=== PATIENT | male | born 1960 | race African-American/Black ===

== ENCOUNTER 2023-05-29 16:33 | Emergency (ER) | payer OTHER, SELFPAY ==
[2023-05-29 17:07] VITALS: BP 118/82; PULSE 95; RESP 16; TEMP 36.9; O2SAT 95; BMI 39.4
--- NOTE | 2023-05-29 17:49 | ED_ITS ---
HPI - General Adult General Chief complaint: Skin/Abscess/Foreign Body Stated complaint: scabies Time Seen by Provider: 05/29/23 17:14 Source: patient Mode of arrival: ambulatory Limitations: no limitations History of Present Illness HPI narrative: 62-year-old male presents to the ED for itchiness and rash all over including chest. Patient exposed to confirm scabies case at longterm. Patient states other longterm members also symptomatic. Patient denies any chest pain or shortness of breath. Related Data Previous Rx's Medication Instructions Recorded permethrin 5 % topical cream 1 appl topical Q14D 2 doses #60 05/29/23 grams Allergies Allergy/AdvReac Type Severity Reaction Status Date / Time haloperidol [From Haldol] Allergy Unknown Verified 05/29/23 17:10 Penicillins Allergy Anaphylaxis Verified 05/29/23 17:10 Review of Systems 2 Review of Systems: Itchiness scabies rash Yes all other systems are reviewed and are negative PMFSH Social History Social History Advance Directives: No Advance Directives Information Provided: No Physical Exam ED Vital Signs: Vital Signs - 24 hr 05/29/23 17:07 Temperature 98.5 F Pulse Rate 95 Respiratory Rate 16 Blood Pressure 118/82 Pulse Oximetry 95 Oxygen Delivery Method Room Air BMI result Body Mass Index 39.4 Const General: cooperative, healthy appearing, comfortable, no acute distress, well developed, alert, awake and Physically active Orientation/consciousness: oriented to person, oriented to place, oriented to time and patient oriented x3 HENMT Head: Yes normal to inspection, Yes No palpable skull fracture present, Yes normocephalic and Yes atraumatic Eyes General: appearance normal, both eyes and all related structures Neck Neck: Yes normal visual inspection, Yes full ROM, Yes no lymphadenopathy, Yes no meningeal signs, Yes trachea midline, Yes supple, No anterior neck swelling and No tender Chest Chest palpation & inspection: normal inspection of the chest and normal palpation of entire chest wall Chest/axillae images: 2 1. Scabies rash Resp Effort & Inspection: normal respiratory effort and able to speak in complete sentences Auscultation: clear to auscultation bilaterally Cardio Jugular venous distension: no JVD Heart sounds: S1 normal heart sound present and S2 normal heart sound present GI Inspection: Yes normal to inspection Palpation (GI): Soft to palpation, not firm, nontender, no guarding and not rigid General: Yes no CVA tenderness Back/Spine/Pelvis Back: no CVA tenderness and No back tenderness Skin General skin exam: no rashes or lesions noted, elasticity normal and turgor normal Neuro General: oriented to person, oriented to place, oriented to time, patient oriented x3, gait normal, tone normal, moves all extremities, Normal light touch and pain sensation, no meningeal signs, no focal motor deficits, CN's II-XI intact bilaterally and normal sensation to monofilament Extrem General: Yes normal to inspection and Yes full ROM Psych Appearance: grossly normal, well kempt and not disheveled Medical Decision Making Medical Decision Making MDM Narrative: 62-year-old male presents to ED for generalized achiness and bumps on chest. Patient exposed to confirm case of scabies and longterm. Patient other longterm members also symptomatic. Patient denies any anaphylactic symptoms. Differential Diagnosis Differential Diagnoses: The differential diagnosis associated with the presentation includes (Scabies, bedbugs, contact dermatitis, allergic reaction) Admission/Observation Consideration of admission/observation: Escalation of care including admission/observation considered Independent Historian Clinical information obtained from an independent historian. History obtained from or confirmed by: Other (residential staff) External Record Review External record reviewed: Other (Prior visits) Prescription Management I considered prescription management with: Other (Permethrin) Social Determinants Patient?s care significantly limited by Social Determinants of Health including: Other Social Determinant of Health (Lives in longterm) Discharge Plan Discharge Clinical Impression: Scabies Patient Disposition: Home, Self-Care Instructions: Scabies (ED) Additional Instructions: Return to the ED immediately for swelling of lips, swelling of tongue, sensation of throat closing, facial swelling, chest pain, shortness of breath, worsening rash, fever, chills, or any other concerning symptoms Prescriptions: New permethrin 5 % cream 1 appl topical Q14D Qty: 60 0RF Rx Instructions: apply second treatment 14 days after first treatment if live lice remain. Leave on for 8 to 14 hours than wash by shower or bath Discharge Date/Time: 05/29/23 19:48 Print Language: Japanese
== END 2023-05-29 19:48 | disposition home or self-care (01) ==
PROVIDERS: Emergency Provider Emergency Medicine
DX: B86 Scabies (principal)
CPT/HCPCS: 99281; 99283

== ENCOUNTER 2023-08-20 13:35 | Outpatient (RCR) | payer OTHER, SELFPAY ==
--- NOTE | 2023-08-20 14:09 | W.PM.TMSCONS ---
Meds/Allergies Meds Narrative: Current medications clotrimazole 1% gabapentin 300 mg daily in the morning and 300 mg daily as needed for tremor and anxiety hydroxyzine 50 mg 4 times a day as needed Lipitor 40 mg daily meclizine 25 mg 4 times a day as needed Nexium 40 mg daily senna daily Seroquel 50 mg 4 times a day as needed for anxiety agitation 100 mg at bedtime as needed Topamax 50 mg twice a day for tremor Zestoretic 25 mg daily lexapro 20 mg guanfacine 2 mg hs perphenazine 16 mg daily Allergies Allergies Allergy/AdvReac Type Severity Reaction Status Date / Time haloperidol [From Haldol] Allergy Unknown Verified 05/29/23 17:10 Penicillins Allergy Anaphylaxis Verified 05/29/23 17:10 Assessment & Plan Assessment & Plan Plan Extensive records reviewed case discussed repeatedly with clinician Total time managing care of this patient today _70___ minutes.
--- NOTE | 2023-11-16 14:42 | PM.EVENT ---
Event Note Date of Service: 08/20/23 Event Note: Patient's case reviewed with referring provider information reviewed patient briefly seen reschedule for for evaluation after review of referral material Time Spent With Patient Time: Total time managing care of this patient today ____ minutes.
== END 2023-08-20 15:03 | disposition home or self-care (01) ==
LOC: HO.PTMS 13:35
PROVIDERS: Visit Provider Psychiatry & Neurology Psychiatry
DX: Z79.899 Other long term (current) drug therapy (principal)

== ENCOUNTER → 2023-10-16 12:30 | Outpatient (BNV) | payer OTHER, SELFPAY | PROVIDERS: Visit Provider Psychiatry & Neurology Psychiatry | DX: F33.2 Major depressive disorder, recurrent severe without psychotic features (principal); F43.12 Post-traumatic stress disorder, chronic | CPT/HCPCS: 90867; 90868 ==

== ENCOUNTER 2023-12-15 10:00 | Outpatient (RCR) | payer OTHER, SELFPAY ==
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
--- NOTE | 2023-10-16 23:23 | HO.TMSDAILY2 ---
TMS Daily Progress Note Daily TMS Progress Note Date of Service: 10/16/23 Week #: 1 Treatment #(06-10): 1 PHQ-9 Pre-Treatment (06-07): 18 PHQ-9 Most Recent (06-07): 18 Reviewed: TMS Tech Note Reviewed Verification: I have reviewed the TMS Cobbler Upper Note and agree with the contents. The patient remains a candidate to continue TMS treatment per protocol. Assessment and Plan (1) Major depressive disorder, recurrent severe without psychotic features: Status: Acute (2) Chronic post-traumatic stress disorder (PTSD): Status: Acute Plan second attempt remapping successful with gabapentin tapered tolerated first tx coil angle changed to 30
--- NOTE | 2023-10-20 11:35 | P.PNPS_ITS ---
TMS Daily Progress Note Daily TMS Progress Note Date of Service: 10/17/23 Week #: 1 Treatment #(06-10): 2 PHQ-9 Pre-Treatment (06-07): 18 PHQ-9 Most Recent (06-07): 18 Reviewed: TMS Tech Note Reviewed Verification: I have reviewed the TMS Public Improvement Inspector Note and agree with the contents. The patient remains a candidate to continue TMS treatment per protocol. Assessment and Plan (1) Major depressive disorder, recurrent severe without psychotic features: Status: Acute (2) Chronic post-traumatic stress disorder (PTSD): Status: Acute Plan pt with some post tx fatigue tolerating tx mt %inc gradually
--- NOTE | 2023-10-20 11:37 | P.PNPS_ITS ---
TMS Daily Progress Note Daily TMS Progress Note Date of Service: 10/20/23 Week #: 1 Treatment #(06-10): 3 PHQ-9 Pre-Treatment (06-07): 18 PHQ-9 Most Recent (06-07): 19 Reviewed: TMS Tech Note Reviewed Verification: I have reviewed the TMS Silvering Applicator Note and agree with the contents. The patient remains a candidate to continue TMS treatment per protocol. Assessment and Plan (1) Major depressive disorder, recurrent severe without psychotic features: Status: Acute Plan Calm cooperative no adverse effects noted tolerating treatment continue plan of care
--- NOTE | 2023-10-21 22:19 | P.PNPS_ITS ---
TMS Daily Progress Note Daily TMS Progress Note Date of Service: 10/21/23 Week #: 1 Treatment #(06-10): 1 PHQ-9 Pre-Treatment (06-07): 18 PHQ-9 Most Recent (06-07): 19 Reviewed: TMS Tech Note Reviewed Verification: I have reviewed the TMS Case Packer And Sealer Note and agree with the contents. The patient remains a candidate to continue TMS treatment per protocol. Assessment and Plan (1) Major depressive disorder, recurrent severe without psychotic features: Status: Acute Plan Calm cooperative minimal adverse effects noted tolerating treatment continue plan of care
--- NOTE | 2023-10-22 23:27 | HO.TMSDAILY2 ---
TMS Daily Progress Note Daily TMS Progress Note Date of Service: 10/22/23 Week #: 1 Treatment #(06-10): 5 PHQ-9 Pre-Treatment (06-07): 18 PHQ-9 Most Recent (06-07): 19 Reviewed: TMS Tech Note Reviewed Verification: I have reviewed the TMS Despatching And Receiving Clerk Note and agree with the contents. The patient remains a candidate to continue TMS treatment per protocol. Assessment and Plan (1) Major depressive disorder, recurrent severe without psychotic features: Status: Acute Plan Calm cooperative minimal adverse effects noted tolerating treatment continue plan of care
--- NOTE | 2023-10-23 22:49 | HO.TMSDAILY2 ---
TMS Daily Progress Note Daily TMS Progress Note Date of Service: 10/23/23 Week #: 2 Treatment #(06-10): 6 PHQ-9 Pre-Treatment (06-07): 18 PHQ-9 Most Recent (06-07): 19 Reviewed: TMS Tech Note Reviewed Verification: I have reviewed the TMS Manager Special Events Note and agree with the contents. The patient remains a candidate to continue TMS treatment per protocol. Assessment and Plan (1) Major depressive disorder, recurrent severe without psychotic features: Status: Acute (2) Chronic post-traumatic stress disorder (PTSD): Status: Acute Plan MT gradually being increased no significant improvement to this point cooperative no significant change mental status no worsening
--- NOTE | 2023-10-27 10:11 | HO.TMSDAILY2 ---
TMS Daily Progress Note Daily TMS Progress Note Date of Service: 10/24/23 Week #: 2 Treatment #(06-10): 7 PHQ-9 Pre-Treatment (06-07): 18 PHQ-9 Most Recent (06-07): 19 Reviewed: TMS Tech Note Reviewed Verification: I have reviewed the TMS Hall Coordinator Note and agree with the contents. The patient remains a candidate to continue TMS treatment per protocol. Assessment and Plan (1) Major depressive disorder, recurrent severe without psychotic features: Status: Acute (2) Chronic post-traumatic stress disorder (PTSD): Status: Acute Plan MT gradually being increased secondary to some discomfort now at 110% otherwise generally tolerating treatment cooperative somewhat subdued during treatment but superficially pleasant
--- NOTE | 2023-10-27 10:13 | HO.TMSDAILY2 ---
TMS Daily Progress Note Daily TMS Progress Note Date of Service: 10/27/23 Week #: 2 Treatment #(06-10): 8 PHQ-9 Pre-Treatment (06-07): 18 PHQ-9 Most Recent (06-07): 19 Reviewed: TMS Tech Note Reviewed Verification: I have reviewed the TMS Preschool Special Education Teacher Note and agree with the contents. The patient remains a candidate to continue TMS treatment per protocol. Assessment and Plan (1) Major depressive disorder, recurrent severe without psychotic features: Status: Acute (2) Chronic post-traumatic stress disorder (PTSD): Status: Acute Plan MT gradually being increased ? some inc range of affect
--- NOTE | 2023-11-05 17:49 | P.PNPS_ITS ---
TMS Daily Progress Note Daily TMS Progress Note Date of Service: 10/28/23 Week #: 2 Treatment #(06-10): 9 PHQ-9 Pre-Treatment (06-07): 18 PHQ-9 Most Recent (06-07): 19 Reviewed: TMS Tech Note Reviewed Verification: I have reviewed the TMS Exhibit Preparator Note and agree with the contents. The patient remains a candidate to continue TMS treatment per protocol. Assessment and Plan (1) Major depressive disorder, recurrent severe without psychotic features: Status: Acute (2) Chronic post-traumatic stress disorder (PTSD): Status: Acute Plan MT gradually being increased some inc range of affect
--- NOTE | 2023-12-14 20:33 | P.PNPS_ITS ---
TMS Daily Progress Note Daily TMS Progress Note Date of Service: 10/30/23 Week #: 2 Treatment #(06-10): 10 PHQ-9 Pre-Treatment (06-07): 18 PHQ-9 Most Recent (06-07): 19 Reviewed: TMS Tech Note Reviewed Verification: I have reviewed the TMS Adjunct Faculty For Medical Terminology Note and agree with the contents. The patient remains a candidate to continue TMS treatment per protocol. Assessment and Plan (1) Major depressive disorder, recurrent severe without psychotic features: Status: Acute Plan missed prior tx secondary to medical test
--- NOTE | 2023-12-14 20:35 | P.PNPS_ITS ---
TMS Daily Progress Note Daily TMS Progress Note Date of Service: 10/31/23 Week #: 3 Treatment #(06-10): 11 PHQ-9 Pre-Treatment (06-07): 18 PHQ-9 Most Recent (06-07): 19 Reviewed: TMS Tech Note Reviewed Verification: I have reviewed the TMS Business Intelligence Etl Developer Note and agree with the contents. The patient remains a candidate to continue TMS treatment per protocol. Assessment and Plan (1) Major depressive disorder, recurrent severe without psychotic features: Status: Acute Plan Trying to become more independent from nursing home some improvement noted from the beginning of treatment
--- NOTE | 2023-12-14 20:39 | P.PNPS_ITS ---
TMS Daily Progress Note Daily TMS Progress Note Date of Service: 11/03/23 Week #: 3 Treatment #(06-10): 12 PHQ-9 Pre-Treatment (06-07): 18 PHQ-9 Most Recent (06-07): 19 Reviewed: TMS Tech Note Reviewed Verification: I have reviewed the TMS Regional Clinical Director Note and agree with the contents. The patient remains a candidate to continue TMS treatment per protocol. Assessment and Plan (1) Major depressive disorder, recurrent severe without psychotic features: Status: Acute Plan Patient is PHQ-9 remains somewhat static however he is functioning better making steps to see family to potentially move out of the house
--- NOTE | 2023-12-14 20:42 | HO.TMSDAILY2 ---
TMS Daily Progress Note Daily TMS Progress Note Date of Service: 11/04/23 Week #: 3 Treatment #(06-10): 13 PHQ-9 Pre-Treatment (06-07): 18 PHQ-9 Most Recent (06-07): 19 Reviewed: TMS Tech Note Reviewed Verification: I have reviewed the TMS Plastering Contractor Note and agree with the contents. The patient remains a candidate to continue TMS treatment per protocol. Assessment and Plan (1) Major depressive disorder, recurrent severe without psychotic features: Status: Acute Plan Functioning and quality of life seems to have improved PHQ-9 has not patient has some difficulty in the house
--- NOTE | 2023-12-14 20:45 | P.PNPS_ITS ---
TMS Daily Progress Note Daily TMS Progress Note Date of Service: 11/05/23 Week #: 3 Treatment #(06-10): 14 PHQ-9 Pre-Treatment (06-07): 18 PHQ-9 Most Recent (06-07): 19 Reviewed: TMS Tech Note Reviewed Verification: I have reviewed the TMS Flight Attendant/Inflight Manager Note and agree with the contents. The patient remains a candidate to continue TMS treatment per protocol. Assessment and Plan (1) Major depressive disorder, recurrent severe without psychotic features: Status: Acute Plan Treatment continues without problematic side effects
--- NOTE | 2023-12-14 20:47 | P.PNPS_ITS ---
TMS Daily Progress Note Daily TMS Progress Note Date of Service: 11/06/23 Week #: 3 Treatment #(06-10): 15 PHQ-9 Pre-Treatment (06-07): 18 PHQ-9 Most Recent (06-07): 19 Reviewed: TMS Tech Note Reviewed Verification: I have reviewed the TMS Steam Brush Operator Note and agree with the contents. The patient remains a candidate to continue TMS treatment per protocol. Assessment and Plan (1) Major depressive disorder, recurrent severe without psychotic features: Status: Acute Plan Treatment continues without problematic side effects
--- NOTE | 2023-12-14 20:49 | P.PNPS_ITS ---
TMS Daily Progress Note Daily TMS Progress Note Date of Service: 11/07/23 Week #: 4 Treatment #(06-10): 16 PHQ-9 Pre-Treatment (06-07): 18 PHQ-9 Most Recent (06-07): 19 Reviewed: TMS Tech Note Reviewed Verification: I have reviewed the TMS Class 1 Owner Operator Note and agree with the contents. The patient remains a candidate to continue TMS treatment per protocol. MT at 120% Assessment and Plan (1) Major depressive disorder, recurrent severe without psychotic features: Status: Acute Plan Treatment continues without problematic side effects no improvement noted on scales but improvement noted with patient
--- NOTE | 2023-12-14 20:51 | P.PNPS_ITS ---
TMS Daily Progress Note Daily TMS Progress Note Date of Service: 11/10/23 Week #: 4 Treatment #(06-10): 17 PHQ-9 Pre-Treatment (06-07): 18 PHQ-9 Most Recent (06-07): 19 Reviewed: TMS Tech Note Reviewed Verification: I have reviewed the TMS Collar Turner Operator Note and agree with the contents. The patient remains a candidate to continue TMS treatment per protocol. Assessment and Plan (1) Major depressive disorder, recurrent severe without psychotic features: Status: Acute Plan Treatment continues without problematic side effects no improvement noted on scales but improvement noted with patient at times
--- NOTE | 2023-12-14 21:37 | HO.TMSDAILY2 ---
TMS Daily Progress Note Daily TMS Progress Note Date of Service: 11/11/23 Week #: 4 Treatment #(06-10): 18 PHQ-9 Pre-Treatment (06-07): 18 PHQ-9 Most Recent (06-07): 19 Reviewed: TMS Tech Note Reviewed Verification: I have reviewed the TMS Truck Greaser Note and agree with the contents. The patient remains a candidate to continue TMS treatment per protocol.
--- NOTE | 2023-12-14 21:43 | P.PNPS_ITS ---
TMS Daily Progress Note Daily TMS Progress Note Date of Service: 11/12/23 Week #: 4 Treatment #(06-10): 19 PHQ-9 Pre-Treatment (06-07): 18 PHQ-9 Most Recent (06-07): 19 Reviewed: TMS Tech Note Reviewed Verification: I have reviewed the TMS Technologies Division Chair Note and agree with the contents. The patient remains a candidate to continue TMS treatment per protocol. Assessment and Plan (1) Major depressive disorder, recurrent severe without psychotic features: Status: Acute Plan Continue plan of care patient visiting family this weekend
--- NOTE | 2023-12-14 21:49 | HO.TMSDAILY2 ---
TMS Daily Progress Note Daily TMS Progress Note Date of Service: 11/17/23 Week #: 4 Treatment #(06-10): 20 PHQ-9 Pre-Treatment (06-07): 18 PHQ-9 Most Recent (06-07): 19 Reviewed: TMS Tech Note Reviewed Verification: I have reviewed the TMS Biology Faculty Member Note and agree with the contents. The patient remains a candidate to continue TMS treatment per protocol. Assessment and Plan (1) Major depressive disorder, recurrent severe without psychotic features: Status: Acute Plan Continue plan of care
--- NOTE | 2023-12-14 21:54 | P.PNPS_ITS ---
TMS Daily Progress Note Daily TMS Progress Note Date of Service: 11/18/23 Week #: 5 Treatment #(06-10): 21 PHQ-9 Pre-Treatment (06-07): 18 PHQ-9 Most Recent (06-07): 19 Reviewed: TMS Tech Note Reviewed Verification: I have reviewed the TMS Civil Litigation Attorney Note and agree with the contents. The patient remains a candidate to continue TMS treatment per protocol. Assessment and Plan (1) Major depressive disorder, recurrent severe without psychotic features: Status: Acute Plan cont plan of care no c/o s/e
--- NOTE | 2023-12-14 21:55 | P.PNPS_ITS ---
TMS Daily Progress Note Daily TMS Progress Note Date of Service: 11/18/23 Week #: 5 Treatment #(06-10): 21 PHQ-9 Pre-Treatment (06-07): 18 PHQ-9 Most Recent (06-07): 19 Reviewed: TMS Tech Note Reviewed Verification: I have reviewed the TMS Wildland Fire Fighter Note and agree with the contents. The patient remains a candidate to continue TMS treatment per protocol. Assessment and Plan (1) Major depressive disorder, recurrent severe without psychotic features: Status: Acute Plan Continue plan of care consider re map
--- NOTE | 2023-12-14 22:05 | HO.TMSDAILY2 ---
TMS Daily Progress Note Daily TMS Progress Note Date of Service: 11/19/23 Week #: 5 Treatment #(06-10): 22 PHQ-9 Pre-Treatment (06-07): 18 PHQ-9 Most Recent (06-07): 19 Reviewed: TMS Tech Note Reviewed Verification: I have reviewed the TMS Novelty Balloon Assembler And Packer Note and agree with the contents. The patient remains a candidate to continue TMS treatment per protocol. Assessment and Plan (1) Major depressive disorder, recurrent severe without psychotic features: Status: Acute Plan Continue plan of care consider re map
--- NOTE | 2023-12-14 22:07 | HO.TMSDAILY2 ---
TMS Daily Progress Note Daily TMS Progress Note Date of Service: 11/20/23 Week #: 5 Treatment #(06-10): 23 PHQ-9 Pre-Treatment (06-07): 18 PHQ-9 Most Recent (06-07): 19 Reviewed: TMS Tech Note Reviewed Verification: I have reviewed the TMS Secret Service Agent Note and agree with the contents. The patient remains a candidate to continue TMS treatment per protocol. Assessment and Plan (1) Major depressive disorder, recurrent severe without psychotic features: Status: Acute Plan Continue plan of care consider re map
--- NOTE | 2023-12-14 22:11 | HO.TMSDAILY2 ---
TMS Daily Progress Note Daily TMS Progress Note Date of Service: 11/21/23 Week #: 5 Treatment #(06-10): 24 PHQ-9 Pre-Treatment (06-07): 18 PHQ-9 Most Recent (06-07): 19 Reviewed: TMS Tech Note Reviewed Verification: I have reviewed the TMS City Maintenance Manager Note and agree with the contents. The patient remains a candidate to continue TMS treatment per protocol. Assessment and Plan (1) Major depressive disorder, recurrent severe without psychotic features: Status: Acute Plan Continue treatment functioning better rating generally has not improved unclear no side effects noted
--- NOTE | 2023-12-14 22:18 | P.PNPS_ITS ---
TMS Daily Progress Note Daily TMS Progress Note Date of Service: 11/24/23 Week #: 5 Treatment #(06-10): 25 PHQ-9 Pre-Treatment (06-07): 18 PHQ-9 Most Recent (06-07): 19 Reviewed: TMS Tech Note Reviewed Verification: I have reviewed the TMS Aircraft Structural Fitter Note and agree with the contents. The patient remains a candidate to continue TMS treatment per protocol. Assessment and Plan (1) Major depressive disorder, recurrent severe without psychotic features: Status: Acute Plan Continue treatment functioning better rating generally has not improved unclear no side effects noted
--- NOTE | 2023-12-14 22:23 | P.PNPS_ITS ---
TMS Daily Progress Note Daily TMS Progress Note Date of Service: 11/25/23 Week #: 5 Treatment #(06-10): 26 PHQ-9 Pre-Treatment (06-07): 18 PHQ-9 Most Recent (06-07): 19 Reviewed: TMS Tech Note Reviewed Verification: I have reviewed the TMS Programmer Engineering And Scientific Note and agree with the contents. The patient remains a candidate to continue TMS treatment per protocol. Assessment and Plan (1) Major depressive disorder, recurrent severe without psychotic features: Status: Acute Plan Continue plan of care
--- NOTE | 2023-12-14 22:25 | HO.TMSDAILY2 ---
TMS Daily Progress Note Daily TMS Progress Note Date of Service: 11/26/23 Week #: 6 Treatment #(06-10): 27 PHQ-9 Pre-Treatment (06-07): 18 PHQ-9 Most Recent (06-07): 19 Reviewed: TMS Tech Note Reviewed Verification: I have reviewed the TMS Sample Worker Note and agree with the contents. The patient remains a candidate to continue TMS treatment per protocol. Assessment and Plan (1) Major depressive disorder, recurrent severe without psychotic features: Status: Acute Plan Continue plan of care
--- NOTE | 2023-12-14 22:28 | P.PNPS_ITS ---
TMS Daily Progress Note Daily TMS Progress Note Date of Service: 11/27/23 Week #: 6 Treatment #(06-10): 28 PHQ-9 Pre-Treatment (06-07): 18 PHQ-9 Most Recent (06-07): 15 Reviewed: TMS Tech Note Reviewed Verification: I have reviewed the TMS Network Control Operator Note and agree with the contents. The patient remains a candidate to continue TMS treatment per protocol. Assessment and Plan (1) Major depressive disorder, recurrent severe without psychotic features: Status: Acute Plan cont plan of care
--- NOTE | 2023-12-14 22:31 | HO.TMSDAILY2 ---
TMS Daily Progress Note Daily TMS Progress Note Date of Service: 11/28/23 Week #: 6 Treatment #(06-10): 29 PHQ-9 Pre-Treatment (06-07): 18 PHQ-9 Most Recent (06-07): 15 Reviewed: TMS Tech Note Reviewed Verification: I have reviewed the TMS Stoker Erector And Servicer Note and agree with the contents. The patient remains a candidate to continue TMS treatment per protocol. Assessment and Plan (1) Major depressive disorder, recurrent severe without psychotic features: Status: Acute Plan Patient feeling much improved
--- NOTE | 2023-12-14 22:34 | HO.TMSDAILY2 ---
TMS Daily Progress Note Daily TMS Progress Note Date of Service: 12/01/23 Week #: 6 Treatment #(06-10): 30 PHQ-9 Pre-Treatment (06-07): 18 PHQ-9 Most Recent (06-07): 15 Reviewed: TMS Tech Note Reviewed Verification: I have reviewed the TMS Business Banking Sales Assistant Note and agree with the contents. The patient remains a candidate to continue TMS treatment per protocol. Assessment and Plan (1) Major depressive disorder, recurrent severe without psychotic features: Status: Acute Plan pt continues to engage in treatment no complaints of side effects
--- NOTE | 2023-12-14 22:36 | HO.TMSDAILY2 ---
TMS Daily Progress Note Daily TMS Progress Note Date of Service: 12/02/23 Week #: 7 Treatment #(06-10): 31 PHQ-9 Pre-Treatment (06-07): 18 PHQ-9 Most Recent (06-07): 15 Reviewed: TMS Tech Note Reviewed Verification: I have reviewed the TMS Utility Arborist Note and agree with the contents. The patient remains a candidate to continue TMS treatment per protocol. Assessment and Plan (1) Major depressive disorder, recurrent severe without psychotic features: Status: Acute Plan cont plan of care seems much improved
--- NOTE | 2023-12-14 22:40 | P.PNPS_ITS ---
TMS Daily Progress Note Daily TMS Progress Note Date of Service: 12/05/23 Week #: 7 Treatment #(06-10): 32 PHQ-9 Pre-Treatment (06-07): 18 PHQ-9 Most Recent (06-07): 15 Reviewed: TMS Tech Note Reviewed Verification: I have reviewed the TMS Reimbursement Consultant Note and agree with the contents. The patient remains a candidate to continue TMS treatment per protocol. Assessment and Plan (1) Major depressive disorder, recurrent severe without psychotic features: Status: Acute Plan cont plan of care
--- NOTE | 2023-12-14 22:43 | P.PNPS_ITS ---
TMS Daily Progress Note Daily TMS Progress Note Date of Service: 12/08/23 Week #: 7 Treatment #(06-10): 33 PHQ-9 Pre-Treatment (06-07): 18 PHQ-9 Most Recent (06-07): 15 Reviewed: TMS Tech Note Reviewed Verification: I have reviewed the TMS Angiography Nurse Note and agree with the contents. The patient remains a candidate to continue TMS treatment per protocol. Assessment and Plan (1) Major depressive disorder, recurrent severe without psychotic features: Status: Acute Plan cont plan of care
--- NOTE | 2023-12-14 22:46 | P.PNPS_ITS ---
TMS Daily Progress Note Daily TMS Progress Note Date of Service: 12/10/23 Week #: 8 Treatment #(06-10): 34 PHQ-9 Pre-Treatment (06-07): 18 PHQ-9 Most Recent (06-07): 15 Reviewed: TMS Tech Note Reviewed Verification: I have reviewed the TMS Recreational Therapist Note and agree with the contents. The patient remains a candidate to continue TMS treatment per protocol. Assessment and Plan (1) Major depressive disorder, recurrent severe without psychotic features: Status: Acute Plan cont plan of care
--- NOTE | 2023-12-14 22:49 | P.PNPS_ITS ---
TMS Daily Progress Note Daily TMS Progress Note Date of Service: 12/12/23 Week #: 8 Treatment #(06-10): 35 PHQ-9 Pre-Treatment (06-07): 18 PHQ-9 Most Recent (06-07): 15 Reviewed: TMS Tech Note Reviewed Verification: I have reviewed the TMS Brake Repair Mechanic Note and agree with the contents. The patient remains a candidate to continue TMS treatment per protocol. Assessment and Plan (1) Major depressive disorder, recurrent severe without psychotic features: Status: Acute Plan Patient states he feels much better PHQ-9 does not reflect this unclear if this is language issue or reading comprehension but patient states is feeling much better and functioning much better
--- NOTE | 2023-12-15 10:25 | P.PNPS_ITS ---
TMS Daily Progress Note Daily TMS Progress Note Date of Service: 12/15/23 Week #: 8 Treatment #(06-10): 36 PHQ-9 Pre-Treatment (06-07): 18 PHQ-9 Most Recent (06-07): 13 Reviewed: TMS Tech Note Reviewed Verification: I have reviewed the TMS Flag Signaler Note and agree with the contents. The patient remains a candidate to continue TMS treatment per protocol. Assessment and Plan (1) Major depressive disorder, recurrent severe without psychotic features: Status: Acute (2) Chronic post-traumatic stress disorder (PTSD): Status: Acute Plan Patient's quality of life ability to function ability to handle stress at his place that he is living in the skilled nursing has markedly improved. Patient is quite clear about this. He has felt when rating the PHQ-9 it relates to stress at the skilled nursing but internally the patient is able to enjoy things future oriented looking to move out getting part-time jobs spends time with family much more social and engaged marked improvement in dissociative episodes PTSD symptoms
--- NOTE | 2023-12-15 10:58 | HO.TMSDAILY2 ---
TMS Daily Progress Note Daily TMS Progress Note Date of Service: 12/15/23 Week #: 8 Treatment #(06-10): 36 PHQ-9 Pre-Treatment (06-07): 18 PHQ-9 Most Recent (06-07): 13 reevaluate with pt seems closer to 8 Reviewed: TMS Tech Note Reviewed Verification: I have reviewed the TMS Director Of Managed Care Note and agree with the contents. The patient remains a candidate to continue TMS treatment per protocol. Assessment and Plan (1) Major depressive disorder, recurrent severe without psychotic features: Status: Acute (2) Chronic post-traumatic stress disorder (PTSD): Status: Acute Plan Patient appears somewhat confused and how to fill out PHQ-9 GED patient markedly improved with quality of life able to function much higher level Mood much improved more relaxed able to enjoy things having some stress in relationship to living in the long-term but otherwise seems very significantly improved which is what he states
== END 2023-12-16 13:12 | disposition home or self-care (01) ==
LOC: HO.PTMS 10:00
PROVIDERS: Visit Provider Psychiatry & Neurology Psychiatry
DX: F33.2 Major depressive disorder, recurrent severe without psychotic features (principal); F43.12 Post-traumatic stress disorder, chronic; F44.9 Dissociative and conversion disorder, unspecified; F98.8 Other specified behavioral and emotional disorders with onset usually occurring in childhood and adolescence
CPT/HCPCS: 90867; 90868; 99205

== ENCOUNTER 2024-03-29 13:51 | Inpatient (IN) | payer OTHER, SELFPAY ==
--- NOTE | ~2024-03-29 | CT_ITS ---
EXAMINATION: CT CHEST, ABDOMEN AND PELVIS WITHOUT CONTRAST CLINICAL INFORMATION: Past medical history of achalasia. Trouble swallowing. Food stuck? COMPARISON: No pertinent prior studies are available for comparison. TECHNIQUE: Multidetector volumetric imaging was performed from the thoracic inlet through the pubic symphysis without IV contrast. Sagittal and coronal reformatted images were obtained on the technologist's workstation. This CT examination was performed using dose optimization techniques as appropriate, variously including the following: *Automated exposure control *Adjustment of mA and/or kV according to patient size (this includes techniques or standardized protocols for targeted exams where dose is matched to indication/reason for exam; i.e. extremities or head) *Use of iterative reconstruction technique DLP: 456 mGy-cm FINDINGS: CHEST: Lun 5 mm size nodules are present at the left lung base (7:381 and 394). No significant emphysematous changes are seen. There is mild diffuse bronchial thickening. The lungs are otherwise clear without concerning focal opacity or nodule. Mediastinum: The thyroid is markedly enlarged, right lobe greater than left, and compresses the trachea. The lobes of the thyroid essentially meet posteriorly in the region of the esophagus and are likely compressing the upper esophagus as well. The mid and lower esophagus are minimally dilated consistent with a history of achalasia. Small hiatal hernia may be present. Pericardium/Pleura: No significant effusion. No pleural mass or thickening. Coronary artery calcium: None appreciated Chest Wall/Axilla: Unremarkable ABDOMEN/PELVIS: Peritoneal Space: No significant free air or free fluid identified. Liver, Gallbladder, Biliary Tree: The liver is normal in size, shape, and attenuation. No focal hepatic lesion or biliary ductal dilatation is present. The gallbladder is unremarkable with no evidence of radiopaque gallstones, gallbladder wall thickening, or obvious pericholecystic inflammatory changes. Pancreas: Unremarkable Spleen: Unremarkable Adrenal Glands: Unremarkable Kidneys and Ureters: The kidneys are normal in size, shape, and attenuation. No hydronephrosis, hydroureter, or calculi seen. Bilateral benign Bosniak class I renal cysts are noted , right greater than left, which require no additional imaging or follow-up. No solid renal masses are seen. No perinephric stranding. Bladder: Unremarkable Gastrointestinal Tract: The small and large bowel are unremarkable. The appendix is unremarkable. Abdominal Wall: No significant hernia is appreciated. Lymph Nodes: No lymphadenopathy. Vascular: The aorta appears normal.. The IVC appears unremarkable. PELVIC VISCERA: There is moderate to marked BPH. Seminal vesicles appear normal. OSSEUS STRUCTURES: Mild degenerative changes are noted in the spine. No bony destructive or lesions are seen. CT/CT abdomen pelvis wo IV con IMPRESSION: 1. Markedly enlarged thyroid compressing the trachea and esophagus. This may be related to the patient's difficulty swallowing 2. Mildly dilated mid and distal esophagus consistent with a history of achalasia. 3. Two 5 mm size nodules left lung base. 4. Incidental note made of BPH and benign Bosniak class I renal cysts which need no additional imaging or follow-up. According to the UPDATED 2017 Fleischner Society recommendations, the advised follow-up imaging for solid nodules <6 mm in the middle/lower lobes is no routine follow up. Electronically signed by: Hemanth Anderson MD 03/29/2024 08:43 PM EST
[2024-03-29 14:06] VITALS: BP 126/84; PULSE 85; RESP 16; TEMP 37.2; O2SAT 98; BMI 35.6
--- NOTE | 2024-03-29 14:10 | ECG_ITS ---
Test Reason : VOMITTING Blood Pressure : / mmHG Vent. Rate : 081 BPM Atrial Rate : 081 BPM P-R Int : 186 ms QRS Dur : 090 ms QT Int : 376 ms P-R-T Axes : 056 042 041 degrees QTc Int : 436 ms Sinus rhythm with occasional Premature ventricular complexes Otherwise normal ECG No previous ECGs available Referred By: Tera Golden Electronically Signed By:AMALIA MORALES MD
--- NOTE | 2024-03-29 14:11 | ED_ITS ---
HPI - General Adult General Chief complaint: Nausea/Vomiting/Diarrhea Stated complaint: vomiting Time Seen by Provider: 03/29/24 23:19 Source: patient Limitations: language barrier History of Present Illness ED Provider: Pinky Jim PA-C HPI narrative: 63-year-old male with a history of ADD, dissociated disorder, PTSD and depression presents from nursing home with inability to swallow food and drank x3 days. Patient states he has been having issues for months, that the symptoms have progressed, when the patient attempts to swallow whole food, he regurgitates the bolus. He was previously able to tolerate liquid, however over the past 3 days he now regurgitates a liquid as well. Patient has not seen a Gastroenterology for this issue. Related Data Previous Rx's ?Medication ?Instructions ?Recorded ondansetron HCl (PF) 4 mg/2 mL 4 mg (2 mL) IVPUSH Q8H PRN Nausea 03/30/24 injection solution And Vomiting #1 mL pantoprazole 40 mg intravenous 40 mg IVPUSH DAILY@0630 #1 ea 03/30/24 solution (Protonix) Allergies Allergy/AdvReac Type Severity Reaction Status Date / Time haloperidol [From Haldol] Allergy Unknown Verified 03/29/24 14:08 Penicillins Allergy Anaphylaxis Verified 03/29/24 14:08 Review of Systems 2 Review of Systems: Yes all other systems are reviewed and are negative Constitutional: Constitutional: Denies fatigue and Denies fever(s) ENT: Reports dysphagia and Reports odynophagia Gastrointestinal: Gastrointestinal: Reports abdominal pain, Reports dysphagia, Reports dyspepsia, Reports nausea, Reports odynophagia and Reports vomiting Endocrine: Endocrine: Denies fatigue PMFSH Past Medical History Attestation statement: The following information was validated with the patient. Medical History Attention deficit disorder Dissociative disorder Chronic post-traumatic stress disorder (PTSD) Major depressive disorder, recurrent severe without psychotic features Social History Social History Patient Tobacco Use Status: Never used Tobacco service: No Physical Exam ED Vital Signs: Vital Signs - 24 hr 03/29/24 14:06 03/29/24 21:10 Temperature 99 F 98.1 F Pulse Rate 85 86 Respiratory Rate 16 16 Blood Pressure 126/84 130/83 Pulse Oximetry 98 97 Oxygen Delivery Method Room Air Room Air BMI result Body Mass Index 35.6 Const Other: Alert, well-appearing Orientation/consciousness: patient oriented x3 Resp Other: Nonlabored respirations Cardio Other: Normal peripheral perfusion GI Other: Abdomen is soft, nondistended obese, nontender no guarding Skin Other: Warm dry no rash Neuro General: patient oriented x3, no focal motor deficits and CN's II-XI intact bilaterally Psych Other: Calm cooperative Course Course Course Narrative: RME: 63 yold male with pmh of achalasia and esophageal issues presents to the ED for vomitting. Patient states when he eats food feels like esophagus does not open all the way and he has to vomiting the food. Patient states he has follow- up with Dr. Cornelia sandoval but his primary care sent him to the ED. patient is speaking in full sentences. Patient states able to drink fluid. Patient denies any abdominal pain, chest pain, shortness of breath, or dizziness. Patient denies any constipation. Patient states normal bowel movements. Abdomen is benign EKG labs ordered. Negative for any drooling in the mouth. Patient denies eating any meat or heavy food lately. Patient denies feeling food stuck in esophagus. Patient did not eat any breakfast this morning. just drinking fluids. not suspecting Food bolus. Medications Administered Discontinued Medications Generic Name Dose Route Start Last Admin Trade Name Freq PRN Reason Stop Dose Admin Potassium Chloride 10 meq in 100 mls @ 100 mls/hr 03/30/24 01:00 03/30/24 05:14 Potassium Chloride/H20 IV 03/30/24 04:59 Infused Q1H LUCINDA Infusion Sodium Chloride 1,000 mls @ 999 mls/hr 03/30/24 01:00 03/30/24 03:57 Ns IV 03/30/24 02:00 Infused .Q1H1M LUCINDA Infusion Sodium Chloride 1,000 mls @ 999 mls/hr 03/30/24 04:00 03/30/24 05:14 Ns IV 03/30/24 05:00 Infused .Q1H1M LUCINDA Infusion Lactated Ringer's 1,000 mls @ 80 mls/hr 03/30/24 16:30 03/30/24 17:27 Lr IVCONT 80 mls/hr .[id number] LUCINDA Administration Pantoprazole Sodium 40 mg 03/30/24 06:30 03/30/24 06:20 Pantoprazole Sodium 40 Mg/10 Ml Vial IVPUSH 40 mg DAILY@0630 LUCINDA Administration Sodium Chloride 3 ml 03/30/24 08:00 03/30/24 15:20 0.9 % Sodium Chloride Flush 3 Ml Syringe IVFLUSH 3 ml QSHIFT LUCINDA Administration Medical Decision Making Medical Decision Making MDM Narrative: 63-year-old male with a history of ADD, dissociated disorder, PTSD and depression presents from nursing home with inability to swallow food and drank x3 days. Patient states he has been having issues for months, that the symptoms have progressed, when the patient attempts to swallow whole food, he regurgitates the bolus. He was previously able to tolerate liquid, however over the past 3 days he now regurgitates a liquid as well. Patient has not seen a Gastroenterology for this issue. Problem: Psychiatric illness, dysphagia History: Per patient I have considered the following differential diagnoses: Esophageal dysmotility, achalasia, esophageal stricture, esophageal mass Plan: Patient is assessment began from triage, screening labs including CT chest and abdomen were obtained, the patient has findings consistent with achalasia, he requires GI consult given inability tolerate PO intake, will admit I have independently reviewed the following tests: Labs: No leukocytosis, not anemic, hypokalemia at 3.2, no additional electrolyte abnormalities, we need to obtain a magnesium, we will order 40 mEq of IV potassium CT abdomen and pelvis and chest: CT/CT abdomen pelvis wo IV con IMPRESSION: 1. Markedly enlarged thyroid compressing the trachea and esophagus. This may be related to the patient's difficulty swallowing 2. Mildly dilated mid and distal esophagus consistent with a history of achalasia. 3. Two 5 mm size nodules left lung base. 4. Incidental note made of BPH and benign Bosniak class I renal cysts which need no additional imaging or follow-up. According to the UPDATED 2017 Fleischner Society recommendations, the advised follow-up imaging for solid nodules <6 mm in the middle/lower lobes is no routine follow up. Electronically signed by: Hemanth Anderson MD 03/29/2024 08:43 PM [facility] [place] 03/30/24 05:28 03/30/24 05:28 Labs: Lab Results 03/29/24 03/29/24 Range/Units 14:52 21:18 WBC 6.4 (4.8-10.8) X10*3/uL RBC 6.08 H (4.60-5.80) X10*6/uL Hgb 14.0 (14.0-18.0) g/dl Hct 45.4 (42.0-52.0) % MCV 74.7 L (80.0-98.0) fL MCH 23.0 L (27.0-33.0) pg MCHC 30.8 L (31.0-36.0) g/dl RDW 17.7 H (11.0-16.0) % Plt Count 146 L (160-400) X10*3/uL MPV 10.1 (9.4-12.4) fL Immature Gran % (Auto) 0.3 (0.0-0.4) % Neut % (Auto) 45.4 (45-73) % Lymph % (Auto) 40.5 H (20-40) % [place] % (Auto) 8.0 (2-11) % Eos % (Auto) 5.3 H (0-4) % Baso % (Auto) 0.5 (0-2) % Lymph # (Auto) 2.6 (1.2-4.9) X10*3/uL [place] # (Auto) 0.5 (0.1-1.2) X10*3/uL Eos # (Auto) 0.3 (0.0-0.4) X10*3/uL Baso # (Auto) 0.0 (0.0-0.2) X10*3/uL Abs Immat Gran (auto) 0.02 (0.00-0.03) X10*3/uL Absolute Neuts (auto) 2.9 (2.0-8.3) x10*3/uL Absolute Nucleated RBC 0.000 (0.0-0.012) X10*3/uL Nucleated RBC % (auto) 0.0 (0.0-0.2) /100WBC PT 10.7 L (10.9-12.4) SEC INR 0.9 (0.9-1.1) APTT 35.1 (26.0-36.8) SEC Sodium 139 (135-145) mmol/L Potassium 3.2 L (3.3-5.1) mmol/L Chloride 107 (96-108) mmol/L Carbon Dioxide 27 (22-29) mmol/L Anion Gap 8 L (12-20) BUN 13 (9-16) mg/dL Creatinine 1.28 (0.5-1.4) mg/dL Estim Creat Clear Calc 87.7 Estimated GFR 57 Random Glucose 90 (60-115) mg/dL Calcium 8.8 (8.4-10.2) mg/dL Magnesium 1.9 (1.6-2.6) mg/dL Total Bilirubin 0.6 (0.0-1.0) mg/dL AST 36 (5-37) U/L ALT 36 (0-40) U/L Alkaline Phosphatase 84 (39-117) U/L Troponin I High Sens 3.7 (<3.5-35.0) ng/L Total Protein 7.3 (6.5-8.0) g/dL Albumin 4.1 (3.5-5.0) g/dL Lipase 22 (8-78) U/L Urine Color Yellow Urine Appearance Clear Urine pH 7.0 (5.0-9.0) Ur Specific [place] 1.015 (1.005-1.025) Urine Protein Negative (Neg-Trace) mg/dL Urine Glucose (UA) Negative (Negative) mg/dL Urine Ketones Negative (Negative) mg/dL Urine Blood Negative (Negative) Urine Nitrite Negative (Negative) Ur Leukocyte Esterase Small (1+) H (Negative) Urine RBC 0-2 (0-2) /HPF Urine WBC 6-10 (0-5) /HPF Ur Squamous Epith Cells 0-2 (0-2) /HPF Urine Bacteria None Seen (None Seen) Hyaline Casts 0-2 (0-2) /LPF Discharge Plan Discharge Clinical Impression: Achalasia Patient Disposition: Xfer [facility] Hospital Interventions: Acute Care Transfer Worksheet (ED) Last Done: 03/30/24 19:24 Discharge Date/Time: 03/30/24 20:18
[2024-03-29 14:55] LABS: MANUAL DIFF FLAG NO
[2024-03-29 14:59] LABS: Basophils Percent Auto 0.5 % (0-2); Eosinophils Absolute Auto 0.3 X10*3/uL (0.0-0.4); Eosinophils Percent Auto 5.3 % (0-4); Hematocrit 45.4 % (42.0-52.0); Imm Gran Abs Auto 0.02 X10*3/uL (0.00-0.03); Imm Gran Pct Auto 0.3 % (0.0-0.4); Lymphocytes Absolute Auto 2.6 X10*3/uL (1.2-4.9); Lymphocytes Percent Auto 40.5 % (20-40); Mean Corpuscular HGB Conc 30.8 g/dl (31.0-36.0); Mean Corpuscular Volume 74.7 fL (80.0-98.0); Mean Platelet Volume 10.1 fL (9.4-12.4); Monocytes Absolute Auto 0.5 X10*3/uL (0.1-1.2); Neutrophils Absolute Auto 2.9 x10*3/uL (2.0-8.3); Neutrophils Percent Auto 45.4 % (45-73); Platelet Count 146 X10*3/uL (160-400); Red Blood Count 6.08 X10*6/uL (4.60-5.80); Red Cell Distribution Width 17.7 % (11.0-16.0); White Blood Count 6.4 X10*3/uL (4.8-10.8)
[2024-03-29 15:02] LABS: INTERNATIONAL NORM RATIO 0.9 (0.9-1.1); Prothrombin Time 10.7 SEC (10.9-12.4)
[2024-03-29 15:05] LABS: Partial Thromboplastin Time 35.1 SEC (26.0-36.8)
[2024-03-29 15:12] LABS: Alanine Aminotransferase 36 U/L (0-40); Albumin Level 4.1 g/dL (3.5-5.0); Alkaline Phosphatase 84 U/L (39-117); Anion Gap 8 (12-20); Aspartate Amino Transferase 36 U/L (5-37); Bilirubin Total 0.6 mg/dL (0.0-1.0); Blood Urea Nitrogen 13 mg/dL (9-16); Calcium 8.8 mg/dL (8.4-10.2); Carbon Dioxide 27 mmol/L (22-29); Chloride 107 mmol/L (96-108); Creatinine Clr Calc Pharmacy 87.7; Estimated Glomerular Filt Rate 57; Glucose Random 90 mg/dL (60-115); Lipase 22 U/L (8-78); Potassium 3.2 mmol/L (3.3-5.1); Sodium 139 mmol/L (135-145); Total Protein 7.3 g/dL (6.5-8.0)
[2024-03-29 15:17] LABS: Troponin-I High Sensitivity 3.7 ng/L (<3.5-35.0)
[2024-03-29 21:10] VITALS: BP 130/83; PULSE 86; RESP 16; TEMP 36.7; O2SAT 97
[2024-03-29 21:29] LABS: Appearance Urine Clear; Color Urine Yellow; Glucose Urine UA Negative (Negative); Leukocyte Esterase Urine Small (1+) (Negative); Nitrite Urine Negative (Negative); Specific Gravity - Urine 1.015 (1.005-1.025); UMIC TRIGGER UACC YES; Urine Blood Negative (Negative); Urine Ketones Negative (Negative); Urine Protein Negative (Neg-Trace)
[2024-03-29 21:51] LABS: Bacteria Urine None Seen (None Seen); Hyaline Casts Urine 0-2 /LPF (0-2); RBC Urine 0-2 /HPF (0-2); Squamous Epithelial Cell Urine 0-2 /HPF (0-2); UACC Culture Trigger YES
[2024-03-30] VITALS (7 sets, daily range): BP systolic 101–129; BP diastolic 64–78; PULSE 72–91; RESP 16–19; TEMP 36.5–36.8; O2SAT 95–98
--- NOTE | 2024-03-30 01:00 | PC.NURSE ---
pt from home a&ox4, respirations even and unlabored, pt reporting onset of difficulty swallowing x3 days, pt also reports enlarged neck and some vomiting. on arrival, pt denies nausea and vomiting. pt reports he has not eaten in 3 days due to being unable to swallow. pt throat noted to be patent and no irritation noted. pt reports he typically has throat pain when attempting to swallow. 18G placed in left forearm, pt medicated per mar. pt normal sinus on tele.
[2024-03-30] MEDS: 0.9 % Sodium Chloride 1,000 ML 999 ML IV ×2 (01:08→03:58)
[2024-03-30] MEDS: Potassium Chloride/H20 10 MEQ/100 ML PIGGYBACK 100 MEQ IV ×4 (01:10→04:10)
--- NOTE | 2024-03-30 01:17 | P.HPHOSP_ITS ---
History of Present Illness Date of Service: 03/30/24 Chief Complaint: Dysphagia This is a 63-year-old male with pertinent history of achalasia status post surgery, hypertension, mixed hyperlipidemia, mood disorder, gastroesophageal reflux disease who presents to the emergency department for evaluation of difficulty with swallowing. Patient states 15 years ago he had surgery for achalasia. He has had occasional difficulty with swallowing over the last few months. Over the last 3 days, patient was unable to swallow solid or liquid due to dysphagia which has been persistent. It has been progressive and on the day of presentation, patient states everything that he ate or drank, was coming up. No pain with swallowing. Patient was referred to Gastroenterology by his PCP but he has not established care yet. No fever, chills, chest pain, palpitations, shortness of breath, changes in urinary or bowel habits. In the emergency department, imaging with enlarged thyroid Review of Systems 2 Constitutional: Constitutional: Reports no additional constitutional complaints ENT: Reports dysphagia Cardiovascular: Cardiovascular: Reports no additional cardiovascular complaints Respiratory: Respiratory: Reports no additional respiratory complaints Gastrointestinal: Gastrointestinal: Reports dysphagia Genitourinary: Genitourinary: Reports no additional male genitourinary complaints REPLACED BY [facility] Medical History Attention deficit disorder Dissociative disorder Chronic post-traumatic stress disorder (PTSD) Major depressive disorder, recurrent severe without psychotic features Pertinent family history: No family history of early CAD Social History Patient Tobacco Use Status: Never used Tobacco Smoked in Last 30 Days: No Use of substances other than those prescribed or required for medical reasons: No Advance Directives: No Advance Directives Information Provided: Yes Do you have a plan to hurt others: No Plan Nutrition Risks: No Nutritional Risk Meds Allergies Allergy/AdvReac Type Severity Reaction Status Date / Time haloperidol [From Haldol] Allergy Unknown Verified 03/29/24 14:08 Penicillins Allergy Anaphylaxis Verified 03/29/24 14:08 Active Medications: Current Medications Potassium Chloride (Potassium Chloride/H20) 10 meq in 100 mls @ 100 mls/hr IV Q1H LUCINDA Stop: 03/30/24 04:59 Last Admin: 03/30/24 01:10 Dose: 100 mls/hr Sodium Chloride (Ns) 1,000 mls @ 999 mls/hr IV .Q1H1M LUCINDA Stop: 03/30/24 02:00 Last Admin: 03/30/24 01:08 Dose: 999 mls/hr Physical Exam 2 Vital Signs and Narrative: Vital Signs: Last Vital Signs Temp 97.8 F 03/30/24 00:40 Pulse 84 03/30/24 00:40 Resp 18 03/30/24 00:40 BP 114/68 03/30/24 00:40 Pulse Ox 98 03/30/24 00:40 O2 Del Method Room Air 03/30/24 00:40 BMI result Body Mass Index 35.6 Middle-aged male lying in bed in no distress Neck supple, no JVD Regular rate and rhythm, S1-S2 heard Regular breath sounds bilaterally, no wheezing or crackles appreciated Abdomen soft nontender, no guarding, no rigidity Patient is awake, alert and oriented to self, place, time and person ; no focal motor deficit Psych: Normal mood No pedal edema Results Labs 03/29/24 14:52 03/29/24 14:52 Labs: Laboratory Results - last 24 hr 03/29/24 03/29/24 14:52 21:18 MCV 74.7 L MCH 23.0 L MCHC 30.8 L RDW 17.7 H Plt Count 146 L MPV 10.1 Immature Gran % (Auto) 0.3 Neut % (Auto) 45.4 Lymph % (Auto) 40.5 H Sunflower % (Auto) 8.0 Eos % (Auto) 5.3 H Baso % (Auto) 0.5 Lymph # (Auto) 2.6 Sunflower # (Auto) 0.5 Eos # (Auto) 0.3 Baso # (Auto) 0.0 Abs Immat Gran (auto) 0.02 Absolute Neuts (auto) 2.9 Absolute Nucleated RBC 0.000 Nucleated RBC % (auto) 0.0 PT 10.7 L INR 0.9 APTT 35.1 Anion Gap 8 L Estim Creat Clear Calc 87.7 Estimated GFR 57 Random Glucose 90 Calcium 8.8 Total Bilirubin 0.6 AST 36 ALT 36 Alkaline Phosphatase 84 Troponin I High Sens 3.7 Total Protein 7.3 Albumin 4.1 Lipase 22 Urine Color Yellow Urine Appearance Clear Urine pH 7.0 Ur Specific [place] 1.015 Urine Protein Negative Urine Glucose (UA) Negative Urine Ketones Negative Urine Blood Negative Urine Nitrite Negative Ur Leukocyte Esterase Small (1+) H Urine RBC 0-2 Urine WBC 6-10 Ur Squamous Epith Cells 0-2 Urine Bacteria None Seen Hyaline Casts 0-2 Imaging Radiologist's Impressions: Impressions Chest CT 03/29/24 16:02 IMPRESSION: 1. Markedly enlarged thyroid compressing the trachea and esophagus. This may be related to the patient's difficulty swallowing 2. Mildly dilated mid and distal esophagus consistent with a history of achalasia. 3. Two 5 mm size nodules left lung base. 4. Incidental note made of BPH and benign Bosniak class I renal cysts which need no additional imaging or follow-up. According to the UPDATED 2017 Fleischner Society recommendations, the advised follow-up imaging for solid nodules <6 mm in the middle/lower lobes is no routine follow up. Electronically signed by: Hemanth Anderson MD 03/29/2024 08:43 PM EST RP Abdomen/Pelvis CT 03/29/24 16:32 IMPRESSION: 1. Markedly enlarged thyroid compressing the trachea and esophagus. This may be related to the patient's difficulty swallowing 2. Mildly dilated mid and distal esophagus consistent with a history of achalasia. 3. Two 5 mm size nodules left lung base. 4. Incidental note made of BPH and benign Bosniak class I renal cysts which need no additional imaging or follow-up. According to the UPDATED 2017 Fleischner Society recommendations, the advised follow-up imaging for solid nodules <6 mm in the middle/lower lobes is no routine follow up. Electronically signed by: Hemanth Anderson MD 03/29/2024 08:43 PM EST RP Assessment and Plan (1) Dysphagia: Status: Acute (2) Enlarged thyroid: Status: Acute Plan This is a 63-year-old male with pertinent history of achalasia status post surgery, hypertension, mixed hyperlipidemia, mood disorder, gastroesophageal reflux disease who presents to the emergency department for evaluation of difficulty with swallowing. #. Dysphagia: With both solids and liquids. Will admit patient and keep him NPO. Consulted Gastroenterology, appreciate assistance. Imaging with markedly enlarged thyroid, consulted General surgery. #. Hypokalemia due to GI losses: Repleting #. Hypertension/mixed hyperlipidemia/mood disorder: Continue home prescription medications once able to take p.o. #. Gastroesophageal reflux disease: Will switch p.o. to IV Med rec pending DVT prophylaxis: Mechanical Full code Admit as inpatient and will require two night minimum hospital stay for evaluation of dysphagia (as above), which is not possible in a lesser acute setting. Specialist consult pending Quality Stroke Does the patient have a stroke diagnosis?: No VTE Prior VTE?: No VTE Risk Level:: Medical - moderate - high VTE Device Contraindication: N/A - Device Ordered VTE Drug Contraindication: Treatment Not Indicated
[2024-03-30 01:28] LABS: Magnesium 1.9 mg/dL (1.6-2.6)
[2024-03-30 05:37] LABS: MANUAL DIFF FLAG NO
[2024-03-30 05:41] LABS: Basophils Percent Auto 0.5 % (0-2); Eosinophils Absolute Auto 0.3 X10*3/uL (0.0-0.4); Eosinophils Percent Auto 4.1 % (0-4); Hematocrit 43.7 % (42.0-52.0); Hemoglobin 13.4 g/dl (14.0-18.0); Imm Gran Abs Auto 0.01 X10*3/uL (0.00-0.03); Imm Gran Pct Auto 0.2 % (0.0-0.4); Lymphocytes Absolute Auto 2.1 X10*3/uL (1.2-4.9); Lymphocytes Percent Auto 33.1 % (20-40); Mean Corpuscular HGB Conc 30.7 g/dl (31.0-36.0); Mean Corpuscular Hemoglobin 22.8 pg (27.0-33.0); Mean Corpuscular Volume 74.4 fL (80.0-98.0); Monocytes Absolute Auto 0.4 X10*3/uL (0.1-1.2); Monocytes Percent Auto 6.5 % (2-11); Neutrophils Absolute Auto 3.5 x10*3/uL (2.0-8.3); Neutrophils Percent Auto 55.6 % (45-73); Platelet Count 141 X10*3/uL (160-400); Red Blood Count 5.87 X10*6/uL (4.60-5.80); Red Cell Distribution Width 17.3 % (11.0-16.0); White Blood Count 6.4 X10*3/uL (4.8-10.8)
[2024-03-30 06:00] LABS: Anion Gap 10 (12-20); Blood Urea Nitrogen 14 mg/dL (9-16); Calcium 8.9 mg/dL (8.4-10.2); Carbon Dioxide 24 mmol/L (22-29); Chloride 109 mmol/L (96-108); Creatinine Clr Calc Pharmacy 98.5; Estimated Glomerular Filt Rate > 60; Glucose Random 88 mg/dL (60-115); Potassium 3.4 mmol/L (3.3-5.1); Sodium 140 mmol/L (135-145)
[2024-03-30 06:17] LABS: Thyroid Stimulating Hormone 0.31 uIU/mL (0.32-4.0)
[2024-03-30] MEDS: Pantoprazole Sodium 40 MG/10 ML VIAL IVPUSH (06:20)
--- NOTE | 2024-03-30 07:14 | PC.NURSE ---
Patient alert and oriented, states he is hungry but is aware that he is NPO.
[2024-03-30] MEDS: 0.9 % Sodium Chloride Flush 3 ML SYRINGE IVFLUSH ×2 (08:29→15:20)
--- NOTE | 2024-03-30 10:30 | PHA.MEDREC ---
Addendum entered by Emery Elder 03/30/24 10:45: reviewed Original Note: Pharmacy Consult ? Medication Reconciliation Pharmacy has completed the medication reconciliation. Utilized list from [facility] to confirm med list.
--- NOTE | 2024-03-30 11:04 | PM.CNGS ---
History of Present Illness Consult details Consult date: 03/30/24 Reason for consult: other (enlarged thyroid ) Narrative: Mr. Maldonado is a 63-year-old male with PMH significant for achalasia status post surgery, GERD, hypertension, mixed hyperlipidemia, mood disorder who presented to the ED with complaints of difficulty swallowing. Patient states 15 years ago he had surgery for achalasia. He has had occasional difficulty with swallowing since then and occasionally needed to be dilated with improvement in his symptoms. He reports over the past few months he again developed these symptoms with solid food but now reports difficulty with liquids. Patient states he was referred to a back hoe operator by his PCP but he has not established care yet. Patient states he has been regurgitating everything that he has eaten or drank for the past few days. He denies pain with swallowing, globus sensation. He denies fever, chills, fatigue, chest pain, palpitations, shortness of breath, constipation, skin changes, changes in weight, hoarse voice. Work up in the ED included CT chest which showed markedly enlarged thyroid, right lobe greater than left, compressing the trachea, with the lobes of the thyroid essentially meet posteriorly in the region of the esophagus and are likely compressing the upper esophagus as well. Low TSH. Review of Systems Review of Systems: Yes all other systems are reviewed and are negative PMFSH Past Medical History Medical History Attention deficit disorder Dissociative disorder Chronic post-traumatic stress disorder (PTSD) Major depressive disorder, recurrent severe without psychotic features Social History Social History Patient Tobacco Use Status: Never used Tobacco Smoked in Last 30 Days: No Use of substances other than those prescribed or required for medical reasons: No Advance Directives: No Advance Directives Information Provided: Yes Do you have a plan to hurt others: No Plan Nutrition Risks: No Nutritional Risk Meds Allergies Allergy/AdvReac Type Severity Reaction Status Date / Time haloperidol [From Haldol] Allergy Unknown Verified 03/29/24 14:08 Penicillins Allergy Anaphylaxis Verified 03/29/24 14:08 Active Medications: Current Medications Acetaminophen (Acetaminophen 325 Mg Tablet) 650 mg PO Q6H PRN PRN Reason: Pain, Mild (Pain Scale 1-3), fever or headache Calcium Carbonate (Calcium Carbonate 750 Mg Tab.Chew) 750 mg PO Q4H PRN PRN Reason: Heartburn Magnesium Hydroxide (Milk Of Magnesia 30 Ml Oral.Susp) 30 ml PO DAILY PRN PRN Reason: Constipation Melatonin (Melatonin 3 Mg Tablet) 6 mg PO BEDTIME PRN PRN Reason: Insomnia Ondansetron HCl (Ondansetron Hcl 4 Mg/2 Ml Vial) 4 mg IVPUSH Q8H PRN PRN Reason: Nausea and Vomiting Pantoprazole Sodium (Pantoprazole Sodium 40 Mg/10 Ml Vial) 40 mg IVPUSH DAILY@0630 [facility] Last Admin: 03/30/24 06:20 Dose: 40 mg Sodium Chloride (0.9 % Sodium Chloride Flush 3 Ml Syringe) 3 ml IVFLUSH QSHIFT [facility] Last Admin: 03/30/24 08:29 Dose: 3 ml Home Medications ?Medication ?Instructions ?Recorded ?Confirmed ?Last Taken ?Type acetaminophen 650 mg 650 mg PO Q4-6H PRN Fever Or Pain 03/30/24 03/30/24 Unknown History tablet,extended release aluminum-mag hydroxide-simethicone 20 ml PO Q4-6H PRN Stomach Upset 03/30/24 03/30/24 Unknown History 200 mg-200 mg-20 mg/5 mL oral susp atorvastatin 40 mg tablet 40 mg PO DAILY 03/30/24 03/30/24 03/29/24 History esomeprazole magnesium 40 mg 40 mg PO DAILY 03/30/24 03/30/24 03/29/24 History capsule,delayed release gabapentin 300 mg capsule 300 mg PO DAILY 03/30/24 03/30/24 03/29/24 History gabapentin 300 mg capsule 300 mg PO DAILY MRX1 PRN Tremor(S) 03/30/24 03/30/24 Unknown History guaifenesin 200 mg/5 mL oral liquid 200 - 400 mg PO Q4H PRN Cough 03/30/24 03/30/24 Unknown History guanfacine 2 mg tablet 2 mg PO BEDTIME 03/30/24 03/30/24 03/29/24 History hydroxyzine HCl 50 mg tablet 50 mg PO QID PRN Anxiety 03/30/24 03/30/24 Unknown History lisinopril 20 1 tab PO DAILY 03/30/24 03/30/24 03/29/24 History mg-hydrochlorothiazide 25 mg tablet magnesium hydroxide 400 mg/5 mL 2,400 mg PO DAILY PRN Constipation 03/30/24 03/30/24 Unknown History oral suspension (Milk of Magnesia) meclizine 25 mg tablet 25 mg PO QID PRN Vertigo 03/30/24 03/30/24 Unknown History quetiapine 50 mg tablet 50 mg PO QID PRN Anxiety 03/30/24 03/30/24 Unknown History sennosides 8.6 mg-docusate sodium 2 tab-cap PO BEDTIME PRN 03/30/24 03/30/24 Unknown History 50 mg tablet (Senna Plus) Constipation topiramate 50 mg tablet 50 mg PO BID 03/30/24 03/30/24 03/29/24 History vitamin B complex 1 tab PO DAILY 03/30/24 03/30/24 03/29/24 History Physical Exam Vital Signs: Vital Signs: Last Vital Signs Temp 97.9 F 03/30/24 05:54 Pulse 74 03/30/24 08:27 Resp 18 03/30/24 08:27 BP 101/64 03/30/24 08:27 Pulse Ox 96 03/30/24 08:27 O2 Del Method Room Air 03/30/24 08:27 BMI result Body Mass Index 35.6 Const: General: comfortable, no acute distress and alert Orientation/consciousness: patient oriented x3 Neck: Other: enlarged thyroid Neck: Yes normal visual inspection and Yes trachea midline Resp: Effort & Inspection: normal respiratory effort, able to speak in complete sentences, no respiratory distress, not tachypneic and no use of accessory muscles Cardio: Rate: regular rate GI: Palpation (GI): Soft to palpation and nontender Skin: General skin exam: no rashes or lesions noted Neuro: General: patient oriented x3 and moves all extremities Results Labs 03/30/24 05:28 03/30/24 05:28 Labs: Abnormal lab results 03/29/24 03/29/24 03/30/24 Range/Units 14:52 21:18 05:28 RBC 6.08 H 5.87 H (4.60-5.80) X10*6/uL Hgb 13.4 L (14.0-18.0) g/dl MCV 74.7 L 74.4 L (80.0-98.0) fL MCH 23.0 L 22.8 L (27.0-33.0) pg MCHC 30.8 L 30.7 L (31.0-36.0) g/dl RDW 17.7 H 17.3 H (11.0-16.0) % Plt Count 146 L 141 L (160-400) X10*3/uL Lymph % (Auto) 40.5 H (20-40) % Eos % (Auto) 5.3 H 4.1 H (0-4) % PT 10.7 L (10.9-12.4) SEC Potassium 3.2 L (3.3-5.1) mmol/L Chloride 109 H (96-108) mmol/L Anion Gap 8 L 10 L (12-20) TSH 0.31 L (0.32-4.0) uIU/mL Ur Leukocyte Esterase Small (1+) H (Negative) Short CBC 03/29/24 03/30/24 Range/Units 14:52 05:28 WBC 6.4 6.4 (4.8-10.8) X10*3/uL Hgb 14.0 13.4 L (14.0-18.0) g/dl Hct 45.4 43.7 (42.0-52.0) % Plt Count 146 L 141 L (160-400) X10*3/uL BMP 03/29/24 03/30/24 14:52 05:28 Sodium 139 140 Potassium 3.2 L 3.4 Chloride 107 109 H Carbon Dioxide 27 24 BUN 13 14 Creatinine 1.28 1.14 Calcium 8.8 8.9 Liver Function 03/29/24 Range/Units 14:52 Total Bilirubin 0.6 (0.0-1.0) mg/dL AST 36 (5-37) U/L ALT 36 (0-40) U/L Alkaline Phosphatase 84 (39-117) U/L Albumin 4.1 (3.5-5.0) g/dL Urine 03/29/24 Range/Units 21:18 Urine Color Yellow Urine Appearance Clear Urine pH 7.0 (5.0-9.0) Ur Specific [place] 1.015 (1.005-1.025) Urine Protein Negative (Neg-Trace) mg/dL Urine Glucose (UA) Negative (Negative) mg/dL All other labs normal. Imaging Abdomen CT scan report/results: report reviewed and image reviewed CT scan - chest: report reviewed and image reviewed Assessment and Plan (1) Enlarged thyroid: Status: Acute (2) Dysphagia: Status: Acute Plan Mr. Maldonado is a 63-year-old male with PMH significant for achalasia status post surgery, GERD, hypertension, mixed hyperlipidemia, mood disorder who presented to the ED with complaints of difficulty swallowing found to have markedly enlarged thyroid compressing trachea and likely esophagus. He appears stable from respiratory standpoint. Enlarged thyroid is likely contributing to his dysphagia but given his prior history unclear if it is the factor and maybe he needs another dilatation. Await GI input. If GI feels most of his symptoms are secondary to his enlarged thyroid he will likely require resection to improve his symptoms. Unfortunately, we do not perform thyroidectomys at this facility and he would need to be transferred for this. Procedures Date of Service Date of Service: 03/30/24
--- NOTE | 2024-03-30 11:35 | PM.EVENT ---
Event Note Date of Service: 03/30/24 Event Note: Admitted this morning due to dysphagia, CT chest showed markedly enlarged thyroid compressing trachea and likely esophagus, patient noted to have no respiratory distress, TSH mildly low. No new complaints. On examination awake alert in no distress Abdomen soft nontender bowel sounds audible. 63-year-old male with pertinent history of achalasia status post surgery, hypertension, mixed hyperlipidemia, mood disorder, gastroesophageal reflux disease presented to emergency department due to dysphagia #. Dysphagia: With both solids and liquids, await GI input, seen by General surgery regarding enlarged thyroid compressing the trachea and esophagus may be related to patient's difficulty swallowing, noted on CT chest /abdomen and pelvis, unfortunately General surgery do not perform thyroidectomy in this facility therefore patient after evaluation by GI if Need surgical procedure they recommend transfer him to tertiary center. Continue IV Protonix hold by mouth medications. Continue IV Protonix with history of GERD. TSH 0.31 mildly low. #. Hypokalemia due to GI losses: Repleted and normalized. #. Hypertension soft blood pressure will hold lisinopril/hydrochlorothiazide. # mixed hyperlipidemia will hold Lipitor since NPO. # mood disorder: On hydroxyzine, quetiapine, Topamax and gabapentin all meds on hold since patient NPO due to dysphagia. Will use IV anxiolytics if needed. DVT prophylaxis: Mechanical Full code Admit as inpatient and will require two night minimum hospital stay for evaluation of dysphagia (as above), which is not possible in a lesser acute setting. Specialist consult pending Time Spent With Patient Time: Total time managing care of this patient today ____ minutes.
--- NOTE | 2024-03-30 12:02 | PC.NURSE ---
Report given to SSS
--- NOTE | 2024-03-30 12:53 | MHC.CM.PN ---
pt lives in a polysubstance abuse recovery house which is run by [facility] pt plans on returning to [facility] and will make his own transportaion arrangements back
--- NOTE | 2024-03-30 14:04 | PM.EVENT ---
Event Note Date of Service: 03/30/24 Event Note: GI consult dictated Dysphagia may be due to thyroid compression and/or achalasia. EGD would be help with diagnosis, but anesthesia risk is high and no ENT availability is at [facility], so I recommend transfer to tertiary care facility. Time Spent With Patient Time: Total time managing care of this patient today ____ minutes.
--- NOTE | 2024-03-30 14:53 | CONS_ITS ---
DATE OF SERVICE: 03/30/2024 REFERRING PHYSICIAN: Dr. Shrestha REASON FOR CONSULTATION: Dysphagia. HISTORY OF PRESENT ILLNESS: The patient is a pleasant 63-year-old man, who was admitted to the hospital after presenting to the emergency room with complaints of arm dysphagia. He has a history of achalasia and underwent surgery at [facility] approximately 20 years ago. He is unsure of the type of surgery. He has had occasional swallowing problems intermittently, but this has worsened over the past several months and he reports 3 days of being unable to swallow even liquids. Initially, his swallowing problem was worse with solids, but this progressed over this time. He presented to the emergency department, where he was evaluated and found to have a large thyroid compressing the trachea and upper esophagus. The mid and lower esophagus was minimally dilated consistent with his history of achalasia. No definite obstructive lesion was seen in the distal esophagus. PAST MEDICAL HISTORY: 1. Achalasia, status post surgery as above. 2. Enlarged thyroid. 3. PTSD. 4. Depression. 5. Dissociative disorder. 6. Attention-deficit disorder. CURRENT MEDICATIONS: His current medication list is reviewed in the chart. ALLERGIES: HALDOL AND PENICILLIN. FAMILY HISTORY: This is reviewed with the patient and is noncontributory. SOCIAL HISTORY: He has been residing in a fdc and there is no current history reported of substance abuse. REVIEW OF SYSTEMS: SKIN: No pruritus. HEENT: Negative. CARDIOPULMONARY: He denies shortness of breath or chest pain. GASTROINTESTINAL: As above. GENITOURINARY: Negative. NEUROPSYCHIATRIC: Negative. PHYSICAL EXAMINATION: GENERAL: Shows a pleasant male, lying comfortably in bed. VITAL SIGNS: Reviewed in the electronic record and are stable. SKIN: Anicteric. HEENT: Shows no scleral icterus. NECK: Thick and difficult to examine. I do not definitely feel a mass. LUNGS: Clear. HEART: Shows a regular rate and rhythm. S1, S2. No murmur. ABDOMEN: Soft without focal masses or tenderness. Bowel sounds are present. No organomegaly is noted. EXTREMITIES: Without edema. LABORATORY DATA AND IMAGING STUDIES: Reviewed. IMPRESSION: Dysphagia. It seems likely that there is at least a component of this from his enlarged thyroid. There may also be a component because of his history of achalasia. Endoscopy would be useful for further evaluation. However, in discussion with the Anesthesia Department, it was recommended that he be transferred to a [facility] as his risk for anesthesia for any endoscopic procedure is quite high based on his thyroid mass and there is no availability of ENT at this facility. A Gastrografin swallow may help delineate the exact etiology for his dysphagia as well. Thanks for asking me to see him. I will follow him in the hospital with you. MD ERIKA Lopez/NIRANJAN / [id number] MTDD
--- NOTE | 2024-03-30 16:27 | P.DS_ITS ---
DS: Providers Provider Date of Service: 03/30/24 Date of admission: 03/30/24 01:16 Date of discharge: 03/30/24 Primary care physician: Shaji Huntley MD Consults: 03/30/24 02:20 Consult to Gastroenterology Routine Consulting Provider: Camden Jacobs Reason for consultation: dysphagia Consult to General Surgery Routine Consulting Provider: [facility] Reason for consultation: enlarged thyroid DS: Diagnosis Discharge Diagnosis (1) Enlarged thyroid: Status: Acute (2) Dysphagia: Status: Acute DS: Summary Hospital Course Hospital Course: History of presenting illness. Date of Service: 03/30/24 Chief Complaint: Dysphagia This is a 63-year-old male with pertinent history of achalasia status post surgery, hypertension, mixed hyperlipidemia, mood disorder, gastroesophageal reflux disease who presents to the emergency department for evaluation of difficulty with swallowing. Patient states 15 years ago he had surgery for achalasia. He has had occasional difficulty with swallowing over the last few months. Over the last 3 days, patient was unable to swallow solid or liquid due to dysphagia which has been persistent. It has been progressive and on the day of presentation, patient states everything that he ate or drank, was coming up. No pain with swallowing. Patient was referred to Gastroenterology by his PCP but he has not established care yet. No fever, chills, chest pain, palpitations, shortness of breath, changes in urinary or bowel habits. In the emergency department, imaging with enlarged thyroid. Hospital course: 63-year-old gentleman with past medical history of hypertension, mixed hyperlipidemia, mood disorder, GERD and history of surgery several years ago for achalasia, patient presented to [facility] with progressing dysphagia, unable to swallow both liquids and solids, CTA chest/CT abdomen and pelvis showed enlarged thyroid compressing trachea and esophagus, patient evaluated by entry level marketing assistant Dr. Jacobs who felt that dysphagia is likely due to enlarged thyroid with some component due to history of achalasia, endoscopy would have been helpful but anesthesiologist recommended patient to be transferred to tertiary care hospital due to risk for anesthesia for any endoscopic procedures is quite high based on his thyroid mass and no availability of ENT at this facility, therefore patient is being transferred to [facility] for further evaluation and treatment, all by mouth medications are on hold patient is being treated with IV fluids, IV Protonix and IV Zofran as needed currently patient is hemodynamically stable. Time Attestation Discharge Coordination Time (in mins): 40 Quality: Safe Use of Opioids Does Pt have an Active Cancer Diagnosis on the Problem List?: No Quality: Stroke Does the patient have a stroke diagnosis?: No Physical Exam Vital Signs: Vital Signs: Last Vital Signs Temp 97.9 F 03/30/24 05:54 Pulse 86 03/30/24 12:00 Resp 19 03/30/24 12:00 BP 116/75 03/30/24 12:00 Pulse Ox 97 03/30/24 12:00 O2 Del Method Room Air 03/30/24 12:00 BMI result Body Mass Index 35.6 Const: Other: General resting comfortably in no acute distress. Neck no JVD/short neck ,difficult to examine. CVS regular rate rhythm Respiratory lungs clear to auscultation, no respiratory distress, no wheeze, no rhonchi. Gastrointestinal abdomen soft, non tender, bowel sounds audible, no guarding , no rigidity. Extremities no edema. Neuro non focal Skin no rash Psych appropriate affect. DS: Data Data Completed and Pending Labs on day of discharge: Laboratory Results - last 24 hr 03/29/24 03/29/24 03/30/24 14:52 21:18 05:28 WBC 6.4 RBC 5.87 H Hgb 13.4 L Hct 43.7 MCV 74.4 L MCH 22.8 L MCHC 30.7 L RDW 17.3 H Plt Count 141 L MPV 10.0 Immature Gran % (Auto) 0.2 Neut % (Auto) 55.6 Lymph % (Auto) 33.1 [place] % (Auto) 6.5 Eos % (Auto) 4.1 H Baso % (Auto) 0.5 Lymph # (Auto) 2.1 [place] # (Auto) 0.4 Eos # (Auto) 0.3 Baso # (Auto) 0.0 Abs Immat Gran (auto) 0.01 Absolute Neuts (auto) 3.5 Absolute Nucleated RBC 0.000 Nucleated RBC % (auto) 0.0 Sodium 140 Potassium 3.4 Chloride 109 H Carbon Dioxide 24 Anion Gap 10 L BUN 14 Creatinine 1.14 Estim Creat Clear Calc 98.5 Estimated GFR > 60 Random Glucose 88 Calcium 8.9 Magnesium 1.9 TSH 0.31 L Urine Color Yellow Urine Appearance Clear Urine pH 7.0 Ur Specific [place] 1.015 Urine Protein Negative Urine Glucose (UA) Negative Urine Ketones Negative Urine Blood Negative Urine Nitrite Negative Ur Leukocyte Esterase Small (1+) H Urine RBC 0-2 Urine WBC 6-10 Ur Squamous Epith Cells 0-2 Urine Bacteria None Seen Hyaline Casts 0-2 Preliminary micro results at discharge 03/29/24 22:03 Urine Culture - Preliminary Urine clean catch - Clean Catch Midstream No growth to date. Discharge Plan Discharge Anticipated Discharge Date/Time: 03/30/24 15:24 Patient Disposition: er [facility] Hospital Discharge Diagnosis: Dysphagia Markedly enlarged thyroid compressing trachea and esophagus Referrals: Shaji Huntley MD [Primary Care Provider] - 1 Week Discharge Medications: New pantoprazole [Protonix] 40 mg Recon Soln 40 mg IVPUSH DAILY@0630 Qty: 1 0RF ondansetron HCl (PF) 4 mg/2 mL Solution 4 mg IVPUSH Q8H PRN (Reason: Nausea And Vomiting) Qty: 1 0RF Discontinued atorvastatin 40 mg tablet 40 mg PO DAILY esomeprazole magnesium 40 mg capsule,delayed release(DR/EC) 40 mg PO DAILY lisinopril-hydrochlorothiazide 20-25 mg tablet 1 tab PO DAILY guanfacine 2 mg tablet 2 mg PO BEDTIME topiramate 50 mg tablet 50 mg PO BID sennosides-docusate sodium [Senna Plus] 8.6-50 mg Tablet 2 tab-cap PO BEDTIME PRN (Reason: Constipation) hydroxyzine HCl 50 mg tablet 50 mg PO QID PRN (Reason: Anxiety) acetaminophen 650 mg Tablet Extended Release 650 mg PO Q4-6H PRN (Reason: Fever Or Pain) magnesium hydroxide [Milk of Magnesia] 400 mg/5 mL Suspension 2,400 mg PO DAILY PRN (Reason: Constipation) meclizine 25 mg Tablet 25 mg PO QID PRN (Reason: Vertigo) gabapentin 300 mg capsule 300 mg PO DAILY MRX1 PRN (Reason: Tremor(S)) gabapentin 300 mg capsule 300 mg PO DAILY vitamin B complex Tablet 1 tab PO DAILY alum-mag hydroxide-simeth [Mylanta] 200-200-20 mg/5 mL Suspension 20 ml PO Q4-6H PRN (Reason: Stomach Upset) Rx Instructions: administer between meals and at bedtime guaifenesin 200 mg/5 mL Liquid 200 - 400 mg PO Q4H PRN (Reason: Cough) quetiapine 50 mg tablet 50 mg PO QID PRN (Reason: Anxiety) Discharge Orders: Discharge Order (Routine); Ordered 03/30/24 Ordered By: Bradley Anaya Diet: npo Activity on Discharge: As tolerated Stand Alone Forms: Patient Portal Discharge page Print Language: Irish Care Plan Goals: Dysphagia enlarged thyroid compressing trachea and esophagus also history of achalasia NPO due to difficulty with swallowing All by mouth medication on hold Continue IV fluids LR 80 ml/hr /IV Protonix Health Concerns: Hypertension/hyperlipidemia Plan of Treatment: Outpatient follow-up with primary care physician upon discharge from [facility] Assessment: As above
[2024-03-30] MEDS: Lactated Ringers 1,000 ML 80 ML IVCONT (17:27)
--- NOTE | 2024-03-30 20:14 | PC.NURSE ---
nurse to nurse call for transfer [place] [facility]
--- NOTE | 2024-03-31 08:46 | MHC.CM.PN ---
pt transferrred to [facility]
== END 2024-03-30 21:00 | disposition short-term general hospital (02) | DRG 427 ==
LOC: HO.ED 03-30 01:12 → HO.EDOVER 03-30 01:21 → HO.SSSA 03-30 13:57 → HO.EDOVER 03-30 16:14
PROVIDERS: Physician Assistant; Admitting Provider Student in an Organized Health Care Education/Training Program; Emergency Provider Emergency Medicine Emergency Medical Services; PCP Internal Medicine; Visit Provider Hospitalist
DX: E04.9 Nontoxic goiter, unspecified (principal); E78.2 Mixed hyperlipidemia; F98.8 Other specified behavioral and emotional disorders with onset usually occurring in childhood and adolescence; F43.12 Post-traumatic stress disorder, chronic; E87.6 Hypokalemia; K21.9 Gastro-esophageal reflux disease without esophagitis
CPT/HCPCS: 36415; 71250; 74176; 80048; 80053; 81001; 83690; 83735; 84443; 84484; 85025; 85610; 85730; 87086; 93005; 99285; J2470; J3480; J7120

== ENCOUNTER → 2024-03-29 14:10 | Outpatient (BNV) | payer OTHER, SELFPAY | PROVIDERS: Visit Provider Internal Medicine Cardiovascular Disease | DX: I49.3 Ventricular premature depolarization (principal) | CPT/HCPCS: 93010 ==

== ENCOUNTER → 2024-03-30 01:16 | Outpatient (BNV) | payer OTHER, SELFPAY | PROVIDERS: Admitting Provider Student in an Organized Health Care Education/Training Program; Emergency Provider Emergency Medicine Emergency Medical Services; PCP Internal Medicine; Visit Provider Student in an Organized Health Care Education/Training Program | DX: E04.9 Nontoxic goiter, unspecified (principal); R13.10 Dysphagia, unspecified | CPT/HCPCS: 99223; 99236; 99499 ==

== ENCOUNTER → 2024-03-30 01:16 | Outpatient (BNV) | payer OTHER, SELFPAY | PROVIDERS: Admitting Provider Student in an Organized Health Care Education/Training Program; Emergency Provider Emergency Medicine Emergency Medical Services; PCP Internal Medicine; Visit Provider Physician Assistant Surgical | DX: E04.9 Nontoxic goiter, unspecified (principal); R13.10 Dysphagia, unspecified | CPT/HCPCS: 99222 ==

== ENCOUNTER 2024-08-23 09:11 | Outpatient (RCR) | payer OTHER, SELFPAY | END 2025-04-27 08:46 | disposition home or self-care (01) | LOC: HO.PT 09:11 | PROVIDERS: PCP Internal Medicine; Visit Provider Physician Assistant | DX: M54.2 Cervicalgia (principal); Z98.1 Arthrodesis status | CPT/HCPCS: 97110; 97140; 97161 ==

== ENCOUNTER 2024-09-27 09:32 | Inpatient (IN) | payer OTHER, SELFPAY ==
--- NOTE | ~2024-09-27 | CT_ITS ---
EXAMINATION: CT ABDOMEN AND PELVIS WITH CONTRAST CLINICAL INFORMATION: Diffuse abdominal pain and distention. COMPARISON: 03/29/2024. TECHNIQUE: Multidetector volumetric images were obtained from the superior aspect of the liver through the pubic symphysis following administration 85 mL of Omnipaque 350 intravenous contrast. Sagittal and coronal reformatted images were obtained on the technologist's workstation. Oral contrast: Yes This CT examination was performed using dose optimization techniques as appropriate, variously including the following: *Automated exposure control *Adjustment of mA and/or kV according to patient size (this includes techniques or standardized protocols for targeted exams where dose is matched to indication/reason for exam; i.e. extremities or head) *Use of iterative reconstruction technique FINDINGS: LUNG BASES: The heart size is normal. There is a moderate paraesophageal hiatus hernia noted. There is no pericardial effusion or pleural effusion. The imaged lung bases demonstrate mild bronchiectasis but are otherwise clear. There is a 4 mm nodule in the left lower lobe laterally (series 4, image 111) unchanged. A few additional lung nodules are present as well, also unchanged and benign. LIVER, GALLBLADDER, AND BILIARY TREE: The liver is normal in size, shape, and attenuation. No focal hepatic lesion or biliary ductal dilatation is present. The gallbladder is unremarkable with no evidence of radiopaque gallstones, gallbladder wall thickening, or obvious pericholecystic inflammatory changes. PANCREAS: There is mild swelling and inflammation of the head and uncinate process of the pancreas, findings consistent with acute edematous pancreatitis. There is no pancreatic necrosis or mass identified. There is no ductal dilatation. There are a few peripancreatic prominent lymph nodes measuring up to 11 mm short axis (series 3, image 29). SPLEEN: Unremarkable. ADRENAL GLANDS: Unremarkable. KIDNEYS AND URETERS: The kidneys are normal in size, shape, and attenuation. No hydronephrosis, hydroureter, or calculi seen. No perinephric stranding. There are grouped renal cysts in the right kidney lower pole of which the largest measures 2.7 cm. There is a 1.3 cm cyst in the left kidney lower pole. BLADDER: Contracted but diffusely thick-walled. GASTROINTESTINAL TRACT: There is no bowel obstruction. The stomach is decompressed. Mild secondary inflammation of the duodenal sweep is present. The small bowel is otherwise normal in course and caliber. A normal appendix is visualized. The colon is normal in course and caliber without inflammation or wall thickening. There are a few scattered diverticula. Mildly redundant sigmoid. No rectal abnormality. ABDOMINAL WALL: No significant hernia is appreciated. LYMPH NODES: As above. There is a 1.3 cm short axis right external iliac lymph node, and a 9 mm left external iliac lymph node. There are a few borderline enlarged inguinal lymph nodes. VASCULAR: Unremarkable. PELVIC VISCERA: There is marked enlargement of the prostate gland, which measures 6.6 cm in diameter, with irregular enhancement pattern. The median lobe protrudes significantly into the bladder base. There are dystrophic appearing central calcifications. OSSEOUS STRUCTURES: No suspicious lytic or blastic bone lesions identified. There are moderate degenerative spinal changes, and moderate degenerative hip joint changes. There is over coverage of the posterior acetabulum bilaterally, finding which can be associated with pincer-type PATSY. 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 CT/CT abdomen pelvis w IV con IMPRESSION: 1. Acute edematous pancreatitis of the pancreatic head and uncinate process. No evidence of pancreatic necrosis or mass. 2. No evidence of bowel obstruction or pathologic bowel dilatation. 3. Marked prostatic enlargement, with the prostate measuring up to 6.6 cm in diameter with central coarse calcifications and with the median lobe protruding significantly into the bladder base. 4. Collapsed, thick walled urinary bladder. This is most likely on the basis of chronic outlet obstruction. 5. Small to moderate size hiatus hernia versus dilatation of the distal esophagus. 6. Additional ancillary findings as discussed in the body of the report. Electronically signed by: Hong Reed MD 09/27/2024 04:20 PM EDT
--- NOTE | ~2024-09-27 | MR_ITS ---
EXAMINATION: MR ABDOMEN WITHOUT THEN WITH IV CONTRAST HISTORY: Abnormal CT pancreas, abdominal pain COMPARISON: Correlation is made with a CT of the abdomen with contrast dated 09/27/2024. TECHNIQUE: Axial in and out of phase T1-weighted gradient echo, axial diffusion weighted, and axial and coronal HASTE T2 with fat saturation images were obtained through the abdomen. 3D MRCP Reconstructed and thin and thick slab images of the biliary tree were obtained. Subsequently, fat suppressed axial and coronal T1-weighted images were obtained after the intravenous administration of 10 mL Gadavist. FINDINGS: The examination is limited by patient motion. Liver: There is no loss of signal intensity in the liver on opposed phase imaging to suggest steatosis. There is no enhancing liver mass. The hepatic and portal veins are patent. There is no intra- or extrahepatic biliary dilatation. No intraluminal filling defects are identified within the common bile duct to suggest choledocholithiasis. Gallbladder: No gallstones are identified. Spleen: The spleen is unremarkable. Pancreas: There is very mild edema of the pancreatic head and uncinate process, with trace peripancreatic fluid in this region, consistent with acute pancreatitis. Evaluation for masses is limited by patient motion. There is no evidence of pancreatic necrosis. The pancreatic duct is normal in caliber. No peripancreatic fluid collections are identified. Adrenals: The adrenal glands are unremarkable. Kidneys: There are multiple cysts at the lower pole of the right kidney measuring up to 2.6 cm in size. The left kidney is unremarkable. There is no hydronephrosis. Lymph nodes: There are prominent peripancreatic/lavelle hepatis lymph nodes measuring up to 1.7 cm in size. Fluid: There is no ascites in the upper abdomen. Visualized bowel: There is a small hiatal hernia. The visualized bowels loops are otherwise unremarkable in appearance. Visualized bones: The visualized bones demonstrate normal marrow signal intensity. MR/MR abdomen wo/w con IMPRESSION: 1. Findings consistent with mild interstitial pancreatitis involving the head and uncinate process. 2. No evidence of cholelithiasis or choledocholithiasis. 3. Prominent peripancreatic/lavelle hepatis lymph nodes, as seen on CT. Follow-up is recommended. Evaluation for pancreatic masses is limited by patient motion. Electronically signed by: Everardo Vaughan MD 09/28/2024 03:35 PM EDT RP
--- NOTE | ~2024-09-27 | US_ITS ---
EXAMINATION: US ABDOMEN LIMITED CLINICAL INFORMATION: Pancreatitis.. COMPARISON: Correlated to CT dated September 27, 2024. TECHNIQUE: Real-time ultrasound of the gallbladder/right upper quadrant abdomen limited with grayscale and color Doppler technique. FINDINGS: Gallbladder is fluid-filled. No pericholecystic fluid collection or gallbladder wall thickening. Common bile duct measures 6 mm. No peripancreatic fluid collection. Main pancreatic duct measures 3.5 mm in maximal diameter. US/US abdomen limited IMPRESSION: No cholelithiasis. Common bile duct measures 6 mm, up to normal limits. No gross choledocholithiasis based upon this exam. No peripancreatic fluid collection. Electronically signed by: Hipolito Castillo MD 09/28/2024 08:35 AM EDT
[2024-09-27 09:49] VITALS: BP 124/82; PULSE 73; RESP 18; TEMP 36.4; O2SAT 98; BMI 40.5
[2024-09-27 10:43] LABS: MANUAL DIFF FLAG NO
[2024-09-27 10:48] LABS: Basophils Percent Auto 0.4 % (0-2); Eosinophils Absolute Auto 0.1 X10*3/uL (0.0-0.4); Eosinophils Percent Auto 2.2 % (0-4); Hematocrit 44.2 % (42.0-52.0); Hemoglobin 13.5 g/dl (14.0-18.0); Imm Gran Abs Auto 0.01 X10*3/uL (0.00-0.03); Imm Gran Pct Auto 0.2 % (0.0-0.4); Lymphocytes Absolute Auto 2.2 X10*3/uL (1.2-4.9); Lymphocytes Percent Auto 49.4 % (20-40); Mean Corpuscular HGB Conc 30.5 g/dl (31.0-36.0); Mean Corpuscular Hemoglobin 23.7 pg (27.0-33.0); Mean Corpuscular Volume 77.7 fL (80.0-98.0); Monocytes Absolute Auto 0.1 X10*3/uL (0.1-1.2); Monocytes Percent Auto 3.1 % (2-11); Neutrophils Percent Auto 44.7 % (45-73); Red Blood Count 5.69 X10*6/uL (4.60-5.80); Red Cell Distribution Width 18.6 % (11.0-16.0); White Blood Count 4.5 X10*3/uL (4.8-10.8)
[2024-09-27 11:04] LABS: Alanine Aminotransferase 41 U/L (0-40); Alkaline Phosphatase 69 U/L (39-117); Anion Gap 11 (12-20); Aspartate Amino Transferase 31 U/L (5-37); Bilirubin Direct 0.2 mg/dL (0.0-0.5); Bilirubin Total 0.7 mg/dL (0.0-1.0); Blood Urea Nitrogen 15 mg/dL (9-16); Calcium 9.2 mg/dL (8.4-10.2); Carbon Dioxide 26 mmol/L (22-29); Chloride 104 mmol/L (96-108); Creatinine Clr Calc Pharmacy 106.2; Estimated Glomerular Filt Rate > 60; Glucose Random 88 mg/dL (60-115); Lipase 57 U/L (8-78); Potassium 3.8 mmol/L (3.3-5.1); Sodium 137 mmol/L (135-145); Total Protein 7.2 g/dL (6.5-8.0)
[2024-09-27 11:17] LABS: Platelet Count 52 X10*3/uL (160-400)
--- NOTE | 2024-09-27 12:01 | ECG_ITS ---
Test Reason : abd pain Blood Pressure : */* mmHG Vent. Rate : 69 BPM Atrial Rate : 69 BPM P-R Int : 180 ms QRS Dur : 80 ms QT Int : 396 ms P-R-T Axes : 62 37 44 degrees QTcB Int : 424 ms Normal sinus rhythm Normal ECG When compared with ECG of 29-Mar-2024 14:31, Premature ventricular complexes are no longer Present Referred By: Carina Bustillos Electronically Signed By: Kimani Lara
--- NOTE | 2024-09-27 12:01 | ED.GENADULT ---
HPI - General Adult General Chief complaint: Abdominal Pain Stated complaint: abd pain Time Seen by Provider: 09/27/24 13:05 History of Present Illness ED Provider: HPI narrative: 63-year-old male presenting with abdominal pain and distention for the past 3 days, he states he has had no nausea vomiting and diarrhea, he has had a normal bowel movement and is passing gas, he does have history of achalasia has been taking his medication such as Nexium on a regular basis and has been helping, pain is generalized denies chest pain or shortness of breath has had no dysuria, hematuria, or melena. Related Data Previous Rx's ?Medication ?Instructions ?Recorded ondansetron HCl (PF) 4 mg/2 mL 4 mg (2 mL) IVPUSH Q8H PRN Nausea 03/30/24 injection solution And Vomiting #1 mL pantoprazole 40 mg intravenous 40 mg IVPUSH DAILY@0630 #1 ea 03/30/24 solution (Protonix) Allergies Allergy/AdvReac Type Severity Reaction Status Date / Time haloperidol [From Haldol] Allergy Unknown Verified 09/27/24 09:50 Penicillins Allergy Anaphylaxis Verified 03/29/24 14:08 Review of Systems Constitutional: Constitutional: Reports as per [facility] Past Medical History Medical History Attention deficit disorder Dissociative disorder Chronic post-traumatic stress disorder (PTSD) Major depressive disorder, recurrent severe without psychotic features Social History Social History Patient Tobacco Use Status: Never used Tobacco Advance Directives: No Advance Directives Information Provided: Yes service: No Physical Exam ED Vital Signs: Vital Signs - 24 hr 09/27/24 09:49 09/27/24 17:23 Temperature 97.5 F 97.5 F Pulse Rate 73 67 Respiratory Rate 18 16 Blood Pressure 124/82 112/67 Pulse Oximetry 98 95 Oxygen Delivery Method Room Air Room Air Oxymizer BMI result Body Mass Index 40.5 Const Other: Gen: ?Overall well-appearing patient HEENT: PERRLA, EOMI, MMM, Neck: Supple, no LAD CV: RRR, no obvious murmurs appreciated Resp: ?No wheezing rales rhonchi no stridor moving air well Abd: Decreased bowel sounds, distended abdomen, generalized tenderness, no rebound, voluntary guarding present MSK: FROM, strength 5/5 all extremities Skin: Warm, dry, intact, Neuro: ?Alert and oriented x3, moving upper and lower extremities symmetrically, no obvious facial asymmetry noted Course Course Course Narrative: RME performed by Carina Bustillos PA-C. Patient is a 63 year old assigned male at presenting to the emergency department with abdominal pain. Patient states that over the last 2 days he has had abdominal pain, normal BMs. Detailed physical exam and review of systems are deferred to the supervisor product inspection. EKG, labs, and swabs ordered. Patient placed back in the waiting room pending room availability and results. Medications Administered Discontinued Medications Generic Name Dose Route Start Last Admin Trade Name Freq PRN Reason Stop Dose Admin Al Hydroxide/Mg Hydroxide 30 ml 09/27/24 13:12 09/27/24 13:43 Magnesium Hydrox/Alum Hydrox 30 Ml Oral.Susp PO 09/27/24 13:13 30 ml ONCE ONE Administration Diatrizoate Meglum/Diatrizoate Sod 30 ml 09/27/24 16:02 09/27/24 16:03 Diatrizoate Meglumine, Sodium 30 Ml Solution PO 09/27/24 16:03 30 ml ONCE ONE Administration Iohexol 100 ml 09/27/24 15:58 09/27/24 15:59 Iohexol 350 Mg/Ml 100 Ml Infus..Btl IV 09/27/24 15:59 85 ml ONCE ONE Administration Ketorolac Tromethamine 15 mg 09/27/24 13:12 09/27/24 13:43 Ketorolac Tromethamine 15 Mg/Ml Vial IVPUSH 09/27/24 13:13 15 mg ONCE ONE Administration Lidocaine HCl 15 ml 09/27/24 13:12 09/27/24 13:43 Lidocaine Hcl Viscous 2 % 15 Ml Solution PO 09/27/24 13:13 15 ml ONCE ONE Administration Pantoprazole Sodium 40 mg 09/27/24 13:12 09/27/24 13:43 Pantoprazole Sodium 40 Mg/10 Ml Vial IVPUSH 09/27/24 13:13 40 mg ONCE ONE Administration Medical Decision Making Medical Decision Making [facility] Narrative: 13:17 patient presenting with abdominal pain and distention, fairly tender exam, diffuse nonfocal, distended, per history unlikely SBO but clinically suspicious for SBO we will obtain CT with oral contrast we will medicate for pain he is requesting no pain meds, has reviewed his prior imaging such as CT from last year and there is no evidence for AAA, other considerations include pancreatitis, appendicitis, diverticulitis, volvulus, he does have history of achalasia, possibly ulcers, bowel per consider it as well but he is not septic on initial presentation, he does have microcytic anemia likely consistent consistent with iron deficiency disposition to be determined based on CT. Lab Data [facility] Lab Attestation statement: I reviewed the patient's lab results. 09/27/24 10:32 09/27/24 10:32 Labs: Lab Results 09/27/24 09/27/24 Range/Units 10:32 12:17 WBC 4.5 L (4.8-10.8) X10*3/uL RBC 5.69 (4.60-5.80) X10*6/uL Hgb 13.5 L (14.0-18.0) g/dl Hct 44.2 (42.0-52.0) % MCV 77.7 L (80.0-98.0) fL MCH 23.7 L (27.0-33.0) pg MCHC 30.5 L (31.0-36.0) g/dl RDW 18.6 H (11.0-16.0) % Plt Count 52 L D (160-400) X10*3/uL MPV TNP Immature Gran % (Auto) 0.2 (0.0-0.4) % Neut % (Auto) 44.7 L (45-73) % Lymph % (Auto) 49.4 H (20-40) % [place] % (Auto) 3.1 (2-11) % Eos % (Auto) 2.2 (0-4) % Baso % (Auto) 0.4 (0-2) % Lymph # (Auto) 2.2 (1.2-4.9) X10*3/uL [place] # (Auto) 0.1 (0.1-1.2) X10*3/uL Eos # (Auto) 0.1 (0.0-0.4) X10*3/uL Baso # (Auto) 0.0 (0.0-0.2) X10*3/uL Abs Immat Gran (auto) 0.01 (0.00-0.03) X10*3/uL Absolute Neuts (auto) 2.0 (2.0-8.3) x10*3/uL Absolute Nucleated RBC 0.000 (0.0-0.012) X10*3/uL Nucleated RBC % (auto) 0.0 (0.0-0.2) /100WBC Sodium 137 (135-145) mmol/L Potassium 3.8 (3.3-5.1) mmol/L Chloride 104 (96-108) mmol/L Carbon Dioxide 26 (22-29) mmol/L Anion Gap 11 L (12-20) BUN 15 (9-16) mg/dL Creatinine 1.13 (0.5-1.4) mg/dL Estim Creat Clear Calc 106.2 Estimated GFR > 60 Random Glucose 88 (60-115) mg/dL Calcium 9.2 (8.4-10.2) mg/dL Total Bilirubin 0.7 (0.0-1.0) mg/dL Direct Bilirubin 0.2 (0.0-0.5) mg/dL AST 31 (5-37) U/L ALT 41 H (0-40) U/L Alkaline Phosphatase 69 (39-117) U/L Total Protein 7.2 (6.5-8.0) g/dL Albumin 4.0 (3.5-5.0) g/dL Lipase 57 (8-78) U/L Influenza Type A (PCR) NEGATIVE (Negative) Influenza Type B (PCR) NEGATIVE (Negative) RSV RNA Qual (PCR) NEGATIVE (Negative) SARS-CoV-2 RNA (RT-PCR) NEGATIVE (Negative) Independent Interpretation I performed an independent interpretation of an: EKG (Sixty-nine, normal EKG) Discharge Plan Discharge Clinical Impression: Pancreatitis Patient Disposition: Admitted As Inpatient Prescriptions: No Action pantoprazole [Protonix] 40 mg Recon Soln 40 mg IVPUSH DAILY@0630 Qty: 1 0RF ondansetron HCl (PF) 4 mg/2 mL Solution 4 mg IVPUSH Q8H PRN (Reason: Nausea And Vomiting) Qty: 1 0RF Print Language: Bots[place]an
[2024-09-27 13:08] LABS: Influenza A PCR NEGATIVE (Negative); Influenza B PCR NEGATIVE (Negative); Resp Syncy Virus RNA Qual PCR NEGATIVE (Negative); SARS COV2 PCR INHOUSE NEGATIVE (Negative)
--- OUTSIDE RECORDS SUMMARY | 2024-09-27 13:30 | XMS_ITS | Encounter Summary ---
Author Organization [facility] Address [address] [place] [address] Phone Care Team Providers Care Battery Assembler [employer] Name Role Phone Shaji Huntley MD Primary Care Provider [phone] Encounter Details Date Type Department Care Team (Late st Contact Info) Description 11/18/2022 Documentation Only [facility], [address] [place] [address] Shaji Huntley MD [address] [place] [id number] Social History Tobacco Use Types Packs/Day Years Used Date Smoking Tobacco: Never Assessed Sex and Gender Information Value Date Recorded Sex Assigned at Not on file Legal Sex Male 1:21 PM EDT Gender Identity Not on file Sexual Orientation Not on file documented as of this encounter Plan of Treatment Not on file documented as of this encounter Visit Diagnoses Not on filedocumented in this encounter Care Teams Battery As[employer]er [employer] Relationship Specialty Start Date End Date Shaji Huntley MD [address] [place] [id number] PCP - General Internal Medicine 11/13/22 documented as of this encounter
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
--- OUTSIDE RECORDS SUMMARY | 2024-09-27 13:30 | XMS_ITS | Clinical Summary ---
Author Organization [facility], Address [address] [place] [address] [place] [address] Phone Care Team Providers Care Cafeteria Helper Name Role Phone Shaji Huntley MD Primary Care Provider [phone] Allergies Active Allergy Reactions Criticality Noted Date Comments Clindamycin 12/26/2022 Haloperidol 12/26/2022 Nsaids 12/26/2022 Penicillin G 12/26/2022 Medications atorvastatin (LIPITOR) 40 MG tablet Take 40 mg by mouth 1 (one) time each day 3 Active benztropine (COGENTIN) 2 MG tablet TAKE 1 TABLET BY MOUTH TWICE A DAY NEEDED FOR EXTRAPYRAMIDAL SIDE EFFECTS 3 Active escitalopram (LEXAPRO) 10 MG tablet Take 10 mg by mouth 1 (one) time each day 3 Active esomeprazole (NexIUM) [address] capsule TAKE 1 CAPSULE BY MOUTH EVERY DAY IN THE MORNING AT LEAST 30 MINUTES BEFORE BREAKFAST 3 Active hydrOXYzine (ATARAX) 25 MG tablet TAKE 1 TABLET BY MOUTH FOUR TIMES A DAY NEEDED ANXIETY 3 Active lisinopril-hyd roCHLOROthiazi de (PRINZIDE,ZEST ORETIC) 10-12.5 MG per tablet Take 2 tablets by mouth 1 (one) time each day in the morning 3 Active meclizine (ANTIVERT) 25 MG tablet TAKE 1 TABLET BY MOUTH FOUR TIMES A DAY NEEDED FOR VERTIGO 3 Active potassium chloride (MICRO-K) 10 MEQ CR capsule Take 10 mEq by mouth every morning 3 Active QUEtiapine Fumarate 150 MG tablet Take 150 mg by mouth every night 3 Active topiramate (TOPAMAX) 25 MG tablet Take 25 mg by mouth 1 (one) time each day in the evening 3 Active guaiFENesin 200 MG tablet Take 400 mg by mouth every 4 (four) hours if needed for cough Active Naloxone HCl 4 MG/0.1ML liquid Administer into affected nostril(s) Active Sennosides 17.2 MG tablet Take by mouth A ctive cloNIDine (CATAPRES) 0.1 MG tablet Take 1 tablet (0.1 mg total) by mouth every night 90 tablet 3 3 Active Active Problems Problem Noted Date Diagnosed Date Chronic kidney disease, stage 2 (mild) 3 Serum creatinine above reference range 3 Hypokalemia 01/03/2023 Essential hypertension 12/26/2022 Hypercholesterolemia 12/26/2022 Encounters Date Type Department Care Team Description 09/21/2024 Telephone [facility] [address] [place] [address] Nga Meyers from Last 3 Months Social History Tobacco Use Types Packs/Day Years Used Date Smoking Tobacco: Former Cigarettes 0.5 15 Sex and Gender Information Value Date Recorded Sex Assigned at Not on file Legal Sex Male 1:21 PM EDT Gender Identity Not on file Sexual Orientation Not on file Last Filed Vital Signs Vital Sign Reading Time Taken Comments Blood Pressure 118/70 04/02/2023 2:22 PM EST Pulse 73 04/02/2023 2:22 PM EST Temperature - - Respiratory Rate - - Oxygen Saturation - - Inhaled Oxygen Concentration - - Weight 136 kg (300 lb) 01/03/2023 8:54 AM EDT Height - - Body Mass Index - - Plan of Treatment Health Maintenance Due Date Last Done Comments Pneumococcal Vaccine: 50+ Ye ars (1 of 2 - PCV) 1981 Colorectal Cancer Screening: Annual FOBT 10/10/2011 Colorectal Cancer Screening: Colonoscopy 10/10/2011 Colorectal Cancer Screening: Sigmoidoscopy 10/10/2011 Influenza Vaccine (Season Ended) 2025 Hepatitis B Vaccine Aged Out No longe r eligible based on patient's age to complete this topic Insurance [facility] [employer] Care Teams Cafeteria Helper Relationship Specialty Start Date End Date Shaji Huntley MD [address] [place] [phone] PCP - General Internal Medicine 11/13/22
--- OUTSIDE RECORDS SUMMARY | 2024-09-27 13:30 | XMS_ITS | Encounter Summary ---
Author Organization [facility] Address [address] [place] [address] Phone Care Team Providers Care Territory Sales Executive Name Role Phone Shaji Huntley MD Primary Care Provider Encounter Details Date Type Department Care Team (Late st Contact Info) Description 11/19/2022 Documentation Only [facility] [place], [address] [place] [address] Shaji Huntley MD [address] [place] [id number] Social History Tobacco Use Types Packs/Day Years [...] on filedocumented in this encounter Care Teams Territory Sales Executive Relationship Specialty Start Date End Date Shaji Huntley MD [address] [place] [id number] PCP - General Internal Medicine 11/13/22 documented as of this encounter
--- OUTSIDE RECORDS SUMMARY | 2024-09-27 13:30 | XMS_ITS | Patient Health Record ---
Author Organization [facility] Address [address] [facility] [place] [id number] Care Team Providers Care Lace Winder Name Role Phone [facility]OOGIE SWAN Unavailable Reason For Referral No Information Medications Medication SIG (Take, Route, Frequency, Duration) Notes Start Date End Date Status Mylanta Tonight 800-270-80 MG/10ML as directed Orally Active Narcan 4 MG/0.1ML as directed Nasally Active NexIUM 40 MG 1 capsule Orally Onc e a day for 30 day(s) Active Senokot Extra Strength 17.2 MG 1 tablet at bedtime as needed Orally Once a day for 30 day(s) Active Alvesco 80 MCG/ACT 1 puff Inhalation Tw ice a day Active SEROquel 100 MG 1 tablet at bedtime Orally Once a day for 30 day(s) Active Atorvastatin Calcium 40 MG 1 tablet Oral ly Once a day for 30 day(s) Active Tylenol 8 Hour 650 MG 2 tablets as neede d Orally every 8 hrs Active cloNIDine 0.3 MG/24HR 1 patch to skin Transdermal for 30 day(s) Active Zestoretic 20-25 MG 2 tablet Orally Once a day Active guaiFENesin 200 MG 1 tablet as needed O rally every 4 hrs Active hydrOXYzine HCl 50 MG 1 tablet as needed Orally four times a day Active Lexapro 10 MG 1 tablet Orally Once a day for 30 day(s) Active Meclizine HCl 25 MG 1 tablet as needed O rally every 12 hrs Active Milk of Magnesia 2400 MG/30ML 5 mL at least 4 hours between doses as needed Orally Four times a day Active Plan Of Treatment No Information Medical (General) History Medical History History ICD Code Mental health, hallucinations, PTSD, blo od pressure.
--- OUTSIDE RECORDS SUMMARY | 2024-09-27 13:30 | XMS_ITS | Encounter Summary ---
Author Organization [facility] Address [address] [place] [address] Phone Care Team Providers Care Train Gate Attendant Name Role Phone Shaji Huntley MD Primary Care Provider [phone] Encounter Details Date Type Department Care Team (Late st Contact Info) Description 03/31/2024 Documentation Only [facility] [place], [address] [place] [address] [employer], [address] [place] [address] Social History Tobacco Use Types Packs/Day Years [...] on filedocumented in this encounter Care Teams Train Gate Attendant Relationship Specialty Start Date End Date Shaji Huntley MD [address] [place] [id number] PCP - General Internal Medicine 11/13/22 documented as of this encounter
--- OUTSIDE RECORDS SUMMARY | 2024-09-27 13:30 | XMS_ITS | Encounter Summary ---
Author Organization [facility] Address [address] [place] [address] Phone Care Team Providers Care Field Crop Farmer Name Role Phone Shaji Huntley MD Primary Care Provider [phone] Encounter Details Date Type Department Care Team (Late st Contact Info) Description 03/31/2024 Documentation Only [facility] [place], [address] [place] [address] [employer], [address] [place] [address] Social History Tobacco Use Types [...] on filedocumented in this encounter Care Teams Field Crop Farmer Relationship Specialty Start Date End Date Shaji Huntley MD [address] [place] [id number] PCP - General Internal Medicine 11/13/22 documented as of this encounter
[2024-09-27] MEDS: Lidocaine HCl Viscous 2 % 15 ML SOLUTION PO (13:43)
[2024-09-27] MEDS: Pantoprazole Sodium 40 MG/10 ML VIAL IVPUSH (13:43)
[2024-09-27] MEDS: Ketorolac Tromethamine 15 MG/ML VIAL IVPUSH (13:43)
[2024-09-27] MEDS: Magnesium Hydrox/Alum Hydrox 30 ML ORAL.SUSP PO (13:43)
[2024-09-27] MEDS: iohexoL 350 MG/ML 100 ML INFUS..BTL IV (15:59)
[2024-09-27] MEDS: Diatrizoate Meglumine, Sodium 30 ML SOLUTION PO (16:03)
[2024-09-27 18:03] VITALS: BP 112/67; PULSE 67; RESP 16; TEMP 36.4; O2SAT 95
[2024-09-27 18:32] LABS: Amylase 115 U/L (28-100); Triglycerides 114 mg/dL (<150)
[2024-09-27] MEDS: 0.9 % Sodium Chloride 1,000 ML 200 ML IVCONT (18:34)
--- NOTE | 2024-09-27 19:18 | PM.IMHP ---
History of Present Illness Date of Service: 09/27/24 Chief Complaint: Abd pain This is a 63-year-old male with pertinent history of achalasia status post surgery, mood disorder, mixed hyperlipidemia, hypertension, gastroesophageal reflux disease, hypothyroidism who presents to the emergency department for evaluation of abdominal pain. Patient states symptoms started 2 days prior to presentation. He has been having generalized central abdominal pain that is constant, nonradiating and without any relieving factors. Had 1 episode of nonbloody emesis. Is unable to tolerate p.o. intake due to pain. No relieving factors and pain is aggravated with p.o. intake. Does have symptoms of gastroesophageal reflux disease including dyspepsia. Denies alcohol use. No diarrhea or constipation. No fever, chills, chest pain, palpitations, shortness of breath, changes in urinary habits. In the emergency department, imaging with acute edematous pancreatitis of the pancreatic head and uncinate process. Review of Systems Constitutional: Constitutional: Reports fatigue and Reports poor appetite Cardiovascular: Cardiovascular: Reports no additional cardiovascular complaints Respiratory: Respiratory: Reports no additional respiratory complaints Gastrointestinal: Gastrointestinal: Reports abdominal pain, Reports nausea and Reports vomiting Genitourinary: Genitourinary: Reports no additional male genitourinary complaints Endocrine: Endocrine: Reports fatigue [facility] Medical History Attention deficit disorder Dissociative disorder Chronic post-traumatic stress disorder (PTSD) Major depressive disorder, recurrent severe without psychotic features Pertinent family history: No family history of early CAD Social History Patient Tobacco Use Status: Never used Tobacco Advance Directives: No Advance Directives Information Provided: Yes service: No Meds Allergies Allergy/AdvReac Type Severity Reaction Status Date / Time haloperidol [From Haldol] Allergy Unknown Verified 09/27/24 09:50 Penicillins Allergy Anaphylaxis Verified 03/29/24 14:08 Active Medications: Current Medications Sodium Chloride (Ns) 1,000 mls @ 200 mls/hr IVCONT .Q5H LUCINDA Stop: 09/27/24 23:29 Last Admin: 09/27/24 18:34 Dose: 200 mls/hr Home Medications ?Medication ?Instructions ?Recorded ?Confirmed ?Last Taken ?Type B-complex with vitamin C 1 tab PO DAILY 09/27/24 09/27/24 Unknown History acetaminophen 650 mg 1,300 mg PO Q8H PRN Pain 09/27/24 09/27/24 Unknown History tablet,extended release acetaminophen 650 mg 650 mg PO Q4-6H PRN Fever Or Pain 09/27/24 09/27/24 Unknown History tablet,extended release aluminum-mag hydroxide-simethicone 20 ml PO Q4-6H PRN Stomach Upset 09/27/24 09/27/24 Unknown History 200 mg-200 mg-20 mg/5 mL oral susp atorvastatin 40 mg tablet 40 mg PO DAILY 09/27/24 09/27/24 09/26/24 History clotrimazole 1 % topical cream 1 appl topical DAILY 09/27/24 09/27/24 09/26/24 History esomeprazole magnesium 40 mg 40 mg PO DAILY 09/27/24 09/27/24 09/26/24 History capsule,delayed release guaifenesin 200 mg/5 mL oral liquid 200 - 400 mg PO Q4H PRN Cough 09/27/24 09/27/24 Unknown History guanfacine 2 mg tablet 2 mg PO BEDTIME 09/27/24 09/27/24 09/26/24 History hydroxyzine HCl 50 mg tablet 50 mg PO QID 09/27/24 09/27/24 09/26/24 History ketoconazole 2 % topical cream 1 appl topical DAILY 09/27/24 09/27/24 09/26/24 History levothyroxine 150 mcg tablet 150 mcg PO DAILY@0500 09/27/24 09/27/24 09/27/24 History lisinopril 20 1 tab PO DAILY 09/27/24 09/27/24 09/26/24 History mg-hydrochlorothiazide 25 mg tablet (Zestoretic) magnesium hydroxide 400 mg/5 mL 30 ml PO DAILY PRN Constipation 09/27/24 09/27/24 Unknown History oral suspension (Milk of Magnesia) meclizine 25 mg tablet 25 mg PO TID PRN Vertigo 09/27/24 09/27/24 Unknown History naloxone 4 mg/actuation nasal 4 mg intranasal Q3M PRN Opiate 09/27/24 09/27/24 Unknown History spray (Narcan) Reversal primidone 50 mg tablet 50 mg PO BID 05/09/27/24 09/27/24 History vitamin B complex 1 tab PO BEDTIME 09/27/24 09/27/24 09/26/24 History Physical Exam Vital Signs and Narrative: Vital Signs: Last Vital Signs Temp 97.5 F 09/27/24 18:03 Pulse 67 09/27/24 18:03 Resp 16 09/27/24 18:03 BP 112/67 09/27/24 18:03 Pulse Ox 95 09/27/24 18:03 O2 Del Method Room Air, Oxymize r 09/27/24 18:03 BMI result Body Mass Index 40.5 Middle-aged male lying in bed in no distress Neck supple, no JVD Regular rate and rhythm, S1-S2 heard Regular breath sounds bilaterally, no wheezing or crackles appreciated Abdomen with a epigastric tenderness, no rigidity Patient is awake, alert and oriented to self, place, time and person ; no focal motor deficit Psych: Normal mood No pedal edema Results Labs 09/27/24 10:32 09/27/24 10:32 Labs: Laboratory Results - last 24 hr 09/27/24 09/27/24 10:32 12:17 MCV 77.7 L MCH 23.7 L MCHC 30.5 L RDW 18.6 H Plt Count 52 L D MPV TNP Immature Gran % (Auto) 0.2 Neut % (Auto) 44.7 L Lymph % (Auto) 49.4 H [place] % (Auto) 3.1 Eos % (Auto) 2.2 Baso % (Auto) 0.4 Lymph # (Auto) 2.2 [place] # (Auto) 0.1 Eos # (Auto) 0.1 Baso # (Auto) 0.0 Abs Immat Gran (auto) 0.01 Absolute Neuts (auto) 2.0 Absolute Nucleated RBC 0.000 Nucleated RBC % (auto) 0.0 Anion Gap 11 L Estim Creat Clear Calc 106.2 Estimated GFR > 60 Random Glucose 88 Calcium 9.2 Total Bilirubin 0.7 Direct Bilirubin 0.2 AST 31 ALT 41 H Alkaline Phosphatase 69 Total Protein 7.2 Albumin 4.0 Triglycerides 114 Amylase 115 H Lipase 57 Influenza Type A (PCR) NEGATIVE Influenza Type B (PCR) NEGATIVE RSV RNA Qual (PCR) NEGATIVE SARS-CoV-2 RNA (RT-PCR) NEGATIVE Imaging Radiologist's Impressions: Impressions Abdomen/Pelvis CT 09/27/24 13:12 IMPRESSION: 1. Acute edematous pancreatitis of the pancreatic head and uncinate process. No evidence of pancreatic necrosis or mass. 2. No evidence of bowel obstruction or pathologic bowel dilatation. 3. Marked prostatic enlargement, with the prostate measuring up to 6.6 cm in diameter with central coarse calcifications and with the median lobe protruding significantly into the bladder base. 4. Collapsed, thick walled urinary bladder. This is most likely on the basis of chronic outlet obstruction. 5. Small to moderate size hiatus hernia versus dilatation of the distal esophagus. 6. Additional ancillary findings as discussed in the body of the report. Electronically signed by: Hong Reed MD 09/27/2024 04:20 PM EDT RP Assessment and Plan (1) Abdominal pain: Status: Acute Plan This is a 63-year-old male with pertinent history of achalasia status post surgery, mood disorder, mixed hyperlipidemia, hypertension, gastroesophageal reflux disease, hypothyroidism who presents to the emergency department for evaluation of abdominal pain. #. Intractable abdominal pain with reduced p.o. intake: Lipase normal and does not have classical epigastric pain radiating to the back. Imaging with acute edematous pancreatitis of the pancreatic head and uncinate process. Will admit patient with IV opioids p.r.n. for analgesia. Consulting Gastroenterology. Continue IV crystalloid resuscitation. Denies alcohol use. Triglyceride level normal. No biliary ductal dilatation. NPO for bowel rest #. Gastroesophageal reflux disease: Initiating IV Protonix #. Hypothyroidism: On Synthroid #. Hypertension/mixed hyperlipidemia/mood disorder: Continue home prescription medications once able to take p.o. #. Thrombocytopenia: Defer prophylactic Lovenox Med rec pending DVT prophylaxis: Mechanical Full code Admit as inpatient and will require two night minimum hospital stay for evaluation management of intractable abdominal pain with imaging concerning for acute pancreatitis (as above), which is not possible in a lesser acute setting. Gastroenterology consult pending Quality Stroke Does the patient have a stroke diagnosis?: No VTE Prior VTE?: No VTE Risk Level:: Medical - moderate - high VTE Device Contraindication: N/A - Device Ordered VTE Drug Contraindication: Treatment Not Indicated
--- NOTE | 2024-09-27 19:46 | PHA.MEDREC ---
Addendum entered by Hugh Yadav RP 09/27/24 20:15: med rec checked by [facility] Original Note: Pharmacy Consult ? Medication Reconciliation Pharmacy has completed the medication reconciliation. Utilized list from [facility] to confirm med list.
[2024-09-27 21:04] VITALS: BMI 40.9
[2024-09-27 21:14] VITALS: BP 124/74; PULSE 69; RESP 18; TEMP 36.4; O2SAT 96
[2024-09-27] MEDS: Acetaminophen 325 MG TABLET 650 MG PO (21:16)
[2024-09-27 22:16] VITALS: RESP 18
[2024-09-27] MEDS: Lactated Ringers 1,000 ML 100 ML IVCONT (23:37)
[2024-09-27] MEDS: 0.9 % Sodium Chloride Flush 3 ML SYRINGE IVFLUSH (23:38)
--- NOTE | 2024-09-28 00:12 | PM.EVENT ---
Event Note Date of Service: 09/28/24 Event Note: GI-Chart reviewed-Full consult to follow on 09/28 I have ordered a RUQ U/S and MRI of the abdomen to R/O gallstones and pancreatic mass, respectively. Check CA 19-9. Thanks Time Spent With Patient Time: Total time managing care of this patient today ____ minutes.
[2024-09-28 03:14] VITALS: BP 129/80; PULSE 62; RESP 20; TEMP 36.4; O2SAT 96
[2024-09-28] MEDS: Levothyroxine Sodium 150 MCG TABLET PO (05:41)
[2024-09-28] MEDS: Pantoprazole Sodium 40 MG/10 ML VIAL IVPUSH (05:42)
[2024-09-28 06:53] LABS: MANUAL DIFF FLAG NO
[2024-09-28] MEDS: Morphine Sulfate 4 MG/ML CARTRIDGE IVPUSH (07:02)
[2024-09-28 07:03] LABS: Basophils Percent Auto 0.3 % (0-2); Eosinophils Absolute Auto 0.1 X10*3/uL (0.0-0.4); Eosinophils Percent Auto 2.3 % (0-4); Hematocrit 40.8 % (42.0-52.0); Hemoglobin 12.8 g/dl (14.0-18.0); Imm Gran Abs Auto 0.01 X10*3/uL (0.00-0.03); Imm Gran Pct Auto 0.3 % (0.0-0.4); Lymphocytes Absolute Auto 1.9 X10*3/uL (1.2-4.9); Lymphocytes Percent Auto 55.4 % (20-40); Mean Corpuscular HGB Conc 31.4 g/dl (31.0-36.0); Mean Corpuscular Hemoglobin 23.9 pg (27.0-33.0); Mean Corpuscular Volume 76.1 fL (80.0-98.0); Monocytes Absolute Auto 0.1 X10*3/uL (0.1-1.2); Monocytes Percent Auto 2.6 % (2-11); Neutrophils Absolute Auto 1.3 x10*3/uL (2.0-8.3); Neutrophils Percent Auto 39.1 % (45-73); Red Blood Count 5.36 X10*6/uL (4.60-5.80); Red Cell Distribution Width 18.2 % (11.0-16.0); White Blood Count 3.4 X10*3/uL (4.8-10.8)
[2024-09-28 07:04] LABS: Platelet Count 47 X10*3/uL (160-400)
[2024-09-28 07:19] LABS: Alanine Aminotransferase 35 U/L (0-40); Albumin Level 3.8 g/dL (3.5-5.0); Alkaline Phosphatase 65 U/L (39-117); Anion Gap 11 (12-20); Aspartate Amino Transferase 29 U/L (5-37); Bilirubin Direct 0.3 mg/dL (0.0-0.5); Bilirubin Total 0.9 mg/dL (0.0-1.0); Blood Urea Nitrogen 20 mg/dL (9-16); Calcium 8.7 mg/dL (8.4-10.2); Carbon Dioxide 28 mmol/L (22-29); Chloride 103 mmol/L (96-108); Creatinine Clr Calc Pharmacy 121.9; Estimated Glomerular Filt Rate > 60; Glucose Random 70 mg/dL (60-115); Lipase 37 U/L (8-78); Potassium 3.6 mmol/L (3.3-5.1); Sodium 138 mmol/L (135-145); Total Protein 6.5 g/dL (6.5-8.0)
[2024-09-28 07:43] VITALS: BP 128/70; PULSE 63; RESP 16; TEMP 36.7; O2SAT 97
[2024-09-28 08:55] LABS: Prostate Specific Antigen 20.38 ng/mL (<0.05-4.0)
[2024-09-28] MEDS: Lactated Ringers 1,000 ML 100 ML IVCONT ×2 (09:19→19:26)
--- NOTE | 2024-09-28 09:42 | MHC.CM.PN ---
CM MET WITH PT AT BEDSIDE. PT LIVES WITH FAMILY AND IS FUNCTIONALLY INDEPENDENT. NO DME/SERVICES. + HCP ON FILE AND VERIFIED. PCP DR. Ángel JIMÉNEZ. DP: HOME, NO SERVICES IS THE GOAL. PT HAS OWN RIDE HOME. CM WILL CONTINUE TO FOLLOW FOR ANY CHANGE TO DC PLAN/NEEDS
[2024-09-28] MEDS: Acetaminophen 325 MG TABLET 650 MG PO ×2 (12:10→22:00)
--- NOTE | 2024-09-28 14:16 | P.PNIM_ITS ---
Subjective Subjective Date of Service: 09/28/24 Interval History: No acute issues overnight. Pain slightly improved. Remains NPO Review of Systems Denies chest pain Denies shortness of breath Denies nausea vomiting diarrhea Denies fever chills Physical Exam 2 Vital Signs: Vital Signs: Last Vital Signs Temp 98.1 F 09/28/24 07:43 Pulse 63 09/28/24 07:43 Resp 16 09/28/24 07:43 BP 128/70 09/28/24 07:43 Pulse Ox 97 09/28/24 07:43 O2 Del Method Room Air 09/28/24 07:43 BMI result Body Mass Index 40.9 Const: Other: Awake alert oriented x3 in no acute distress Resp: Other: Clear to auscultation bilaterally no rales rhonchi or wheezes Cardio: Other: No S4; positive S1-S2; no S3 murmurs rubs or gallops GI: Other: Soft nontender nondistended normoactive bowel sounds Extrem: Other: No edema bilaterally Objective Data Active Medications Acetaminophen (Acetaminophen 325 Mg Tablet) 650 mg PO Q6H PRN PRN Reason: Pain, Mild 1-3,fever,headache Last Admin: 09/28/24 12:10 Dose: 650 mg Documented By: ERJI Calcium Carbonate (Calcium Carbonate 750 Mg Tab.Chew) 750 mg PO Q4H PRN PRN Reason: Heartburn Lactated Ringer's (Lr) 1,000 mls @ 100 mls/hr IVCONT .Q10H [facility] Last Admin: 09/28/24 09:19 Dose: 100 mls/hr Documented By: REJI Levothyroxine Sodium (Levothyroxine Sodium 150 Mcg Tablet) 150 mcg PO DAILY@0600 [facility] Last Admin: 09/28/24 05:41 Dose: 150 mcg Documented By: CARLA Magnesium Hydroxide (Milk Of Magnesia 30 Ml Oral.Susp) 30 ml PO DAILY PRN PRN Reason: Constipation Melatonin (Melatonin 3 Mg Tablet) 6 mg PO BEDTIME PRN PRN Reason: Insomnia Morphine Sulfate (Morphine Sulfate 4 Mg/Ml Cartridge) 4 mg IVPUSH Q4H PRN; Protocol PRN Reason: Pain, Severe (Pain Scale 7-10) Last Admin: 09/28/24 07:02 Dose: 4 mg Documented By: REJI Ondansetron HCl (Ondansetron Hcl 4 Mg/2 Ml Vial) 4 mg IVPUSH Q8H PRN PRN Reason: Nausea and Vomiting Pantoprazole Sodium (Pantoprazole Sodium 40 Mg/10 Ml Vial) 40 mg IVPUSH DAILY@0630 [facility] Last Admin: 09/28/24 05:42 Dose: 40 mg Documented By: CARLA Sodium Chloride (0.9 % Sodium Chloride Flush 3 Ml Syringe) 3 ml IVFLUSH QSHIFT [facility] Last Admin: 09/28/24 06:50 Dose: Not Given Documented By: REJI Non-Admin Reason: IV Running Labs 09/28/24 05:51 09/28/24 05:51 Labs: Laboratory Results - last 24 hr 09/27/24 09/28/24 10:32 05:51 MCV 76.1 L MCH 23.9 L MCHC 31.4 RDW 18.2 H Plt Count 47 L MPV Not Reportable Immature Gran % (Auto) 0.3 Neut % (Auto) 39.1 L Lymph % (Auto) 55.4 H [place] % (Auto) 2.6 Eos % (Auto) 2.3 Baso % (Auto) 0.3 Lymph # (Auto) 1.9 Saline # (Auto) 0.1 Eos # (Auto) 0.1 Baso # (Auto) 0.0 Abs Immat Gran (auto) 0.01 Absolute Neuts (auto) 1.3 L Absolute Nucleated RBC 0.000 Nucleated RBC % (auto) 0.0 Anion Gap 11 L Estim Creat Clear Calc 121.9 Estimated GFR > 60 Random Glucose 70 Calcium 8.7 Total Bilirubin 0.9 Direct Bilirubin 0.3 AST 29 ALT 35 Alkaline Phosphatase 65 Total Protein 6.5 Albumin 3.8 Triglycerides 114 Amylase 115 H Lipase 37 Prostate Specific Ag 20.38 H Assessment and Plan (1) Pancreatitis: Status: Acute (2) Abdominal pain: Status: Acute Plan This is a 63-year-old male with pertinent history of achalasia status post surgery, mood disorder, mixed hyperlipidemia, hypertension, gastroesophageal reflux disease, hypothyroidism who presents to the emergency department for evaluation of abdominal pain. 1.Intractable abdominal pain secondary to edematous pancreatitis -NPO pending studies -IV pantoprazole -right upper quadrant ultrasound without significant abnormalities. CBD at upper limits normal -MRI with and without contrast pending -appreciate GI input 2. Thrombocytopenia -hold Lovenox; pneumatics -heme consult 3.Gastroesophageal reflux disease - IV Protonix -NPO pending studies; advance diet as tolerated 4.Hypertension -acceptable control on current therapies -adjust as indicated 5.. Mood disorder -stable and well compensated -continue outpatient therapies 6.Elevated PSA -urology consult Med rec pending Mechanical Full code Requires ongoing hospitalization for IV pantoprazole and complete workup for pancreatitis along with specialty consultation Quality Stroke Does the patient have a stroke diagnosis?: No VTE Prior VTE?: No VTE Risk Level:: Medical - moderate - high VTE Device Contraindication: N/A - Device Ordered VTE Drug Contraindication: Treatment Not Indicated
--- NOTE | 2024-09-28 15:06 | P.CNHO_ITS ---
Subjective - Subjective Chief complaint: Abdominal pain Patient: new to practice Consult date: 09/28/24 Primary Care Provider: Shaji Huntley MD Heel Sorter Utilized?: No - Guinean Speaking HPI - Consult Narrative Reason for consult: Thrombocytopenia Narrative: Lemuel Maldonado is a 63 year old male who has a long-term resident of psychiatric facility and previous to that incarcerated for 37 years who is currently admitted for acute pancreatitis. He presented with symptoms of generalized central abdominal pain that is constant, nonradiating and without any relieving factors. Had 1 episode of nonbloody emesis. He was unable to tolerate p.o. intake due to pain. No relieving factors and pain is aggravated with p.o. intake. Does have symptoms of gastroesophageal reflux disease including dyspepsia. Denies alcohol use. No diarrhea or constipation. No fever, chills, chest pain, palpitations, shortness of breath, changes in urinary habits. Patient states that he has been at a mental health facility in [place] for the last year and a half. About a month ago he was started on primidone for tremors. His PCP is affiliated with [facility]. He has had a colonoscopy this year. He was not aware of elevated PSA and denies any urological complaints. He says his mother and sister with treated for some type of cancer. He has been sober for 28 years and he does not smoke. He has never been told of low platelets in the past. Review of Systems - Constitutional Reports as per HPI, Denies lack of energy, Denies malaise, Denies poor appetite, Denies weight loss - Cardiovascular Reports system reviewed and no additional complaints, except as documented - Respiratory Reports no additional respiratory complaints - Gastrointestinal Reports system reviewed and no additional complaints, except as documented PMFSH Medical History: Medical History (Last Reviewed 09/27/24 @ 19:48 by Hodan Shrestha MD) Attention deficit disorder Chronic post-traumatic stress disorder (PTSD) Dissociative disorder Major depressive disorder, recurrent severe without psychotic features Social History: Social History (Last Reviewed 09/27/24 @ 19:48 by Hodan Shrestha MD) Living Situation History: Household Members: Other Household Members Other:: prison Housing: Assisted Living Facility Do you presently have visiting nurse or other home services: No Tobacco History: Patient Tobacco Use Status: Never used Tobacco Occupation Assessmet: service: No Home Medications and Allergies Current Medications: Current Medications Acetaminophen (Acetaminophen 325 Mg Tablet) 650 mg PO Q6H PRN PRN Reason: Pain, Mild 1-3,fever,headache Last Admin: 09/28/24 12:10 Dose: 650 mg Atorvastatin Calcium (Atorvastatin Calcium 40 Mg Tablet) 40 mg PO DAILY ON LICENSE OF [facility] Calcium Carbonate (Calcium Carbonate 750 Mg Tab.Chew) 750 mg PO Q4H PRN PRN Reason: Heartburn Hydroxyzine HCl (Hydroxyzine Hcl 50 Mg Tablet) 50 mg PO QID ON LICENSE OF [facility] Lactated Ringer's (Lr) 1,000 mls @ 100 mls/hr IVCONT .Q10H ON LICENSE OF [facility] Last Admin: 09/28/24 09:19 Dose: 100 mls/hr Levothyroxine Sodium (Levothyroxine Sodium 150 Mcg Tablet) 150 mcg PO DAILY@0600 ON LICENSE OF [facility] Last Admin: 09/28/24 05:41 Dose: 150 mcg Levothyroxine Sodium (Levothyroxine Sodium 150 Mcg Tablet) 150 mcg PO DAILY@0500 ON LICENSE OF [facility] Magnesium Hydroxide (Milk Of Magnesia 30 Ml Oral.Susp) 30 ml PO DAILY PRN PRN Reason: Constipation Melatonin (Melatonin 3 Mg Tablet) 6 mg PO BEDTIME PRN PRN Reason: Insomnia Morphine Sulfate (Morphine Sulfate 4 Mg/Ml Cartridge) 4 mg IVPUSH Q4H PRN; Protocol PRN Reason: Pain, Severe (Pain Scale 7-10) Last Admin: 09/28/24 07:02 Dose: 4 mg Non-Formulary Medication (Guanfacine) 2 mg PO BEDTIME ON LICENSE OF [facility] Non-Formulary Medication (Lisinopril-Hydrochlorothiazide [Zestoretic]) 1 tab PO DAILY ON LICENSE OF [facility] Ondansetron HCl (Ondansetron Hcl 4 Mg/2 Ml Vial) 4 mg IVPUSH Q8H PRN PRN Reason: Nausea and Vomiting Pantoprazole Sodium (Pantoprazole Sodium 40 Mg/10 Ml Vial) 40 mg IVPUSH DAILY@0630 ON LICENSE OF [facility] Last Admin: 09/28/24 05:42 Dose: 40 mg Primidone (Primidone 50 Mg Tablet) 50 mg PO BID ON LICENSE OF [facility] Sodium Chloride (0.9 % Sodium Chloride Flush 3 Ml Syringe) 3 ml IVFLUSH QSHIFT ON LICENSE OF [facility] Last Admin: 09/28/24 14:36 Dose: Not Given Home Medications ?Medication ?Instructions ?Recorded ?Confirmed ?Type B-complex with vitamin C 1 tab PO DAILY 09/27/24 09/27/24 History acetaminophen 650 mg 1,300 mg PO Q8H PRN Pain 09/27/24 09/27/24 History tablet,extended release acetaminophen 650 mg 650 mg PO Q4-6H PRN Fever Or Pain 09/27/24 09/27/24 History tablet,extended release aluminum-mag hydroxide-simethicone 20 ml PO Q4-6H PRN Stomach Upset 09/27/24 09/27/24 History 200 mg-200 mg-20 mg/5 mL oral susp atorvastatin 40 mg tablet 40 mg PO DAILY 09/27/24 09/27/24 History clotrimazole 1 % topical cream 1 appl topical DAILY 09/27/24 09/27/24 History esomeprazole magnesium 40 mg 40 mg PO DAILY 09/27/24 09/27/24 History capsule,delayed release guaifenesin 200 mg/5 mL oral liquid 200 - 400 mg PO Q4H PRN Cough 09/27/24 09/27/24 History guanfacine 2 mg tablet 2 mg PO BEDTIME 09/27/24 09/27/24 History hydroxyzine HCl 50 mg tablet 50 mg PO QID 09/27/24 09/27/24 History ketoconazole 2 % topical cream 1 appl topical DAILY 09/27/24 09/27/24 History levothyroxine 150 mcg tablet 150 mcg PO DAILY@0500 09/27/24 09/27/24 History lisinopril 20 1 tab PO DAILY 09/27/24 09/27/24 History mg-hydrochlorothiazide 25 mg tablet (Zestoretic) magnesium hydroxide 400 mg/5 mL 30 ml PO DAILY PRN Constipation 09/27/24 09/27/24 History oral suspension (Milk of Magnesia) meclizine 25 mg tablet 25 mg PO TID PRN Vertigo 09/27/24 09/27/24 History naloxone 4 mg/actuation nasal 4 mg intranasal Q3M PRN Opiate 09/27/24 09/27/24 History spray (Narcan) Reversal primidone 50 mg tablet 50 mg PO BID 09/27/24 09/27/24 History vitamin B complex 1 tab PO BEDTIME 09/27/24 09/27/24 History Allergies Allergy/AdvReac Type Severity Reaction Status Date / Time haloperidol [From Haldol] Allergy Unknown Verified 05/19/25 09:50 Penicillins Allergy Anaphylaxis Verified 03/29/24 14:08 Physical Exam Vital signs: Vital Signs Temp 98.1 F 09/28/24 07:43 Pulse 63 09/28/24 07:43 Resp 16 09/28/24 07:43 BP 128/70 09/28/24 07:43 Pulse Ox 97 09/28/24 07:43 O2 Del Method Room Air 09/28/24 07:43 Intake & Output 09/27/24 09/28/24 09/28/24 18:59 06:59 18:59 Intake Total 1000 / 1000 970 / 970 Balance 1000 / 1000 970 / 970 Intake: Intake, Oral Amount 0 / 0 0 / 0 Intake, IV Amount 1000 / 1000 970 / 970 0.9 % Sodium Chloride 1,000 ml 1000 / 1000 @ 200 mls/hr IVCONT .Q5H [facility] Rx #:[id number] Lactated Ringers 1,000 ml @ 100 970 / 970 mls/hr IVCONT .Q10H [facility] Rx#: [id number] Other: Meal Refused No NPO Yes Yes Number of Unmeasured Voids 2 Urine Bathroom Last Bowel Movement 09/24/24 09/24/24 Weight 146.9 kg 148.3 kg [place] Weight in Grams [id number] Weight 148.3 kg - Constitutional Present: no acute distress, obese - Routine HEENT Exam Head: Present: normal inspection Eye: Present: EOMI, PERRL - Routine Neck Exam Present: supple - Routine Respiratory Exam Present: CTAB. Absent: wheezes - Routine Cardiovascular Exam Cardiovascular: Present: RRR, S1, S2 - Routine Abdominal Exam Absent: guarding - Routine Extremities Exam Present: normal inspection Hem/Onc Consult Result - Labs CBC & Chem 7: 09/30/24 05:35 09/30/24 05:35 Labs: Short CBC 09/28/24 Range/Units 05:51 WBC 3.4 L (4.8-10.8) X10*3/uL Hgb 12.8 L (14.0-18.0) g/dl Hct 40.8 L (42.0-52.0) % Plt Count 47 L (160-400) X10*3/uL BMP 09/28/24 05:51 Sodium 138 Potassium 3.6 Chloride 103 Carbon Dioxide 28 BUN 20 H Creatinine 0.99 Calcium 8.7 Liver Function 09/28/ Range/Units 05:51 Total Bilirubin 0.9 (0.0-1.0) mg/dL Direct Bilirubin 0.3 (0.0-0.5) mg/dL AST 29 (5-37) U/L ALT 35 (0-40) U/L Alkaline Phosphatase 65 (39-117) U/L Albumin 3.8 (3.5-5.0) g/dL Assessment and Plan Patient Active problem list reviewed?: Yes (1) Thrombocytopenia Status: Acute Assessment and plan: 1. This is a 63-year-old male with past medical history significant for major depression, PTSD, dissociative disorder, long-term resident of psychiatric facility who is presenting with abdominal pain and has been diagnosed with acute pancreatitis. CT abdomen and subsequent MRI abdomen demonstrated mild edema pancreatic head and uncinate process and trace peripancreatic fluid consistent with acute pancreatitis. Prominent peripancreatic/lavelle hepatic lymph nodes measuring up to 1.7 cm in size. He also has mild pancytopenia and thrombocytopenia. He has microcytosis which is chronic. His platelet counts in 2023 were above 100, currently it is 47 K.. He has developed anemia and leukopenia which also appeared to be new. Submit iron studies, vitamin B12 and folate levels. There is no evidence of hemolysis or DIC. Primidone can be associated with agranulocytosis and occasionally aplastic anemia. His PSA is elevated with enlarged prostate seen on imaging. Urologic evaluation is pending. Differential diagnosis includes medication induced cytopenia, underlying malignancy, inflammation, primary bone marrow disorders such as lymphoma/plasma cell dyscrasia. Further workup such as bone marrow biopsy if necessary can be done as outpatient. Blood work has been submitted. Thank you for the consultation. - Time Spent With Patient Time Spent with Patient (in minutes): 20
[2024-09-28] MEDS: gadobutroL 10 ML VIAL IVPUSH (15:21)
[2024-09-28] MEDS: hydrOXYzine HCL 50 MG TABLET PO ×2 (15:28→20:07)
[2024-09-28 15:56] LABS: Immature Retic Fraction 13.4 % (2.3-13.4); Retic HGB Equivalent 28.8 pg (30.0-35.0); Reticulocyte Percent 0.8 % (0.5-1.8)
[2024-09-28 16:00] VITALS: BP 137/78; PULSE 69; RESP 18; TEMP 36.6; O2SAT 94
[2024-09-28 16:00] LABS: Fibrinogen 495 MG/DL (259-690); Prothrombin Time 11.1 SEC (10.9-12.4)
[2024-09-28 16:03] LABS: PTT Heparin Drip 36.2 SEC (53-77.9)
[2024-09-28 16:15] LABS: Lactate Dehydrogenase 198 U/L (118-273)
[2024-09-28 16:30] LABS: Ferritin 159 ng/mL (20-250)
[2024-09-28 16:45] LABS: Folate 10.8 ng/mL (> or = 4.0); Vitamin B12 541 pg/mL (200-900)
[2024-09-28 19:10] VITALS: BP 122/79; PULSE 64; RESP 18; TEMP 36.8; O2SAT 97
--- NOTE | 2024-09-28 19:39 | P.EN_ITS ---
Event Note Date of Service: 09/28/24 Event Note: GI Consult-Full note dictated-History from patient and the EMR. The warehouse distribution manager from his alf and multiple residents from the alf were present as well. Imp: Pancreatitis of unclear etiology. Clinically quite stable and improving. All imaging studies are c/w inflammation in the pancreas although his lipase has been normal. There are no findings by his history, labs, or imaging studies to suggest a gallbladder/biliary source, alcohol-induced source, medication-induced source, hypertriglyceridemia, or a familial component of pancreatitis. There is no obvious mass of the pancreas but the MRI does show some lymphadenopathy amidst the pancreatic inflammation. There is nothing to suggest PUD. Rec: Continue supportive care, advance diet as tolerated, observe. Check IgG levels and subtype to assess for any autoimmune cause of pancreatitis. Check the pending CA 19-9. I told him that he will need to follow up with his primary GI MD at [facility] in [place] to set up a follow up MRI of the abdomen and pancreas for over the summer to be sure there is no underlying mass contributing to the lymphadenopathy and pancreatitis. If his symptoms worsen again he may need an Endoscopic U/S of the pancreas. D/W patient and his warehouse distribution manager in detail. They are comfortable with the plan. Thanks Time Spent With Patient Time: Total time managing care of this patient today ____ minutes.
[2024-09-28] MEDS: Primidone 50 MG TABLET PO (20:07)
[2024-09-29 03:12] VITALS: BP 106/56; PULSE 60; RESP 20; TEMP 36.3; O2SAT 96
--- NOTE | 2024-09-29 03:35 | CONS_ITS ---
DATE OF SERVICE: 09/28/2024 REASON FOR CONSULTATION: Abdominal pain and abnormal imaging of pancreas. HISTORY OF PRESENT ILLNESS: The patient is a 63-year-old male who was in his usual state of health up until the day prior to admission when he developed the acute onset of abdominal pain. He describes that this was fairly severe and associated with some anorexia. His abdomen felt distended. He denies any previous history of this type of pain before or any particular GI symptoms in general, other than those from his underlying history of achalasia. Due to the persistent pain, he came to the ER. Since admission in the hospital, he has been gradually improving and is tolerating a liquid diet today. He does report that the pain is currently much better, although still present to a degree. He has been passing flatus but has not had a bowel movement. There has been no vomiting. He denies any signs of jaundice. He denies any previous history of pancreatitis in himself or family members as far as he knows. He has not been on any new medication. He has no history of alcohol use. MEDICATIONS: At home include acetaminophen, atorvastatin, vitamins, esomeprazole, guaifenesin, hydroxyzine, levothyroxine, lisinopril, hydrochlorothiazide, antacids, meclizine, primidone, and vitamins. His medications here in the hospital include IV pantoprazole, levothyroxine, lisinopril, melatonin, morphine, Zofran, primidone. PAST MEDICAL HISTORY: He describes a history of achalasia, for which he underwent surgery in [place] about 15 years ago. He describes that did help him, although he has had periodic dilations by his history. He is presently followed by a concept artist at [facility] in [place] and underwent attempted esophageal motility studies for some ongoing GI issues of dysphagia. He describes that the motility study was not completed as the catheter could not be passed and he is scheduled for a followup procedure with upper endoscopy and placement of the esophageal motility catheter later this year. He has had surgeries including neck fusion, back fusion, right knee replacement. and the achalasia surgery. His medical problems include hypertension, hyperlipidemia, achalasia. He denies history of diabetes, heart attack, stroke, nor kidney disease. He does have asthma. He does have mood disorder and attention deficit disorder, PTSD, and depression. SOCIAL HISTORY: He denies tobacco nor alcohol. He lives in a [facility]. REVIEW OF SYSTEMS: CONSTITUTIONAL: Prior to becoming ill, he had been feeling well with good energy, good appetite. SKIN: He denies any rash or pruritus. CARDIAC: No chest pain. PULMONARY: No cough or hemoptysis. GI: As above. URINARY: No dysuria, hematuria. PHYSICAL EXAMINATION: GENERAL: The patient is a pleasant alert male. He appears comfortable. SKIN: Warm and dry. HEENT: Anicteric sclerae. Moist mucous membranes. NECK: Supple without lymphadenopathy. CHEST: Clear. CARDIAC: Normal S1, S2. ABDOMEN: Soft and slightly distended. Bowel sounds are present. There is some mild epigastric tenderness but without mass or rebound. LABORATORY DATA: Initial white blood cell count of 4.5 with repeat of 3.4 today. Hemoglobin 13.5 yesterday and 12.8 today. MCV of 76. Platelet count 47,000. Of note, he was seen by Dr. Price from Hematology today in that regard. PT 11.1 with INR 1.0. Normal electrolytes. BUN 20, creatinine 0.99. LFTs and lipase are normal. CA 19 level is pending. Vitamin B12 and folate levels are pending. His LFTs and lipase on admission were normal. His amylase was minimally elevated at 115. Triglyceride level was 114. He did have an elevated PSA of 20.38. He has had an abdominal ultrasound that was negative for gallstones or any sign of biliary disease. There was no sign of any gallbladder wall thickening or surrounding fluid either. His CT scan of the abdomen described a normal-appearing liver, gallbladder, and spleen. There was some evidence of inflammation and swelling of the head of the pancreas, but without any sign of necrosis or mass. There is no pancreatic ductal dilatation. There was some surrounding prominent lymph nodes up to 11 mm in the pancreas. There was no sign of any particular GI pathology. He did have an MRI of the abdomen today again describing a normal-appearing liver and biliary tree. There is no evidence of any portal vein thrombosis. There is no evidence of any common duct stones or gallstones. The spleen appeared normal. The pancreas appeared to be mildly edematous consistent with acute pancreatitis. There is no obvious mass. The exam was somewhat limited due to patient motion. There were some prominent lymph nodes around the pancreas and lavelle hepatis up to 1.7 cm in size. There is no ascites. IMPRESSION: The patient presents with what appears to be acute pancreatitis based on his imaging studies and history, although his lipase level has been normal on 2 occasions. Nonetheless, it does certainly appear consistent with pancreatitis based on the history of acute abdominal pain and the appearance of the pancreas on the imaging studies. The etiology of this does not appear clear at all at this time given no sign of any gallbladder disease, biliary disease, alcohol history, hypertriglyceridemia, any new medication history, or any family history of pancreatic disease. He also denies any trauma to the abdomen. At this point, he does definitely appear to be improving and I would continue supportive care, advance diet as tolerated, and observe him. I did order IgG levels and subtyping to rule out any autoimmune causes pancreatitis in the morning. He does have a CA 19-9 level pending at this time. PLAN: At this point, if he continues to improve, he should be able to be discharged in next 24 to 48 hours. I advised him he will need to follow up with his primary GI physician at [facility] in [place] to set up a followup MRI over the summer to reassess the pancreas and be sure there is no underlying mass that may not have been seen due to the inflammation on today's exam. If things improve and remain quiescent, then I do not think he will need any further treatment as long as the followup MRI is stable. However, if he develops recurrent pancreatitis. I would then recommend an endoscopic ultrasound to be done. This has all been discussed with the patient and his warehouse shift supervisor in detail. They are comfortable with the plan. Thank you for the consultation. MD DESIRE Bell/NIRANJAN / [id number] MTDD
[2024-09-29] MEDS: Lactated Ringers 1,000 ML 100 ML IVCONT ×2 (05:45→15:46)
[2024-09-29] MEDS: Levothyroxine Sodium 150 MCG TABLET PO (05:46)
[2024-09-29] MEDS: Pantoprazole Sodium 40 MG/10 ML VIAL IVPUSH (05:46)
[2024-09-29 05:58] LABS: Hemoglobin 12.5 g/dl (14.0-18.0); Imm Gran Abs Auto 0.01 X10*3/uL (0.00-0.03); Imm Gran Pct Auto 0.4 % (0.0-0.4); Lymphocytes Percent Auto 57.4 % (20-40); MANUAL DIFF FLAG SCAN; Mean Corpuscular Volume 76.7 fL (80.0-98.0); Monocytes Absolute Auto 0.1 X10*3/uL (0.1-1.2); SCAN SMEAR FLAG 1
[2024-09-29 06:00] LABS: Basophils Percent Auto 0.4 % (0-2); Eosinophils Absolute Auto 0.1 X10*3/uL (0.0-0.4); Eosinophils Percent Auto 2.2 % (0-4); Hematocrit 39.8 % (42.0-52.0); Lymphocytes Absolute Auto 1.6 X10*3/uL (1.2-4.9); Mean Corpuscular HGB Conc 31.4 g/dl (31.0-36.0); Mean Corpuscular Hemoglobin 24.1 pg (27.0-33.0); Monocytes Percent Auto 2.9 % (2-11); Neutrophils Percent Auto 36.7 % (45-73); Red Blood Count 5.19 X10*6/uL (4.60-5.80); Red Cell Distribution Width 17.7 % (11.0-16.0); White Blood Count 2.7 X10*3/uL (4.8-10.8)
[2024-09-29 06:01] LABS: PLT ABN DIST 1; Platelet Count 47 X10*3/uL (160-400)
[2024-09-29 06:16] LABS: Alanine Aminotransferase 34 U/L (0-40); Albumin Level 3.8 g/dL (3.5-5.0); Alkaline Phosphatase 63 U/L (39-117); Anion Gap 11 (12-20); Aspartate Amino Transferase 28 U/L (5-37); Bilirubin Total 0.8 mg/dL (0.0-1.0); Blood Urea Nitrogen 13 mg/dL (9-16); Calcium 8.6 mg/dL (8.4-10.2); Carbon Dioxide 31 mmol/L (22-29); Chloride 102 mmol/L (96-108); Creatinine Clr Calc Pharmacy 131.2; Estimated Glomerular Filt Rate > 60; Glucose Fasting 99 mg/dL (60-99); Potassium 3.9 mmol/L (3.3-5.1); Sodium 140 mmol/L (135-145); Total Protein 6.6 g/dL (6.5-8.0)
[2024-09-29 07:26] VITALS: BP 123/72; PULSE 62; RESP 16; TEMP 36.7; O2SAT 96
--- NOTE | 2024-09-29 07:47 | P.CNUR_ITS ---
History of Present Illness Consult details Consult date: 09/29/24 Narrative: CC: Elevated PSA 63-year-old male Admit to hospital with 1 episode of emesis unable to tolerate p.o. intake Imaging shows acute edematous pancreatitis - There is marked enlargement of the prostate gland, which measures 6.6 cm in diameter, with irregular enhancement pattern. The median lobe protrudes significantly into the bladder base. There are dystrophic appearing central calcifications. Bladder wall thickening. - No suspicious lytic or blastic bone lesions identified Background history resident of psychiatric facility. Incarceration 37 years. Prior significant alcohol use. Is unaware of family history related to prostate issues Denies urinary complaints PSA 10/04 19 Recommend initiation finasteride Outpatient follow-up repeat PSA with possible biopsy as necessary Highly likely to have more significant urinary complaints then reported Review of Systems 2 Constitutional: Constitutional: Reports as per HPI and Reports no additional constitutional complaints Cardiovascular: Cardiovascular: Reports as per HPI and Reports no additional cardiovascular complaints Respiratory: Respiratory: Reports as per HPI and Reports no additional respiratory complaints Gastrointestinal: Gastrointestinal: Reports as per HPI and Reports no additional gastrointestinal complaints Genitourinary: Genitourinary: Reports as per HPI Musculoskeletal: Musculoskeletal: Reports no additional musculoskeletal complaints and Reports as per HPI Neurologic: Reports system reviewed and no additional complaints, except as documented and Reports as per HPI PMFSH Past Medical History Medical History Attention deficit disorder Dissociative disorder Chronic post-traumatic stress disorder (PTSD) Major depressive disorder, recurrent severe without psychotic features Social History Social History Household Members: Other Household Members Other:: [facility] Housing: Assisted Living Facility Do you presently have visiting nurse or other home services: No Patient Tobacco Use Status: Never used Tobacco service: No Meds Allergies Allergy/AdvReac Type Severity Reaction Status Date / Time haloperidol [From Haldol] Allergy Unknown Verified 09/27/24 09:50 Penicillins Allergy Anaphylaxis Verified 03/29/24 14:08 Active Medications: Current Medications Acetaminophen (Acetaminophen 325 Mg Tablet) 650 mg PO Q6H PRN PRN Reason: Pain, Mild 1-3,fever,headache Last Admin: 09/28/24 22:00 Dose: 650 mg Atorvastatin Calcium (Atorvastatin Calcium 40 Mg Tablet) 40 mg PO DAILY [facility] Calcium Carbonate (Calcium Carbonate 750 Mg Tab.Chew) 750 mg PO Q4H PRN PRN Reason: Heartburn Hydrochlorothiazide (Hydrochlorothiazide 25 Mg Tablet) 25 mg PO DAILY [facility] Hydroxyzine HCl (Hydroxyzine Hcl 50 Mg Tablet) 50 mg PO QID [facility] Last Admin: 09/28/24 20:07 Dose: 50 mg Lactated Ringer's (Lr) 1,000 mls @ 100 mls/hr IVCONT .Q10H [facility] Last Admin: 09/29/24 05:45 Dose: 100 mls/hr Levothyroxine Sodium (Levothyroxine Sodium 150 Mcg Tablet) 150 mcg PO DAILY@0600 [facility] Last Admin: 09/29/24 05:46 Dose: 150 mcg Lisinopril (Lisinopril 20 Mg Tablet) 20 mg PO DAILY [facility] Magnesium Hydroxide (Milk Of Magnesia 30 Ml Oral.Susp) 30 ml PO DAILY PRN PRN Reason: Constipation Melatonin (Melatonin 3 Mg Tablet) 6 mg PO BEDTIME PRN PRN Reason: Insomnia Morphine Sulfate (Morphine Sulfate 4 Mg/Ml Cartridge) 4 mg IVPUSH Q4H PRN; Protocol PRN Reason: Pain, Severe (Pain Scale 7-10) Last Admin: 09/28/24 07:02 Dose: 4 mg Non-Formulary Medication (Guanfacine) 2 mg PO BEDTIME [facility] Ondansetron HCl (Ondansetron Hcl 4 Mg/2 Ml Vial) 4 mg IVPUSH Q8H PRN PRN Reason: Nausea and Vomiting Pantoprazole Sodium (Pantoprazole Sodium 40 Mg/10 Ml Vial) 40 mg IVPUSH DAILY@0630 [facility] Last Admin: 09/29/24 05:46 Dose: 40 mg Primidone (Primidone 50 Mg Tablet) 50 mg PO BID [facility] Last Admin: 09/28/24 20:07 Dose: 50 mg Sodium Chloride (0.9 % Sodium Chloride Flush 3 Ml Syringe) 3 ml IVFLUSH QSHIFT [facility] Last Admin: 09/29/24 07:11 Dose: Not Given Home Medications ?Medication ?Instructions ?Recorded ?Confirmed ?Last Taken ?Type B-complex with vitamin C 1 tab PO DAILY 09/27/24 09/27/24 Unknown History acetaminophen 650 mg 1,300 mg PO Q8H PRN Pain 09/27/24 09/27/24 Unknown History tablet,extended release acetaminophen 650 mg 650 mg PO Q4-6H PRN Fever Or Pain 09/27/24 09/27/24 Unknown History tablet,extended release aluminum-mag hydroxide-simethicone 20 ml PO Q4-6H PRN Stomach Upset 09/27/24 09/27/24 Unknown History 200 mg-200 mg-20 mg/5 mL oral susp atorvastatin 40 mg tablet 40 mg PO DAILY 09/27/24 09/27/24 09/26/24 History clotrimazole 1 % topical cream 1 appl topical DAILY 09/27/24 09/27/24 09/26/24 History esomeprazole magnesium 40 mg 40 mg PO DAILY 09/27/24 09/27/24 09/26/24 History capsule,delayed release guaifenesin 200 mg/5 mL oral liquid 200 - 400 mg PO Q4H PRN Cough 09/27/24 09/27/24 Unknown History guanfacine 2 mg tablet 2 mg PO BEDTIME 09/27/24 09/27/24 09/26/24 History hydroxyzine HCl 50 mg tablet 50 mg PO QID 09/27/24 09/27/24 09/26/24 History ketoconazole 2 % topical cream 1 appl topical DAILY 09/27/24 09/27/24 09/26/24 History levothyroxine 150 mcg tablet 150 mcg PO DAILY@0500 09/27/24 09/27/24 09/27/24 History lisinopril 20 1 tab PO DAILY 09/27/24 09/27/24 09/26/24 History mg-hydrochlorothiazide 25 mg tablet (Zestoretic) magnesium hydroxide 400 mg/5 mL 30 ml PO DAILY PRN Constipation 09/27/24 09/27/24 Unknown History oral suspension (Milk of Magnesia) meclizine 25 mg tablet 25 mg PO TID PRN Vertigo 09/27/24 09/27/24 Unknown History naloxone 4 mg/actuation nasal 4 mg intranasal Q3M PRN Opiate 09/27/24 09/27/24 Unknown History spray (Narcan) Reversal primidone 50 mg tablet 50 mg PO BID 09/27/24 09/27/24 09/27/24 History vitamin B complex 1 tab PO BEDTIME 09/27/24 09/27/24 09/26/24 History Physical Exam 2 Vital Signs: Vital Signs: Last Vital Signs Temp 98.1 F 09/29/24 07:26 Pulse 62 09/29/24 07:26 Resp 16 09/29/24 07:26 BP 123/72 09/29/24 07:26 Pulse Ox 96 09/29/24 07:26 O2 Del Method Room Air 09/29/24 07:26 BMI result Body Mass Index 40.9 Const: General: cooperative, healthy appearing, comfortable and no acute distress Orientation/consciousness: patient oriented x3 HEENT: Face and sinus: Yes normal facial exam Mouth: moist mucous membranes Neck: Neck: Yes normal visual inspection, Yes full ROM and Yes trachea midline Chest: Chest palpation & inspection: normal inspection of the chest Resp: Effort & Inspection: normal respiratory effort, able to speak in complete sentences and no respiratory distress GI: Inspection: Yes normal to inspection Back/Spine/Pelvis: Cervical Spine: normal cervical lordosis Thoracic/Lumbar Spine: thoracic and lumbar spine normal to inspection Skin: General skin exam: no rashes or lesions noted Neuro: General: patient oriented x3, tone normal and moves all extremities Extrem: General: Yes normal to inspection and Yes capillary refill normal Results Labs 09/28/24 05:51 09/29/24 05:40 Labs: Abnormal lab results 09/28/24 09/28/24 09/29/24 Range/Units 05:51 15:45 05:40 Retic Hgb Equivalent 28.8 L (30.0-35.0) pg aPTT Heparin Protocol 36.2 L (53-77.9) SEC Carbon Dioxide 31 H (22-29) mmol/L Anion Gap 11 L (12-20) Prostate Specific Ag 20.38 H (<0.05-4.0) ng/mL BMP 09/29/24 05:40 Sodium 140 Potassium 3.9 Chloride 102 Carbon Dioxide 31 H BUN 13 Creatinine 0.92 Calcium 8.6 Liver Function 09/29/24 Range/Units 05:40 Total Bilirubin 0.8 (0.0-1.0) mg/dL AST 28 (5-37) U/L ALT 34 (0-40) U/L Alkaline Phosphatase 63 (39-117) U/L Albumin 3.8 (3.5-5.0) g/dL All other labs normal. Assessment and Plan (1) Elevated PSA: Status: Acute Plan Start finasteride Outpatient evaluation Procedures Date of Service Date of Service: 09/29/24
[2024-09-29 08:13] LABS: SLIDE REVIEW VERIFIED
[2024-09-29] MEDS: hydroCHLOROthiazide 25 MG TABLET PO (08:26)
[2024-09-29] MEDS: Atorvastatin Calcium 40 MG TABLET PO (08:26)
[2024-09-29] MEDS: lisinopriL 20 MG TABLET PO (08:27)
[2024-09-29] MEDS: hydrOXYzine HCL 50 MG TABLET PO ×4 (08:27→21:07)
[2024-09-29] MEDS: Primidone 50 MG TABLET PO ×2 (08:27→21:07)
[2024-09-29] MEDS: Finasteride 5 MG TABLET PO (08:27)
--- NOTE | 2024-09-29 11:05 | MHC.CM.PN ---
EMR REVIEWED AND PER MD ROUNDS, PT WILL HAVE DIET SLOWLY ADVANCED . CM WILL CONTINUE TO FOLLOW FOR ANY CHANGE TO DC PLAN.
[2024-09-29 11:08] LABS: Carbohydrate Antigen 19-9 <3 U/mL (<34)
[2024-09-29 11:53] VITALS: BP 136/79; PULSE 67
--- NOTE | 2024-09-29 14:23 | HO.PM.IMPN ---
Subjective Subjective Date of Service: 09/29/24 Interval History: Still with mild abdominal pain on full liquid diet. Notes improvement overall Review of Systems Denies chest pain Denies shortness of breath Denies nausea vomiting diarrhea Denies fever chills Physical Exam Vital Signs: Vital Signs: Last Vital Signs Temp 98.1 F 09/29/24 07:26 Pulse 67 09/29/24 11:53 Resp 16 09/29/24 07:26 BP 136/79 09/29/24 11:53 Pulse Ox 96 09/29/24 07:26 O2 Del Method Room Air 09/29/24 07:26 BMI result Body Mass Index 40.9 Const: Other: Awake alert oriented x3 in no acute distress Resp: Other: Clear to auscultation bilaterally no rales rhonchi or wheezes Cardio: Other: No S4; positive S1-S2; no S3 murmurs rubs or gallops GI: Other: Soft nontender nondistended normoactive bowel sounds Extrem: Other: No edema bilaterally Objective Data Active Medications Acetaminophen (Acetaminophen 325 Mg Tablet) 650 mg PO Q6H PRN PRN Reason: Pain, Mild 1-3,fever,headache Last Admin: 09/28/24 22:00 Dose: 650 mg Documented By: CARLA Atorvastatin Calcium (Atorvastatin Calcium 40 Mg Tablet) 40 mg PO DAILY [facility] Last Admin: 09/29/24 08:26 Dose: 40 mg Documented By: REJI Calcium Carbonate (Calcium Carbonate 750 Mg Tab.Chew) 750 mg PO Q4H PRN PRN Reason: Heartburn Finasteride (Finasteride 5 Mg Tablet) 5 mg PO DAILY [facility] Last Admin: 09/29/24 08:27 Dose: 5 mg Documented By: REJI Hydrochlorothiazide (Hydrochlorothiazide 25 Mg Tablet) 25 mg PO DAILY [facility] Last Admin: 09/29/24 08:26 Dose: 25 mg Documented By: REJI Hydroxyzine HCl (Hydroxyzine Hcl 50 Mg Tablet) 50 mg PO QID [facility] Last Admin: 09/29/24 12:46 Dose: 50 mg Documented By: REJI Lactated Ringer's (Lr) 1,000 mls @ 100 mls/hr IVCONT .Q10H [facility] Last Admin: 09/29/24 05:45 Dose: 100 mls/hr Documented By: CARLA Levothyroxine Sodium (Levothyroxine Sodium 150 Mcg Tablet) 150 mcg PO DAILY@0600 [facility] Last Admin: 09/29/24 05:46 Dose: 150 mcg Documented By: CARLA Lisinopril (Lisinopril 20 Mg Tablet) 20 mg PO DAILY [facility] Last Admin: 09/29/24 08:27 Dose: 20 mg Documented By: REJI Magnesium Hydroxide (Milk Of Magnesia 30 Ml Oral.Susp) 30 ml PO DAILY PRN PRN Reason: Constipation Melatonin (Melatonin 3 Mg Tablet) 6 mg PO BEDTIME PRN PRN Reason: Insomnia Morphine Sulfate (Morphine Sulfate 4 Mg/Ml Cartridge) 4 mg IVPUSH Q4H PRN; Protocol PRN Reason: Pain, Severe (Pain Scale 7-10) Last Admin: 09/28/24 07:02 Dose: 4 mg Documented By: REJI Non-Formulary Medication (Guanfacine) 2 mg PO BEDTIME [facility] Ondansetron HCl (Ondansetron Hcl 4 Mg/2 Ml Vial) 4 mg IVPUSH Q8H PRN PRN Reason: Nausea and Vomiting Pantoprazole Sodium (Pantoprazole Sodium 40 Mg/10 Ml Vial) 40 mg IVPUSH DAILY@0630 [facility] Last Admin: 09/29/24 05:46 Dose: 40 mg Documented By: CARLA Primidone (Primidone 50 Mg Tablet) 50 mg PO BID [facility] Last Admin: 09/29/24 08:27 Dose: 50 mg Documented By: REJI Sodium Chloride (0.9 % Sodium Chloride Flush 3 Ml Syringe) 3 ml IVFLUSH QSHIFT [facility] Last Admin: 09/29/24 12:46 Dose: Not Given Documented By: REJI Non-Admin Reason: IV Running Labs 09/29/24 05:40 09/29/24 05:40 Labs: Laboratory Results - last 24 hr 09/28/24 09/28/24 09/29/24 05:51 15:45 05:40 MCV 76.7 L MCH 24.1 L MCHC 31.4 RDW 17.7 H Plt Count 47 L MPV Not Reportable Immature Gran % (Auto) 0.4 Neut % (Auto) 36.7 L Lymph % (Auto) 57.4 H [place] % (Auto) 2.9 Eos % (Auto) 2.2 Baso % (Auto) 0.4 Lymph # (Auto) 1.6 [place] # (Auto) 0.1 Eos # (Auto) 0.1 Baso # (Auto) 0.0 Abs Immat Gran (auto) 0.01 Absolute Neuts (auto) 1.0 L Absolute Nucleated RBC 0.000 Nucleated RBC % (auto) 0.0 Smear Tech's Comments VERIFIED Absolute Retic 0.040 Percent Retic 0.8 Immature Retic Fraction 13.4 Retic Hgb Equivalent 28.8 L PT 11.1 INR 1.0 aPTT Heparin Protocol 36.2 L Fibrinogen 495 Anion Gap 11 L Estim Creat Clear Calc 131.2 Estimated GFR > 60 Fasting Glucose 99 Calcium 8.6 Ferritin 159 Total Bilirubin 0.8 AST 28 ALT 34 Alkaline Phosphatase 63 Lactate Dehydrogenase 198 Total Protein 6.6 Albumin 3.8 CA 19-9 Antigen <3 Vitamin B12 541 Folate 10.8 Assessment and Plan (1) Pancreatitis: Status: Acute (2) Thrombocytopenia: Status: Acute Plan This is a 63-year-old male with pertinent history of achalasia status post surgery, mood disorder, mixed hyperlipidemia, hypertension, gastroesophageal reflux disease, hypothyroidism who presents to the emergency department for evaluation of abdominal pain. 1.Intractable abdominal pain secondary to edematous pancreatitis -advance diet as tolerated -IV pantoprazole -right upper quadrant ultrasound without significant abnormalities. CBD at upper limits normal -MRI without significant findings -appreciate GI input 2. Thrombocytopenia -appreciate heme consult -likely multifactorial -studies pending 3.Gastroesophageal reflux disease - IV Protonix -advance diet as tolerated 4.Hypertension -acceptable control on current therapies -adjust as indicated 5.. Mood disorder -stable and well compensated -continue outpatient therapies 6.Elevated PSA -urology consult Mechanical Full code Requires ongoing hospitalization for IV pantoprazole and complete workup for pancreatitis along with specialty consultation Quality Stroke Does the patient have a stroke diagnosis?: No VTE Prior VTE?: No VTE Risk Level:: Medical - moderate - high VTE Device Contraindication: N/A - Device Ordered VTE Drug Contraindication: Treatment Not Indicated
[2024-09-29 15:22] VITALS: BP 126/74; PULSE 82; RESP 18; TEMP 36.7; O2SAT 96
[2024-09-29 19:06] VITALS: BP 139/85; PULSE 77; RESP 18; TEMP 36.8; O2SAT 96
[2024-09-29] MEDS: Melatonin 3 MG TABLET 6 MG PO (21:06)
[2024-09-29] MEDS: Calcium Carbonate 750 MG TAB.CHEW PO (23:30)
[2024-09-30 03:42] VITALS: BP 126/74; PULSE 55; RESP 18; TEMP 36.3; O2SAT 98
[2024-09-30] MEDS: Levothyroxine Sodium 150 MCG TABLET PO (05:32)
[2024-09-30] MEDS: Pantoprazole Sodium 40 MG/10 ML VIAL IVPUSH (05:33)
[2024-09-30 05:47] LABS: Imm Gran Abs Auto 0.01 X10*3/uL (0.00-0.03); Imm Gran Pct Auto 0.3 % (0.0-0.4); MANUAL DIFF FLAG SCAN; Mean Corpuscular Volume 76.3 fL (80.0-98.0); Monocytes Absolute Auto 0.1 X10*3/uL (0.1-1.2); SCAN SMEAR FLAG 1
[2024-09-30 05:49] LABS: Basophils Percent Auto 0.3 % (0-2); Eosinophils Absolute Auto 0.1 X10*3/uL (0.0-0.4); Eosinophils Percent Auto 1.9 % (0-4); Hematocrit 40.3 % (42.0-52.0); Hemoglobin 12.7 g/dl (14.0-18.0); Lymphocytes Percent Auto 62.2 % (20-40); Mean Corpuscular HGB Conc 31.5 g/dl (31.0-36.0); Mean Corpuscular Hemoglobin 24.1 pg (27.0-33.0); Monocytes Percent Auto 2.9 % (2-11); Neutrophils Percent Auto 32.4 % (45-73); Red Blood Count 5.28 X10*6/uL (4.60-5.80); Red Cell Distribution Width 17.7 % (11.0-16.0); White Blood Count 3.2 X10*3/uL (4.8-10.8)
[2024-09-30 05:50] LABS: PLT ABN DIST 1; Platelet Count 50 X10*3/uL (160-400)
[2024-09-30 06:08] LABS: Alanine Aminotransferase 33 U/L (0-40); Anion Gap 12 (12-20); Aspartate Amino Transferase 29 U/L (5-37); Bilirubin Total 0.6 mg/dL (0.0-1.0); Blood Urea Nitrogen 7 mg/dL (9-16); Calcium 9.3 mg/dL (8.4-10.2); Carbon Dioxide 30 mmol/L (22-29); Chloride 103 mmol/L (96-108); Creatinine Clr Calc Pharmacy 117.2; Estimated Glomerular Filt Rate > 60; Glucose Fasting 104 mg/dL (60-99); Potassium 3.8 mmol/L (3.3-5.1); Sodium 141 mmol/L (135-145); Total Protein 6.7 g/dL (6.5-8.0)
[2024-09-30 06:09] LABS: SLIDE REVIEW VERIFIED
[2024-09-30 06:13] LABS: Alkaline Phosphatase 65 U/L (39-117)
--- NOTE | 2024-09-30 07:08 | P.CDIM_ITS ---
PROVIDER RESPONSE TEXT: To clarify, the appropriate diagnosis supported by the clinical indicators: Morbid obesity QUERY TEXT: PHYSICIAN'S DOCUMENTATION REQUEST Date of Query: 09/29/2024 07:54 AM EDT Patient Name: Lemuel Maldonado Admit Date: 09/27/2024 Dear Nathanael Thorpe DO, A review of the medical record indicates additional documentation may be needed. Please review below and update the documentation accordingly. Clinical Indicators: Height: 6ft 3in Weight: 148.3kg BMI: 40.9 Other Clinical Notes: Nursing assessment Height and Weight: Extreme obesity class III If possible, please provide an associated diagnosis related to the abnormal BMI, such as: Morbid obesity Obesity Obesity Due to other cause Specify the other cause Other (explain) Clinically unable to determine (explain) Thank you, Angelika Barrera, CCS, CDIS Use of terms such as suspected, likely, concern for, or probable (associated with a specific diagnosi s that is being evaluated, monitored, or treated as if it exists) are acceptable and can be coded in the inpatient se tting, when documented at the time of discharge. Please use your independent medical judgment in providing your response. THIS QUERY IS PART OF THE PERMANENT MEDICAL RECORD
[2024-09-30 07:33] LABS: IgA 116 mg/dL (70-320); IgG 1080 mg/dL (600-1540); IgM 213 mg/dL (50-300)
[2024-09-30 08:00] VITALS: BP 144/76; PULSE 62; RESP 18; TEMP 36.3; O2SAT 95
[2024-09-30 08:17] VITALS: BP 144/76
[2024-09-30] MEDS: hydroCHLOROthiazide 25 MG TABLET PO (08:17)
[2024-09-30] MEDS: Primidone 50 MG TABLET PO ×2 (08:17→20:59)
[2024-09-30] MEDS: hydrOXYzine HCL 50 MG TABLET PO ×4 (08:17→20:59)
[2024-09-30] MEDS: Atorvastatin Calcium 40 MG TABLET PO (08:17)
[2024-09-30] MEDS: lisinopriL 20 MG TABLET PO (08:17)
[2024-09-30] MEDS: Acetaminophen 325 MG TABLET 650 MG PO (08:18)
[2024-09-30] MEDS: Finasteride 5 MG TABLET PO (08:19)
[2024-09-30] MEDS: 0.9 % Sodium Chloride Flush 3 ML SYRINGE IVFLUSH ×3 (08:21→21:00)
--- NOTE | 2024-09-30 13:00 | P.PNIM_ITS ---
Subjective Subjective Date of Service: 09/30/24 Interval History: Slowly improving. Tolerating advance to full liquids. Still with mild abdominal pain Review of Systems Denies chest pain Denies shortness of breath Denies nausea vomiting diarrhea Denies fever chills Physical Exam 2 Vital Signs: Vital Signs: Last Vital Signs Temp 97.3 F 09/30/24 08:00 Pulse 62 09/30/24 08:00 Resp 18 09/30/24 08:00 BP 144/76 H 09/30/24 08:17 Pulse Ox 95 09/30/24 08:00 O2 Del Method Room Air 09/30/24 08:00 BMI result Body Mass Index 40.9 Const: Other: Awake alert oriented x3 in no acute distress Resp: Other: Clear to auscultation bilaterally no rales rhonchi or wheezes Cardio: Other: No S4; positive S1-S2; no S3 murmurs rubs or gallops GI: Other: Soft nontender nondistended normoactive bowel sounds Extrem: Other: No edema bilaterally Objective Data Active Medications Acetaminophen (Acetaminophen 325 Mg Tablet) 650 mg PO Q6H PRN PRN Reason: Pain, Mild 1-3,fever,headache Last Admin: 09/30/24 08:18 Dose: 650 mg Documented By: CAROL Atorvastatin Calcium (Atorvastatin Calcium 40 Mg Tablet) 40 mg PO DAILY [facility] Last Admin: 09/30/24 08:17 Dose: 40 mg Documented By: CAROL Calcium Carbonate (Calcium Carbonate 750 Mg Tab.Chew) 750 mg PO Q4H PRN PRN Reason: Heartburn Last Admin: 09/29/24 23:30 Dose: 750 mg Documented By: ADELA Finasteride (Finasteride 5 Mg Tablet) 5 mg PO DAILY [facility] Last Admin: 09/30/24 08:19 Dose: 5 mg Documented By: CAROL Hydrochlorothiazide (Hydrochlorothiazide 25 Mg Tablet) 25 mg PO DAILY [facility] Last Admin: 09/30/24 08:17 Dose: 25 mg Documented By: CAROL Hydroxyzine HCl (Hydroxyzine Hcl 50 Mg Tablet) 50 mg PO QID [facility] Last Admin: 09/30/24 12:58 Dose: 50 mg Documented By: DABA Levothyroxine Sodium (Levothyroxine Sodium 150 Mcg Tablet) 150 mcg PO DAILY@0600 [facility] Last Admin: 09/30/24 05:32 Dose: 150 mcg Documented By: ADELA Lisinopril (Lisinopril 20 Mg Tablet) 20 mg PO DAILY [facility] Last Admin: 09/30/24 08:17 Dose: 20 mg Documented By: CAROL Magnesium Hydroxide (Milk Of Magnesia 30 Ml Oral.Susp) 30 ml PO DAILY PRN PRN Reason: Constipation Melatonin (Melatonin 3 Mg Tablet) 6 mg PO BEDTIME PRN PRN Reason: Insomnia Last Admin: 09/29/24 21:06 Dose: 6 mg Documented By: ADELA Morphine Sulfate (Morphine Sulfate 4 Mg/Ml Cartridge) 4 mg IVPUSH Q4H PRN; Protocol PRN Reason: Pain, Severe (Pain Scale 7-10) Last Admin: 09/28/24 07:02 Dose: 4 mg Documented By: DABHugo Non-Formulary Medication (Guanfacine) 2 mg PO BEDTIME [facility] Ondansetron HCl (Ondansetron Hcl 4 Mg/2 Ml Vial) 4 mg IVPUSH Q8H PRN PRN Reason: Nausea and Vomiting Pantoprazole Sodium (Pantoprazole Sodium 40 Mg/10 Ml Vial) 40 mg IVPUSH DAILY@0630 [facility] Last Admin: 09/30/24 05:33 Dose: 40 mg Documented By: ADELA Primidone (Primidone 50 Mg Tablet) 50 mg PO BID [facility] Last Admin: 09/30/24 08:17 Dose: 50 mg Documented By: CAROL Sodium Chloride (0.9 % Sodium Chloride Flush 3 Ml Syringe) 3 ml IVFLUSH QSHIFT [facility] Last Admin: 09/30/24 08:21 Dose: 3 ml Documented By: CAROL Labs 09/30/24 05:35 09/30/24 05:35 Labs: Laboratory Results - last 24 hr 09/28/24 09/30/24 15:45 05:35 MCV 76.3 L MCH 24.1 L MCHC 31.5 RDW 17.7 H Plt Count 50 L MPV Not Reportable Immature Gran % (Auto) 0.3 Neut % (Auto) 32.4 L Lymph % (Auto) 62.2 H [place] % (Auto) 2.9 Eos % (Auto) 1.9 Baso % (Auto) 0.3 Lymph # (Auto) 2.0 [place] # (Auto) 0.1 Eos # (Auto) 0.1 Baso # (Auto) 0.0 Abs Immat Gran (auto) 0.01 Absolute Neuts (auto) 1.0 L Absolute Nucleated RBC 0.000 Nucleated RBC % (auto) 0.0 Smear Tech's Comments VERIFIED Anion Gap 12 Estim Creat Clear Calc 117.2 Estimated GFR > 60 Fasting Glucose 104 H Calcium 9.3 D Total Bilirubin 0.6 AST 29 ALT 33 Alkaline Phosphatase 65 Total Protein 6.7 Albumin 4.0 IgG Total 1080 IgA Total 116 IgM 213 MAHNAZ Interpretation SEE NOTE Assessment and Plan (1) Pancreatitis: Status: Acute Plan This is a 63-year-old male with pertinent history of achalasia status post surgery, mood disorder, mixed hyperlipidemia, hypertension, gastroesophageal reflux disease, hypothyroidism who presents to the emergency department for evaluation of abdominal pain. 1.Intractable abdominal pain secondary to edematous pancreatitis -advance diet as tolerated... Full liquids today -IV pantoprazole -right upper quadrant ultrasound without significant abnormalities. CBD at upper limits normal -MRI without significant findings -appreciate GI input 2. Thrombocytopenia -appreciate heme consult -likely multifactorial -counts stable 3.Gastroesophageal reflux disease - IV Protonix -advance diet as tolerated 4.Hypertension -acceptable control on current therapies -adjust as indicated 5.. Mood disorder -stable and well compensated -continue outpatient therapies 6.Elevated PSA -urology consult Mechanical Full code Requires ongoing hospitalization for IV pantoprazole and complete workup for pancreatitis along with specialty consultation Quality Stroke Does the patient have a stroke diagnosis?: No VTE Prior VTE?: No VTE Risk Level:: Medical - moderate - high VTE Device Contraindication: N/A - Device Ordered VTE Drug Contraindication: Treatment Not Indicated
[2024-09-30 14:53] LABS: Immunoglobulin G Subclass 1 459 mg/dL (382-929); Immunoglobulin G Subclass 2 404 mg/dL (241-700); Immunoglobulin G Subclass 3 35 mg/dL (22-178); Immunoglobulin G Total 950 mg/dL (600-1540)
[2024-09-30 15:42] VITALS: BP 132/78; PULSE 71; RESP 18; TEMP 36.6; O2SAT 96
[2024-09-30 19:12] VITALS: BP 135/76; PULSE 71; RESP 18; TEMP 36.7; O2SAT 95
[2024-09-30] MEDS: Melatonin 3 MG TABLET 6 MG PO (21:00)
[2024-10-01 03:22] VITALS: BP 133/89; PULSE 76; RESP 18; TEMP 36.3; O2SAT 95
[2024-10-01] MEDS: Pantoprazole Sodium 40 MG/10 ML VIAL IVPUSH (05:45)
[2024-10-01] MEDS: Levothyroxine Sodium 150 MCG TABLET PO (05:45)
[2024-10-01 05:55] LABS: Basophils Percent Auto 0.3 % (0-2); Hematocrit 40.6 % (42.0-52.0); Imm Gran Abs Auto 0.01 X10*3/uL (0.00-0.03); Imm Gran Pct Auto 0.3 % (0.0-0.4); MANUAL DIFF FLAG SCAN; SCAN SMEAR FLAG 1
[2024-10-01 05:56] LABS: Eosinophils Absolute Auto 0.1 X10*3/uL (0.0-0.4); Hemoglobin 12.6 g/dl (14.0-18.0); Lymphocytes Percent Auto 60.6 % (20-40); Mean Corpuscular Volume 77.5 fL (80.0-98.0); Monocytes Absolute Auto 0.1 X10*3/uL (0.1-1.2); Monocytes Percent Auto 2.7 % (2-11); Neutrophils Absolute Auto 1.1 x10*3/uL (2.0-8.3); Neutrophils Percent Auto 33.1 % (45-73); Red Blood Count 5.24 X10*6/uL (4.60-5.80); Red Cell Distribution Width 17.7 % (11.0-16.0); White Blood Count 3.4 X10*3/uL (4.8-10.8)
[2024-10-01 06:00] LABS: Platelet Count 51 X10*3/uL (160-400)
[2024-10-01 06:01] LABS: PLT ABN DIST 1
[2024-10-01 06:27] LABS: SLIDE REVIEW VERIFIED
[2024-10-01 07:36] VITALS: BP 127/80; PULSE 74; RESP 18; TEMP 36.3; O2SAT 92
[2024-10-01] MEDS: hydroCHLOROthiazide 25 MG TABLET PO (09:00)
[2024-10-01] MEDS: Atorvastatin Calcium 40 MG TABLET PO (09:00)
[2024-10-01] MEDS: lisinopriL 20 MG TABLET PO (09:00)
[2024-10-01] MEDS: Primidone 50 MG TABLET PO (09:00)
[2024-10-01] MEDS: 0.9 % Sodium Chloride Flush 3 ML SYRINGE IVFLUSH (09:01)
[2024-10-01] MEDS: hydrOXYzine HCL 50 MG TABLET PO ×2 (09:01→13:03)
[2024-10-01] MEDS: Finasteride 5 MG TABLET PO (09:01)
--- NOTE | 2024-10-01 10:46 | PM.DS ---
DS: Providers Provider Date of Service: 10/01/24 Date of admission: 09/27/24 19:17 Date of discharge: 10/01/24 Primary care physician: Shaji Huntley MD Consults: 09/27/24 19:52 Consult to Gastroenterology Routine Consulting Provider: Camden Jacobs Reason for consultation: abd pain ?pancreatitis 09/28/24 14:59 Consult to Hematology / Oncology Routine Consulting Provider: [facility] [place] Oncology/Hematology Reason for consultation: Thrombocytopenia Has provider been notified: No Consult to Urology Routine Consulting Provider: [facility] [place] Urology Services Reason for consultation: Elevated PSA Has provider been notified: No DS: Diagnosis Discharge Diagnosis (1) Pancreatitis: Status: Acute DS: Summary Hospital Course Hospital Course: 63-year-old male with pertinent history of achalasia status post surgery, mood disorder, mixed hyperlipidemia, hypertension, gastroesophageal reflux disease, hypothyroidism who presents to the emergency department for evaluation of abdominal pain. Patient states symptoms started 2 days prior to presentation. He has been having generalized central abdominal pain that is constant, nonradiating and without any relieving factors. Had 1 episode of nonbloody emesis. Is unable to tolerate p.o. intake due to pain. No relieving factors and pain is aggravated with p.o. intake. Does have symptoms of gastroesophageal reflux disease including dyspepsia. Denies alcohol use. No diarrhea or constipation. No fever, chills, chest pain, palpitations, shortness of breath, changes in urinary habits. Hospital course Admitted to general medical floor and seen in consultation by GI who ordered MRI of abdomen along with right upper quadrant ultrasound. No acute findings to support the edematous pancreatitis. Additional lab work as per GI. Patient was made maintained on IV PPI and diet was advanced. At the day of discharge he was tolerating regular diet and was anxious for discharge. Incidental note enlarged nodular prostate seen on CTA. PSA done which was greater than 20. Seen in consultation by Urology who added finasteride and recommended outpatient follow up. Urology will call to book this appointment At this point he is medically acceptable for same and can follow up with GI as an outpatient Time Attestation Discharge Coordination Time (in mins): 35 Quality: Safe Use of Opioids Does Pt have an Active Cancer Diagnosis on the Problem List?: No Quality: Stroke Does the patient have a stroke diagnosis?: No Physical Exam Vital Signs: Vital Signs: Last Vital Signs Temp 97.4 F 10/01/24 07:36 Pulse 74 10/01/24 07:36 Resp 18 10/01/24 07:36 BP 127/80 10/01/24 07:36 Pulse Ox 92 10/01/24 07:36 O2 Del Method Room Air 10/01/24 07:36 BMI result Body Mass Index 40.9 Const: Other: Awake alert oriented x3 in no acute distress Resp: Other: Clear to auscultation bilaterally no rales rhonchi or wheezes Cardio: Other: No S4; positive S1-S2; no S3 murmurs rubs or gallops GI: Other: Soft nontender nondistended normoactive bowel sounds Extrem: Other: No edema bilaterally DS: Data Data Completed and Pending Labs on day of discharge: Laboratory Results - last 24 hr 09/29/24 10/01/24 05:40 05:08 WBC 3.4 L RBC 5.24 Hgb 12.6 L Hct 40.6 L MCV 77.5 L MCH 24.0 L MCHC 31.0 RDW 17.7 H Plt Count 51 L MPV Not Reportable Immature Gran % (Auto) 0.3 Neut % (Auto) 33.1 L Lymph % (Auto) 60.6 H [place] % (Auto) 2.7 Eos % (Auto) 3.0 Baso % (Auto) 0.3 Lymph # (Auto) 2.0 [place] # (Auto) 0.1 Eos # (Auto) 0.1 Baso # (Auto) 0.0 Abs Immat Gran (auto) 0.01 Absolute Neuts (auto) 1.1 L Absolute Nucleated RBC 0.000 Nucleated RBC % (auto) 0.0 Smear Tech's Comments VERIFIED IgG Total 950 IgG Subclass 1 459 IgG Subclass 2 404 IgG Subclass 3 35 IgG Subclass 4 26.0 Discharge Plan Discharge Anticipated Discharge Date/Time: 10/01/24 10:40 Patient Disposition: Home Health Service Discharge Diagnosis: Pancreatitis Referrals: Shaji Huntley MD [Primary Care Provider] - 1 Week Discharge Medications: New finasteride 5 mg Tablet 5 mg PO DAILY Qty: 30 2RF esomeprazole magnesium 40 mg capsule,delayed release(DR/EC) 40 mg PO BID Qty: 60 0RF Continued atorvastatin 40 mg tablet 40 mg PO DAILY primidone 50 mg tablet 50 mg PO BID hydroxyzine HCl 50 mg tablet 50 mg PO QID meclizine 25 mg tablet 25 mg PO TID PRN (Reason: Vertigo) levothyroxine 150 mcg tablet 150 mcg PO DAILY@0500 ketoconazole 2 % cream 1 appl topical DAILY Rx Instructions: Apply to bottom of feet and nails guanfacine 2 mg tablet 2 mg PO BEDTIME B-complex with vitamin C Tablet 1 tab PO DAILY acetaminophen 650 mg tablet extended release 650 mg PO Q4-6H PRN (Reason: Fever Or Pain) acetaminophen 650 mg tablet extended release 1,300 mg PO Q8H PRN (Reason: Pain) magnesium hydroxide [Milk of Magnesia] 400 mg/5 mL Suspension 30 ml PO DAILY PRN (Reason: Constipation) lisinopril-hydrochlorothiazide [Zestoretic] 20-25 mg Tablet 1 tab PO DAILY vitamin B complex Tablet 1 tab PO BEDTIME alum-mag hydroxide-simeth 200-200-20 mg/5 mL Suspension 20 ml PO Q4-6H PRN (Reason: Stomach Upset) Rx Instructions: administer between meals and at bedtime clotrimazole 1 % Cream 1 appl TOPICAL DAILY guaifenesin 200 mg/5 mL Liquid 200 - 400 mg PO Q4H PRN (Reason: Cough) naloxone [Narcan] 4 mg/actuation [place],Non-Aerosol 4 mg INTRANASAL Q3M PRN (Reason: Opiate Reversal) Rx Instructions: spray 1 dose into ONE nostril; alternate nostrils w each dose until help arrives Discontinued esomeprazole magnesium 40 mg capsule,delayed release(DR/EC) 40 mg PO DAILY Discharge Orders: Discharge Order (Routine); Ordered 10/01/24 Ordered By: Nathanael Thorpe Diet: Advance to usual diet Activity on Discharge: As tolerated Stand Alone Forms: Patient Portal Discharge page Print Language: Kinyarwanda Care Plan Goals: Resume all meds as taken prior to hospitalization Health Concerns: Finasteride 5 mg p.o. daily as well as an increase in your as esmeprazole to twice daily has been added to your regimen Plan of Treatment: Continue all therapies and treatments as prior to hospitalization. Urology will call to book an appointment for follow up with Dr. Walsh Assessment: See discharge summary
--- NOTE | 2024-10-01 11:10 | MHC.CM.PN ---
DP: PT HAS BEEN MEDICALLY CLEARED FOR DC HOME, NO SERVICES. PT HAS OWN RIDE HOME.
== END 2024-10-01 13:47 | disposition home or self-care (01) | DRG 282 ==
LOC: HO.ED 17:57 → HO.EDOVER 19:32 → HO.S3 19:43
PROVIDERS: Internal Medicine; Physician Assistant Medical; Admitting Provider Student in an Organized Health Care Education/Training Program; Emergency Provider Emergency Medicine; PCP Internal Medicine; Visit Provider Hospitalist
DX: K85.90 Acute pancreatitis without necrosis or infection, unspecified (principal); D61.818 Other pancytopenia; E03.9 Hypothyroidism, unspecified; E78.2 Mixed hyperlipidemia; K21.9 Gastro-esophageal reflux disease without esophagitis; N40.0 Benign prostatic hyperplasia without lower urinary tract symptoms; R97.20 Elevated prostate specific antigen [PSA]; I10 Essential (primary) hypertension; E66.01 Morbid (severe) obesity due to excess calories; Z68.41 Body mass index [BMI] 40.0-44.9, adult; Z71.3 Dietary counseling and surveillance; F39 Unspecified mood [affective] disorder; Z20.822 Contact with and (suspected) exposure to COVID-19; Z79.890 Hormone replacement therapy; Z79.899 Other long term (current) drug therapy
CPT/HCPCS: 0241U; 36415; 74177; 74183; 76705; 80048; 80053; 80076; 82150; 82607; 82728; 82746; 82784; 83615; 83690; 84153; 84478; 85025; 85045; 85384; 85610; 85730; 86301; 86334; 93005; 99221; 99285; A9585; J1885; J2270; J2470; J7120; Q9967

== ENCOUNTER → 2024-09-27 12:01 | Outpatient (BNV) | payer OTHER, SELFPAY | PROVIDERS: Admitting Provider Student in an Organized Health Care Education/Training Program; Emergency Provider Emergency Medicine; PCP Internal Medicine; Visit Provider Internal Medicine Cardiovascular Disease | DX: R10.9 Unspecified abdominal pain (principal) | CPT/HCPCS: 93010 ==

== ENCOUNTER → 2024-09-27 13:12 | Outpatient (BNV) | payer OTHER, SELFPAY | PROVIDERS: Emergency Provider Emergency Medicine; PCP Internal Medicine; Visit Provider Radiology Diagnostic Radiology | DX: K85.90 Acute pancreatitis without necrosis or infection, unspecified (principal); N40.0 Benign prostatic hyperplasia without lower urinary tract symptoms | CPT/HCPCS: 74177 ==

== ENCOUNTER 2024-09-27 19:17 | Outpatient (BNV) | payer OTHER, SELFPAY | END 2024-09-28 08:00 | PROVIDERS: Admitting Provider Student in an Organized Health Care Education/Training Program; Emergency Provider Emergency Medicine; PCP Internal Medicine; Visit Provider Radiology Diagnostic Radiology | DX: R59.0 Localized enlarged lymph nodes (principal); K85.90 Acute pancreatitis without necrosis or infection, unspecified | CPT/HCPCS: 74183; 76705 ==

== ENCOUNTER → 2024-09-27 19:17 | Outpatient (BNV) | payer OTHER, SELFPAY | PROVIDERS: Admitting Provider Student in an Organized Health Care Education/Training Program; Emergency Provider Emergency Medicine; PCP Internal Medicine; Visit Provider Student in an Organized Health Care Education/Training Program | DX: K85.90 Acute pancreatitis without necrosis or infection, unspecified (principal) | CPT/HCPCS: 99222; 99232; 99239 ==

== ENCOUNTER → 2024-09-27 19:17 | Outpatient (BNV) | payer OTHER, SELFPAY | PROVIDERS: Admitting Provider Student in an Organized Health Care Education/Training Program; Emergency Provider Emergency Medicine; PCP Internal Medicine; Visit Provider Internal Medicine | DX: D69.6 Thrombocytopenia, unspecified (principal); R71.8 Other abnormality of red blood cells | CPT/HCPCS: 99222 ==

== ENCOUNTER → 2024-09-27 19:17 | Outpatient (BNV) | payer OTHER, SELFPAY | PROVIDERS: Admitting Provider Student in an Organized Health Care Education/Training Program; Emergency Provider Emergency Medicine; PCP Internal Medicine; Visit Provider Urology | DX: R97.20 Elevated prostate specific antigen [PSA] (principal) | CPT/HCPCS: 99222 ==

== ENCOUNTER 2024-11-01 12:03 | Emergency (ER) | payer OTHER, SELFPAY ==
[2024-11-01 12:05] VITALS: BP 107/75; PULSE 108; RESP 20; TEMP 37.4; O2SAT 96; BMI 38.7
--- NOTE | 2024-11-01 12:06 | ED.GENADULT ---
HPI - General Adult General Chief complaint: General Medical Stated complaint: Tingling in Both Feet and Toes Time Seen by Provider: 11/01/24 15:13 History of Present Illness ED Provider: Jett CARTAGENA narrative: The patient is a 64-year-old male. He lives at a [facility]. Today he was at some kind of group get together when he felt some numbness and tingling intermittently in the toes of both feet. He ultimately told staff members about these symptoms and he was brought to the hospital. At the time that I was seeing him he was not having any significant manifestation of any symptoms. The patient was admitted to the hospital here about a month ago for some abdominal symptoms which may have been some degree of pancreatitis but his workup was somewhat ambiguous. He denies any fever, sweats, chills. He denies any cough or sputum. He denies any weakness in his extremities. He denies any difficulty walking. He denies any change in the color of his stools. Specifically he denies any dark or black stools. Related Data Home Medications ?Medication ?Instructions ?Recorded ?Confirmed B-complex with vitamin C 1 tab PO DAILY 09/27/24 09/27/24 acetaminophen 650 mg 1,300 mg PO Q8H PRN Pain 09/27/24 09/27/24 tablet,extended release acetaminophen 650 mg 650 mg PO Q4-6H PRN Fever Or Pain 09/27/24 09/27/24 tablet,extended release aluminum-mag hydroxide-simethicone 20 ml PO Q4-6H PRN Stomach Upset 09/27/24 09/27/24 200 mg-200 mg-20 mg/5 mL oral susp atorvastatin 40 mg tablet 40 mg PO DAILY 09/27/24 09/27/24 clotrimazole 1 % topical cream 1 appl topical DAILY 09/27/24 09/27/24 guaifenesin 200 mg/5 mL oral liquid 200 - 400 mg PO Q4H PRN Cough 09/27/24 09/27/24 guanfacine 2 mg tablet 2 mg PO BEDTIME 09/27/24 09/27/24 hydroxyzine HCl 50 mg tablet 50 mg PO QID 09/27/24 09/27/24 ketoconazole 2 % topical cream 1 appl topical DAILY 09/27/24 09/27/24 levothyroxine 150 mcg tablet 150 mcg PO DAILY@0500 09/27/24 09/27/24 lisinopril 20 1 tab PO DAILY 09/27/24 09/27/24 mg-hydrochlorothiazide 25 mg tablet (Zestoretic) magnesium hydroxide 400 mg/5 mL 30 ml PO DAILY PRN Constipation 09/27/24 09/27/24 oral suspension (Milk of Magnesia) meclizine 25 mg tablet 25 mg PO TID PRN Vertigo 09/27/24 09/27/24 naloxone 4 mg/actuation nasal 4 mg intranasal Q3M PRN Opiate 09/27/24 09/27/24 spray (Narcan) Reversal primidone 50 mg tablet 50 mg PO BID 09/27/24 09/27/24 vitamin B complex 1 tab PO BEDTIME 09/27/24 09/27/24 Previous Rx's ?Medication ?Instructions ?Recorded esomeprazole magnesium 40 mg 40 mg PO BID #60 caps 10/01/24 capsule,delayed release finasteride 5 mg tablet 5 mg PO DAILY #30 tabs 10/01/24 Allergies Allergy/AdvReac Type Severity Reaction Status Date / Time clindamycin Allergy Unknown Verified 11/01/24 12:10 haloperidol (From Haldol) Allergy Unknown Verified 09/27/24 09:50 NSAIDS (Non-Steroidal Allergy Unknown Verified 11/01/24 12:10 Anti-Inflamma Penicillins Allergy Anaphylaxis Verified 03/29/24 14:08 Review of Systems Review of Systems: Yes all other systems are reviewed and are negative [facility] Past Medical History Medical History Attention deficit disorder Dissociative disorder Chronic post-traumatic stress disorder (PTSD) Major depressive disorder, recurrent severe without psychotic features Social History Social History Household Members: Other Household Members Other:: fci Housing: Assisted Living Facility Do you presently have visiting nurse or other home services: No Patient Tobacco Use Status: Never used Tobacco Advance Directives: No Advance Directives Information Provided: Yes service: No Physical Exam ED Vital Signs: Vital Signs - 24 hr 11/01/24 12:05 11/01/24 15:43 11/01/24 15:46 Temperature 99.3 F 99.3 F 97.5 F Pulse Rate 108 H 108 H 95 Respiratory Rate 20 20 18 Blood Pressure 107/75 107/75 112/68 Pulse Oximetry 96 96 96 Oxygen Delivery Method Room Air Room Air Room Air BMI result Body Mass Index 38.7 Const Other: The patient is a large 64-year-old male who is awake and alert. He was pleasant and cooperative. He does not appear acutely ill. HENMT Other: The face is symmetrical. Mucous membranes moist. Eyes Other: Pupils are round equal, conjunctivae are clear, extraocular movements intact Neck Neck: Yes normal visual inspection and Yes full ROM Resp Effort & Inspection: normal respiratory effort Auscultation: clear to auscultation bilaterally Cardio Rate: regular rate Rhythm: regular rhythm Heart sounds: S1 normal heart sound present and S2 normal heart sound present GI Other: Abdomen is soft and nontender General: Yes no CVA tenderness Back/Spine/Pelvis Back: no CVA tenderness Skin Other: The skin is dry and unremarkable Neuro Other: Patient is awake and alert. He seems appropriately oriented. Mental status seems clear. He moves his extremities with normal strength coordination. Sensation seems reasonably intact On both feet with the exception of the toes where he felt there was unusual sensations. Extrem Other: No calf swelling or tenderness Course Course Course Narrative: This is an RME: Additional HPI, ROS, PE not included below will be deferred to primary provider. RME assessment and note performed by: Ileana Pearson PA-C This is a 87-ohvl-adf-male, with a hx of achalasia status post surgery, mood disorder, mixed hyperlipidemia, hypertension, gastroesophageal reflux disease, hypothyroidism, who presents to the ER with complaints of BL numbness/tingling in his toes. Recent admission for pancreatitis. 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 He does have an active tremor noted. Neuro are intact Plan: labs, further ER eval needed Medical Decision Making Medical Decision Making MDM Narrative: the patient is a 64-year-old male who came to the emergency room from his [facility] primarily with a complaint of some sense of numbness or tingling or toes falling asleep. All of these neurological symptoms seemed to be confide to toes bilaterally. He has good pulses in both feet. Sensation on the dorsum of both feet seems intact. His gait seems stable. My overall impression is that the patient is not having a stroke. He was reassured that this sensation he is having of having numbness in toes of both the left and the right foot would be unusual. He seemed very relieved when I told him he is not having a stroke. His gait seems steady. The patient's labs show a drop in his hemoglobin and a rise in his BUN. He denies any dark stools. The patient will be advised rest and take it easy. He looks quite well. He ambulates without difficulty. Follow up with regular doctor. Return if worse Lab Data 11/01/24 13:01 11/01/24 13:01 Labs: Lab Results 11/01/24 Range/Units 13:01 WBC 2.2 L (4.8-10.8) X10*3/uL RBC 4.02 L D (4.60-5.80) X10*6/uL Hgb 10.0 L D (14.0-18.0) g/dl Hct 30.4 L D (42.0-52.0) % MCV 75.6 L (80.0-98.0) fL MCH 24.9 L (27.0-33.0) pg MCHC 32.9 (31.0-36.0) g/dl RDW 17.8 H (11.0-16.0) % Plt Count 21 L D (160-400) X10*3/uL MPV Not Reportable Immature Gran % (Auto) 0.9 H (0.0-0.4) % Neut % (Auto) 13.0 L (45-73) % Lymph % (Auto) 81.5 H (20-40) % [place] % (Auto) 4.1 (2-11) % Eos % (Auto) 0.0 (0-4) % Baso % (Auto) 0.5 (0-2) % Lymph # (Auto) 1.8 (1.2-4.9) X10*3/uL [place] # (Auto) 0.1 (0.1-1.2) X10*3/uL Eos # (Auto) 0.0 (0.0-0.4) X10*3/uL Baso # (Auto) 0.0 (0.0-0.2) X10*3/uL Abs Immat Gran (auto) 0.02 (0.00-0.03) X10*3/uL Absolute Neuts (auto) 0.3 L (2.0-8.3) x10*3/uL Absolute Nucleated RBC 0.000 (0.0-0.012) X10*3/uL Nucleated RBC % (auto) 0.0 (0.0-0.2) /100WBC Smear Tech's Comments VERIFIED Sodium 136 (135-145) mmol/L Potassium 3.9 (3.3-5.1) mmol/L Chloride 100 (96-108) mmol/L Carbon Dioxide 28 (22-29) mmol/L Anion Gap 12 (12-20) BUN 22 H (9-16) mg/dL Creatinine 1.41 H (0.5-1.4) mg/dL Estim Creat Clear Calc 82.1 Estimated GFR 51 Random Glucose 97 (60-115) mg/dL Calcium 9.0 (8.4-10.2) mg/dL Magnesium 1.9 (1.6-2.6) mg/dL Total Bilirubin 0.7 (0.0-1.0) mg/dL Direct Bilirubin 0.3 (0.0-0.5) mg/dL AST 58 H (5-37) U/L ALT 59 H (0-40) U/L Alkaline Phosphatase 77 (39-117) U/L Total Protein 6.8 (6.5-8.0) g/dL Albumin 4.0 (3.5-5.0) g/dL Discharge Plan Discharge Clinical Impression: Numbness of toes, Dehydration Patient Disposition: Home, Self-Care Additional Instructions: I do not think your symptoms today represent a stroke. Please make sure that you continue taking your vitamin B complex tablets. Your kidney function today suggest that you might be somewhat dehydrated. Please make sure you drink lot of fluids. Please make a follow up appointment with your regular doctor soon to discuss the symptoms in your toes and also to get repeat testing of your blood with regard to your kidney function. Return to the emergency room if you feel significantly worse. Prescriptions: No Action atorvastatin 40 mg tablet 40 mg PO DAILY primidone 50 mg tablet 50 mg PO BID hydroxyzine HCl 50 mg tablet 50 mg PO QID meclizine 25 mg tablet 25 mg PO TID PRN (Reason: Vertigo) levothyroxine 150 mcg tablet 150 mcg PO DAILY@0500 ketoconazole 2 % cream 1 appl topical DAILY Rx Instructions: Apply to bottom of feet and nails guanfacine 2 mg tablet 2 mg PO BEDTIME B-complex with vitamin C Tablet 1 tab PO DAILY acetaminophen 650 mg tablet extended release 650 mg PO Q4-6H PRN (Reason: Fever Or Pain) acetaminophen 650 mg tablet extended release 1,300 mg PO Q8H PRN (Reason: Pain) magnesium hydroxide [Milk of Magnesia] 400 mg/5 mL Suspension 30 ml PO DAILY PRN (Reason: Constipation) lisinopril-hydrochlorothiazide [Zestoretic] 20-25 mg Tablet 1 tab PO DAILY vitamin B complex Tablet 1 tab PO BEDTIME alum-mag hydroxide-simeth 200-200-20 mg/5 mL Suspension 20 ml PO Q4-6H PRN (Reason: Stomach Upset) Rx Instructions: administer between meals and at bedtime clotrimazole 1 % Cream 1 appl TOPICAL DAILY guaifenesin 200 mg/5 mL Liquid 200 - 400 mg PO Q4H PRN (Reason: Cough) naloxone [Narcan] 4 mg/actuation [place],Non-Aerosol 4 mg INTRANASAL Q3M PRN (Reason: Opiate Reversal) Rx Instructions: spray 1 dose into ONE nostril; alternate nostrils w each dose until help arrives finasteride 5 mg Tablet 5 mg PO DAILY Qty: 30 2RF esomeprazole magnesium 40 mg capsule,delayed release(DR/EC) 40 mg PO BID Qty: 60 0RF Referrals: Shaji Huntley MD [Primary Care Provider, Internal Medicine] Referral Note: Numbness in toes bilaterally, somewhat worsening renal function Interventions: ED Discharge Assessment Last Done: 11/01/24 15:46 Discharge Date/Time: 11/01/24 15:47 Print Language: Danish
[2024-11-01 13:17] LABS: Basophils Percent Auto 0.5 % (0-2); Hematocrit 30.4 % (42.0-52.0); Imm Gran Abs Auto 0.02 X10*3/uL (0.00-0.03); Imm Gran Pct Auto 0.9 % (0.0-0.4); Lymphocytes Absolute Auto 1.8 X10*3/uL (1.2-4.9); Lymphocytes Percent Auto 81.5 % (20-40); MANUAL DIFF FLAG SCAN; Mean Corpuscular HGB Conc 32.9 g/dl (31.0-36.0); Mean Corpuscular Hemoglobin 24.9 pg (27.0-33.0); Mean Corpuscular Volume 75.6 fL (80.0-98.0); Monocytes Absolute Auto 0.1 X10*3/uL (0.1-1.2); Monocytes Percent Auto 4.1 % (2-11); Neutrophils Absolute Auto 0.3 x10*3/uL (2.0-8.3); Red Blood Count 4.02 X10*6/uL (4.60-5.80); Red Cell Distribution Width 17.8 % (11.0-16.0); SCAN SMEAR FLAG 1
[2024-11-01 13:18] LABS: White Blood Count 2.2 X10*3/uL (4.8-10.8)
[2024-11-01 13:21] LABS: Alanine Aminotransferase 59 U/L (0-40); Alkaline Phosphatase 77 U/L (39-117); Anion Gap 12 (12-20); Aspartate Amino Transferase 58 U/L (5-37); Bilirubin Direct 0.3 mg/dL (0.0-0.5); Bilirubin Total 0.7 mg/dL (0.0-1.0); Blood Urea Nitrogen 22 mg/dL (9-16); Carbon Dioxide 28 mmol/L (22-29); Chloride 100 mmol/L (96-108); Creatinine Clr Calc Pharmacy 82.1; Estimated Glomerular Filt Rate 51; Glucose Random 97 mg/dL (60-115); Magnesium 1.9 mg/dL (1.6-2.6); Potassium 3.9 mmol/L (3.3-5.1); Sodium 136 mmol/L (135-145); Total Protein 6.8 g/dL (6.5-8.0)
[2024-11-01 13:30] LABS: Platelet Count 21 X10*3/uL (160-400); SLIDE REVIEW VERIFIED
--- OUTSIDE RECORDS SUMMARY | 2024-11-01 14:26 | XMS_ITS | Patient Health Record ---
Author Organization [facility] Address [address] [facility] [place] [id number] Care Team Providers Care Grocery Stock Clerk Name Role Phone BOOGIE SWAN Unavailable [phone] Reason For Referral No Information Medications Medication [...]
[2024-11-01 15:43] VITALS: BP 107/75; PULSE 108; RESP 20; TEMP 37.4; O2SAT 96
[2024-11-01 15:46] VITALS: BP 112/68; PULSE 95; RESP 18; TEMP 36.4; O2SAT 96
== END 2024-11-01 15:47 | disposition home or self-care (01) ==
PROVIDERS: Physician Assistant Medical; Emergency Provider Emergency Medicine; PCP Internal Medicine
DX: R20.2 Paresthesia of skin (principal); E86.0 Dehydration; Z79.899 Other long term (current) drug therapy
CPT/HCPCS: 36415; 80048; 80076; 83735; 85025; 99282; 99283

== ENCOUNTER 2024-11-23 12:49 | Outpatient (AMB) | payer OTHER, SELFPAY ==
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
--- NOTE | 2024-11-23 13:05 | A.OFFVIS_ITS ---
Intake Visit Reasons: Elevated PSA Intake Note: Patient presents to office for follow up for elevated psa urology meds: finasteride Blood thinner : none Branch Controller Required: No Accompanied by: Self / Same As Patient Allergies clindamycin Allergy (Verified 11/23/24 13:07) Unknown haloperidol (From Haldol) Allergy (Verified 11/23/24 13:07) Unknown NSAIDS (Non-Steroidal Anti-Inflamma Allergy (Verified 11/23/24 13:07) Unknown Penicillins Allergy (Verified 11/23/24 13:07) Anaphylaxis HPI Comments Details: Lemuel is a pleasant male. He is a patient of Dr. Huntley. He is seen for the following urologic conditions - lower urinary tract symptoms - elevated PSA Improvement of symptoms with finasteride Plan repeat PSA and three-month Discussed biopsy SOUMYA 2+ prostate soft Lower urinary tract symptoms with elevated PSA Background history resident of psychiatric facility. Incarceration 37 years. Prior significant alcohol use. Is unaware of family history related to prostate issues Denies urinary complaints PSA 10/03 20 Improvement with finasteride [facility] Medical History (Updated 11/23/24 @ 14:22 by Evangelista Walsh MD) Elevated PSA Hypothyroidism Essential (primary) hypertension Thrombocytopenia Attention deficit disorder Dissociative disorder Chronic post-traumatic stress disorder (PTSD) Major depressive disorder, recurrent severe without psychotic features Social History Household Members: Other Household Members Other:: long term Housing: Assisted Living Facility Do you presently have visiting nurse or other home services: No Patient Tobacco Use Status: Never used Tobacco service: No Review of Systems Const Denies chills and Denies fever(s) Card Reports no additional complaints and Denies syncope Resp Denies cough GI Denies abdominal pain and Denies heartburn Reports as per HPI and Denies change in libido Neuro Denies syncope Psych Denies change in libido Endo Denies change in libido Physical Exam Const General: cooperative, healthy appearing, comfortable and no acute distress Orientation/consciousness: patient oriented x3 HEENT Face and sinus: Yes normal facial exam Mouth: moist mucous membranes Neck Neck: Yes normal visual inspection, Yes full ROM and Yes trachea midline Chest Chest palpation & inspection: normal inspection of the chest Resp Effort & Inspection: normal respiratory effort, able to speak in complete sentences and no respiratory distress GI Inspection: Yes normal to inspection Rectal Exam - Male: Yes normal sphincter tone and Yes prostate normal Male General Exam: Yes normal external exam Penis: normal penis and circumcised Meatus: meatus normal Scrotum: scrotum normal Testes: Testes normal Back/Spine/Pelvis Cervical Spine: normal cervical lordosis Thoracic/Lumbar Spine: thoracic and lumbar spine normal to inspection Skin General skin exam: no rashes or lesions noted Neuro General: patient oriented x3, gait normal, tone normal and moves all extremities Extrem General: Yes normal to inspection and Yes capillary refill normal Assessment & Plan Assessment & Plan (1) Elevated PSA: Code(s): R97.20 - Elevated prostate specific antigen [PSA] Category: Medical Plan Three-month follow-up PSA Orders: Orders Prostate Specific Antigen 3 Months R97.20 - Elevated prostate specific antigen [PSA] Medications: Changed From finasteride 5 mg PO DAILY 30 tabs 2RF R97.20 - Elevated prostate specific antigen [PSA] To finasteride 5 mg PO DAILY 90 tabs 1RF 90 days R97.20 - Elevated prostate specific antigen [PSA] Patient Instructions: This note is constructed using voice recognition software. While every effort has been made to ensure accuracy automation tester errors may have been included. Imaging studies, laboratory and physical exam results were discussed and reviewed in detail. No major barriers to patient understanding were identified. An opportunity to ask questions regarding the treatment plan was provided. All questions were answered. The patient expressed understanding and agreement with the above treatment plan. The patient is aware they should contact our office by phone for worsening of their current condition or the appearance of new urologic symptoms. Compliance is encouraged with any medications and followup testing that is ordered. It is a privilege to participate in the urologic care of your patient. If you have any questions or concerns regarding treatment for the above conditions, or other urologic issues, please do not hesitate to contact me. The office telephone contact is [phone]. Sincerely, Dr Evangelista Walsh MD, MEG [facility] - Urology Compassionate Specialist Care for the Genitourinary System Coding Level of Care Code Est Pt Level 4 (47117) Diagnoses Elevated PSA R97.20
--- OUTSIDE RECORDS SUMMARY | 2024-11-23 14:00 | XMS_ITS | Encounter Summary ---
Author Organization [facility] Address [address] [place] [address] Phone Care Team Providers Care Skills Trainer Name Role Phone Shaji Huntley MD Primary Care Provider [phone] Encounter Details Date Type Department Care Team (Late st Contact Info) Description 11/19/2022 Documentation Only [facility], [address] [place] [address] Shaji Huntley MD [address] [place] [id number] Social History Tobacco Use Types Packs/Day Years [...] on filedocumented in this encounter Care Teams Skills Trainer Relationship Specialty Start Date End Date Shaji Huntley MD [address] [place] [id number] PCP - General Internal Medicine 11/13/22 documented as of this encounter
--- OUTSIDE RECORDS SUMMARY | 2024-11-23 14:00 | XMS_ITS | Patient Health Record ---
Author Organization [facility] Address [address] [facility] [place] [id number] Care Team Providers Care Pharmacy Technician Name Role Phone BOOGIE SWAN Unavailable [phone] Reason For Referral No Information Medications Medication [...]
== END 2024-11-23 14:39 | disposition home or self-care (01) ==
LOC: HO.HUSH 12:49
PROVIDERS: PCP Internal Medicine; Visit Provider Urology
DX: Z13.9 Encounter for screening, unspecified (principal); R97.20 Elevated prostate specific antigen [PSA]
CPT/HCPCS: 99214

== ENCOUNTER 2024-11-23 12:49 | Outpatient (REF) | payer OTHER, SELFPAY | END 2024-11-23 12:50 | disposition home or self-care (01) | LOC: HO.LAB 12:49 | PROVIDERS: PCP Internal Medicine; Visit Provider Urology | DX: R97.20 Elevated prostate specific antigen [PSA] (principal) | CPT/HCPCS: 81003; 87086; 99212 ==

== ENCOUNTER 2024-12-13 11:15 | Emergency (ER) | payer OTHER, SELFPAY ==
--- NOTE | 2024-12-13 11:24 | ED.GENADULT ---
HPI - General Adult General Chief complaint: Psychiatric Symptoms Stated complaint: SI Time Seen by Provider: 12/13/24 11:40 Source: patient and other (patient's skilled nursing staff) Mode of arrival: ambulatory Limitations: no limitations History of Present Illness ED Provider: Carina Bustillos PA-C HPI narrative: Patient is a 64 year old assigned male at with a history of PTSD, MDD, and ADHD presenting to the emergency department today with suicidal ideation. Patient states that he got into a recent verbal argument and feels bad about it so is thinking about hanging himself. Patient denies any dizziness, lightheadedness, abdominal pain, nausea, vomiting, fever, chills, blurry vision, double vision, loss of vision, chest pain, difficulty breathing, shortness of breath, back pain, night sweats, pain with urination, increased urinary frequency, increased urinary urgency, blood in his urine or stool, syncope or a near syncopal episode, recent trauma or falls, bowel incontinence, bladder incontinence, or any other complaints at this time. Relieving factors: none Exacerbating factors: none Associated symptoms: denies other symptoms Treatments prior to arrival: none Related Data Home Medications ?Medication ?Instructions ?Recorded ?Confirmed B-complex with vitamin C 1 tab PO DAILY 09/27/24 09/27/24 acetaminophen 650 mg 650 mg PO Q4-6H PRN Fever Or Pain 09/27/24 09/27/24 tablet,extended release atorvastatin 40 mg tablet 40 mg PO DAILY 09/27/24 09/27/24 clotrimazole 1 % topical cream 1 appl topical DAILY 09/27/24 09/27/24 guaifenesin 200 mg/5 mL oral liquid 200 - 400 mg PO Q4H PRN Cough 09/27/24 09/27/24 guanfacine 2 mg tablet 2 mg PO BEDTIME 09/27/24 09/27/24 hydroxyzine HCl 50 mg tablet 50 mg PO QID 09/27/24 09/27/24 ketoconazole 2 % topical cream 1 appl topical DAILY 09/27/24 09/27/24 levothyroxine 150 mcg tablet 150 mcg PO DAILY@0500 09/27/24 09/27/24 lisinopril 20 1 tab PO DAILY 09/27/24 09/27/24 mg-hydrochlorothiazide 25 mg tablet (Zestoretic) magnesium hydroxide 400 mg/5 mL 30 ml PO DAILY PRN Constipation 09/27/24 09/27/24 oral suspension (Milk of Magnesia) meclizine 25 mg tablet 25 mg PO TID PRN Vertigo 09/27/24 09/27/24 naloxone 4 mg/actuation nasal 4 mg intranasal Q3M PRN Opiate 09/27/24 09/27/24 spray (Narcan) Reversal primidone 50 mg tablet 50 mg PO BID 09/27/24 09/27/24 vitamin B complex 1 tab PO BEDTIME 09/27/24 09/27/24 Previous Rx's ?Medication ?Instructions ?Recorded esomeprazole magnesium 40 mg 40 mg PO BID #60 caps 10/01/24 capsule,delayed release finasteride 5 mg tablet 5 mg PO DAILY 90 days #90 tabs 11/23/24 Allergies Allergy/AdvReac Type Severity Reaction Status Date / Time clindamycin Allergy Unknown Verified 12/13/24 11:28 haloperidol (From Haldol) Allergy Unknown Verified 12/13/24 11:28 NSAIDS (Non-Steroidal Allergy Unknown Verified 12/13/24 11:28 Anti-Inflamma Penicillins Allergy Anaphylaxis Verified 12/13/24 11:28 Review of Systems Constitutional: Constitutional: Reports no additional constitutional complaints, Denies chills, Denies fever(s) and Denies night sweats Eyes: Eyes: Reports no additional eye complaints, Denies blurry vision, Denies change in vision, Denies diplopia, Denies eye discharge, Denies loss of vision and Denies eye pain ENT: Denies dizziness Cardiovascular: Cardiovascular: Reports no additional cardiovascular complaints, Denies chest pain, Denies lightheadedness, Denies Loss of Consciousness and Denies dyspnea Respiratory: Respiratory: Reports no additional respiratory complaints and Denies dyspnea Gastrointestinal: Gastrointestinal: Reports no additional gastrointestinal complaints, Denies abdominal pain, Denies melena, Denies hematochezia, Denies change in bowel habits and Denies change in stool character Genitourinary: Genitourinary: Reports no additional male genitourinary complaints, Denies hematuria, Denies oliguria, Denies difficulty urinating, Denies dysuria, Denies urinary frequency, Denies urinary hesitancy, Denies urinary incontinence and Denies urinary urgency Musculoskeletal: Musculoskeletal: Reports no additional musculoskeletal complaints, Denies numbness and Denies tingling Neurologic: Denies dizziness, Denies loss of vision, Denies numbness and Denies tingling Psychiatric: Psychiatric: Denies homicidal ideation and Reports suicidal ideation Endocrine: Endocrine: Reports no additional endocrine complaints Hematologic/Lymphatic: Hematologic/Lymphatic: Reports no additional hematologic/lymphatic complaints Allergic/Immunologic: Allergic/Immunologic: Reports no additional allergic/immunologic complaints PMFSH Past Medical History Attestation statement: The following information was validated with the patient. (all information validated with skilled nursing staff) Source: old records reviewed, nursing notes reviewed and other (skilled nursing staff provided additional history and confirmed the history provided by the patient) Medical History Elevated PSA Hypothyroidism Essential (primary) hypertension Thrombocytopenia Attention deficit disorder Dissociative disorder Chronic post-traumatic stress disorder (PTSD) Major depressive disorder, recurrent severe without psychotic features Social History Social History Household Members: Other Household Members Other:: skilled nursing Housing: Assisted Living Facility Do you presently have visiting nurse or other home services: No Alcohol intake: former Patient Tobacco Use Status: Never used Tobacco Smoked in Last 30 Days: No Substance Use Type: Marijuana Advance Directives: No Advance Directives Information Provided: Yes service: No Physical Exam ED Vital Signs: Vital Signs - 24 hr 12/13/24 11:25 12/13/24 13:02 Temperature 98.6 F 98.6 F Pulse Rate 77 77 Respiratory Rate 18 Blood Pressure 139/81 139/81 Pulse Oximetry 97 97 Oxygen Delivery Method Room Air Room Air BMI result Body Mass Index 38.8 Const General: cooperative, no acute distress, alert and awake Nutritional Appearance: well nourished Orientation/consciousness: patient oriented x3 HENMT Head: Yes normal to inspection and Yes atraumatic Ears: hearing grossly normal bilaterally and external ears normal General nose exam: Normal external nose present, no nasal discharge noted and no epistaxis Face and sinus: Yes normal facial exam, No abrasion and No laceration Mouth: Normal oral and palatal mucosa present, no drooling and no muffled voice Eyes General: appearance normal, both eyes and all related structures Periorbital: periorbital findings normal Eyelids: Yes eyelids normal Conjunctivae: conjunctivae normal Pupils: Equal, round and reactive pupils present EOM: EOMs intact bilaterally Neck Neck: Yes normal visual inspection, Yes full ROM and Yes no lymphadenopathy Resp Effort & Inspection: normal respiratory effort and able to speak in complete sentences Neuro General: patient oriented x3, moves all extremities and CN's II-XI intact bilaterally Cranial nerves: Yes Equal, round and reactive pupils present Cognition (Neuro): normal cognition Extrem General: Yes normal to inspection, Yes full ROM and Yes capillary refill normal Psych Appearance: grossly normal Mental Status: mental status grossly normal Affect: normal affect Attitude: cooperative Thought content: Suicidality present Course Course Course Narrative: RME performed by Carina Bustillos PA-C. Patient is a 64 year old assigned male at presenting to the emergency department with suicidal ideation. Patient states that this last weekend he got into an argument with someone and now he feels like hanging himself. Detailed physical exam and review of systems are deferred to the real estate broker. EKG, labs, and swab ordered. comparative sociology professor aware. Medical Decision Making Medical Decision Making MDM Narrative: Patient is a 64 year old assigned male at with a history of PTSD, MDD, and ADHD presenting to the emergency department today with suicidal ideation. Patient's physical exam was as noted in the physical exam portion of this note. Patient was evaluated by the CARE team who spoke with the skilled nursing and stated the patient was cleared for discharge back to the skilled nursing. Evidently, the patient explained he felt badly about the argument and has no actual suicidal ideation. [facility] stated they were comfortable with him returning to their facility. Patient contracts for safety. I explained my physical exam findings to the patient and the patient's skilled nursing staff. I answered all questions asked by the patient and the patient's skilled nursing staff. Patient and the patient's skilled nursing staff verbalized agreement and understanding with this treatment plan and discharge. Differential Diagnosis Differential Diagnoses: The differential diagnosis associated with the presentation includes Suicidal ideation Depression Guilt Admission/Observation Consideration of admission/observation: Escalation of care including admission/observation considered Patient would have been admitted to the hospital had his clinical presentation warranted hospital admission. Consult Healthcare Provider Management of the patient was discussed with: Behavioral Health Provider (spoke with the CARE team as noted in the MDM Rationale portion of this note. ) Discharge Plan Discharge Clinical Impression: Suicidal ideation Patient Disposition: Home, Self-Care Instructions: Help Prevent Suicide (ED), Suicide Prevention (ED) Additional Instructions: You were seen in our Emergency Department today for a concern regarding your mental / behavioral behavioral health. It is important after this visit today that you follow up with either your mental / behavioral health or primary care provider within 7 days (from today).? Return for any worsening symptoms or concerns such as thoughts of harming yourself or others. Please call 911 immediately if you feel your mental health is worsening.? National Suicide and Crisis Lifeline: Available 24 hours a day, 7 days a week, 365 days a year Dial 988 with any telephone to speak to someone immediately [facility] (Mental / Behavioral health therapist: [address], [place] [id number] [facility] at [facility]: [address], [place] [phone] Open from 10am - 12pm (walk ins welcome) [facility] Crisis Services: [address] [place], [place] [phone] Walk in hours from 10am - 12pm Behavioral health Network: [address] [place] [address] [id number] AND [address] [place] [id number] Friday through Friday 8am - 8pm Friday and Friday 9am - 5pm Follow up with your primary care provider. Return to the emergency department immediately if your symptoms worsen or if you develop any numbness, tingling, dizziness, shortness of breath, difficulty breathing, chest pain, blurry vision, loss of vision, nausea, vomiting, abdominal pain, fever, chills, back pain, or any other complaints. Prescriptions: No Action atorvastatin 40 mg tablet 40 mg PO DAILY primidone 50 mg tablet 50 mg PO BID hydroxyzine HCl 50 mg tablet 50 mg PO QID meclizine 25 mg tablet 25 mg PO TID PRN (Reason: Vertigo) levothyroxine 150 mcg tablet 150 mcg PO DAILY@0500 ketoconazole 2 % cream 1 appl topical DAILY Rx Instructions: Apply to bottom of feet and nails guanfacine 2 mg tablet 2 mg PO BEDTIME B-complex with vitamin C Tablet 1 tab PO DAILY acetaminophen 650 mg tablet extended release 650 mg PO Q4-6H PRN (Reason: Fever Or Pain) magnesium hydroxide [Milk of Magnesia] 400 mg/5 mL Suspension 30 ml PO DAILY PRN (Reason: Constipation) lisinopril-hydrochlorothiazide [Zestoretic] 20-25 mg Tablet 1 tab PO DAILY vitamin B complex Tablet 1 tab PO BEDTIME clotrimazole 1 % Cream 1 appl TOPICAL DAILY guaifenesin 200 mg/5 mL Liquid 200 - 400 mg PO Q4H PRN (Reason: Cough) naloxone [Narcan] 4 mg/actuation [place],Non-Aerosol 4 mg INTRANASAL Q3M PRN (Reason: Opiate Reversal) Rx Instructions: spray 1 dose into ONE nostril; alternate nostrils w each dose until help arrives esomeprazole magnesium 40 mg capsule,delayed release(DR/EC) 40 mg PO BID Qty: 60 0RF finasteride 5 mg tablet 5 mg PO DAILY 90 Days Qty: 90 1RF Referrals: Shaji Huntley MD [Primary Care Provider, Internal Medicine] Interventions: [place]-Suicide Risk Severity Scale Last Done: 12/13/24 11:57 ED Discharge Assessment Last Done: 12/13/24 13:02 Discharge Date/Time: 12/13/24 13:05 Print Language: Cymro
[2024-12-13 11:25] VITALS: BP 139/81; PULSE 77; TEMP 37; O2SAT 97; BMI 38.8
--- OUTSIDE RECORDS SUMMARY | 2024-12-13 12:28 | XMS_ITS | Encounter Summary ---
Author Organization [facility] Address [address] [place] [address] Phone Care Team Providers Care Bedspread Inspector Name Role Phone Shaji Huntley MD Primary Care Provider [phone] Encounter Details Date Type Department Care Team (Late st Contact Info) Description 11/19/2022 Documentation Only [facility], [address] [place] [address] Shaji Huntley MD [address] [place] [id number] Social History Tobacco Use Types Packs/Day Years [...] on filedocumented in this encounter Care Teams Bedspread Inspector Relationship Specialty Start Date End Date Shaji Huntley MD [address] [place] [id number] PCP - General Internal Medicine 11/13/22 documented as of this encounter
--- OUTSIDE RECORDS SUMMARY | 2024-12-13 12:28 | XMS_ITS | Patient Health Record ---
Author Organization [facility] Address [address] [place] [id number] Care Team Providers Care Cage Loader Name Role Phone [facility] Unavailable [phone] Reason For Referral No Information Medications Medication SIG (Take, Route, Frequency, Duration) Notes Start Date End Date Status Mylanta Tonight 800-270-80 MG/10ML as directed Orally Active Narcan 4 MG/0.1ML as directed Nasally Active NexIUM 40 MG 1 capsule Orally Onc e a day; Duration: 30 day(s) Active Senokot Extra Strength 17.2 MG 1 tablet at bedtime as needed Orally Once a day; Duration: 30 day(s) Active Alvesco 80 MCG/ACT 1 puff Inhalation Tw ice a day Active SEROquel 100 MG 1 tablet at bedtime Orally Once a day; Duration: 30 day(s) Active Atorvastatin Calcium 40 MG 1 tablet Oral ly Once a day; Duration: 30 day(s) Active Tylenol 8 Hour 650 MG 2 tablets as neede d Orally every 8 hrs Active cloNIDine 0.3 MG/24HR 1 patch to skin Transdermal; Duration: 30 day(s) Active Zestoretic 20-25 MG 2 tablet Orally Once a day Active guaiFENesin 200 MG 1 tablet as needed O rally every 4 hrs Active hydrOXYzine HCl 50 MG 1 tablet as needed Orally four times a day Active Lexapro 10 MG 1 tablet Orally Once a day; Duration: 30 day(s) Active Meclizine HCl 25 MG [...]
--- OUTSIDE RECORDS SUMMARY | 2024-12-13 12:28 | XMS_ITS | Clinical Summary ---
Author Organization [facility] Address [address] [place] [address] Phone Care Team Providers Care Woods Boss Name Role Phone Shaji Huntley MD Primary Care Provider [phone] Social History Tobacco Use Types Packs/Day Years Used Date Smoking Tobacco: Never Assessed Education Answer Date Recorded Are you interested in more education? Not on jie e 05/14/2024 Are you concerned about learning? Not on file 05/14/2024 No 05/14/2024 No 05/14/2024 Digital Access Answer Date Recorded No 05/14/2024 No 05/14/2024 Reliable internet access at home? Not on file 05/14/2024 Device with a working camera? Not on file Sex and Gender Information Value Date Recorded Sex Assigned at Not on file Legal Sex Male 2:34 PM EST Gender Identity Not on file Sexual Orientation Not on file Plan of Treatment Upcoming Encounters Date Type Department Care Team (Late st Contact Info) Description 03/27/2026 10:00 AM EST Office Visit [facility] [address] [place] [address] Nu Robison MD [address] [place] [address] Health Maintenance Due Date Last Done Comments Adult Td,Tdap Booster 1962 LIPID PANEL 1962 DEPRESSION SCREENING 1974 SMOKING Hx and SMOKELESS TOB ACCO SCREENING 10/10/1975 HEPATITIS C SCREENING 1980 HIV ONE-TIME SCREENING (18-6 5 YEARS) 1980 COLOGUARD 10/10/2007 COLONOSCOPY 10/10/2007 COLORECTAL CANCER SCREENING 10/10/2007 FIT TEST 10/10/2007 FOBT 10/10/2007 SIGMOIDOSCOPY 10/10/2007 VIRTUAL COLONOSCOPY 10/10/2007 PNEUMOCOCCAL VACCINES (50+ y ears) (1 of 1 - PCV) 2012 ZOSTER VACCINES (1 of 2) 2012 COVID-19 VACCINE (1 - 2023-2 5 season) 2024 RSV VACCINE (1 - 1-dose 75+ series) 2037 HEPATITIS A VACCINES Aged Out No long er eligible based on patient's age to complete this topic HIB VACCINES Aged Out No longer eligi ble based on patient's age to complete this topic MENINGOCOCCAL VACCINES (ACWY) Aged Out No longer eligible based on patient's age to complete this topic MENINGOCOCCAL VACCINES (B) Aged Out N o longer eligible based on patient's age to complete this topic Medical Devices Not on file Insurance [employer] [address] [place], [place] [id number] [facility]ILVAUNITED [facility] Care Teams Woods Boss Relationship Specialty Start Date End Date Shaji Huntley MD [address] [place] [id number] PCP - General Internal Medicine 05/14/24 Additional Source Comments The information contained in this document represents components of the legal health record. It is not the complete legal health record.[facility]
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
--- NOTE | 2024-12-13 12:59 | MHC.CARE ---
Patient evaluated by the CARE Team, he does not require an inpatient psychiatric admission at this time. Will be picked up by retirement staff. Dr. Salinas update
[2024-12-13 13:02] VITALS: BP 139/81; PULSE 77; RESP 18; TEMP 37; O2SAT 97
== END 2024-12-13 13:05 | disposition home or self-care (01) ==
PROVIDERS: Emergency Provider Emergency Medicine Emergency Medical Services; PCP Internal Medicine
DX: R45.851 Suicidal ideations (principal); F32.9 Major depressive disorder, single episode, unspecified; F90.9 Attention-deficit hyperactivity disorder, unspecified type; F43.10 Post-traumatic stress disorder, unspecified
CPT/HCPCS: 99284; S9485

== ENCOUNTER 2025-01-05 08:28 | Inpatient (IN) | payer OTHER, SELFPAY ==
[2025-01-05] VITALS (16 sets, daily range): BP systolic 105–137; BP diastolic 35–80; PULSE 97–127; RESP 16–28; TEMP 36.2–38.7; O2SAT 94–97; BMI 37.9
--- NOTE | 2025-01-05 | ECG_ITS ---
Test Reason : tachy Blood Pressure : */* mmHG Vent. Rate : 118 BPM Atrial Rate : 118 BPM P-R Int : 154 ms QRS Dur : 80 ms QT Int : 310 ms P-R-T Axes : -29 -39 -5 degrees QTcB Int : 434 ms Artifact in tracing Sinus tachycardia Left axis deviation Abnormal ECG When compared with ECG of 27-Sep-2024 12:12, Vent. rate has increased by 49 bpm QRS axis Shifted left Referred By: Generic ED Physician Electronically Signed By: SCOTTY STAPLES
--- NOTE | ~2025-01-05 | US_ITS ---
CLINICAL HISTORY: Elevated LFTs --- Additional Notes or Special Instructions: attention to liver US abdomen limited liver Comparison: 09/28/2024 Findings: Fatty infiltration of the liver without focal abnormality. Right lobe 18.9 cm length. Main portal vein patent with antegrade flow. Impression: Fatty infiltration of the liver This document has been electronically signed by: Rubens Ignacio MD on 01/05/2025 19:12:23
--- NOTE | ~2025-01-05 | CT_ITS ---
History: Thrombocytopenia PROCEDURES: 1. Limited preprocedure CT of the pelvis. Permanent images saved in PACS. 2. 11 g bone marrow core biopsy of the left posterior iliac spine 3. 11 g bone marrow aspirate of the left posterior iliac spine CLINICIANS: Benigno Gaines NP Preprocedural imaging reviewed with Tico Reid MD MEDICATIONS: -Versed, Fentanyl , and lidocaine 1% SQ -Antibiotics: None -For additional details, please see nursing flowsheet. COMPLICATIONS: None ESTIMATED BLOOD LOSS: < 5 ml CONTRAST: None SPECIMENS: 11 g core placed in formalin. Bone marrow aspirate placed in EDTA and sodium heparin tubes MODERATE SEDATION TIME: 23 min PROCEDURE NOTE: The procedure, risks, benefits, and alternatives were carefully explained to the patient and written informed consent was obtained. The patient was placed prone on the CT table. A timeout was performed. A limited CT of the pelvis was performed to localize posterior iliac spine and choose appropriate needle entry and trajectory. The patient was prepped and draped in usual sterile fashion. The skin, subcutaneous tissues, and periosteum were anesthetized with lidocaine. Under CT guidance, an 11-gauge bone marrow biopsy needle was advanced into the posterior iliac spine, with the tip positioned slightly cephalad. A bone marrow aspirate was performed. The specimen was placed in the provided EDTA and sodium heparin tubes. Next, the 11-gauge bone marrow biopsy needle was then advanced into the posterior iliac spine, under CT guidance, with the tip positioned slightly caudal. An 11-gauge core biopsy of the bone marrow was performed, needle removed and the specimen was placed in formalin. A dry dressing was applied and secured with Tegaderm. There were no immediate complications. The patient was stable after the procedure and was transferred to the post anesthesia care unit. The procedure was done under moderate sedation with a dedicated nurse for monitoring of vital signs. CT/CT biopsy asp core bone marrow Impression: CT-guided bone marrow biopsy and aspirate This procedure was performed by Benigno Gaines NP and supervised by Tico Reid MD. Electronically signed by: Tico Reid MD 01/18/2025 04:52 PM EDT
--- NOTE | ~2025-01-05 | XR_ITS ---
EXAMINATION: XR CHEST CLINICAL INFORMATION: FEVER COMPARISON: Correlated to CT chest dated March 29, 2024. TECHNIQUE: Frontal view of the chest was obtained. FINDINGS: No consolidation, pleural effusion or pneumothorax. Cardiomediastinal silhouette size is normal. Multilevel spondylosis. Vascular clips in the left lower neck no fully included in the [id number]. XR/XR chest 1V IMPRESSION: No acute airspace disease. Multilevel spondylosis. Electronically signed by: Hipolito Castillo MD 01/06/2025 12:13 PM EDT
--- NOTE | ~2025-01-05 | CT_ITS ---
EXAMINATION: CT HEAD WITHOUT CONTRAST CLINICAL INFORMATION: Thrombocytopenia COMPARISON: None available. TECHNIQUE: Contiguous axial imaging was performed from the skull base to vertex without intravenous administration of contrast. This CT examination was performed using dose optimization techniques as appropriate, variously including the following: *Automated exposure control *Adjustment of mA and/or kV according to patient size (this includes techniques or standardized protocols for targeted exams where dose is matched to indication/reason for exam; i.e. extremities or head) *Use of iterative reconstruction technique DLP: 847 mGY*cm FINDINGS: There is no acute ischemic change. There is no intracranial hemorrhage. There is no mass-effect or midline shift. Basal cisterns and ventricles are within normal limits for age/cerebral volume. Orbits are symmetrical and unremarkable. Small retention cyst is present in the floor the left maxillary sinus. There are no bony abnormalities. CT/CT head/brain wo IV con IMPRESSION: No acute intracranial abnormality. Electronically signed by: Marc Guajardo MD 01/05/2025 11:38 AM EDT
--- NOTE | ~2025-01-05 | CT_ITS ---
EXAMINATION: CT ABDOMEN AND PELVIS WITHOUT CONTRAST CLINICAL INFORMATION: Neutropenic fever. COMPARISON: 09/27/2024. TECHNIQUE: Multidetector volumetric imaging was performed from the superior aspect of the liver through the pubic symphysis. Sagittal and coronal reformatted images were obtained on the technologist's workstation. This CT examination was performed using dose optimization techniques as appropriate, variously including the following: *Automated exposure control *Adjustment of mA and/or kV according to patient size (this includes techniques or standardized protocols for targeted exams where dose is matched to indication/reason for exam; i.e. extremities or head) *Use of iterative reconstruction technique FINDINGS: LUNG BASES: The lung bases are grossly clear bilaterally. There is mild dependent atelectasis. Patulous appearing distal esophagus with a small hiatus hernia. Normal heart size. No effusions. LIVER, GALLBLADDER, AND BILIARY TREE: The unenhanced liver is normal in size, shape, and attenuation. No focal hepatic lesion or biliary ductal dilatation is present. The gallbladder is unremarkable with no evidence of radiopaque gallstones, gallbladder wall thickening, or obvious pericholecystic inflammatory changes. PANCREAS: Unremarkable. SPLEEN: Unremarkable. ADRENAL GLANDS: Unremarkable. KIDNEYS AND URETERS: The unenhanced right kidney demonstrates 3 inferior pole cysts, the largest measuring 2.7 cm. Right kidney otherwise normal. Right ureter is nondilated. The unenhanced left kidney is normal. Left ureter is nondilated. BLADDER: Unremarkable. GASTROINTESTINAL TRACT: There is no acute finding of the GI tract. There is a small hiatus hernia. The appendix is normal. PERITONEUM: No free air. No ascites or organized fluid collection. ABDOMINAL WALL: No significant hernia is appreciated. LYMPH NODES: No abnormal lymphadenopathy. VASCULAR: Normal in appearance. No aneurysm. PELVIC VISCERA: The prostate is enlarged with central dystrophic calcifications. Prostate diameter measures 6.1 cm. OSSEOUS STRUCTURES: No suspicious lytic or blastic bone lesions. There are mild to moderate degenerative spinal changes of the thoracolumbar spine. CT/CT abdomen pelvis wo IV con IMPRESSION: 1. No acute findings in the abdomen or pelvis. 2. Ancillary findings as discussed. Electronically signed by: Hong Reed MD 01/06/2025 05:07 PM EDT
--- NOTE | 2025-01-05 08:39 | ED.GENADULT ---
HPI - General Adult General Chief complaint: Psychiatric Symptoms Stated complaint: Depressed SI Time Seen by Provider: 01/05/25 08:39 Source: patient Mode of arrival: ambulatory Limitations: no limitations History of Present Illness ED Provider: Carina Bustillos PA-C HPI narrative: Patient is a 64 year old assigned male at with a history of dissociative disorder, CPTSD, MDD, achalasia, ADHD, and thrombocytopenia currently living in a custodial, presenting to the emergency department today with increased depression / feeling run down and suicidal ideation with a plan to hang himself. Patient states that over the last 5 days he has had generalized fatigue with depression and suicidal ideation and a plan to hang himself. Patient denies any dizziness, lightheadedness, abdominal pain, nausea, vomiting, fever, chills, blurry vision, double vision, loss of vision, chest pain, difficulty breathing, shortness of breath, back pain, night sweats, pain with urination, increased urinary frequency, increased urinary urgency, blood in his urine or stool, syncope or a near syncopal episode, recent trauma or falls, bowel incontinence, bladder incontinence, or any other complaints at this time. Onset (ago): day(s) (5) Relieving factors: none Exacerbating factors: none Associated symptoms: weakness Treatments prior to arrival: none Related Data Home Medications ?Medication ?Instructions ?Recorded ?Confirmed B-complex with vitamin C 1 tab PO DAILY 09/27/24 01/05/25 acetaminophen 650 mg 650 mg PO Q4-6H PRN Fever Or Pain 09/27/24 01/05/25 tablet,extended release atorvastatin 40 mg tablet 40 mg PO DAILY 09/27/24 01/05/25 clotrimazole 1 % topical cream 1 appl topical DAILY 09/27/24 01/05/25 guaifenesin 200 mg/5 mL oral liquid 200 - 400 mg PO Q4H PRN Cough 09/27/24 01/05/25 guanfacine 2 mg tablet 2 mg PO BEDTIME 09/27/24 01/05/25 hydroxyzine HCl 50 mg tablet 50 mg PO QID 09/27/24 01/05/25 ketoconazole 2 % topical cream 1 appl topical DAILY 09/27/24 01/05/25 lisinopril 20 1 tab PO DAILY 05/19/25 08/27/25 mg-hydrochlorothiazide 25 mg tablet (Zestoretic) magnesium hydroxide 400 mg/5 mL 30 ml PO DAILY PRN Constipation 09/27/24 01/05/25 oral suspension (Milk of Magnesia) meclizine 25 mg tablet 25 mg PO TID PRN Vertigo 09/27/24 01/05/25 naloxone 4 mg/actuation nasal 4 mg intranasal Q3M PRN Opiate 09/27/24 01/05/25 spray (Narcan) Reversal primidone 50 mg tablet 50 mg PO BID 09/27/24 01/05/25 vitamin B complex 1 tab PO BEDTIME 09/27/24 01/05/25 levothyroxine 175 mcg tablet 175 mcg PO DAILY@0600 01/05/25 01/05/25 lumateperone 42 mg capsule 42 mg PO BEDTIME 01/05/25 01/05/25 (Caplyta) Previous Rx's ?Medication ?Instructions ?Recorded esomeprazole magnesium 40 mg 40 mg PO BID #60 caps 10/01/24 capsule,delayed release finasteride 5 mg tablet 5 mg PO DAILY 90 days #90 tabs 11/23/24 Allergies Allergy/AdvReac Type Severity Reaction Status Date / Time clindamycin Allergy Intermediate Unknown Verified 01/05/25 08:32 haloperidol (From Haldol) Allergy Intermediate Unknown Verified 01/05/25 08:32 NSAIDS (Non-Steroidal Allergy Intermediate Unknown Verified 01/05/25 08:32 Anti-Inflamma Penicillins Allergy Intermediate Anaphylaxis Verified 01/05/25 08:32 Review of Systems Constitutional: Constitutional: Reports no additional constitutional complaints, Denies chills, Reports fatigue, Denies fever(s), Denies night sweats and Reports weakness Eyes: Eyes: Reports no additional eye complaints, Denies blurry vision, Denies change in vision, Denies diplopia, Denies eye discharge, Denies loss of vision and Denies eye pain ENT: Denies dizziness Cardiovascular: Cardiovascular: Reports no additional cardiovascular complaints, Denies chest pain, Denies lightheadedness, Denies Loss of Consciousness and Denies dyspnea Respiratory: Respiratory: Reports no additional respiratory complaints and Denies dyspnea Gastrointestinal: Gastrointestinal: Reports no additional gastrointestinal complaints, Denies abdominal pain, Denies melena, Denies hematochezia, Denies change in bowel habits and Denies change in stool character Genitourinary: Genitourinary: Reports no additional male genitourinary complaints, Denies hematuria, Denies oliguria, Denies difficulty urinating, Denies dysuria, Denies urinary frequency, Denies urinary hesitancy, Denies urinary incontinence and Denies urinary urgency Musculoskeletal: Musculoskeletal: Reports no additional musculoskeletal complaints, Denies numbness and Denies tingling Neurologic: Denies dizziness, Denies loss of vision, Denies numbness, Denies tingling and Reports weakness Psychiatric: Psychiatric: Reports depression, Denies homicidal ideation and Reports suicidal ideation Endocrine: Endocrine: Reports no additional endocrine complaints and Reports fatigue Hematologic/Lymphatic: Hematologic/Lymphatic: Reports no additional hematologic/lymphatic complaints Allergic/Immunologic: Allergic/Immunologic: Reports no additional allergic/immunologic complaints PMFSH Past Medical History Attestation statement: The following information was validated with the patient. Source: old records reviewed and nursing notes reviewed Medical History Elevated PSA Hypothyroidism Essential (primary) hypertension Thrombocytopenia Attention deficit disorder Dissociative disorder Chronic post-traumatic stress disorder (PTSD) Major depressive disorder, recurrent severe without psychotic features Social History Social History Household Members: Other Household Members Other:: custodial Housing: Other Housing Other:: in a custodial Do you presently have visiting nurse or other home services: No Alcohol intake: former Patient Tobacco Use Status: Never used Tobacco Smoked in Last 30 Days: No Use of substances other than those prescribed or required for medical reasons: No Substance Use Type: Marijuana Have you been hit, kicked, punched, or otherwise hurt by someone within the past year? If so, by whom?: No Do you feel safe in your current relationship?: No Current Relationship Is there a partner from a previous relationship who is making you feel unsafe now?: No Are you made to feel afraid or neglected: No Advance Directives: No Advance Directives Information Provided: Yes Do you have a plan to hurt others: Specific Recently lost weight without trying: No How much weight loss: Not applicable Eating poorly because of decreased appetite: No Nutrition screen score: 0 Nutrition Risks: No Nutritional Risk Poor oral hygiene: No service: No Physical Exam ED Vital Signs: Vital Signs - 24 hr 01/05/25 08:31 01/05/25 10:17 Temperature 97.3 F Pulse Rate 127 H 103 H Respiratory Rate 20 16 Blood Pressure 127/77 133/80 Pulse Oximetry 94 95 Oxygen Delivery Method Room Air Room Air BMI result Body Mass Index 37.9 Const General: cooperative, no acute distress, alert and awake Nutritional Appearance: well nourished Orientation/consciousness: patient oriented x3 HENMT Head: Yes normal to inspection and Yes atraumatic Ears: hearing grossly normal bilaterally and external ears normal General nose exam: Normal external nose present, no nasal discharge noted and no epistaxis Face and sinus: Yes normal facial exam, No abrasion and No laceration Mouth: Normal oral and palatal mucosa present, no drooling and no muffled voice Eyes General: appearance normal, both eyes and all related structures Periorbital: periorbital findings normal Eyelids: Yes eyelids normal Conjunctivae: conjunctivae normal Pupils: Equal, round and reactive pupils present EOM: EOMs intact bilaterally Neck Neck: Yes normal visual inspection and Yes full ROM Resp Effort & Inspection: normal respiratory effort and able to speak in complete sentences Neuro General: patient oriented x3, moves all extremities and CN's II-XI intact bilaterally Cranial nerves: Yes Equal, round and reactive pupils present Cognition (Neuro): normal cognition Extrem General: Yes normal to inspection, Yes full ROM and Yes capillary refill normal Psych Appearance: grossly normal Mental Status: mental status grossly normal Affect: normal affect Attitude: cooperative Thought content: Suicidality present Medications Administered Generic Name Dose Route Start Last Admin Trade Name Freq PRN Reason Stop Dose Admin Acetaminophen 650 mg 01/05/25 12:31 01/05/25 13:27 Acetaminophen 325 Mg Tablet PO 650 mg Q6H PRN Administration Pain, Mild 1-3,fever,headache Hydroxyzine HCl 50 mg 01/05/25 13:00 01/05/25 14:07 Hydroxyzine Hcl 50 Mg Tablet PO 50 mg QID LUCINDA Administration Medical Decision Making Medical Decision Making MDM Narrative: Patient is a 64 year old assigned male at with a history of dissociative disorder, CPTSD, MDD, achalasia, ADHD, and thrombocytopenia currently living in a custodial, presenting to the emergency department today with increased depression / feeling run down and suicidal ideation with a plan to hang himself. Patient's physical exam was as noted in the physical exam portion of this note. Patient's blood work showed RBC 3.42, hgb 8.9, hct 28.2, plt 5, LFTs chronically elevated - slightly worse today at t bili 2.1, AST 103, ALT 149, alk phos 172. Patient's urine showed no acute process. Patient's EKG showed sinus tachycardia. Patient's head CT showed no acute process. I spoke with the heme/onc team who recommended transfusion. Patient given 1 unit of PRBCs and 1 unit of Platelets. I spoke with the hospitalist team who agreed to admission for continued monitoring of the patient's thrombocytopenia. I explained my physical exam findings as well as all test results to the patient. I answered all questions asked by the patient. Patient verbalized agreement and understanding with this treatment plan and admission. Differential Diagnosis Differential Diagnoses: The differential diagnosis associated with the presentation includes SI Thrombocytopenia Decreased platelets Anemia Admission/Observation Consideration of admission/observation: Escalation of care including admission/observation considered Patient admitted as noted in the MDM Rationale portion of this note. Consult Healthcare Provider Management of the patient was discussed with: Hospitalist (Agreed to admission as noted in the MDM Rationale portion of this note. ) and Computer Applications Instructor (consulted with the heme/onc team as noted in the MDM Rationale portion of this note. ) Lab Data [facility] Lab Attestation statement: I reviewed the patient's lab results. My interpretation of these results are in the MDM Rationale portion of this note. 01/05/25 09:11 01/05/25 09:11 Labs: Lab Results 01/05/25 01/05/25 01/05/25 Range/Units 09:11 09:29 09:30 WBC 2.1 L (4.8-10.8) X10*3/uL RBC 3.42 L (4.60-5.80) X10*6/uL Hgb 8.9 L (14.0-18.0) g/dl Hct 28.2 L (42.0-52.0) % MCV 82.5 (80.0-98.0) fL MCH 26.0 L (27.0-33.0) pg MCHC 31.6 (31.0-36.0) g/dl RDW 19.9 H (11.0-16.0) % Plt Count 5 L* D (160-400) X10*3/uL MPV TNP Immature Gran % (Auto) 0.5 H (0.0-0.4) % Neut % (Auto) 23.7 L (45-73) % Lymph % (Auto) 67.5 H (20-40) % [place] % (Auto) 7.3 (2-11) % Eos % (Auto) 0.5 (0-4) % Baso % (Auto) 0.5 (0-2) % Lymph # (Auto) 1.4 (1.2-4.9) X10*3/uL [place] # (Auto) 0.2 (0.1-1.2) X10*3/uL Eos # (Auto) 0.0 (0.0-0.4) X10*3/uL Baso # (Auto) 0.0 (0.0-0.2) X10*3/uL Abs Immat Gran (auto) 0.01 (0.00-0.03) X10*3/uL Absolute Neuts (auto) 0.5 L (2.0-8.3) x10*3/uL Absolute Nucleated RBC 0.020 H (0.0-0.012) X10*3/uL Nucleated RBC % (auto) 1.0 H (0.0-0.2) /100WBC Smear Tech's Comments VERIFIED Absolute Retic 0.024 L (0.026-0.095) X10*6/uL Percent Retic 0.7 (0.5-1.8) % Immature Retic Fraction 20.5 H (2.3-13.4) % Retic Hgb Equivalent 28.2 L (30.0-35.0) pg Sodium 135 (135-145) mmol/L Potassium 3.8 (3.3-5.1) mmol/L Chloride 102 (96-108) mmol/L Carbon Dioxide 23 (22-29) mmol/L Anion Gap 14 (12-20) BUN 22 H (9-16) mg/dL Creatinine 1.35 (0.5-1.4) mg/dL Estim Creat Clear Calc 84.8 Estimated GFR 54 Random Glucose 102 (60-115) mg/dL Haptoglobin 219 (40-268) mg/dL Calcium 9.0 (8.4-10.2) mg/dL Total Bilirubin 2.1 H (0.0-1.0) mg/dL AST 103 H (5-37) U/L ALT 149 H (0-40) U/L Alkaline Phosphatase 172 H (39-117) U/L Lactate Dehydrogenase 509 H (118-273) U/L Total Protein 7.0 (6.5-8.0) g/dL Albumin 4.0 (3.5-5.0) g/dL Urine Color Cancelled Urine Appearance Urine pH Ur Specific [place] Urine Protein Urine Glucose (UA) Urine Ketones Urine Blood Urine Nitrite Ur Leukocyte Esterase Urine RBC (0-2) /HPF Urine WBC (0-5) /HPF Ur Squamous Epith Cells (0-2) /HPF Urine Bacteria (None Seen) Hyaline Casts (0-2) /LPF Salicylates < 5.0 L (15-30) mg/dL Urine Opiates Screen Not Detected (Not Detect) Ur Buprenorphine Scrn Not Detected (Not Detect) ng/mL Ur Oxycodone Screen Not Detected (Not Detect) ng/mL Urine Methadone Screen Not Detected (Not Detect) ng/mL Urine Fentanyl Screen Not Detected (Not Detect) Acetaminophen < 3 (<30) mcg/mL Ur Barbiturates Screen Not Detected (Not Detect) Ur Phencyclidine Scrn Not Detected (Not Detect) Ur Amphetamines Screen Not Detected (Not Detect) U Benzodiazepines Scrn Not Detected (Not Detect) Urine Cocaine Screen Not Detected (Not Detect) U Marijuana (THC) Screen Not Detected (Not Detect) Ethyl Alcohol < 10 mg/dL Blood Type Antibody Screen Crossmatch 01/05/25 01/05/25 01/05/25 Range/Units 09:30 09:30 09:30 WBC (4.8-10.8) X10*3/uL RBC (4.60-5.80) X10*6/uL Hgb (14.0-18.0) g/dl Hct (42.0-52.0) % MCV (80.0-98.0) fL MCH (27.0-33.0) pg MCHC (31.0-36.0) g/dl RDW (11.0-16.0) % Plt Count (160-400) X10*3/uL MPV Immature Gran % (Auto) (0.0-0.4) % Neut % (Auto) (45-73) % Lymph % (Auto) (20-40) % [place] % (Auto) (2-11) % Eos % (Auto) (0-4) % Baso % (Auto) (0-2) % Lymph # (Auto) (1.2-4.9) X10*3/uL [place] # (Auto) (0.1-1.2) X10*3/uL Eos # (Auto) (0.0-0.4) X10*3/uL Baso # (Auto) (0.0-0.2) X10*3/uL Abs Immat Gran (auto) (0.00-0.03) X10*3/uL Absolute Neuts (auto) (2.0-8.3) x10*3/uL Absolute Nucleated RBC (0.0-0.012) X10*3/uL Nucleated RBC % (auto) (0.0-0.2) /100WBC Smear Tech's Comments Absolute Retic (0.026-0.095) X10*6/uL Percent Retic (0.5-1.8) % Immature Retic Fraction (2.3-13.4) % Retic Hgb Equivalent (30.0-35.0) pg Sodium (135-145) mmol/L Potassium (3.3-5.1) mmol/L Chloride (96-108) mmol/L Carbon Dioxide (22-29) mmol/L Anion Gap (12-20) BUN (9-16) mg/dL Creatinine (0.5-1.4) mg/dL Estim Creat Clear Calc Estimated GFR Random Glucose (60-115) mg/dL Haptoglobin (40-268) mg/dL Calcium (8.4-10.2) mg/dL Total Bilirubin (0.0-1.0) mg/dL AST (5-37) U/L ALT (0-40) U/L Alkaline Phosphatase (39-117) U/L Lactate Dehydrogenase (118-273) U/L Total Protein (6.5-8.0) g/dL Albumin (3.5-5.0) g/dL Urine Color Dark Yellow Urine Appearance Cancelled Clear Urine pH Cancelled 5.5 Ur Specific [place] Cancelled Urine Protein Urine Glucose (UA) Urine Ketones Urine Blood Urine Nitrite Ur Leukocyte Esterase Urine RBC (0-2) /HPF Urine WBC (0-5) /HPF Ur Squamous Epith Cells (0-2) /HPF Urine Bacteria (None Seen) Hyaline Casts (0-2) /LPF Salicylates (15-30) mg/dL Urine Opiates Screen (Not Detect) Ur Buprenorphine Scrn (Not Detect) ng/mL Ur Oxycodone Screen (Not Detect) ng/mL Urine Methadone Screen (Not Detect) ng/mL Urine Fentanyl Screen (Not Detect) Acetaminophen (<30) mcg/mL Ur Barbiturates Screen (Not Detect) Ur Phencyclidine Scrn (Not Detect) Ur Amphetamines Screen (Not Detect) U Benzodiazepines Scrn (Not Detect) Urine Cocaine Screen (Not Detect) U Marijuana (THC) Screen (Not Detect) Ethyl Alcohol mg/dL Blood Type Antibody Screen Crossmatch 01/05/25 01/05/25 01/05/25 Range/Units 09:30 09:30 09:30 WBC (4.8-10.8) X10*3/uL RBC (4.60-5.80) X10*6/uL Hgb (14.0-18.0) g/dl Hct (42.0-52.0) % MCV (80.0-98.0) fL MCH (27.0-33.0) pg MCHC (31.0-36.0) g/dl RDW (11.0-16.0) % Plt Count (160-400) X10*3/uL MPV Immature Gran % (Auto) (0.0-0.4) % Neut % (Auto) (45-73) % Lymph % (Auto) (20-40) % [place] % (Auto) (2-11) % Eos % (Auto) (0-4) % Baso % (Auto) (0-2) % Lymph # (Auto) (1.2-4.9) X10*3/uL [place] # (Auto) (0.1-1.2) X10*3/uL Eos # (Auto) (0.0-0.4) X10*3/uL Baso # (Auto) (0.0-0.2) X10*3/uL Abs Immat Gran (auto) (0.00-0.03) X10*3/uL Absolute Neuts (auto) (2.0-8.3) x10*3/uL Absolute Nucleated RBC (0.0-0.012) X10*3/uL Nucleated RBC % (auto) (0.0-0.2) /100WBC Smear Tech's Comments Absolute Retic (0.026-0.095) X10*6/uL Percent Retic (0.5-1.8) % Immature Retic Fraction (2.3-13.4) % Retic Hgb Equivalent (30.0-35.0) pg Sodium (135-145) mmol/L Potassium (3.3-5.1) mmol/L Chloride (96-108) mmol/L Carbon Dioxide (22-29) mmol/L Anion Gap (12-20) BUN (9-16) mg/dL Creatinine (0.5-1.4) mg/dL Estim Creat Clear Calc Estimated GFR Random Glucose (60-115) mg/dL Haptoglobin (40-268) mg/dL Calcium (8.4-10.2) mg/dL Total Bilirubin (0.0-1.0) mg/dL AST (5-37) U/L ALT (0-40) U/L Alkaline Phosphatase (39-117) U/L Lactate Dehydrogenase (118-273) U/L Total Protein (6.5-8.0) g/dL Albumin (3.5-5.0) g/dL Urine Color Urine Appearance Urine pH Ur Specific [place] 1.025 Urine Protein Cancelled 100 (2+) H Urine Glucose (UA) Cancelled Negative Urine Ketones Cancelled Urine Blood Urine Nitrite Ur Leukocyte Esterase Urine RBC (0-2) /HPF Urine WBC (0-5) /HPF Ur Squamous Epith Cells (0-2) /HPF Urine Bacteria (None Seen) Hyaline Casts (0-2) /LPF Salicylates (15-30) mg/dL Urine Opiates Screen (Not Detect) Ur Buprenorphine Scrn (Not Detect) ng/mL Ur Oxycodone Screen (Not Detect) ng/mL Urine Methadone Screen (Not Detect) ng/mL Urine Fentanyl Screen (Not Detect) Acetaminophen (<30) mcg/mL Ur Barbiturates Screen (Not Detect) Ur Phencyclidine Scrn (Not Detect) Ur Amphetamines Screen (Not Detect) U Benzodiazepines Scrn (Not Detect) Urine Cocaine Screen (Not Detect) U Marijuana (THC) Screen (Not Detect) Ethyl Alcohol mg/dL Blood Type Antibody Screen Crossmatch 01/05/25 01/05/25 01/05/25 Range/Units 09:30 09:30 09:30 WBC (4.8-10.8) X10*3/uL RBC (4.60-5.80) X10*6/uL Hgb (14.0-18.0) g/dl Hct (42.0-52.0) % MCV (80.0-98.0) fL MCH (27.0-33.0) pg MCHC (31.0-36.0) g/dl RDW (11.0-16.0) % Plt Count (160-400) X10*3/uL MPV Immature Gran % (Auto) (0.0-0.4) % Neut % (Auto) (45-73) % Lymph % (Auto) (20-40) % [place] % (Auto) (2-11) % Eos % (Auto) (0-4) % Baso % (Auto) (0-2) % Lymph # (Auto) (1.2-4.9) X10*3/uL [place] # (Auto) (0.1-1.2) X10*3/uL Eos # (Auto) (0.0-0.4) X10*3/uL Baso # (Auto) (0.0-0.2) X10*3/uL Abs Immat Gran (auto) (0.00-0.03) X10*3/uL Absolute Neuts (auto) (2.0-8.3) x10*3/uL Absolute Nucleated RBC (0.0-0.012) X10*3/uL Nucleated RBC % (auto) (0.0-0.2) /100WBC Smear Tech's Comments Absolute Retic (0.026-0.095) X10*6/uL Percent Retic (0.5-1.8) % Immature Retic Fraction (2.3-13.4) % Retic Hgb Equivalent (30.0-35.0) pg Sodium (135-145) mmol/L Potassium (3.3-5.1) mmol/L Chloride (96-108) mmol/L Carbon Dioxide (22-29) mmol/L Anion Gap (12-20) BUN (9-16) mg/dL Creatinine (0.5-1.4) mg/dL Estim Creat Clear Calc Estimated GFR Random Glucose (60-115) mg/dL Haptoglobin (40-268) mg/dL Calcium (8.4-10.2) mg/dL Total Bilirubin (0.0-1.0) mg/dL AST (5-37) U/L ALT (0-40) U/L Alkaline Phosphatase (39-117) U/L Lactate Dehydrogenase (118-273) U/L Total Protein (6.5-8.0) g/dL Albumin (3.5-5.0) g/dL Urine Color Urine Appearance Urine pH Ur Specific [place] Urine Protein Urine Glucose (UA) Urine Ketones 15 Urine Blood Cancelled Trace H Urine Nitrite Cancelled Negative Ur Leukocyte Esterase Cancelled Urine RBC (0-2) /HPF Urine WBC (0-5) /HPF Ur Squamous Epith Cells (0-2) /HPF Urine Bacteria (None Seen) Hyaline Casts (0-2) /LPF Salicylates (15-30) mg/dL Urine Opiates Screen (Not Detect) Ur Buprenorphine Scrn (Not Detect) ng/mL Ur Oxycodone Screen (Not Detect) ng/mL Urine Methadone Screen (Not Detect) ng/mL Urine Fentanyl Screen (Not Detect) Acetaminophen (<30) mcg/mL Ur Barbiturates Screen (Not Detect) Ur Phencyclidine Scrn (Not Detect) Ur Amphetamines Screen (Not Detect) U Benzodiazepines Scrn (Not Detect) Urine Cocaine Screen (Not Detect) U Marijuana (THC) Screen (Not Detect) Ethyl Alcohol mg/dL Blood Type Antibody Screen Crossmatch 01/05/25 01/05/25 Range/Units 09:30 11:49 WBC (4.8-10.8) X10*3/uL RBC (4.60-5.80) X10*6/uL Hgb (14.0-18.0) g/dl Hct (42.0-52.0) % MCV (80.0-98.0) fL MCH (27.0-33.0) pg MCHC (31.0-36.0) g/dl RDW (11.0-16.0) % Plt Count (160-400) X10*3/uL MPV Immature Gran % (Auto) (0.0-0.4) % Neut % (Auto) (45-73) % Lymph % (Auto) (20-40) % [place] % (Auto) (2-11) % Eos % (Auto) (0-4) % Baso % (Auto) (0-2) % Lymph # (Auto) (1.2-4.9) X10*3/uL [place] # (Auto) (0.1-1.2) X10*3/uL Eos # (Auto) (0.0-0.4) X10*3/uL Baso # (Auto) (0.0-0.2) X10*3/uL Abs Immat Gran (auto) (0.00-0.03) X10*3/uL Absolute Neuts (auto) (2.0-8.3) x10*3/uL Absolute Nucleated RBC (0.0-0.012) X10*3/uL Nucleated RBC % (auto) (0.0-0.2) /100WBC Smear Tech's Comments Absolute Retic (0.026-0.095) X10*6/uL Percent Retic (0.5-1.8) % Immature Retic Fraction (2.3-13.4) % Retic Hgb Equivalent (30.0-35.0) pg Sodium (135-145) mmol/L Potassium (3.3-5.1) mmol/L Chloride (96-108) mmol/L Carbon Dioxide (22-29) mmol/L Anion Gap (12-20) BUN (9-16) mg/dL Creatinine (0.5-1.4) mg/dL Estim Creat Clear Calc Estimated GFR Random Glucose (60-115) mg/dL Haptoglobin (40-268) mg/dL Calcium (8.4-10.2) mg/dL Total Bilirubin (0.0-1.0) mg/dL AST (5-37) U/L ALT (0-40) U/L Alkaline Phosphatase (39-117) U/L Lactate Dehydrogenase (118-273) U/L Total Protein (6.5-8.0) g/dL Albumin (3.5-5.0) g/dL Urine Color Urine Appearance Urine pH Ur Specific [place] Urine Protein Urine Glucose (UA) Urine Ketones Urine Blood Urine Nitrite Ur Leukocyte Esterase Trace H Urine RBC 0-2 (0-2) /HPF Urine WBC 0-5 (0-5) /HPF Ur Squamous Epith Cells 0-2 (0-2) /HPF Urine Bacteria None Seen (None Seen) Hyaline Casts 0-2 (0-2) /LPF Salicylates (15-30) mg/dL Urine Opiates Screen (Not Detect) Ur Buprenorphine Scrn (Not Detect) ng/mL Ur Oxycodone Screen (Not Detect) ng/mL Urine Methadone Screen (Not Detect) ng/mL Urine Fentanyl Screen (Not Detect) Acetaminophen (<30) mcg/mL Ur Barbiturates Screen (Not Detect) Ur Phencyclidine Scrn (Not Detect) Ur Amphetamines Screen (Not Detect) U Benzodiazepines Scrn (Not Detect) Urine Cocaine Screen (Not Detect) U Marijuana (THC) Screen (Not Detect) Ethyl Alcohol mg/dL Blood Type O Positive Antibody Screen NEGATIVE Crossmatch See Detail Independent Interpretation I performed an independent interpretation of an: EKG and CT Scan Interpretation: My interpretation is in agreement with the radiologist's impression of this imaging study. Report Number: [id number]: Total DLP = 847.00 mGy-cm EXAMINATION: CT HEAD WITHOUT CONTRAST CLINICAL INFORMATION: Thrombocytopenia COMPARISON: None available. TECHNIQUE: Contiguous axial imaging was performed from the skull base to vertex without intravenous administration of contrast. This CT examination was performed using dose optimization techniques as appropriate, variously including the following: *Automated exposure control *Adjustment of mA and/or kV according to patient size (this includes techniques or standardized protocols for targeted exams where dose is matched to indication/reason for exam; i.e. extremities or head) *Use of iterative reconstruction technique DLP: 847 mGY*cm FINDINGS: There is no acute ischemic change. There is no intracranial hemorrhage. There is no mass-effect or midline shift. Basal cisterns and ventricles are within normal limits for age/cerebral volume. Orbits are symmetrical and unremarkable. Small retention cyst is present in the floor the left maxillary sinus. There are no bony abnormalities. CT/CT head/brain wo IV con IMPRESSION: No acute intracranial abnormality. Electronically signed by: Marc Guajardo MD 01/05/2025 11:38 AM EDT RP Dictated By: Marc Guajardo MD Signed By: Electronically signed by Marc Guajardo MD 01/05/25 1138 I independently interpreted this EKG and am in agreement with the below findings: Vent. Rate: 118 BPM Atrial Rate: 118 BPM P-R Int: 154 ms QRS Dur: 80 ms QT Int: 310 ms P-R-T Axes: -29 -39 -5 degrees QTcB Int: 434 ms Sinus tachycardia Left axis deviation When compared with ECG of 27-Sep-2024 12:12, Vent. rate has increased by 49 bpm QRS axis Shifted left Nonspecific T wave abnormality now evident in Inferior leads DD/ 0841 Radiology Impression Discussion of test interpretation with radiology: I have reviewed the radiologist's reading. Critical Care Time Critical Care Time Critical Care Time: Yes Total Critical Care Time: 49 Attestation: I spent 49 minutes of Critical Care Time with this patient. This does not include time spent on separately reported billable procedures. Discharge Plan Discharge Clinical Impression: Pancytopenia Patient Disposition: Admitted As Inpatient Interventions: [place]-Suicide Risk Severity Scale Last Done: 01/05/25 13:47 Admission Worksheet (ED) Last Done: 01/05/25 13:47 Discharge Date/Time: 01/05/25 14:43
[2025-01-05 09:21] LABS: Hematocrit 28.2 % (42.0-52.0); Hemoglobin 8.9 g/dl (14.0-18.0); Imm Gran Abs Auto 0.01 X10*3/uL (0.00-0.03); Imm Gran Pct Auto 0.5 % (0.0-0.4); Lymphocytes Absolute Auto 1.4 X10*3/uL (1.2-4.9); MANUAL DIFF FLAG SCAN; Mean Corpuscular HGB Conc 31.6 g/dl (31.0-36.0); Mean Corpuscular Hemoglobin 26.0 pg (27.0-33.0); Mean Corpuscular Volume 82.5 fL (80.0-98.0); NRBC Abs Auto 0.020 X10*3/uL (0.0-0.012); Red Blood Count 3.42 X10*6/uL (4.60-5.80); SCAN SMEAR FLAG 1
[2025-01-05 09:22] LABS: NRBC Pct Auto 1.0 /100WBC (0.0-0.2); White Blood Count 2.1 X10*3/uL (4.8-10.8)
--- OUTSIDE RECORDS SUMMARY | 2025-01-05 09:38 | XMS_ITS | Clinical Summary ---
Author Organization [facility] Address [address] [place] [phone] Phone Care Team Providers Care Hand Binder Stripper Name Role Phone Shaji Huntley MD Primary Care Provider [phone] Social History Tobacco Use Types Packs/Day Years [...] Description 03/27/2026 10:00 AM EST Office Visit [facility] [address] [place] [address] Nu Robison MD [address] [place] [address] [email or web address] Health Maintenance Due Date Last Done Comments [...] topic Medical Devices Not on file Insurance [employer] [address] [place] [address] [facility] [employer] [facility] Care Teams Hand Binder Stripper Relationship Specialty Start Date End Date Shaji Huntley MD [address] [place] [id number] PCP - General Internal Medicine 05/14/24 Additional Source Comments The information contained in this document represents components of the legal health record. It is not the complete legal health record.[facility]
--- OUTSIDE RECORDS SUMMARY | 2025-01-05 09:38 | XMS_ITS | Clinical Summary ---
Author Organization [facility] Address [address] [place] [address] Phone Care Team Providers Care Polymerization Supervisor Name Role Phone Shaji Huntley MD Primary Care Provider [phone] Allergies Active Allergy Reactions Criticality Noted Date Comments Clindamycin 10/16/2022 Haloperidol 10/16/2022 Nsaids (Non-Steroidal Anti-I nflammatory Drug) 10/16/2022 Penicillin G 10/16/2022 Medications vit B complx/folic acid/lysine (B COMPLEX VITAMINS PO) Take 1 Tablet by mouth daily. Active senna-docusate (PERICOLACE) 4.3-25 mg per tablet (HALF [...] 1 (one) time each day. 4 Active guaiFENesin 200 mg tablet Take 2 [...] mouth 2 (two) times a day. Active aluminum-magnesiu m hydroxide-simethi cone (MAALOX MAX) 400-400-40 mg/5 mL suspension Take by mouth 4 (four) times a day (before meals and nightly). Active ketoconazole (NIZORAL) 2 % cream Apply topically 1 (one) time each day. 60 g 2 5 Active levothyroxine (SYNTHROID, LEVOTHROID) 150 mcg tablet Take 1 tablet (150 mcg total) by mouth 1 (one) time each day. 30 each 11 5 08/07/19 26 Active lisinopril-hydroC HLOROthiazide (PRINZIDE,ZESTORE TIC) 20-25 mg per tablet Take 1 tablet by mouth 1 (one) time each day. 90 tablet 1 5 03/14/20 25 Active ketoconazole (NIZORAL) 2 % cream Apply topically 1 (one) time each day. 60 g 2 5 Active primidone (MYSOLINE) 50 mg tablet 5 Active B complex tablet Take 1 tablet by mouth 1 (one) time each day. 60 tablet 1 5 Active esomeprazole (NexIUM) [address] capsule Take 1 capsule (40 mg total) by mouth 1 (one) time each day before breakfast. Do not open capsule. 90 capsule 1 5 Active B complex-vitamin C tablet 5 Active finasteride (PROSCAR) 5 mg tablet 5 Active psyllium (Metamucil, with sugar,) 3.4 gram packetIndications :Constipation, unspecified constipation type Take 1 packet by mouth 1 (one) time each day. Mix and drink with at least 8 ounces of water or juice. 30 packet 11 5 12/29/19 26 Active polyethylene glycol (MIRALAX) 17 gram packetIndications :Constipation, unspecified constipation type Take 17 g by mouth 1 (one) time each day. 510 g 11 5 12/29/19 26 Active hydrocortisone (ANUSOL-HC) 2.5 % rectal creamIndications: Internal hemorrhoids Insert into the rectum 2 (two) times a day if needed (rectal bleeding) for up to 14 days. 30 g 1 5 01/12/20 25 Active Active Problems Problem Noted Date Diagnosed Date Class 2 obesity 12/24/2024 S/P cervical spinal fusion 06/23/2024 Cervicalgia 06/23/2024 S/P thyroidectomy 06/23/2024 Thyroid nodule 09/09/2023 Hypokalemia 01/03/2023 High serum creatinine 01/03/2023 Chronic kidney disease, stage 2 (mild) 3 Asthma 12/30/2022 Depression 12/30/2022 GERD (gastroesophageal reflux disease) 3 HTN (hypertension) 12/30/2022 Hyperlipemia 12/30/2022 Achalasia Encounters Date Type Department Care Team Description 12/28/2024 8:30 AM EDT Consult Gastroenterology - [address] [place] [address] 299 [facility] [address] [place] [phone] Veronique Rhodes PA Constipation, unspecified constipation type (Primary Dx); Internal hemorrhoids 12/09/2024 Telephone Internal Medicine - [place] 175 [facility] [address] [place] [phone] Geraldo Draper MA 12/08/2024 10:45 AM EDT Office Visit Orthopedic Surgery - [place] [address] [facility] [address] [place] [address] Daren Souza DPM Ingrown right big toenail (Primary Dx); Hammertoes of both feet; Arthritis of both feet; Tinea pedis of both feet; Dermatophytosis, nail 12/07/2024 1:30 PM EDT Office Visit Internal Medicine - [place] [address] [phone] Shaji Huntley MD Rectal bleeding (Primary Dx); Pancytopenia (CMS/HCC V24, CMS/HCC V28) 12/07/2024 Telephone Internal Medicine [facility] [address] [phone] Shaji Huntley MD 12/01/2024 8:45 AM EDT Office Visit [facility] Hematology Oncology [address] [place] [phone] Flako Hudson MD Pancytopenia (CMS/HCC V24, CMS/HCC V28) (Primary Dx); Beta thalassemia, heterozygous 11/29/2024 Telephone Internal Medicine [address] [phone] Shaji Huntley MD 11/18/2024 1:30 PM EDT Office Visit Internal Medicine [address] [phone] Shaji Huntley MD Hospital discharge follow-up (Primary Dx); Pancytopenia (CMS/HCC V24, CMS/HCC V28); Primary hypertension; Numbness and tingling of foot 11/17/2024 8:30 AM EDT Office Visit [facility] Hematology Oncology [address] [place] [phone] Flako Hudson MD Thrombocytopenia ([facility] V24) 11/02/2024 Telephone Internal Medicine [address] [phone] Lupe Overton [place] 10/18/2024 Telephone Gastroenterology - [address] [phone] Veronique Rhodes PA 10/14/2024 3:30 PM EDT Consult Gastroenterology - [address] [phone] Veronique Rhodes PA Idiopathic acute pancreatitis without infection or necrosis 10/11/2024 10:30 AM EDT Office Visit Internal Medicine - [place] 175 [facility] [address] [place] [address] Shaji Huntley MD Hospital discharge follow-up (Primary Dx); Idiopathic acute pancreatitis without infection or necrosis; Benign prostatic hyperplasia, unspecified whether lower urinary tract symptoms present 10/06/2024 Telephone Internal Medicine [facility] 175 [facility] [address] [place] [address] Shaji Huntley MD from Last 3 Months Surgical History Surgery Date Site/Laterality Comments TOTAL KNEE ARTHROPLASTY Right SPINAL FUSION NECK AND LOWER BACK FUSION ESOPHAGEAL DILATION HAS ACHALASIA WITH ESOPHAGEAL SURGERY THYROIDECTOMY COLONOSCOPY 05/19/2024 internal hemorrhoids and diverticulosis Medical History Medical History Date Comments GERD (gastroesophageal reflux disease) 12/30/2022 DX:GERD (gastroesophageal reflux disease) Asthma 12/30/2022 DX:Asthma Achalasia Family History Medical History Relation Name Comments Colon cancer Neg Hx Pancreatic cancer Neg Hx Social History Tobacco Use Types Packs/Day Years Used Date Smoking Tobacco: Former Smokeless Tobacco: Never Tobacco Cessation:Counseling Given: Not Answered Alcohol Use Standard Drinks/Week Comments Not Currently [...] Sign Reading Time Taken Comments Blood Pressure 132/86 12/07/2024 12:51 PM EDT Pulse 80 12/07/2024 12:51 PM EDT Temperature 36.4 C (97.5 F) 12/07/2024 12:51 PM EDT Respiratory Rate 16 08/05/2024 2:00 PM EDT Oxygen Saturation 97% 12/07/2024 12:51 PM EDT Inhaled Oxygen Concentration - - Weight 143 kg (315 lb) 12/28/2024 8:17 AM EDT Height 188 cm (6' 2 ) 12/28/2024 8:17 AM EDT Body Mass Index 40.44 12/28/2024 8:17 AM EDT Plan of Treatment Upcoming Encounters Date Type Department Care Team (Late st Contact Info) Description 02/09/2025 9:45 AM EDT Office Visit Orthopedic Surgery - [place] 250 [address] [facility] [address] [place] [phone] Daren Souza DPM [address] [place] [address] 04/28/2025 10:15 AM EST Office Visit [facility] Hematology Oncology [address] [place] [phone] Flako Hudson MD [address] [place] [address] Health Maintenance Due Date Last Done Comments DTaP,Tdap,and Td Vaccines (1 - Tdap) 1981 Pneumococcal Vaccine: 50+ Years (1 of 2 - PCV) 1981 Zoster Vaccines (1 of 2) 2012 RSV Immunization Adult Patients (1 - Risk 60-74 years 1-dose series) 2022 HIV Screening 06/06/2023 Hepatitis C Screening 06/06/2023 Social Influencers of Health Screening 06/06/2023 COVID-19 Vaccine ( - season) 2024 Depression Screening 05/12/2024 12/22/2023 Influenza Vaccine (#1) 2025 Hypertension/CHF/CAD Annual BMP Blood Test 12/08/2025 12/08/2024, 10/15/2024, 12/22/2023, Additional history exists Cholesterol Screening (Lipid Panel) 12/21/2028 12/22/2023, 12/22/2023 [...] 20 months Aged Out No longer eligible based on patient's age to complete this topic Varicella Vaccines Aged Out No longer eligible based on patient's age to complete this topic Procedures Procedure Name Priority Date/Time Associated Diagnosis Comments CBC WITH AUTO DIFFERENTIAL Routine 12/08/2024 7:59 AM EDT Rectal bleeding Pancytopenia (CMS/HCC V24, CMS/HCC V28) COMPREHENSIVE METABOLIC PANEL Routine 12/08/2024 7:59 AM EDT Rectal bleeding Pancytopenia (CMS/HCC V24, CMS/HCC V28) CBC AND DIFFERENTIAL Routine 12/08/2024 7:59 AM EDT Rectal bleeding Pancytopenia (CMS/HCC V24, CMS/HCC V28) MANUAL DIFFERENTIAL - [facility] Routine 11/17/2024 8:58 AM EDT Thrombocytopenia (CMS/HCC V24) CBC WITH AUTO DIFFERENTIAL Routine 11/17/2024 8:58 AM EDT Thrombocytopenia (CMS/HCC V24) HEMOGLOBIN ELECTROPHORESIS Routine 11/17/2024 8:58 AM EDT Thrombocytopenia ([facility]/HCC V24) IRON AND TIBC Routine 11/17/2024 8:58 AM EDT Thrombocytopenia (CMS/HCC V24) FERRITIN Routine 11/17/2024 8:58 AM EDT Thrombocytopenia ([facility]/HCC V24) HEPATIC FUNCTION PANEL Routine 8:58 AM EDT Thrombocytopenia (CMS/HCC V24) PLATELET ANTIBODIES, INDIRECT Routine 11/17/2024 8:58 AM EDT Thrombocytopenia (CMS/HCC V24) PLATELET ANTIBODIES, DIRECT Routine 11/17/2024 8:58 AM EDT Thrombocytopenia (CMS/HCC V24) CBC AND DIFFERENTIAL Routine 11/17/2024 8:58 AM EDT Thrombocytopenia (CMS/HCC V24) MANUAL DIFFERENTIAL - [facility]AM Routine 10/15/2024 9:38 AM EDT Idiopathic acute pancreatitis without infection or necrosis PATHOLOGIST REVIEW BLOOD SMEAR Routine 10/15/2024 9:38 AM EDT Idiopathic acute pancreatitis without infection or necrosis CBC WITH AUTO DIFFERENTIAL Routine 10/15/2024 9:38 AM EDT Idiopathic acute pancreatitis without infection or necrosis LIPASE Routine 10/15/2024 9:38 AM EDT Idiopathic acute pancreatitis without infection or necrosis AMYLASE Routine 10/15/2024 9:38 AM EDT Idiopathic acute pancreatitis without infection or necrosis CBC AND DIFFERENTIAL Routine 10/15/2024 9:38 AM EDT Idiopathic acute pancreatitis without infection or necrosis COMPREHENSIVE METABOLIC PANEL Routine 10/15/2024 9:38 AM EDT Idiopathic acute pancreatitis without infection or necrosis C-REACTIVE PROTEIN Routine 10/15/2024 9: 38 AM EDT Idiopathic acute pancreatitis without infection or necrosis IMMUNOGLOBULIN G SUBCLASS 4 Routine 10/15/2024 9:38 AM EDT Idiopathic acute pancreatitis without infection or necrosis COLONOSCOPY Routine 05/19/2024 12:47 PM EST Encounter for screening for malignant neoplasm of colon HM DEPRESSION SCREENING Routine 12/22/2023 LIPID PANEL Routine 12/22/2023 from Last 3 Months or Most Recently Relevant to Health Maintenance Results * (ABNORMAL) CBC auto differential (12/08/2024 7:59 AM EDT) Only the most recent of3 resultswithin the time period is included. WBC 3.5(L) 4.8 - 10.8 K/mcL LAB HEMETOLOGY METHOD 12/08/2024 10:38 AM [facility] RBC 4.20(L) 4.50 - 5.50 M/mcL LAB HEMETOLOGY METHOD 12/08/2024 10:38 AM [facility] Hemoglobin 10.5(L) 13.5 - 17.5 g/dL LAB HEMETOLOGY METHOD 12/08/2024 10:38 AM [facility] Hematocrit 34.8(L) 42.0 - 54.0 % LAB HEMETOLOGY METHOD 12/08/2024 10:38 AM [facility] MCV 83.7 79.0 - 98.0 FL LAB HEMETOLOGY METHOD 12/08/2024 10:38 AM [facility] MCH 25.2(L) 27.0 - 32.0 pcg LAB HEMETOLOGY METHOD 12/08/2024 10:38 AM [facility] MCHC 30.2(L) 32.0 - 37.0 g/dL LAB HEMETOLOGY METHOD 12/08/2024 10:38 AM [facility] RDW 20.7(H) 11.0 - 15.0 % LAB HEMETOLOGY METHOD 12/08/2024 10:38 AM [facility] Platelets 75(L) 130 - 400 K/mcL LAB HEMETOLOGY METHOD 12/08/2024 10:38 AM [facility] Comment:reviewed by slide ERIC LAB HEMETOLOGY METHOD 12/08/2024 10:38 AM [facility] Comment:Not Measured NRBC 0.0 <1.0 % LAB HEMETOLOGY METHOD 12/08/2024 10:38 AM [facility] NRBC Absolute 0.00 <0.10 K/mcL LAB HEMETOLOGY METHOD 12/08/2024 10:38 AM [facility] Neutrophils Relative 48.4 % LAB HEMETOLOGY METHOD 12/08/2024 10:38 AM [facility] Lymphocytes Relative 44.1 % LAB HEMETOLOGY METHOD 12/08/2024 10:38 AM [facility] Monocytes Relative 2.9 % LAB HEMETOLOGY METHOD 12/08/2024 10:38 AM [facility] Eosinophils Relative 3.7 % LAB HEMETOLOGY METHOD 12/08/2024 10:38 AM [facility] Basophils Relative 0.6 % LAB HEMETOLOGY METHOD 12/08/2024 10:38 AM [facility] Immature Granulocytes Relative 0.3 % LAB HEMETOLOGY METHOD 12/08/2024 10:38 AM [facility] Neutrophils Absolute 1.69 1.50 - 7.00 K/mcL LAB HEMETOLOGY METHOD 12/08/2024 10:38 AM [facility] Lymphocytes Absolute 1.54 1.00 - 5.00 K/mcL LAB HEMETOLOGY METHOD 12/08/2024 10:38 AM [facility] Monocytes Absolute 0.10(L) 0.20 - 1.00 K/mcL LAB HEMETOLOGY METHOD 12/08/2024 10:38 AM [facility] Eosinophils Absolute 0.13 0.00 - 0.50 K/mcL LAB HEMETOLOGY METHOD 12/08/2024 10:38 AM [facility] Basophils Absolute 0.02 0.00 - 0.20 K/mcL LAB HEMETOLOGY METHOD 12/08/2024 10:38 AM [facility] Immature Granulocytes Absolute 0.01 0.00 - 0.03 K/mcL LAB HEMETOLOGY METHOD 12/08/2024 10:38 AM T [facility] Blood Venous blood specimen / Unknown Venipuncture / Unknown 12/08/2024 7:59 AM EDT 12/08/2024 9:05 AM EDT us Shaji Huntley MD LAB BLOOD ORDERABLES Final Resul t [facility] [address] [place] [address], [place] [phone] * (ABNORMAL) Comprehensive metabolic panel (12/08/2024 7:59 AM EDT) Only the most recent of2 resultswithin the time period is included. Sodium 140 133 - 145 mmol/L LAB CHEMISTRY METHOD 12/08/2024 10:01 AM [facility] Potassium 3.4(L) 3.5 - 5.5 mmol/L LAB CHEMISTRY METHOD 12/08/2024 10:01 AM [facility] Chloride 104 96 - 110 mmol/L LAB CHEMISTRY METHOD 12/08/2024 10:01 AM [facility] CO2 33(H) 21 - 32 mmol/L LAB CHEMISTRY METHOD 12/08/2024 10:01 AM [facility] Anion Gap 3 3 - 11 LAB CHEMISTRY METHOD 12/08/2024 10:01 AM [facility] Glucose 94 70 - 100 mg/dL LAB CHEMISTRY METHOD 12/08/2024 10:01 AM [facility] BUN 14 5 - 25 mg/dL LAB CHEMISTRY METHOD 12/08/2024 10:01 AM [facility] Creatinine 1.31(H) 0.70 - 1.30 mg/dL LAB CHEMISTRY METHOD 12/08/2024 10:01 AM [facility] eGFR 62 >=60 mL/min/1. 73m2 LAB CHEMISTRY METHOD 12/08/2024 10:01 AM [facility] Comment:Calculation based on the Chronic Kidney Disease Epidemiology Collaboration (CKD-EPI) equation refit without adjustment for race. BUN/Creatinine Ratio 10.7 LAB CHEMISTRY METHOD 12/08/2024 10:01 AM [facility] Calcium 8.8 8.5 - 10.5 mg/dL LAB CHEMISTRY METHOD 12/08/2024 10:01 AM [facility] AST (SGOT) 26 10 - 42 unit/L LAB CHEMISTRY METHOD 12/08/2024 10:01 AM [facility] ALT (SGPT) 35 10 - 60 unit/L LAB CHEMISTRY METHOD 12/08/2024 10:01 AM [facility] Alkaline Phosphatase 90 42 - 121 unit/L LAB CHEMISTRY METHOD 12/08/2024 10:01 AM [facility] Total Protein 7.0 6.0 - 8.0 g/dL LAB CHEMISTRY METHOD 12/08/2024 10:01 AM [facility] Albumin 3.9 3.2 - 5.0 g/dL LAB CHEMISTRY METHOD 12/08/2024 10:01 AM [facility] Total Bilirubin 0.5 0.0 - 1.4 mg/dL LAB CHEMISTRY METHOD 12/08/2024 10:01 AM [facility] Blood Venous blood specimen / Unknown Venipuncture / Unknown 12/08/2024 7:59 AM EDT 12/08/2024 9:04 AM EDT us Shaji Huntley MD LAB BLOOD ORDERABLES Final Resul t [facility] [address] [place] [address], * (ABNORMAL) Manual differential (11/17/2024 8:58 AM EDT) Only the most recent of2 resultswithin the time period is included. Neutrophils % 29.0 % LAB HEMETOLOGY METHOD 11/17/2024 11:57 AM [facility] Lymphocytes % 66.0 % LAB HEMETOLOGY METHOD 11/17/2024 11:57 AM [facility] Monocytes % 2.0 % LAB HEMETOLOGY METHOD 11/17/2024 11:57 AM [facility] Eosinophils % 2.0 % LAB HEMETOLOGY METHOD 11/17/2024 11:57 AM [facility] Basophils % 1.0 % LAB HEMETOLOGY METHOD 11/17/2024 11:57 AM [facility] Neutrophils Absolute Manual 0.49(L) 1.50 - 7.00 K/mcL LAB HEMETOLOGY METHOD 11/17/2024 11:57 AM [facility] Lymphocytes Absolute 1.12 1.00 - 5.00 K/mcL LAB HEMETOLOGY METHOD 11/17/2024 11:57 AM [facility] Monocytes Absolute Manual 0.03(L) 0.20 - 1.00 K/mcL LAB HEMETOLOGY METHOD 11/17/2024 11:57 AM [facility] Eosinophils Absolute Manual 0.03 0.00 - 0.50 K/mcL LAB HEMETOLOGY METHOD 11/17/2024 11:57 AM [facility] Basophils Absolute Manual 0.02 0.00 - 0.20 K/mcL LAB HEMETOLOGY METHOD 11/17/2024 11:57 AM [facility] Rbc Morphology Present( A) Consistent with indices, Normal for [place] LAB HEMETOLOGY METHOD 11/17/2024 11:57 AM [facility] Comment:RBC: Morphology agre es with CBC Platelet Morphology - [facility] See Note(A) Normal LAB HEMETOLOGY METHOD 11/17/2024 11:57 AM EDT [facility] Comment:PLT: Normal Polychromasia Present Present( A) (none) LAB HEMETOLOGY METHOD 11/17/2024 11:57 AM EDT [facility] Ovalocytes Present 11 - 15%(A) (none) LAB HEMETOLOGY METHOD 11/17/2024 11:57 AM EDT [facility] Schistocytes Present < 5%(A) (none) LAB HEMETOLOGY METHOD 11/17/2024 11:57 AM EDT [facility] Blood Venous blood specimen / Unknown Venipuncture / Unknown 11/17/2024 8:58 AM EDT 11/17/2024 11:06 AM EDT Flako Hudson MD LAB BLOOD ORDERABLES Final R esult [facility] [address] [place] [address], * (ABNORMAL) Hemoglobin electrophoresis (11/17/2024 8:58 AM EDT) Hemoglobin A1 92.6(L) 96.5 - 97.8 % 11/19/2024 2:46 PM EDT [facility] Hemoglobin A2 5.5(H) 2.2 - 3.2 % 11/19/2024 2:46 PM EDT [facility] Hemoglobin F 1.9 <2.0 % 11/19/2024 2:46 PM EDT [facility] Hemoglobin S 0.0 0.0 % 11/19/2024 2:46 PM EDT [facility] Hemoglobin C 0.0 0.0 % 11/19/2024 2:46 PM EDT [facility] Interpretation See Below 11/19/2024 2:46 PM EDT [facility] Comment: Hemoglobin A2 is increased. This finding, in conjunction with the submitted hemogram results, supports the diagnosis of heterozygous beta thalassemia. Test performed at [facility], [address] , [place] [address] Brooke Milian MD, PhD - [employer] Blood Venous blood specimen / Unknown Venipuncture / Unknown 11/17/2024 8:58 AM EDT 11/17/2024 11:07 AM EDT Flako Hudson MD LAB BLOOD ORDERABLES Final R esult [facility] [address] [place] [address] * Iron and TIBC (11/17/2024 8:58 AM EDT) Pathologist [facility] Iron 123 50 - 160 mcg/dL LAB CHEMISTRY METHOD 11/17/2024 11:56 AM EDT [facility] TIBC 282 250 - 450 mcg/dL LAB CHEMISTRY METHOD 11/17/2024 11:56 AM EDT [facility] Iron Saturation 44 20 - 50 % LAB CHEMISTRY METHOD 11/17/2024 11:56 AM EDT [facility] Blood Venous blood specimen / Unknown Venipuncture / Unknown 11/17/2024 8:58 AM EDT 11/17/2024 11:07 AM EDT Flako Hudson MD LAB BLOOD ORDERABLES Final R esult [facility] [address] [place] [address], [place] [phone] * Platelet antibodies, indirect (11/17/2024 8:58 AM EDT) Overall Result Negative Not Applicable 11/22/2024 2:35 PM EDT [facility] Interpretation SEE BELOW 11/22/2024 2:35 PM EDT [facility] Comment:RESULT: No platelet antibodies were detected. GPIIb/IIIa (Cell-1) Negative Not Applicable 11/22/2024 2:35 PM EDT [facility] Comment: Antigens: HPA-1a/1a,3a/3a,4a/ Observed OD Value: 0.131/Cutoff: 0.298 GPIIb/IIIa (Cell-2) Negative Not Applicable 11/22/2024 2:35 PM EDT [facility] Comment: Antigens: HPA-1b/1b,3b/3b,4a/ Observed OD Value: 0.120/Cutoff: 0.280 GPIa/IIa (Cell-1) Negative Not Applicable 11/22/2024 2:35 PM EDT [facility] Comment: Antigens: HPA-5b/5b Observed OD Value: 0.127/Cutoff: 0.304 GPIa/IIa (Cell-2) Negative Not Applicable 11/22/2024 2:35 PM EDT [facility] Comment: Antigens: HPA-5a/5a Observed OD Value: 0.143/Cutoff: 0.235 GPIb/IX Negative Not Applicable 11/22/2024 2:35 PM EDT [facility] Comment:Observed OD Value: 0 .039/Cutoff: 0.078 GPIV Negative Not Applicable 11/22/2024 2:35 PM EDT [facility] Comment:Observed OD Value: 0 .097/Cutoff: 0.307 HLA Class I Negative Not Applicable 11/22/2024 2:35 PM EDT [facility] Comment: Observed OD Value: 0.092/Cutoff: 0.267 ADDITIONAL INFORMATION The presence of other HPA polymorphic variants located on GPIIb/IIIa (HPA-6,7,8,9,10,11,14,16,17,19,20,21), GPIa/IIa (HPA-13,18), and GPIb/IX (HPA-12) have not been determined for this assay. Therefore, antibodies to these may be reactive in this assay. Method: Leah Based Assay CLIA: [id number] CLIA Nursery Manager: BRY BEDOLLA,Ph.D. Test Performed by: [address] [address] Nursery Manager: Bry Bedolla Ph.D.; CLIA# [id number] Reason for Request? N/A 11/22/2024 2:35 PM EDT [facility] IVIg in last month? N/A 11/22/2024 2:35 PM EDT [facility] Plt Transfusion in last 72 hours? N/A 11/22/2024 2:35 PM EDT [facility] Platelet Count x 10(9)/L ? N/A 11/22/2024 2:35 PM EDT [facility] Blood Venous blood specimen / Unknown Venipuncture / Unknown 11/17/2024 8:58 AM EDT 11/17/2024 11:06 AM EDT us Flako Hudson MD LAB BLOOD ORDERABLES Final R esult Performing Organization Address City/[facility]/ZIP Co de Phone Number [facility] [address] [place] [address] * Platelet antibodies, direct (11/17/2024 8:58 AM EDT) Platelet Ab, Direct, Flow Cyto NEGATIVE NEGATIVE 11/22/2024 7:38 PM EDT [facility] Comment: This test was developed and its analytical performance characteristics have been determined by [facility]. It has not been cleared or approved by the FDA. This assay has been validated pursuant to the CLIA regulations and is used for clinical purposes. Test Performed at: [facility] [address] [address] Bradford Cooper MD, PhD, MEG Blood Venous blood specimen / Unknown Venipuncture / Unknown 11/17/2024 8:58 AM EDT 11/17/2024 11:07 AM EDT us Flako Hudson MD LAB BLOOD ORDERABLES Final R esult [facility] [address] [place] [address] * (ABNORMAL) Ferritin (11/17/2024 8:58 AM EDT) Ferritin 443(H) 26 - 388 ng/mL LAB CHEMISTRY METHOD 11/17/2024 11:56 AM EDT [facility] Blood Venous blood specimen / Unknown Venipuncture / Unknown 11/17/2024 8:58 AM EDT 11/17/2024 11:07 AM EDT us Flako Hudson MD LAB BLOOD ORDERABLES Final R esult [facility] [address] [place] [address], * Hepatic function panel (11/17/2024 8:58 AM EDT) Total Protein 7.0 6.0 - 8.0 g/dL LAB CHEMISTRY METHOD 11/17/2024 11:56 AM [facility] Albumin 3.8 3.2 - 5.0 g/dL LAB CHEMISTRY METHOD 11/17/2024 11:56 AM [facility] Total Bilirubin 0.5 0.0 - 1.4 mg/dL LAB CHEMISTRY METHOD 11/17/2024 11:56 AM [facility] Bilirubin, Direct 0.2 0.0 - 0.3 mg/dL LAB CHEMISTRY METHOD 11/17/2024 11:56 AM [facility] Bilirubin, Indirect 0.3 0.0 - 1.1 mg/dL LAB CHEMISTRY METHOD 11/17/2024 11:56 AM [facility] ALT (SGPT) 47 10 - 60 unit/L LAB CHEMISTRY METHOD 11/17/2024 11:56 AM [facility] AST (SGOT) 23 10 - 42 unit/L LAB CHEMISTRY METHOD 11/17/2024 11:56 AM [facility] Alkaline Phosphatase 77 42 - 121 unit/L LAB CHEMISTRY METHOD 11/17/2024 11:56 AM [facility] Blood Venous blood specimen / Unknown Venipuncture / Unknown 11/17/2024 8:58 AM EDT 11/17/2024 11:07 AM EDT Flako Hudson MD LAB BLOOD ORDERABLES Final R esult Performing Organization Address [facility] [place]/[facility] Co de Phone Number [facility] [address] [place] [address], [place] [phone] * Pathology review, blood smear (10/15/2024 9:38 AM EDT) Pathologist Review Blood Smear Thrombocytopenia confirmed (no significant platelet clumps) with occasional giant platelets noted; although the smear is not diagnostic of etiology, consider peripheral consumption (including immune-mediated destruction) or other causes. RBC profile with microcytic RBCs suggests early iron deficiency and/or a hemoglobinopathy. Absolute neutropenia is noted. Note: Clinical correlation and follow-up is recommended, including follow-up CBC to assess for persistence of cytopenias, as clinically indicated. 10/18/2024 8:42 AM EDT [facility] Blood Venous blood specimen / Unknown Venipuncture / Unknown 10/15/2024 9:38 AM EDT 10/15/2024 9:38 AM EDT Veronique TYLER LAB BLOOD ORDERABLES Final Resu lt Performing Organization Address City/[facility]/ZIP Co de Phone Number [facility] [address] [place] [address], [place] [phone] * Immunoglobulin G subclass 4 (10/15/2024 9:38 AM EDT) Immunoglobulin G (IgG) Subclass 4 27 4 - 86 mg/dL 10/18/2024 5:37 AM EDT [facility] Comment: Test performed at [facility], [address] , [place] [address] Brooke Milian MD, PhD - Packing Machine Feeder Blood Venous blood specimen / Unknown Venipuncture / Unknown 10/15/2024 9:38 AM EDT 10/15/2024 9:38 AM EDT Veronique Rhodes [facility] LAB BLOOD ORDERABLES Final Resu lt Performing Organization Address City/[facility]/ZIP Co de Phone Number [address] [place] [address] * (ABNORMAL) C-reactive protein (10/15/2024 9:38 AM EDT) C-Reactive Protein 1.74(H) <=0.50 mg/dL LAB CHEMISTRY METHOD 10/15/2024 2:25 PM EDT [facility] Blood Venous blood specimen / Unknown Venipuncture / Unknown 10/15/2024 9:38 AM EDT 10/15/2024 9:38 AM EDT [facility] LAB BLOOD ORDERABLES Final Resu lt Performing Organization Address [facility] [place]/[facility] Co de Phone Number [facility] [address] [place] [address], [place] [phone] * (ABNORMAL) Lipase (10/15/2024 9:38 AM EDT) Lipase 89(H) 13 - 75 unit/L LAB CHEMISTRY METHOD 10/15/2024 2:25 PM EDT [facility] Blood Venous blood specimen / Unknown Venipuncture / Unknown 10/15/2024 9:38 AM EDT 10/15/2024 9:38 AM EDT [facility] LAB BLOOD ORDERABLES Final Resu lt Performing Organization Address City/[facility]/ZIP Co de Phone Number [facility] [address] [place] [address], [place] [phone] * (ABNORMAL) Amylase (10/15/2024 9:38 AM EDT) Amylase 119(H) 25 - 115 unit/L LAB CHEMISTRY METHOD 10/15/2024 2:25 PM EDT [facility] Blood Venous blood specimen / Unknown Venipuncture / Unknown 10/15/2024 9:38 AM EDT 10/15/2024 9:38 AM EDT us Veronique TYLER LAB BLOOD ORDERABLES Final Resu lt [facility]) [facility] [address] [place] [address], [place] [phone] * COLONOSCOPY Anesthesia - MAC; [facility] ENDOSCOPY (05/19/2024 12:47 PM EST) Anatomical Region Laterality Modality Other 05/19/2024 12:3 1 PM EST Impressions 05/19/2024 12:51 PM EST - One 6 mm polyp at 50 cm proximal to the anus, removed with a cold snare. Resected and retrieved. Clip was placed. Clip phone manager: [employer]. - Diverticulosis in the entire examined colon. - Bleeding internal hemorrhoids. - The examination was otherwise normal on direct and retroflexion views. Recommendation: - Discharge patient to home. - High fiber diet. - Continue present medications. - Await pathology results. - Repeat colonoscopy for surveillance based on pathology results. - Return to GI office PRN. Narrative 05/19/2024 12:51 PM EST [facility] Patient Name: Sriram Morales Procedure Date: 05/19/2024 12:31 PM Date of : 1960 Age: 63 Room: ROOM 14 Gender: Male Note Status: Finalized Attending MD: Fritz Douglas MD, Procedure Date No Time: 05/19/2024 Procedure: Colonoscopy Indications: High risk colon cancer surveillance: Personal history of colonic polyps Providers: Fritz Douglas MD Referring MD: Aditya Locke MD Medicines: Monitored Anesthesia Care Complications: No immediate complications. Estimated Blood Loss: Estimated blood loss was minimal. Procedure: Pre-Anesthesia Assessment: - ASA Grade Assessment: III - A patient with severe systemic disease. - After reviewing the risks and benefits, the patient was deemed in satisfactory condition to undergo the procedure. After I obtained informed consent, the scope was passed under direct vision. Throughout the procedure, the patient's blood pressure, pulse, and oxygen [...] at 50 cm proximal to the anus. The polyp was sessile. The polyp was removed with a cold snare. Resection and retrieval were complete. Estimated blood loss was minimal. To prevent bleeding after the polypectomy, one hemostatic clip was successfully placed. Clip phone manager: [employer]. There was no bleeding at the end of the procedure. Scattered small-mouthed diverticula were found in the entire colon. Bleeding internal hemorrhoids were found during retroflexion. The hemorrhoids were medium-sized. The exam was otherwise without abnormality on direct and retroflexion views. Procedure Code(s): --- Professional --- 43047, Colonoscopy, flexible; with removal of tumor(s), polyp(s), or other lesion(s) by snare technique Diagnosis Code(s): --- Professional --- Z86.010, Personal history of colonic polyps D12.6, Benign neoplasm of colon, unspecified CPT copyright 2020 [employer]. All rights reserved. The codes documented in this report are preliminary and upon hcc coders review may be revised to meet current compliance requirements. Fritz Douglas MD 05/19/2024 12:51:10 PM This report has been signed electronically.Fritz Douglas MD Number of Addenda: 0 Note Initiated On: 05/19/2024 12:31 PM Scope In: Scope Out: Endoscopy Department at [facility] - [address] [place] [id number] Procedure Note Fritz Douglas MD - 05/19/2024 [facility] Patient Name: Sriram Morales Procedure Date: 05/19/2024 12:31 PM Date of : 1960 Age: 63 Room: ROOM 14 Gender: Male Note Status: Finalized Attending MD: Fritz oDuglas MD, Procedure Date No Time: 05/19/2024 Procedure: [...] one hemostatic clip was successfully placed. Clip phone manager: [employer]. There was no bleeding at the end of the procedure. Scattered small-mouthed diverticula were found inthe entire colon. Bleeding internal hemorrhoids were found during retroflexion. The hemorrhoids were medium-sized. The exam was otherwise without abnormality ondirect and retroflexion views. Procedure Code(s): --- Professional --- 81937, Colonoscopy, flexible; with removal of tumor(s), polyp(s), or other lesion(s) by snare technique Diagnosis Code(s): --- Professional --- Z86.010, Personal history of colonic polyps D12.6, Benign neoplasm of colon, unspecified CPT copyright 2020 [employer]. All rights reserved. The codes documented in this report are preliminary and upon hcc coders reviewmay be revised to meet current compliance requirements. Fritz Douglas MD 05/19/2024 12:51:10 PM This report has been signed electronically.Fritz Douglas MD Number of Addenda: 0 Note Initiated On: 05/19/2024 12:31 PM Scope In: Scope Out: Endoscopy Department at [facility] - [address] [place] [phone] IMPRESSION: - One 6 mm polyp at 50 cm proximal to the anus, removed with a cold snare. Resected and retrieved. Clip was placed. Clip phone manager: [employer]. - Diverticulosis in the entire examined colon. - Bleeding internal hemorrhoids. - The examination was otherwise normal on directand retroflexion views. Recommendation: - Discharge patient to home. - High fiber diet. - Continue present medications. - Await pathology results. - Repeat colonoscopy for surveillance based on pathology results. - Return to GI office PRN. Aditya Locke MD GI~PROCEDURE ORDERABLES Final Re sult * Depression Screening (12/22/2023) Depression Screening abstracted Historical Provider HEALTH MAINTENANCE Final Result * Lipid panel (12/22/2023) LDL/HDL Ratio 3 0 - 4 Triglycerides 102 0 - 150 mg/dL Cholesterol 160 0 - 200 mg/dL HDL 51 >=40 mg/dL LDL Cholesterol 89 0 - 100 mg/dL Blood Venous blood specimen / Unknown Historical Provider LAB BLOOD ORDERABLES [facility] Result from Last 3 Months or Most Recently Relevant to Health Maintenance Insurance [facility] [employer] Care Teams Polymerization Supervisor Relationship Specialty Start Date End Date Shaji Huntley MD [address] [place] [phone] PCP - General 07/24/22
--- OUTSIDE RECORDS SUMMARY | 2025-01-05 09:38 | XMS_ITS | Patient Health Record ---
Author Organization [facility] Address [address] [address] Care Team Providers Care Liquor Bridge Operator Helper Name Role Phone BOOGIE SWAN Unavailable Reason [...]
--- OUTSIDE RECORDS SUMMARY | 2025-01-05 09:38 | XMS_ITS | Encounter Summary ---
Author Organization [facility] Address [address] [place] [address] Phone Care Team Providers Care Surveillance Technician Name Role Phone Shaji Huntley MD Primary Care Provider [phone] Encounter Details Date Type Department Care Team (Late st Contact Info) Description 03/31/2024 Documentation Only [facility] [place], [address] [place] [address] [employer], [address] [place] [address] Social History Tobacco Use Types [...] on filedocumented in this encounter Care Teams Surveillance Technician Relationship Specialty Start Date End Date Shaji Huntley MD [address] [place] [phone] PCP - General Internal Medicine 11/13/22 documented as of this encounter
--- OUTSIDE RECORDS SUMMARY | 2025-01-05 09:38 | XMS_ITS | Encounter Summary ---
Author Organization [facility] Address [address] [place] [address] Phone Care Team Providers Care Monotype Machinist Name Role Phone Shaji Huntley MD Primary Care Provider [phone] Encounter Details Date Type Department Care Team (Late st Contact Info) Description 11/18/2022 Documentation Only [facility] [place], [address] [place] [address] Shaji Huntley MD [address] [place] [phone] Social History Tobacco Use Types Packs/Day Years [...] on filedocumented in this encounter Care Teams Monotype Machinist Relationship Specialty Start Date End Date Shaji Huntley MD [address] [place] [phone] PCP - General Internal Medicine 11/13/22 documented as of this encounter
--- OUTSIDE RECORDS SUMMARY | 2025-01-05 09:38 | XMS_ITS | Encounter Summary ---
Author Organization [facility] Address [address] [place] [address] Phone Care Team Providers Care Revenue Field Auditor Name Role Phone Shaji Huntley MD Primary Care Provider [phone] Encounter Details Date Type Department Care Team (Late st Contact Info) Description 11/19/2022 Documentation Only [facility] [place], [address] [place] [address] Shaji Huntley MD [address] [place] [phone] Social History Tobacco Use Types Packs/Day Years [...] on filedocumented in this encounter Care Teams Revenue Field Auditor Relationship Specialty Start Date End Date Shaji Huntley MD [address] [place] [phone] PCP - General Internal Medicine 11/13/22 documented as of this encounter
--- OUTSIDE RECORDS SUMMARY | 2025-01-05 09:39 | XMS_ITS | Encounter Summary ---
Author Organization [facility] Address [address] [place] [address] Phone Care Team Providers Care Meter And Service Line Inspector Name Role Phone Shaji Huntley MD Primary Care Provider [phone] Encounter Details Date Type Department Care Team (Late st Contact Info) Description 03/31/2024 Documentation Only [facility] [place], [address] [place] [address] [employer], [address] [place] [place] [address] Social History Tobacco Use Types [...] on filedocumented in this encounter Care Teams Meter And Service Line Inspector Relationship Specialty Start Date End Date Shaji Huntley MD [address] [place] [phone] PCP - General Internal Medicine 11/13/22 documented as of this encounter
--- OUTSIDE RECORDS SUMMARY | 2025-01-05 09:39 | XMS_ITS | Clinical Summary ---
Author Organization [facility], Address [address] [place] [address] [place] [address] Phone Care Team Providers Care Sql Server Consultant Name Role Phone Shaji Huntley MD Primary Care Provider [phone] Allergies Active Allergy Reactions Criticality Noted Date [...] Hypokalemia 01/03/2023 Essential hypertension 12/26/2022 Hypercholesterolemia 12/26/2022 Social History Tobacco Use Types Packs/Day Years [...] Colorectal Cancer Screening: Sigmoidoscopy 10/10/2011 Influenza Vaccine (#1) 2025 Hepatitis B Vaccine Aged Out No longe r eligible based on patient's age to complete this topic Insurance [facility] [employer] Care Teams Sql Server Consultant Relationship Specialty Start Date End Date Shaji Huntley MD [address] [place] [phone] PCP - General Internal Medicine 11/13/22
[2025-01-05 09:40] LABS: Platelet Count 5 X10*3/uL (160-400)
[2025-01-05 09:43] LABS: Appearance Urine Clear; Glucose Urine UA Negative (Negative); PH 5.5 (5.0-9.0); Specific Gravity - Urine 1.025 (1.005-1.025); UMIC TRIGGER UACC YES
[2025-01-05 09:47] LABS: Alanine Aminotransferase 149 U/L (0-40); Albumin Level 4.0 g/dL (3.5-5.0); Alkaline Phosphatase 172 U/L (39-117); Anion Gap 14 (12-20); Aspartate Amino Transferase 103 U/L (5-37); Blood Urea Nitrogen 22 mg/dL (9-16); Calcium 9.0 mg/dL (8.4-10.2); Carbon Dioxide 23 mmol/L (22-29); Chloride 102 mmol/L (96-108); Creatinine Clr Calc Pharmacy 84.8; Estimated Glomerular Filt Rate 54; Potassium 3.8 mmol/L (3.3-5.1); Sodium 135 mmol/L (135-145); Total Protein 7.0 g/dL (6.5-8.0)
[2025-01-05 09:53] LABS: Cannabinoid Screen Urine Not Detected (Not Detect)
[2025-01-05 11:08] LABS: Acetaminophen LAB < 3 mcg/mL (<30); Salicylate < 5.0 mg/dL (15-30)
--- NOTE | 2025-01-05 12:18 | PM.IMHP ---
History of Present Illness Date of Service: 01/05/25 Chief Complaint: SI, pancytopenia This is a 64-year-old male with pertinent history of achalasia status post surgery, mood disorder, mixed hyperlipidemia, hypertension, gastroesophageal reflux disease, hypothyroidism, pancytopenia previously seen by [facility]--He presented with depression and SI, he reportedly has been so depressed and staying in bed the last 5 days. He has thought about hanging himself. Routine labs show sifnficant pancytopenia with Plat of 5, previously level in 40s. No sings of active bleeding. No sob, no chest pain and no dizziness. Review of Systems Review of Systems: Gen: no fever Resp: no sob, no cough CV: no chest, no ROBLERO, no leg edema GI: No n/v, no abd pain Neuro: No confusion [facility] Medical History Elevated PSA Hypothyroidism Essential (primary) hypertension Thrombocytopenia Attention deficit disorder Dissociative disorder Chronic post-traumatic stress disorder (PTSD) Major depressive disorder, recurrent severe without psychotic features Social History Household Members: Other Household Members Other:: fpc Housing: Other Housing Other:: in a fpc Do you presently have visiting nurse or other home services: No Alcohol intake: former Comment: sitter at bedside Patient Tobacco Use Status: Never used Tobacco Smoked in Last 30 Days: No Use of substances other than those prescribed or required for medical reasons: No Substance Use Type: Marijuana Currently Displaying Signs/Symptoms of Drug Intoxication Withdrawal: No Have you been hit, kicked, punched, or otherwise hurt by someone within the past year? If so, by whom?: No Do you feel safe in your current relationship?: No Current Relationship Is there a partner from a previous relationship who is making you feel unsafe now?: No Are you made to feel afraid or neglected: No Advance Directives: No Advance Directives Information Provided: Yes Do you have a plan to hurt others: Specific Recently lost weight without trying: No How much weight loss: Not applicable Eating poorly because of decreased appetite: No Nutrition screen score: 0 Nutrition Risks: No Nutritional Risk Poor oral hygiene: No service: No Meds Allergies Allergy/AdvReac Type Severity Reaction Status Date / Time clindamycin Allergy Intermediate Unknown Verified 01/05/25 08:32 haloperidol (From Haldol) Allergy Intermediate Unknown Verified 01/05/25 08:32 NSAIDS (Non-Steroidal Allergy Intermediate Unknown Verified 01/05/25 08:32 Anti-Inflamma Penicillins Allergy Intermediate Anaphylaxis Verified 01/05/25 08:32 Home Medications ?Medication ?Instructions ?Recorded ?Confirmed ?Last Taken ?Type B-complex with vitamin C 1 tab PO DAILY 09/27/24 01/05/25 01/04/25 History acetaminophen 650 mg 650 mg PO Q4-6H PRN Fever Or Pain 09/27/24 01/05/25 01/04/25 History tablet,extended release atorvastatin 40 mg tablet 40 mg PO DAILY 09/27/24 01/05/25 01/04/25 History clotrimazole 1 % topical cream 1 appl topical DAILY 09/27/24 01/05/25 01/04/25 History guaifenesin 200 mg/5 mL oral liquid 200 - 400 mg PO Q4H PRN Cough 09/27/24 01/05/25 Unknown History guanfacine 2 mg tablet 2 mg PO BEDTIME 09/27/24 01/05/25 01/04/25 History hydroxyzine HCl 50 mg tablet 50 mg PO QID 09/27/24 01/05/25 01/04/25 History ketoconazole 2 % topical cream 1 appl topical DAILY 09/27/24 01/05/25 01/04/25 History lisinopril 20 1 tab PO DAILY 09/27/24 01/05/25 01/04/25 History mg-hydrochlorothiazide 25 mg tablet (Zestoretic) magnesium hydroxide 400 mg/5 mL 30 ml PO DAILY PRN Constipation 09/27/24 01/05/25 Unknown History oral suspension (Milk of Magnesia) meclizine 25 mg tablet 25 mg PO TID PRN Vertigo 09/27/24 01/05/25 Unknown History naloxone 4 mg/actuation nasal 4 mg intranasal Q3M PRN Opiate 09/27/24 01/05/25 Unknown History spray (Narcan) Reversal primidone 50 mg tablet 50 mg PO BID 09/27/24 01/05/25 01/04/25 History vitamin B complex 1 tab PO BEDTIME 09/27/24 01/05/25 01/04/25 History levothyroxine 175 mcg tablet 175 mcg PO DAILY@0600 01/05/25 01/05/25 01/04/25 History lumateperone 42 mg capsule 42 mg PO BEDTIME 01/05/25 01/05/25 Unknown History (Caplyta) Physical Exam Vital Signs and Narrative: Vital Signs: Last Vital Signs Temp 97.3 F 01/05/25 08:31 Pulse 103 H 01/05/25 10:17 Resp 16 01/05/25 10:17 BP 133/80 01/05/25 10:17 Pulse Ox 95 01/05/25 10:17 O2 Del Method Room Air 01/05/25 10:17 BMI result Body Mass Index 37.9 Results Labs 01/06/25 05:25 01/06/25 05:25 Labs: Laboratory Results - last 24 hr 01/05/25 01/05/25 01/05/25 09:11 09:29 09:30 MCV 82.5 MCH 26.0 L MCHC 31.6 RDW 19.9 H Plt Count 5 L* D MPV TNP Immature Gran % (Auto) 0.5 H Neut % (Auto) 23.7 L Lymph % (Auto) 67.5 H [place] % (Auto) 7.3 Eos % (Auto) 0.5 Baso % (Auto) 0.5 Lymph # (Auto) 1.4 [place] # (Auto) 0.2 Eos # (Auto) 0.0 Baso # (Auto) 0.0 Abs Immat Gran (auto) 0.01 Absolute Neuts (auto) 0.5 L Absolute Nucleated RBC 0.020 H Nucleated RBC % (auto) 1.0 H Smear Tech's Comments VERIFIED Anion Gap 14 Estim Creat Clear Calc 84.8 Estimated GFR 54 Random Glucose 102 Calcium 9.0 Total Bilirubin 2.1 H AST 103 H ALT 149 H Alkaline Phosphatase 172 H Total Protein 7.0 Albumin 4.0 Urine Color Cancelled Urine Appearance Urine pH Ur Specific [place] Urine Protein Urine Glucose (UA) Urine Ketones Urine Blood Urine Nitrite Ur Leukocyte Esterase Urine RBC Urine WBC Ur Squamous Epith Cells Urine Bacteria Hyaline Casts Salicylates < 5.0 L Urine Opiates Screen Not Detected Ur Buprenorphine Scrn Not Detected Ur Oxycodone Screen Not Detected Urine Methadone Screen Not Detected Urine Fentanyl Screen Not Detected Acetaminophen < 3 Ur Barbiturates Screen Not Detected Ur Phencyclidine Scrn Not Detected Ur Amphetamines Screen Not Detected U Benzodiazepines Scrn Not Detected Urine Cocaine Screen Not Detected U Marijuana (THC) Screen Not Detected Ethyl Alcohol < 10 Crossmatch 01/05/25 01/05/25 01/05/25 09:30 09:30 09:30 MCV MCH MCHC RDW Plt Count MPV Immature Gran % (Auto) Neut % (Auto) Lymph % (Auto) [place] % (Auto) Eos % (Auto) Baso % (Auto) Lymph # (Auto) [place] # (Auto) Eos # (Auto) Baso # (Auto) Abs Immat Gran (auto) Absolute Neuts (auto) Absolute Nucleated RBC Nucleated RBC % (auto) Smear Tech's Comments Anion Gap Estim Creat Clear Calc Estimated GFR Random Glucose Calcium Total Bilirubin AST ALT Alkaline Phosphatase Total Protein Albumin Urine Color Dark Yellow Urine Appearance Cancelled Clear Urine pH Cancelled 5.5 Ur Specific [place] Cancelled Urine Protein Urine Glucose (UA) Urine Ketones Urine Blood Urine Nitrite Ur Leukocyte Esterase Urine RBC Urine WBC Ur Squamous Epith Cells Urine Bacteria Hyaline Casts Salicylates Urine Opiates Screen Ur Buprenorphine Scrn Ur Oxycodone Screen Urine Methadone Screen Urine Fentanyl Screen Acetaminophen Ur Barbiturates Screen Ur Phencyclidine Scrn Ur Amphetamines Screen U Benzodiazepines Scrn Urine Cocaine Screen U Marijuana (THC) Screen Ethyl Alcohol Crossmatch 01/05/25 01/05/25 01/05/25 09:30 09:30 09:30 MCV MCH MCHC RDW Plt Count MPV Immature Gran % (Auto) Neut % (Auto) Lymph % (Auto) [place] % (Auto) Eos % (Auto) Baso % (Auto) Lymph # (Auto) [place] # (Auto) Eos # (Auto) Baso # (Auto) Abs Immat Gran (auto) Absolute Neuts (auto) Absolute Nucleated RBC Nucleated RBC % (auto) Smear Tech's Comments Anion Gap Estim Creat Clear Calc Estimated GFR Random Glucose Calcium Total Bilirubin AST ALT Alkaline Phosphatase Total Protein Albumin Urine Color Urine Appearance Urine pH Ur Specific [place] 1.025 Urine Protein Cancelled 100 (2+) H Urine Glucose (UA) Cancelled Negative Urine Ketones Cancelled Urine Blood Urine Nitrite Ur Leukocyte Esterase Urine RBC Urine WBC Ur Squamous Epith Cells Urine Bacteria Hyaline Casts Salicylates Urine Opiates Screen Ur Buprenorphine Scrn Ur Oxycodone Screen Urine Methadone Screen Urine Fentanyl Screen Acetaminophen Ur Barbiturates Screen Ur Phencyclidine Scrn Ur Amphetamines Screen U Benzodiazepines Scrn Urine Cocaine Screen U Marijuana (THC) Screen Ethyl Alcohol Crossmatch 01/05/25 01/05/25 01/05/25 09:30 09:30 09:30 MCV MCH MCHC RDW Plt Count MPV Immature Gran % (Auto) Neut % (Auto) Lymph % (Auto) [place] % (Auto) Eos % (Auto) Baso % (Auto) Lymph # (Auto) [place] # (Auto) Eos # (Auto) Baso # (Auto) Abs Immat Gran (auto) Absolute Neuts (auto) Absolute Nucleated RBC Nucleated RBC % (auto) Smear Tech's Comments Anion Gap Estim Creat Clear Calc Estimated GFR Random Glucose Calcium Total Bilirubin AST ALT Alkaline Phosphatase Total Protein Albumin Urine Color Urine Appearance Urine pH Ur Specific [place] Urine Protein Urine Glucose (UA) Urine Ketones 15 Urine Blood Cancelled Trace H Urine Nitrite Cancelled Negative Ur Leukocyte Esterase Cancelled Urine RBC Urine WBC Ur Squamous Epith Cells Urine Bacteria Hyaline Casts Salicylates Urine Opiates Screen Ur Buprenorphine Scrn Ur Oxycodone Screen Urine Methadone Screen Urine Fentanyl Screen Acetaminophen Ur Barbiturates Screen Ur Phencyclidine Scrn Ur Amphetamines Screen U Benzodiazepines Scrn Urine Cocaine Screen U Marijuana (THC) Screen Ethyl Alcohol Crossmatch 01/05/25 01/05/25 09:30 11:49 MCV MCH MCHC RDW Plt Count MPV Immature Gran % (Auto) Neut % (Auto) Lymph % (Auto) [place] % (Auto) Eos % (Auto) Baso % (Auto) Lymph # (Auto) [place] # (Auto) Eos # (Auto) Baso # (Auto) Abs Immat Gran (auto) Absolute Neuts (auto) Absolute Nucleated RBC Nucleated RBC % (auto) Smear Tech's Comments Anion Gap Estim Creat Clear Calc Estimated GFR Random Glucose Calcium Total Bilirubin AST ALT Alkaline Phosphatase Total Protein Albumin Urine Color Urine Appearance Urine pH Ur Specific [place] Urine Protein Urine Glucose (UA) Urine Ketones Urine Blood Urine Nitrite Ur Leukocyte Esterase Trace H Urine RBC 0-2 Urine WBC 0-5 Ur Squamous Epith Cells 0-2 Urine Bacteria None Seen Hyaline Casts 0-2 Salicylates Urine Opiates Screen Ur Buprenorphine Scrn Ur Oxycodone Screen Urine Methadone Screen Urine Fentanyl Screen Acetaminophen Ur Barbiturates Screen Ur Phencyclidine Scrn Ur Amphetamines Screen U Benzodiazepines Scrn Urine Cocaine Screen U Marijuana (THC) Screen Ethyl Alcohol Crossmatch See Detail Imaging Radiologist's Impressions: Impressions Head CT 01/05/25 10:16 IMPRESSION: No acute intracranial abnormality. Electronically signed by: Marc Guajardo MD 01/05/2025 11:38 AM EDT RP Assessment and Plan (1) Major depressive disorder, recurrent severe without psychotic features: Status: Acute (2) Pancytopenia: Status: Acute Plan This is a 64-year-old male with pertinent history of achalasia status post surgery, mood disorder, mixed hyperlipidemia, hypertension, gastroesophageal reflux disease, hypothyroidism, pancytopenia previously seen by heme--He presented with depression and SI, and has more pronounced pancytopenia and elevated LFTs Major Depression with SI with active to hang self 1:1 sitter Psych consult for med management Safety tray Pancytopenia with Plat of 5, no active bleed Hematology consult Hemolysis work up Transfuse Plat avoid ASA, heparin Elevated LFTs hold statin get US of liver Gastroesophageal reflux disease PPI HLD hold statin d/t high lfts Hypertension Lisinopril/HCTZ DVT prophylaxis: low risk given low plat, Full code Quality Stroke Does the patient have a stroke diagnosis?: No VTE Prior VTE?: No VTE Risk Level:: Medical - low VTE Device Contraindication: Treatment Not Indicated VTE Drug Contraindication: Treatment Not Indicated
[2025-01-05 12:46] LABS: Reticulocytes Absolute 0.024 X10*6/uL (0.026-0.095)
--- NOTE | 2025-01-05 13:19 | PC.NURSE ---
Pt temp is 100.2F, ED INSURANCE CLAIMS CLERK made aware. PRN tylenol administered, transfusion approved to start. Pt denies pain/SOB/dizziness.
--- NOTE | 2025-01-05 13:30 | PHA.MEDREC ---
Pharmacy Consult ? Medication Reconciliation Pharmacy has completed the medication reconciliation. med rec checked by gavino
--- NOTE | 2025-01-05 14:00 | PC.NURSE ---
Pt became more febrile @ 101.6f. Denies CP/SOB/SANTIAGO/back pain/dizziness. Transfusion paused, next RN and MD aware, awaiting further orders.
--- NOTE | 2025-01-05 14:36 | P.CNHO_ITS ---
Subjective - Subjective Chief complaint: Chills and night sweats Patient: known to practice within the last 3 years Consult date: 01/05/25 Primary Care Provider: Shaji Huntley MD Emergency Room Clinician Utilized?: No - Dominican Speaking HPI - Consult Narrative Reason for consult: Thrombocytopenia/pancytopenia Narrative: Lemuel Maldonado is a 64 year old male with history of PTSD, depression, ADHD, [facility] was brought to the emergency department because of increasing depression as well as symptoms of feeling weak. He says that he has been having body aches, chills and night sweats for last several days. He was started on a new antidepressant Caplyta recently and he thinks that caused him to have worsening symptoms of depression. Patient is aware of low platelets. He was seen by molded candles wicker at a few weeks ago. He says he has another follow-up coming up in a month or so. Patient was seen by this automobile and property underwriter in September for thrombocytopenia. During that admission he was admitted for acute pancreatitis. He was recently started on primidone and this was also raised as a cause for cytopenias, mainly agranulocytosis and sometimes aplastic anemia. Patient denies any fevers but says he has been having night sweats. No loss of appetite or weight loss. He denies chest pain, shortness of breath or abdominal pain. He denies change in bowel habits. He has not been on any recent antibiotics. Review of Systems - Constitutional Reports as per HPI, Reports malaise, Reports night sweats, Denies weight loss - Cardiovascular Reports no additional cardiovascular complaints - Respiratory Reports no additional respiratory complaints - Gastrointestinal Reports no additional gastrointestinal complaints - Neurologic Denies dizziness, Denies loss of vision, Denies numbness, Denies tingling, Reports weakness PMFSH Medical History: Medical History (Last Reviewed 01/05/25 @ 11:53 by JAYSON Cruz) Attention deficit disorder Chronic post-traumatic stress disorder (PTSD) Dissociative disorder Elevated PSA Essential (primary) hypertension Hypothyroidism Major depressive disorder, recurrent severe without psychotic features Thrombocytopenia Social History: Social History (Last Reviewed 01/05/25 @ 11:53 by JAYSON Cruz) Living Situation History: Household Members: Other Household Members Other:: [facility] Housing: Assisted Living Facility Do you presently have visiting nurse or other home services: No Alcohol History Details: 1. How often do you have a drink containing alcohol?: a. Never Tobacco History: Patient Tobacco Use Status: Never used Tobacco Smoked in Last 30 Days: No Substance Use History: Use of substances other than those prescribed or required for medical reasons : No Substance Use Type: Marijuana Advance Directives: Advance Directives: No Advance Directives Information Provided: Yes Homicidal Assessment: Do you have a plan to hurt others: No Plan Occupation Assessmet: service: No Home Medications and Allergies Current Medications: Current Medications Acetaminophen (Acetaminophen 325 Mg Tablet) 650 mg PO Q6H PRN PRN Reason: Pain, Mild 1-3,fever,headache Last Admin: 01/05/25 13:27 Dose: 650 mg Calcium Carbonate (Calcium Carbonate 750 Mg Tab.Chew) 750 mg PO Q4H PRN PRN Reason: Heartburn Clotrimazole (Clotrimazole 1 % Cream 15 Gm Tube) 1 appl TOPICAL DAILY [facility]; Protocol Finasteride (Finasteride 5 Mg Tablet) 5 mg PO DAILY [facility] Hydrochlorothiazide (Hydrochlorothiazide 25 Mg Tablet) 25 mg PO DAILY [facility] Hydroxyzine HCl (Hydroxyzine Hcl 50 Mg Tablet) 50 mg PO QID [facility] Last Admin: 01/05/25 14:07 Dose: 50 mg Levothyroxine Sodium (Levothyroxine Sodium 175 Mcg Tablet) 175 mcg PO DAILY@0600 [facility] Lisinopril (Lisinopril 20 Mg Tablet) 20 mg PO DAILY [facility] Magnesium Hydroxide (Milk Of Magnesia 30 Ml Oral.Susp) 30 ml PO DAILY PRN PRN Reason: Constipation Magnesium Hydroxide (Milk Of Magnesia 30 Ml Oral.Susp) 30 ml PO DAILY PRN PRN Reason: Constipation Melatonin (Melatonin 3 Mg Tablet) 6 mg PO BEDTIME PRN PRN Reason: Insomnia Multivitamins/Vitamin C (Multivitamin Tablet) 1 tab PO DAILY [facility] Omeprazole (Omeprazole 20 Mg Capsule.Dr) 20 mg PO BID [facility] Ondansetron HCl (Ondansetron Hcl 4 Mg/2 Ml Vial) 4 mg IVPUSH Q8H PRN PRN Reason: Nausea and Vomiting Polyethylene Glycol (Polyethylene Glycol 3350 17 Gm Powd.Pack) 17 gm PO DAILY PRN PRN Reason: Constipation Primidone (Primidone 50 Mg Tablet) 50 mg PO BID [facility] Sodium Chloride (0.9 % Sodium Chloride Flush 3 Ml Syringe) 3 ml IVFLUSH QSHIFT [facility] Home Medications ?Medication ?Instructions ?Recorded ?Confirmed ?Type B-complex with vitamin C 1 tab PO DAILY 09/27/24 01/05/25 History acetaminophen 650 mg 650 mg PO Q4-6H PRN Fever Or Pain 01/05/25 History tablet,extended release atorvastatin 40 mg tablet 40 mg PO DAILY 09/27/24 01/05/25 History clotrimazole 1 % topical cream 1 appl topical DAILY 09/27/24 01/05/25 H istory guaifenesin 200 mg/5 mL oral liquid 200 - 400 mg PO Q4H PRN Cough 09/27/24 01/05/25 History guanfacine 2 mg tablet 2 mg PO BEDTIME 09/27/24 01/05/25 Histor y hydroxyzine HCl 50 mg tablet 50 mg PO QID 09/27/24 01/05/25 History ketoconazole 2 % topical cream 1 appl topical DAILY 09/27/24 01/05/25 H istory lisinopril 20 1 tab PO DAILY 09/27/24 01/05/25 History mg-hydrochlorothiazide 25 mg tablet (Zestoretic) magnesium hydroxide 400 mg/5 mL 30 ml PO DAILY PRN Constipation 09/27/24 01/05/25 History oral suspension (Milk of Magnesia) meclizine 25 mg tablet 25 mg PO TID PRN Vertigo 09/27/24 History naloxone 4 mg/actuation nasal 4 mg intranasal Q3M PRN Opiate 09/27/24 01/05/25 History spray (Narcan) Reversal primidone 50 mg tablet 50 mg PO BID 09/27/24 01/05/25 History vitamin B complex 1 tab PO BEDTIME 09/27/24 01/05/25 Histo ry levothyroxine 175 mcg tablet 175 mcg PO DAILY@0600 01/05/25 01/05/25 History lumateperone 42 mg capsule 42 mg PO BEDTIME 01/05/25 01/05/25 Histo ry (Caplyta) Allergies Allergy/AdvReac Type Severity Reaction Status Date / Time clindamycin Allergy Intermediate Unknown Verified 01/05/25 08:32 haloperidol (From Haldol) Allergy Intermediate Unknown Verified 01/05/25 08:32 NSAIDS (Non-Steroidal Allergy Intermediate Unknown Verified 01/05/25 08:32 Anti-Inflamma Penicillins Allergy Intermediate Anaphylaxis Verified 01/05/25 08:32 Physical Exam Vital signs: Vital Signs Temp 101.6 F H 01/05/25 13:58 Pulse 102 H 01/05/25 14:15 Resp 28 H 01/05/25 14:15 BP 121/78 01/05/25 14:15 Pulse Ox 95 01/05/25 14:15 O2 Del Method Room Air 01/05/25 14:15 Intake & Output 01/04/25 01/05/25 01/05/25 18:59 06:59 18:59 Intake Total 180 / 180 Balance 180 / 180 Intake: Intake (Blood Product) Amount 180 / 180 Red Blood Cells (E0336) Unit 180 / 180 [id number] Other: Last Bowel Movement 12/30/24 Weight 137.5 kg Weight 137.5 kg - Constitutional Present: no acute distress, morbidly obese - Routine HEENT Exam Head: Present: normal inspection Eye: Present: EOMI - Routine Neck Exam Present: supple. Absent: lymphadenopathy - Routine Respiratory Exam Present: CTAB. Absent: accessory muscle use - Routine Cardiovascular Exam Cardiovascular: Present: S1, S2 - Routine Abdominal Exam Present: soft - Routine Extremities Exam Absent: pedal edema - Routine Skin Exam Present: intact - Routine Neurological Exam Present: alert, oriented X3 Hem/Onc Consult Result - Labs CBC & Chem 7: 01/05/25 09:11 01/05/25 09:11 Labs: Short CBC 01/05/25 Range/Units 09:11 WBC 2.1 L (4.8-10.8) X10*3/uL Hgb 8.9 L (14.0-18.0) g/dl Hct 28.2 L (42.0-52.0) % Plt Count 5 L* D (160-400) X10*3/uL BMP 01/05/25 09:11 Sodium 135 Potassium 3.8 Chloride 102 Carbon Dioxide 23 BUN 22 H Creatinine 1.35 Calcium 9.0 Liver Function 01/05/25 Range/Units 09:11 Total Bilirubin 2.1 H (0.0-1.0) mg/dL AST 103 H (5-37) U/L ALT 149 H (0-40) U/L Alkaline Phosphatase 172 H (39-117) U/L Albumin 4.0 (3.5-5.0) g/dL Urine 01/05/25 01/05/25 01/05/25 Range/Units 09:30 09:30 09:30 Urine Color Cancelled Dark Yellow Urine Appearance Cancelled Clear Urine pH Cancelled Ur Specific [place] Urine Protein Urine Glucose (UA) 01/05/25 01/05/25 01/05/25 Range/Units 09:30 09:30 09:30 Urine Color Urine Appearance Urine pH 5.5 Ur Specific [place] Cancelled 1.025 Urine Protein Cancelled 100 (2+) H Urine Glucose (UA) Cancelled 01/05/25 Range/Units 09:30 Urine Color Urine Appearance Urine pH Ur Specific [place] Urine Protein Urine Glucose (UA) Negative Assessment and Plan Patient Active problem list reviewed?: Yes (1) Pancytopenia Status: Acute Assessment and plan: 1. This is a 64-year-old male admitted for worsening thrombocytopenia/pancytopenia. His past medical history significant for major depression, PTSD, dissociated disorder. Patient was seen in September 2024 for thrombocytopenia, at that time his platelets were about 50 K. Previously in 2023 it was in the 140s. His thrombocytopenia at that time was felt to be related to use of primidone which can cause cytopenias, agranulocytosis and aplastic anemia. He was subsequently seen by molded candles wicker at in November 2024. They also felt that he needed to come off primidone. He however did not get a bone marrow aspiration/biopsy. Hematological workup at [facility] has shown that he has beta thalassemia trait. Blood work today shows elevation in total bilirubin as well as LDH. Haptoglobin is normal. He has severe thrombocytopenia with platelet count of 5. He has reticulocytopenia. This raises possibilities of drug-induced aplastic anemia, pancytopenia secondary to primary bone marrow disorder such as myelodysplastic syndrome as well as leukemia. Agree with platelet and blood transfusion. Ultrasound abdomen to evaluate liver as he has elevated liver enzymes. Submit vitamin B12 and folic acid levels. Redraw CBC after blood and platelet transfusion. Discontinue primidone if possible. CT-guided bone marrow aspiration/biopsy. Monitor CBC/CMP daily. Thank you for the consultation. - Time Spent With Patient Time Spent with Patient (in minutes): 30 Additional Coding: - Additional E/M codes Complex E/M visit Add On: CPT G2211
--- NOTE | 2025-01-05 14:48 | PC.NURSE ---
Blood started on pt in E.D. despite temp of 100.2 (per M.D aware). Pt. temp increased to 101.6 per E.D. nurse, while pt still in E.D., whereas blood was put on hold and E.D. nurse notified physician. Pt was sent to med / surg floor with blood paused, when Mal returned text to E.D nurse stating to d/c blood. This nurse spoke with Georgina, to clarify orders. He stated that blood is to be stopped and that he didn't believe it to be a transfusion reaction. Blood bank notified and stated to bring unit of blood down in red bio-hazard bag. Vitals taken upon arrival to unit. Pt in no distress. Oral temp 98.3
[2025-01-05 15:16] LABS: Reticulocytes Absolute 0.020 X10*6/uL (0.026-0.095)
[2025-01-05 15:23] LABS: Fibrinogen 676 MG/DL (259-690); INTERNATIONAL NORM RATIO 1.1 (0.9-1.1); Prothrombin Time 12.3 SEC (10.9-12.4)
[2025-01-05 15:26] LABS: Partial Thromboplastin Time 37.1 SEC (26.7-34.1)
[2025-01-05 15:45] LABS: Iron 84 mcg/dL (45-160); Percent Iron Saturation 43 % (15-50); Total Iron Binding Capacity 195 mcg/dL (228-428); Unsaturated Iron Binding 111 ug/dL
[2025-01-05 16:28] LABS: Ferritin 3496 ng/mL (20-250)
[2025-01-05 17:46] LABS: Folate 10.4 ng/mL (> or = 4.0); Vitamin B12 431 pg/mL (200-900)
[2025-01-05 19:12] LABS: Hematocrit 26.8 % (42.0-52.0); Hemoglobin 8.6 g/dl (14.0-18.0); Mean Corpuscular HGB Conc 32.1 g/dl (31.0-36.0); Mean Corpuscular Hemoglobin 26.3 pg (27.0-33.0); Mean Corpuscular Volume 82.0 fL (80.0-98.0); NRBC Abs Auto 0.000 X10*3/uL (0.0-0.012); NRBC Pct Auto 0.0 /100WBC (0.0-0.2); Red Blood Count 3.27 X10*6/uL (4.60-5.80)
[2025-01-05 19:16] LABS: White Blood Count 2.0 X10*3/uL (4.8-10.8)
[2025-01-05 19:25] LABS: Platelet Count 7 X10*3/uL (160-400)
[2025-01-05] MEDS: 0.9 % Sodium Chloride Flush 3 ML SYRINGE IVFLUSH (19:37)
[2025-01-06] VITALS (12 sets, daily range): BP systolic 99–142; BP diastolic 57–91; PULSE 84–114; RESP 16–18; TEMP 36.2–38.6; O2SAT 93–95
[2025-01-06 06:12] LABS: Alanine Aminotransferase 121 U/L (0-40); Albumin Level 3.7 g/dL (3.5-5.0); Alkaline Phosphatase 148 U/L (39-117); Anion Gap 14 (12-20); Aspartate Amino Transferase 87 U/L (5-37); Blood Urea Nitrogen 21 mg/dL (9-16); Calcium 8.7 mg/dL (8.4-10.2); Carbon Dioxide 25 mmol/L (22-29); Chloride 100 mmol/L (96-108); Creatinine Clr Calc Pharmacy 91.6; Estimated Glomerular Filt Rate 59; Potassium 3.8 mmol/L (3.3-5.1); Sodium 135 mmol/L (135-145); Total Protein 6.6 g/dL (6.5-8.0)
[2025-01-06 07:37] LABS: Hematocrit 26.2 % (42.0-52.0); Hemoglobin 8.4 g/dl (14.0-18.0); Mean Corpuscular HGB Conc 32.1 g/dl (31.0-36.0); Mean Corpuscular Hemoglobin 25.9 pg (27.0-33.0); Mean Corpuscular Volume 80.9 fL (80.0-98.0); NRBC Abs Auto 0.020 X10*3/uL (0.0-0.012); Red Blood Count 3.24 X10*6/uL (4.60-5.80)
[2025-01-06 08:10] LABS: NRBC Pct Auto 1.1 /100WBC (0.0-0.2); White Blood Count 1.8 X10*3/uL (4.8-10.8)
[2025-01-06 08:11] LABS: Platelet Count 4 X10*3/uL (160-400)
[2025-01-06 08:35] LABS: Atypical Lymph Absolute Manual 0.2 x10*3/uL; Atypical Lymphs Percent Manual 9 % (0-6); Band Neutrophils Percent 4 % (3-5); Lymphocytes Absolute Manual 0.9 X10*3/uL (1.2-4.9); Lymphocytes Percent Manual 50 % (20-40); Monocytes Percent Manual 1 % (2-11); Neutrophils Absolute Manual 0.7 X10*3/uL (2.0-8.3); Neutrophils Percent Manual 36 % (45-73)
[2025-01-06 08:37] LABS: Ovalocytes 1+ (5-14) /OIF; RBC Morphology NOTED
[2025-01-06 08:39] LABS: Large Platelet PRESENT
--- NOTE | 2025-01-06 08:57 | P.PNIM_ITS ---
Subjective Subjective Date of Service: 01/06/25 Interval History: f/u major depression with SI, pancytopenia with severe thrombocytopenia but no bleeding. Still reporting SI, and plat count lower at 4 despite transfusion. Blood transfusion was stopped yesterday following fever. Cutlure sent, no further fever. Review of Systems Gen: no fever Resp: no sob, no cough CV: no chest, no ROBLERO, no leg edema GI: No n/v, no abd pain Neuro: No confusion Psych:depressed, si Physical Exam 2 Vital Signs: Vital Signs: Last Vital Signs Temp 100.1 F 01/06/25 07:12 Pulse 107 H 01/06/25 07:12 Resp 16 01/06/25 07:12 BP 129/75 01/06/25 07:12 Pulse Ox 93 01/06/25 07:12 O2 Del Method Room Air 01/06/25 07:12 BMI result Body Mass Index 37.9 Const: Other: General: AO X 3, no acute distress Resp: CTA bilateral CVS: S1,S2,RRR GI: +BS, NT, no distention Skin: No rash Neuro: motor grossly intact Psych: depressed, +SI, no HI Objective Data Active Medications Acetaminophen (Acetaminophen 325 Mg Tablet) 650 mg PO Q6H PRN PRN Reason: Pain, Mild 1-3,fever,headache Last Admin: 01/05/25 19:34 Dose: 650 mg Documented By: CARLA Calcium Carbonate (Calcium Carbonate 750 Mg Tab.Chew) 750 mg PO Q4H PRN PRN Reason: Heartburn Clotrimazole (Clotrimazole 1 % Cream 15 Gm Tube) 1 appl TOPICAL DAILY [facility]; Protocol Finasteride (Finasteride 5 Mg Tablet) 5 mg PO DAILY [facility] Last Admin: 01/06/25 08:45 Dose: 5 mg Documented By: ALLISON Hydrochlorothiazide (Hydrochlorothiazide 25 Mg Tablet) 25 mg PO DAILY [facility] Last Admin: 01/06/25 08:45 Dose: 25 mg Documented By: ALLISON Hydroxyzine HCl (Hydroxyzine Hcl 50 Mg Tablet) 50 mg PO QID [facility] Last Admin: 01/06/25 08:45 Dose: 50 mg Documented By: ALLISON Levothyroxine Sodium (Levothyroxine Sodium 175 Mcg Tablet) 175 mcg PO DAILY@0600 [facility] Last Admin: 01/06/25 05:05 Dose: 175 mcg Documented By: CARLA Lisinopril (Lisinopril 20 Mg Tablet) 20 mg PO DAILY [facility] Last Admin: 01/06/25 08:45 Dose: 20 mg Documented By: ALLISON Magnesium Hydroxide (Milk Of Magnesia 30 Ml Oral.Susp) 30 ml PO DAILY PRN PRN Reason: Constipation Magnesium Hydroxide (Milk Of Magnesia 30 Ml Oral.Susp) 30 ml PO DAILY PRN PRN Reason: Constipation Melatonin (Melatonin 3 Mg Tablet) 6 mg PO BEDTIME PRN PRN Reason: Insomnia Multivitamins/Vitamin C (Multivitamin Tablet) 1 tab PO DAILY [facility] Last Admin: 01/06/25 08:45 Dose: 1 tab Documented By: ALLISON Omeprazole (Omeprazole 20 Mg Capsule.Dr) 20 mg PO BID [facility] Last Admin: 01/06/25 08:45 Dose: 20 mg Documented By: ALLISON Ondansetron HCl (Ondansetron Hcl 4 Mg/2 Ml Vial) 4 mg IVPUSH Q8H PRN PRN Reason: Nausea and Vomiting Polyethylene Glycol (Polyethylene Glycol 3350 17 Gm Powd.Pack) 17 gm PO DAILY PRN PRN Reason: Constipation Primidone (Primidone 50 Mg Tablet) 50 mg PO BID [facility] On Hold: 01/05/25 21:00 Sodium Chloride (0.9 % Sodium Chloride Flush 3 Ml Syringe) 3 ml IVFLUSH QSHIFT [facility] Last Admin: 01/05/25 19:37 Dose: 3 ml Documented By: CARLA Labs 01/06/25 05:25 01/06/25 05:25 Labs: Laboratory Results - last 24 hr 01/05/25 01/05/25 01/05/25 09:11 09:29 09:30 MCV 82.5 MCH 26.0 L MCHC 31.6 RDW 19.9 H Plt Count 5 L* D MPV TNP Immature Gran % (Auto) 0.5 H Neut % (Auto) 23.7 L Lymph % (Auto) 67.5 H Barnes % (Auto) 7.3 Eos % (Auto) 0.5 Baso % (Auto) 0.5 Lymph # (Auto) 1.4 Barnes # (Auto) 0.2 Eos # (Auto) 0.0 Baso # (Auto) 0.0 Abs Immat Gran (auto) 0.01 Absolute Neuts (auto) 0.5 L Absolute Nucleated RBC 0.020 H Nucleated RBC % (auto) 1.0 H Neutrophils % (Manual) Band Neutrophils % Lymphocytes % (Manual) Atypical Lymphs % (Man) Monocytes % (Manual) Abs Neuts (Manual) Lymphocytes # (Manual) Atyp Lymphs # (Manual) Nucleated RBCs Platelet Estimate Large Platelets Plt Morphology Comment RBC Morphology Ovalocytes Smear Tech's Comments VERIFIED Absolute Retic 0.024 L Percent Retic 0.7 Immature Retic Fraction 20.5 H Retic Hgb Equivalent 28.2 L Hold Purple Top PT INR APTT Fibrinogen Anion Gap 14 Estim Creat Clear Calc 84.8 Estimated GFR 54 Random Glucose 102 Haptoglobin 219 Calcium 9.0 Iron TIBC % Saturation Unsat Iron Binding Ferritin Total Bilirubin 2.1 H AST 103 H ALT 149 H Alkaline Phosphatase 172 H Lactate Dehydrogenase 509 H Total Protein 7.0 Albumin 4.0 Vitamin B12 Folate Urine Color Cancelled Urine Appearance Urine pH Ur Specific Leslie Urine Protein Urine Glucose (UA) Urine Ketones Urine Blood Urine Nitrite Ur Leukocyte Esterase Urine RBC Urine WBC Ur Squamous Epith Cells Urine Bacteria Hyaline Casts Salicylates < 5.0 L Urine Opiates Screen Not Detected Ur Buprenorphine Scrn Not Detected Ur Oxycodone Screen Not Detected Urine Methadone Screen Not Detected Urine Fentanyl Screen Not Detected Acetaminophen < 3 Ur Barbiturates Screen Not Detected Ur Phencyclidine Scrn Not Detected Ur Amphetamines Screen Not Detected U Benzodiazepines Scrn Not Detected Urine Cocaine Screen Not Detected U Marijuana (THC) Screen Not Detected Ethyl Alcohol < 10 Blood Type Antibody Screen Crossmatch 01/05/25 01/05/25 01/05/25 09:30 09:30 09:30 MCV MCH MCHC RDW Plt Count MPV Immature Gran % (Auto) Neut % (Auto) Lymph % (Auto) Barnes % (Auto) Eos % (Auto) Baso % (Auto) Lymph # (Auto) Barnes # (Auto) Eos # (Auto) Baso # (Auto) Abs Immat Gran (auto) Absolute Neuts (auto) Absolute Nucleated RBC Nucleated RBC % (auto) Neutrophils % (Manual) Band Neutrophils % Lymphocytes % (Manual) Atypical Lymphs % (Man) Monocytes % (Manual) Abs Neuts (Manual) Lymphocytes # (Manual) Atyp Lymphs # (Manual) Nucleated RBCs Platelet Estimate Large Platelets Plt Morphology Comment RBC Morphology Ovalocytes Smear Tech's Comments Absolute Retic Percent Retic Immature Retic Fraction Retic Hgb Equivalent Hold Purple Top PT INR APTT Fibrinogen Anion Gap Estim Creat Clear Calc Estimated GFR Random Glucose Haptoglobin Calcium Iron TIBC % Saturation Unsat Iron Binding Ferritin Total Bilirubin AST ALT Alkaline Phosphatase Lactate Dehydrogenase Total Protein Albumin Vitamin B12 Folate Urine Color Dark Yellow Urine Appearance Cancelled Clear Urine pH Cancelled 5.5 Ur Specific Leslie Cancelled Urine Protein Urine Glucose (UA) Urine Ketones Urine Blood Urine Nitrite Ur Leukocyte Esterase Urine RBC Urine WBC Ur Squamous Epith Cells Urine Bacteria Hyaline Casts Salicylates Urine Opiates Screen Ur Buprenorphine Scrn Ur Oxycodone Screen Urine Methadone Screen Urine Fentanyl Screen Acetaminophen Ur Barbiturates Screen Ur Phencyclidine Scrn Ur Amphetamines Screen U Benzodiazepines Scrn Urine Cocaine Screen U Marijuana (THC) Screen Ethyl Alcohol Blood Type Antibody Screen Crossmatch 01/05/25 01/05/25 01/05/25 09:30 09:30 09:30 MCV MCH MCHC RDW Plt Count MPV Immature Gran % (Auto) Neut % (Auto) Lymph % (Auto) Barnes % (Auto) Eos % (Auto) Baso % (Auto) Lymph # (Auto) Barnes # (Auto) Eos # (Auto) Baso # (Auto) Abs Immat Gran (auto) Absolute Neuts (auto) Absolute Nucleated RBC Nucleated RBC % (auto) Neutrophils % (Manual) Band Neutrophils % Lymphocytes % (Manual) Atypical Lymphs % (Man) Monocytes % (Manual) Abs Neuts (Manual) Lymphocytes # (Manual) Atyp Lymphs # (Manual) Nucleated RBCs Platelet Estimate Large Platelets Plt Morphology Comment RBC Morphology Ovalocytes Smear Tech's Comments Absolute Retic Percent Retic Immature Retic Fraction Retic Hgb Equivalent Hold Purple Top PT INR APTT Fibrinogen Anion Gap Estim Creat Clear Calc Estimated GFR Random Glucose Haptoglobin Calcium Iron TIBC % Saturation Unsat Iron Binding Ferritin Total Bilirubin AST ALT Alkaline Phosphatase Lactate Dehydrogenase Total Protein Albumin Vitamin B12 Folate Urine Color Urine Appearance Urine pH Ur Specific Leslie 1.025 Urine Protein Cancelled 100 (2+) H Urine Glucose (UA) Cancelled Negative Urine Ketones Cancelled Urine Blood Urine Nitrite Ur Leukocyte Esterase Urine RBC Urine WBC Ur Squamous Epith Cells Urine Bacteria Hyaline Casts Salicylates Urine Opiates Screen Ur Buprenorphine Scrn Ur Oxycodone Screen Urine Methadone Screen Urine Fentanyl Screen Acetaminophen Ur Barbiturates Screen Ur Phencyclidine Scrn Ur Amphetamines Screen U Benzodiazepines Scrn Urine Cocaine Screen U Marijuana (THC) Screen Ethyl Alcohol Blood Type Antibody Screen Crossmatch 01/05/25 01/05/25 01/05/25 09:30 09:30 09:30 MCV MCH MCHC RDW Plt Count MPV Immature Gran % (Auto) Neut % (Auto) Lymph % (Auto) Barnes % (Auto) Eos % (Auto) Baso % (Auto) Lymph # (Auto) Barnes # (Auto) Eos # (Auto) Baso # (Auto) Abs Immat Gran (auto) Absolute Neuts (auto) Absolute Nucleated RBC Nucleated RBC % (auto) Neutrophils % (Manual) Band Neutrophils % Lymphocytes % (Manual) Atypical Lymphs % (Man) Monocytes % (Manual) Abs Neuts (Manual) Lymphocytes # (Manual) Atyp Lymphs # (Manual) Nucleated RBCs Platelet Estimate Large Platelets Plt Morphology Comment RBC Morphology Ovalocytes Smear Tech's Comments Absolute Retic Percent Retic Immature Retic Fraction Retic Hgb Equivalent Hold Purple Top PT INR APTT Fibrinogen Anion Gap Estim Creat Clear Calc Estimated GFR Random Glucose Haptoglobin Calcium Iron TIBC % Saturation Unsat Iron Binding Ferritin Total Bilirubin AST ALT Alkaline Phosphatase Lactate Dehydrogenase Total Protein Albumin Vitamin B12 Folate Urine Color Urine Appearance Urine pH Ur Specific Leslie Urine Protein Urine Glucose (UA) Urine Ketones 15 Urine Blood Cancelled Trace H Urine Nitrite Cancelled Negative Ur Leukocyte Esterase Cancelled Urine RBC Urine WBC Ur Squamous Epith Cells Urine Bacteria Hyaline Casts Salicylates Urine Opiates Screen Ur Buprenorphine Scrn Ur Oxycodone Screen Urine Methadone Screen Urine Fentanyl Screen Acetaminophen Ur Barbiturates Screen Ur Phencyclidine Scrn Ur Amphetamines Screen U Benzodiazepines Scrn Urine Cocaine Screen U Marijuana (THC) Screen Ethyl Alcohol Blood Type Antibody Screen Crossmatch 01/05/25 01/05/25 01/05/25 09:30 11:49 14:51 MCV MCH MCHC RDW Plt Count MPV Immature Gran % (Auto) Neut % (Auto) Lymph % (Auto) Barnes % (Auto) Eos % (Auto) Baso % (Auto) Lymph # (Auto) Barnes # (Auto) Eos # (Auto) Baso # (Auto) Abs Immat Gran (auto) Absolute Neuts (auto) Absolute Nucleated RBC Nucleated RBC % (auto) Neutrophils % (Manual) Band Neutrophils % Lymphocytes % (Manual) Atypical Lymphs % (Man) Monocytes % (Manual) Abs Neuts (Manual) Lymphocytes # (Manual) Atyp Lymphs # (Manual) Nucleated RBCs Platelet Estimate Large Platelets Plt Morphology Comment RBC Morphology Ovalocytes Smear Tech's Comments Absolute Retic 0.020 L Percent Retic 0.6 Immature Retic Fraction 17.6 H Retic Hgb Equivalent 28.2 L Hold Purple Top PT 12.3 INR 1.1 APTT 37.1 H Fibrinogen 676 Anion Gap Estim Creat Clear Calc Estimated GFR Random Glucose Haptoglobin Calcium Iron 84 TIBC 195 L % Saturation 43 Unsat Iron Binding 111 Ferritin 3496 H Total Bilirubin AST ALT Alkaline Phosphatase Lactate Dehydrogenase Total Protein Albumin Vitamin B12 431 Folate 10.4 Urine Color Urine Appearance Urine pH Ur Specific Leslie Urine Protein Urine Glucose (UA) Urine Ketones Urine Blood Urine Nitrite Ur Leukocyte Esterase Trace H Urine RBC 0-2 Urine WBC 0-5 Ur Squamous Epith Cells 0-2 Urine Bacteria None Seen Hyaline Casts 0-2 Salicylates Urine Opiates Screen Ur Buprenorphine Scrn Ur Oxycodone Screen Urine Methadone Screen Urine Fentanyl Screen Acetaminophen Ur Barbiturates Screen Ur Phencyclidine Scrn Ur Amphetamines Screen U Benzodiazepines Scrn Urine Cocaine Screen U Marijuana (THC) Screen Ethyl Alcohol Blood Type O Positive Antibody Screen NEGATIVE Crossmatch See Detail 01/05/25 01/06/25 18:36 05:25 MCV 82.0 80.9 MCH 26.3 L 25.9 L MCHC 32.1 32.1 RDW 19.9 H 20.0 H Plt Count 7 L* 4 L* MPV Not Reportable Not Reportable Immature Gran % (Auto) Cancelled Neut % (Auto) Cancelled Lymph % (Auto) Cancelled Barnes % (Auto) Cancelled Eos % (Auto) Cancelled Baso % (Auto) Cancelled Lymph # (Auto) Cancelled Barnes # (Auto) Cancelled Eos # (Auto) Cancelled Baso # (Auto) Cancelled Abs Immat Gran (auto) Cancelled Absolute Neuts (auto) Cancelled Absolute Nucleated RBC 0.000 0.020 H Nucleated RBC % (auto) 0.0 1.1 H Neutrophils % (Manual) 36 L Band Neutrophils % 4 Lymphocytes % (Manual) 50 H Atypical Lymphs % (Man) 9 H Monocytes % (Manual) 1 L Abs Neuts (Manual) 0.7 L Lymphocytes # (Manual) 0.9 L Atyp Lymphs # (Manual) 0.2 Nucleated RBCs 1 H Platelet Estimate DECREASED Large Platelets PRESENT Plt Morphology Comment NOTED RBC Morphology NOTED Ovalocytes 1+ (5-14) Smear Tech's Comments Absolute Retic Percent Retic Immature Retic Fraction Retic Hgb Equivalent Hold Purple Top SEE NOTE PT INR APTT Fibrinogen Anion Gap 14 Estim Creat Clear Calc 91.6 Estimated GFR 59 Random Glucose 104 Haptoglobin Calcium 8.7 Iron TIBC % Saturation Unsat Iron Binding Ferritin Total Bilirubin 1.4 H AST 87 H ALT 121 H Alkaline Phosphatase 148 H Lactate Dehydrogenase Total Protein 6.6 Albumin 3.7 Vitamin B12 Folate Urine Color Urine Appearance Urine pH Ur Specific Leslie Urine Protein Urine Glucose (UA) Urine Ketones Urine Blood Urine Nitrite Ur Leukocyte Esterase Urine RBC Urine WBC Ur Squamous Epith Cells Urine Bacteria Hyaline Casts Salicylates Urine Opiates Screen Ur Buprenorphine Scrn Ur Oxycodone Screen Urine Methadone Screen Urine Fentanyl Screen Acetaminophen Ur Barbiturates Screen Ur Phencyclidine Scrn Ur Amphetamines Screen U Benzodiazepines Scrn Urine Cocaine Screen U Marijuana (THC) Screen Ethyl Alcohol Blood Type Antibody Screen Crossmatch Assessment and Plan (1) Major depressive disorder, recurrent severe without psychotic features: Status: Acute (2) Pancytopenia: Status: Acute Plan This is a 64-year-old male with pertinent history of achalasia status post surgery, mood disorder, mixed hyperlipidemia, hypertension, gastroesophageal reflux disease, hypothyroidism, pancytopenia previously seen by heme--He presented with depression and SI, and has more pronounced pancytopenia and elevated LFTs Major Depression with SI with active to hang self, still with SI 1:1 sitter Psych consult for med management, hold Caplyta (lumateperone) is a second- generation (atypical) antipsychotic approved for the treatment of schizophrenia and bipolar depression in adults. Safety tray Pancytopenia with Plat of 4, no active bleed, possible med related--hold primidone, and Caplyta Hematology consult Hemolysis work up appear negative thus far Transfuse 2 units of Plat, got 1 unit yesterday avoid ASA, heparin Elevated LFTs hold statin US of liver = fatty liver disease Gastroesophageal reflux disease PPI HLD hold statin d/t high lfts Hypertension Lisinopril/HCTZ DVT prophylaxis: low risk given low plat, Full code Quality Stroke Does the patient have a stroke diagnosis?: No VTE Prior VTE?: No VTE Risk Level:: Medical - low VTE Device Contraindication: Treatment Not Indicated VTE Drug Contraindication: Treatment Not Indicated
--- NOTE | 2025-01-06 09:36 | PM.HEMONCPN ---
Medical Summary - Medical Summary Date of Service: 01/06/25 Chief complaint: Tired Primary Care Provider: Shaji Huntley MD Transition Rn Utilized?: No - Turkish Speaking Interval History Interval history: Lemuel Maldonado is a 64 year old male with history of PTSD, depression, ADHD, resident of senior living was brought to the emergency department because of increasing depression as well as symptoms of feeling weak. He says that he has been having body aches, chills and night sweats for last several days. He was started on a new antidepressant Caplyta recently and he thinks that caused him to have worsening symptoms of depression. Patient is aware of low platelets. He was seen by laundry housekeeper at [facility] a few weeks ago. He says he has another follow-up coming up in a month or so. Patient was seen by this play writer in September for thrombocytopenia. During that admission he was admitted for acute pancreatitis. He was recently started on primidone and this was also raised as a cause for cytopenias, mainly agranulocytosis and sometimes aplastic anemia. Patient denies any fevers but says he has been having night sweats. No loss of appetite or weight loss. He denies chest pain, shortness of breath or abdominal pain. He denies change in bowel habits. He has not been on any recent antibiotics. patient feels about the same. He did not sleep well, he was tossing and turning all night. He denies any spontaneous bruising but sites of any puncture or a bit bruised. He has persistent headaches. No nausea or emesis. No chest pain or shortness of breath. No abdominal pain or change in bowel habits. No hematochezia melena. Review of Systems - Neurologic Denies dizziness, Denies loss of vision, Denies numbness, Denies tingling, Reports weakness PMFSH Medical History: Medical History (Last Reviewed 01/05/25 @ 11:53 by JAYSON Cruz) Attention deficit disorder Chronic post-traumatic stress disorder (PTSD) Dissociative disorder Elevated PSA Essential (primary) hypertension Hypothyroidism Major depressive disorder, recurrent severe without psychotic features Thrombocytopenia Social History: Social History (Last Reviewed 01/05/25 @ 11:53 by JAYSON Cruz) Living Situation History: Household Members: Other Household Members Other:: senior living Housing: Other Housing Other:: in a senior living Do you presently have visiting nurse or other home services: No Alcohol History Details: 1. How often do you have a drink containing alcohol?: a. Never AUDIT-C Alcohol total score: 0 Currently Displaying Signs/Symptoms of Alcohol Withdrawal: No Tobacco History: Patient Tobacco Use Status: Never used Tobacco Smoked in Last 30 Days: No Substance Use History: Use of substances other than those prescribed or required for medical reasons: No Substance Use Type: Marijuana Currently Displaying Signs/Symptoms of Drug Intoxication Withdrawal: No Domestic Abuse History: Have you been hit, kicked, punched, or otherwise hurt by someone within the past year? If so, by whom?: No Do you feel safe in your current relationship?: No Current Relationship Is there a partner from a previous relationship who is making you feel unsafe now?: No Are you made to feel afraid or neglected: No Advance Directives: Advance Directives: No Advance Directives Information Provided: Yes Homicidal Assessment: Do you have a plan to hurt others: Specific Nutrition Assessment: Recently lost weight without trying: No How much weight loss: Not applicable Eating poorly because of decreased appetite: No Nutrition screen score: 0 Nutrition Risks: No Nutritional Risk Poor oral hygiene: No Occupation Assessmet: service: No Home Medications and Allergies Current Medications: Current Medications Acetaminophen (Acetaminophen 325 Mg Tablet) 650 mg PO Q6H PRN PRN Reason: Pain, Mild 1-3,fever,headache Last Admin: 01/05/25 19:34 Dose: 650 mg Calcium Carbonate (Calcium Carbonate 750 Mg Tab.Chew) 750 mg PO Q4H PRN PRN Reason: Heartburn Clotrimazole (Clotrimazole 1 % Cream 15 Gm Tube) 1 appl TOPICAL DAILY [facility]; Protocol Finasteride (Finasteride 5 Mg Tablet) 5 mg PO DAILY [facility] Last Admin: 01/06/25 08:45 Dose: 5 mg Hydrochlorothiazide (Hydrochlorothiazide 25 Mg Tablet) 25 mg PO DAILY [facility] Last Admin: 01/06/25 08:45 Dose: 25 mg Hydroxyzine HCl (Hydroxyzine Hcl 50 Mg Tablet) 50 mg PO QID [facility] Last Admin: 01/06/25 08:45 Dose: 50 mg Levothyroxine Sodium (Levothyroxine Sodium 175 Mcg Tablet) 175 mcg PO DAILY@0600 [facility] Last Admin: 01/06/25 05:05 Dose: 175 mcg Lisinopril (Lisinopril 20 Mg Tablet) 20 mg PO DAILY [facility] Last Admin: 01/06/25 08:45 Dose: 20 mg Magnesium Hydroxide (Milk Of Magnesia 30 Ml Oral.Susp) 30 ml PO DAILY PRN PRN Reason: Constipation Magnesium Hydroxide (Milk Of Magnesia 30 Ml Oral.Susp) 30 ml PO DAILY PRN PRN Reason: Constipation Melatonin (Melatonin 3 Mg Tablet) 6 mg PO BEDTIME PRN PRN Reason: Insomnia Multivitamins/Vitamin C (Multivitamin Tablet) 1 tab PO DAILY [facility] Last Admin: 01/06/25 08:45 Dose: 1 tab Omeprazole (Omeprazole 20 Mg Capsule.Dr) 20 mg PO BID [facility] Last Admin: 01/06/25 08:45 Dose: 20 mg Ondansetron HCl (Ondansetron Hcl 4 Mg/2 Ml Vial) 4 mg IVPUSH Q8H PRN PRN Reason: Nausea and Vomiting Polyethylene Glycol (Polyethylene Glycol 3350 17 Gm Powd.Pack) 17 gm PO DAILY PRN PRN Reason: Constipation Prednisone (Prednisone 20 Mg Tablet) 60 mg PO BID [facility] Primidone (Primidone 50 Mg Tablet) 50 mg PO BID [facility] On Hold: 01/05/25 21:00 Sodium Chloride (0.9 % Sodium Chloride Flush 3 Ml Syringe) 3 ml IVFLUSH QSHIFT [facility] Last Admin: 01/05/25 19:37 Dose: 3 ml Home Medications ?Medication ?Instructions ?Recorded ?Confirmed ?Type B-complex with vitamin C 1 tab PO DAILY 09/27/24 01/05/25 History acetaminophen 650 mg 650 mg PO Q4-6H PRN Fever Or Pain 09/27/24 01/05/25 History tablet,extended release atorvastatin 40 mg tablet 40 mg PO DAILY 09/27/24 01/05/25 History clotrimazole 1 % topical cream 1 appl topical DAILY 09/27/24 01/05/25 History guaifenesin 200 mg/5 mL oral liquid 200 - 400 mg PO Q4H PRN Cough 09/27/24 01/05/25 History guanfacine 2 mg tablet 2 mg PO BEDTIME 09/27/24 01/05/25 History hydroxyzine HCl 50 mg tablet 50 mg PO QID 09/27/24 01/05/25 History ketoconazole 2 % topical cream 1 appl topical DAILY 09/27/24 01/05/25 History lisinopril 20 1 tab PO DAILY 09/27/24 01/05/25 History mg-hydrochlorothiazide 25 mg tablet (Zestoretic) magnesium hydroxide 400 mg/5 mL 30 ml PO DAILY PRN Constipation 09/27/24 01/05/25 History oral suspension (Milk of Magnesia) meclizine 25 mg tablet 25 mg PO TID PRN Vertigo 09/27/24 01/05/25 History naloxone 4 mg/actuation nasal 4 mg intranasal Q3M PRN Opiate 09/27/24 01/05/25 History spray (Narcan) Reversal primidone 50 mg tablet 50 mg PO BID 09/27/24 01/05/25 History vitamin B complex 1 tab PO BEDTIME 09/27/24 01/05/25 History levothyroxine 175 mcg tablet 175 mcg PO DAILY@0600 01/05/25 01/05/25 History lumateperone 42 mg capsule 42 mg PO BEDTIME 01/05/25 01/05/25 History (Caplyta) Allergies Allergy/AdvReac Type Severity Reaction Status Date / Time clindamycin Allergy Intermediate Unknown Verified 01/05/25 08:32 haloperidol (From Haldol) Allergy Intermediate Unknown Verified 01/05/25 08:32 NSAIDS (Non-Steroidal Allergy Intermediate Unknown Verified 01/05/25 08:32 Anti-Inflamma Penicillins Allergy Intermediate Anaphylaxis Verified 01/05/25 08:32 Exam Vital signs: Vital Signs Temp 100.1 F 01/06/25 07:12 Pulse 107 H 01/06/25 07:12 Resp 16 01/06/25 07:12 BP 129/75 01/06/25 07:12 Pulse Ox 93 01/06/25 07:12 O2 Del Method Room Air 01/06/25 07:12 Intake & Output 01/05/25 01/06/25 01/06/25 18:59 06:59 18:59 Intake Total 518 / 638 120 / 638 Output Total Balance 518 / 637 119 / 637 Intake: Intake, Oral Amount 120 / 120 Intake (Blood Product) Amount 518 / 518 Plt Aph Pas Pathreduced(E8341) 338 / 338 Unit [id number] Red Blood Cells (E0336) Unit 180 / 180 [id number] Output: Output, Emesis Amount Other: NPO Yes Dinner % Eaten 0% Number of Unmeasured Voids 1 Number of Bowel Movements 0 Urine Bathroom Last Bowel Movement 12/30/24 Weight 137.5 kg Weight 137.5 kg BMI result Body Mass Index 37.9 - Constitutional Present: no acute distress, morbidly obese - Routine HEENT Exam Head: Present: normal inspection - Routine Respiratory Exam Present: CTAB. Absent: accessory muscle use - Routine Cardiovascular Exam Cardiovascular: Present: S1, S2 - Routine Abdominal Exam Present: soft - Routine Extremities Exam Absent: pedal edema - Routine Skin Exam Present: intact - Routine Neurological Exam Present: alert, oriented X3 Data - Labs CBC & Chem 7: 01/06/25 05:25 01/06/25 05:25 Labs: Laboratory Last Values WBC 1.8 X10*3/uL (4.8-10.8) L 01/06/25 05:25 RBC 3.24 X10*6/uL (4.60-5.80) L 01/06/25 05:25 Hgb 8.4 g/dl (14.0-18.0) L 01/06/25 05:25 Hct 26.2 % (42.0-52.0) L 01/06/25 05:25 MCV 80.9 fL (80.0-98.0) 01/06/25 05:25 MCH 25.9 pg (27.0-33.0) L 01/06/25 05:25 MCHC 32.1 g/dl (31.0-36.0) 01/06/25 05:25 RDW 20.0 % (11.0-16.0) H 01/06/25 05:25 Plt Count 4 X10*3/uL (160-400) L* 01/06/25 05:25 MPV Not Reportable 01/06/25 05:25 Immature Gran % (Auto) Cancelled 01/06/25 05:25 Neut % (Auto) Cancelled 01/06/25 05:25 Lymph % (Auto) Cancelled 01/06/25 05:25 [place] % (Auto) Cancelled 01/06/25 05:25 Eos % (Auto) Cancelled 01/06/25 05:25 Baso % (Auto) Cancelled 01/06/25 05:25 Lymph # (Auto) Cancelled 01/06/25 05:25 [place] # (Auto) Cancelled 01/06/25 05:25 Eos # (Auto) Cancelled 01/06/25 05:25 Baso # (Auto) Cancelled 01/06/25 05:25 Abs Immat Gran (auto) Cancelled 01/06/25 05:25 Absolute Neuts (auto) Cancelled 01/06/25 05:25 Absolute Nucleated RBC 0.020 X10*3/uL (0.0-0.012) H 01/06/25 05:25 Nucleated RBC % (auto) 1.1 /100WBC (0.0-0.2) H 01/06/25 05:25 Neutrophils % (Manual) 36 % (45-73) L 01/06/25 05:25 Band Neutrophils % 4 % (3-5) 01/06/25 05:25 Lymphocytes % (Manual) 50 % (20-40) H 01/06/25 05:25 Atypical Lymphs % (Man) 9 % (0-6) H 01/06/25 05:25 Monocytes % (Manual) 1 % (2-11) L 01/06/25 05:25 Abs Neuts (Manual) 0.7 X10*3/uL (2.0-8.3) L 01/06/25 05:25 Lymphocytes # (Manual) 0.9 X10*3/uL (1.2-4.9) L 01/06/25 05:25 Atyp Lymphs # (Manual) 0.2 x10*3/uL 01/06/25 05:25 Nucleated RBCs 1 /100WBC (0-0) H 01/06/25 05:25 Platelet Estimate DECREASED (NORMAL) 01/06/25 05:25 Large Platelets PRESENT 01/06/25 05:25 Plt Morphology Comment NOTED 01/06/25 05:25 RBC Morphology NOTED 01/06/25 05:25 Ovalocytes 1+ (5-14) /OIF 01/06/25 05:25 Smear Tech's Comments VERIFIED 01/05/25 09:11 Absolute Retic 0.020 X10*6/uL (0.026-0.095) L 01/05/25 14:51 Percent Retic 0.6 % (0.5-1.8) 01/05/25 14:51 Immature Retic Fraction 17.6 % (2.3-13.4) H 01/05/25 14:51 Retic Hgb Equivalent 28.2 pg (30.0-35.0) L 01/05/25 14:51 Hold Purple Top SEE NOTE 01/06/25 05:25 PT 12.3 SEC (10.9-12.4) 01/05/25 14:51 INR 1.1 (0.9-1.1) 01/05/25 14:51 APTT 37.1 SEC (26.7-34.1) H 01/05/25 14:51 Fibrinogen 676 MG/DL (259-690) 01/05/25 14:51 Sodium 135 mmol/L (135-145) 01/06/25 05:25 Potassium 3.8 mmol/L (3.3-5.1) 01/06/25 05:25 Chloride 100 mmol/L (96-108) 01/06/25 05:25 Carbon Dioxide 25 mmol/L (22-29) 01/06/25 05:25 Anion Gap 14 (12-20) 01/06/25 05:25 BUN 21 mg/dL (9-16) H 01/06/25 05:25 Creatinine 1.25 mg/dL (0.5-1.4) 01/06/25 05:25 Estim Creat Clear Calc 91.6 01/06/25 05:25 Estimated GFR 59 01/06/25 05:25 Random Glucose 104 mg/dL (60-115) 01/06/25 05:25 Haptoglobin 219 mg/dL (40-268) 01/05/25 09:11 Calcium 8.7 mg/dL (8.4-10.2) 01/06/25 05:25 Iron 84 mcg/dL (45-160) 01/05/25 14:51 TIBC 195 mcg/dL (228-428) L 01/05/25 14:51 % Saturation 43 % (15-50) 01/05/25 14:51 Unsat Iron Binding 111 ug/dL 01/05/25 14:51 Ferritin 3496 ng/mL (20-250) H 01/05/25 14:51 Total Bilirubin 1.4 mg/dL (0.0-1.0) H 01/06/25 05:25 AST 87 U/L (5-37) H 01/06/25 05:25 ALT 121 U/L (0-40) H 01/06/25 05:25 Alkaline Phosphatase 148 U/L (39-117) H 01/06/25 05:25 Lactate Dehydrogenase 509 U/L (118-273) H 01/05/25 09:11 Total Protein 6.6 g/dL (6.5-8.0) 01/06/25 05:25 Albumin 3.7 g/dL (3.5-5.0) 01/06/25 05:25 Vitamin B12 431 pg/mL (200-900) 01/05/25 14:51 Folate 10.4 ng/mL (> or = 4.0) 01/05/25 14:51 Urine Color Cancelled 01/05/25 09:30 Urine Color Dark Yellow 01/05/25 09:30 Urine Appearance Cancelled 01/05/25 09:30 Urine Appearance Clear 01/05/25 09:30 Urine pH 5.5 (5.0-9.0) 01/05/25 09:30 Urine pH Cancelled 01/05/25 09:30 Ur Specific [place] 1.025 (1.005-1.025) 01/05/25 09:30 Ur Specific [place] Cancelled 01/05/25 09:30 Urine Protein 100 (2+) mg/dL (Neg-Trace) H 01/05/25 09:30 Urine Protein Cancelled 01/05/25 09:30 Urine Glucose (UA) Cancelled 01/05/25 09:30 Urine Glucose (UA) Negative mg/dL (Negative) 01/05/25 09:30 Urine Ketones 15 mg/dL (Negative) 01/05/25 09:30 Urine Ketones Cancelled 01/05/25 09:30 Urine Blood Cancelled 01/05/25 09:30 Urine Blood Trace (Negative) H 01/05/25 09:30 Urine Nitrite Cancelled 01/05/25 09:30 Urine Nitrite Negative (Negative) 01/05/25 09:30 Ur Leukocyte Esterase Cancelled 01/05/25 09:30 Ur Leukocyte Esterase Trace (Negative) H 01/05/25 09:30 Urine RBC 0-2 /HPF (0-2) 01/05/25 09:30 Urine WBC 0-5 /HPF (0-5) 01/05/25 09:30 Ur Squamous Epith Cells 0-2 /HPF (0-2) 01/05/25 09:30 Urine Bacteria None Seen (None Seen) 01/05/25 09:30 Hyaline Casts 0-2 /LPF (0-2) 01/05/25 09:30 Salicylates < 5.0 mg/dL (15-30) L 01/05/25 09:11 Urine Opiates Screen Not Detected (Not Detect) 01/05/25 09:29 Ur Buprenorphine Scrn Not Detected ng/mL (Not Detect) 01/05/25 09:29 Ur Oxycodone Screen Not Detected ng/mL (Not Detect) 01/05/25 09:29 Urine Methadone Screen Not Detected ng/mL (Not Detect) 01/05/25 09:29 Urine Fentanyl Screen Not Detected (Not Detect) 01/05/25 09:29 Acetaminophen < 3 mcg/mL (<30) 01/05/25 09:11 Ur Barbiturates Screen Not Detected (Not Detect) 01/05/25 09:29 Ur Phencyclidine Scrn Not Detected (Not Detect) 01/05/25 09:29 Ur Amphetamines Screen Not Detected (Not Detect) 01/05/25 09:29 U Benzodiazepines Scrn Not Detected (Not Detect) 01/05/25 09:29 Urine Cocaine Screen Not Detected (Not Detect) 01/05/25 09:29 U Marijuana (THC) Screen Not Detected (Not Detect) 01/05/25 09:29 Ethyl Alcohol < 10 mg/dL 01/05/25 09:11 Blood Type O Positive 01/05/25 11:49 Antibody Screen NEGATIVE 01/05/25 11:49 Crossmatch See Detail 01/05/25 11:49 - Imaging Radiologist's impression: ITS Impressions Head CT 01/05/25 10:16 IMPRESSION: No acute intracranial abnormality. Electronically signed by: Marc Guajardo MD 01/05/2025 11:38 AM EDT Assessment and Plan Patient Active problem list reviewed?: Yes (1) Pancytopenia Status: Acute Assessment and plan: 1. This is a 64-year-old male admitted for worsening thrombocytopenia/pancytopenia. His past medical history significant for major depression, PTSD, dissociated disorder. Patient was seen in September 2024 for thrombocytopenia, at that time his platelets were about 50 K. Previously in 2023 it was in the 140s. His thrombocytopenia at that time was felt to be related to use of primidone which can cause cytopenias, agranulocytosis and aplastic anemia. He was subsequently seen by laundry housekeeper at [facility] in November 2024. They also felt that he needed to come off primidone. He did not get a bone marrow aspiration/biopsy. Hematological workup at [facility] has shown that he has beta thalassemia trait. Blood work today shows elevation in total bilirubin as well as LDH. Haptoglobin is normal. He has severe thrombocytopenia with platelet count of 5. He has reticulocytopenia. This raises possibilities of drug-induced aplastic anemia, pancytopenia secondary to primary bone marrow disorder such as myelodysplastic syndrome as well as leukemia. Agree with platelet and blood transfusion. Ultrasound abdomen Demonstrated steatosis. Normal vitamin B12 and folate levels. Primidone is on hold. CT-guided bone marrow aspiration/biopsy pending. CBCD shows persistent pancytopenia, no improvement in platelets at all. 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 I have ordered prednisone sixty mg b.i.d. and IVIG. Transfuse two units platelets today. - Time Spent With Patient Time Spent with Patient (in minutes): 20 Additional Coding: - Additional E/M codes Complex E/M visit Add On: CPT G2211
--- NOTE | 2025-01-06 12:25 | PC.NURSE ---
During first platelet transfusion around 12:17 - patient became visibly diaphoretic, and tachycardic. Provider [facility] notified via [employer]. Provider advised to continue platelet transfusion and provider came to bedside and visually observed patient.
--- NOTE | 2025-01-06 12:35 | MHC.CM.PN ---
PT REPORTS HE RESIDES AT A A CORRECTION IN [place] HE IS INDEPENDENT WITH CARE AND HAS NO DME HCP ON FILE PCP: BELEM JIMÉNEZ DCP PENDING CARE TEAM EVAL: IPLOC VS RETURN TO VIA STAFF
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
[2025-01-06] MEDS: 0.9 % Sodium Chloride Flush 3 ML SYRINGE IVFLUSH ×2 (13:27→20:35)
[2025-01-06] MEDS: vancomycin/NS 2,000 MG/500 ML PLAST..BAG 250 MG IV (14:42)
[2025-01-06 15:00] LABS: Appearance Urine Clear; Glucose Urine UA Negative (Negative); PH 5.5 (5.0-9.0); Specific Gravity - Urine 1.015 (1.005-1.025); UMIC TRIGGER UACC YES
--- NOTE | 2025-01-06 15:24 | PHA.PROG ---
Admission Date/Time: January 05, 2025 12:16 Indication: OTHER Weight in k.5 kg Adjusted body weight in Kg: [place] body weight in Kg: Obesity Dosing Indication % IBW: Serum Creatinine - Last 168 Hours 01/05/25 01/06/25 09:11 05:25 Creatinine 1.35 1.25 Estimated CrCl and GFR - Last 168 Hours 01/05/25 01/06/25 09:11 05:25 Estim Creat Clear Calc 84.8 91.6 Estimated GFR 54 59 Vancomycin Loading Dose: 2000 MG Current Vancomycin Dosing Regimen: 1000 MG Q12H Vancomycin Monitoring using AUC goal of 400 - 600 range with trough as surrogate marker: AUC= 444 TROUGH=15.2 Date and Time for next Vancomycin Level to be drawn: 01/07/25 @1300 Pharmacist Comments on Vancomycin Plan: Vancomycin dosing will take advantage of [employer] as a clinical decision support tool that uses Bayesian modeling to calculate individual patient's pharmacokinetic parameters and forecast the patient's drug concentration time course with the target goal AUC 24 range of 400 - 600 mg/L/hr.
--- NOTE | 2025-01-06 15:43 | PC.NURSE ---
Report given to MISAEL Lin and Chloe for transfer.
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
[2025-01-06] MEDS: Immune Globulin 10% Gammagard 30 GM/300 ML VIAL IV ×2 (17:57→22:25)
[2025-01-06] MEDS: cefEPime HCl/D5W 2 GM/50 ML PIGGYBACK IV (20:27)
[2025-01-07] VITALS (11 sets, daily range): BP systolic 100–137; BP diastolic 61–96; PULSE 81–98; RESP 16–20; TEMP 36.2–36.7; O2SAT 94–97
[2025-01-07] MEDS: Immune Globulin 10% Gammagard 20 GM/200 ML VIAL IV ×2 (02:59→05:57)
[2025-01-07] MEDS: cefEPime HCl/D5W 2 GM/50 ML PIGGYBACK IV ×3 (03:01→20:04)
[2025-01-07 07:23] LABS: Hematocrit 27.7 % (42.0-52.0); Hemoglobin 8.8 g/dl (14.0-18.0); Mean Corpuscular HGB Conc 31.8 g/dl (31.0-36.0); Mean Corpuscular Hemoglobin 25.6 pg (27.0-33.0); Mean Corpuscular Volume 80.5 fL (80.0-98.0); NRBC Abs Auto 0.020 X10*3/uL (0.0-0.012); Red Blood Count 3.44 X10*6/uL (4.60-5.80)
[2025-01-07 07:33] LABS: Platelet Count 6 X10*3/uL (160-400); White Blood Count 1.9 X10*3/uL (4.8-10.8)
[2025-01-07 07:34] LABS: NRBC Pct Auto 1.0 /100WBC (0.0-0.2)
[2025-01-07 07:35] LABS: Anion Gap 15 (12-20); Blood Urea Nitrogen 27 mg/dL (9-16); Calcium 8.9 mg/dL (8.4-10.2); Carbon Dioxide 21 mmol/L (22-29); Chloride 103 mmol/L (96-108); Creatinine Clr Calc Pharmacy 113.3; Estimated Glomerular Filt Rate > 60; Potassium 4.3 mmol/L (3.3-5.1); Sodium 135 mmol/L (135-145)
[2025-01-07] MEDS: 0.9 % Sodium Chloride Flush 3 ML SYRINGE IVFLUSH ×3 (08:00→20:10)
--- NOTE | 2025-01-07 11:30 | MHC.CM.PN ---
PT NOT YET MEDICALLY CLEARED, DCP IS RETURN TO [facility] VIA STAFF
--- NOTE | 2025-01-07 12:46 | P.PNIM_ITS ---
Subjective Subjective Date of Service: 01/07/25 Interval History: f/u major depression with SI, pancytopenia with severe thrombocytopenia but no bleeding and has been experiencing Neutropenic fever. s/p 2 unit fo Platlets yesterday and now Plat 6 from 4, no bleeding started on Prednisone and IVIG yesterday. Started on IV Cefepime, Levaquin and Vano yesterday, cultures thus far negative. Fever, tachycardia and sweating resolved. He no longer feels suicidal Review of Systems No fever, no SI today, no bleeding Physical Exam 2 Vital Signs: Vital Signs: Last Vital Signs Temp 97.7 F 01/07/25 12:25 Pulse 88 01/07/25 12:25 Resp 16 01/07/25 12:25 BP 123/78 01/07/25 12:25 Pulse Ox 97 01/07/25 07:31 O2 Del Method Room Air 01/07/25 07:31 BMI result Body Mass Index 37.9 Const: Other: General: AO X 3, no acute distress Resp: CTA bilateral CVS: S1,S2,RRR GI: +BS, NT, no distention Skin: No rash Neuro: motor grossly intact Psych: depressed, +SI, no HI Objective Data Active Medications Acetaminophen (Acetaminophen 325 Mg Tablet) 650 mg PO Q6H PRN PRN Reason: Pain, Mild 1-3,fever,headache Last Admin: 01/06/25 11:17 Dose: 650 mg Documented By: ALLISON Acetaminophen (Acetaminophen 325 Mg Tablet) 650 mg PO ONCE@1600 [facility] Stop: 01/07/25 16:01 Calcium Carbonate (Calcium Carbonate 750 Mg Tab.Chew) 750 mg PO Q4H PRN PRN Reason: Heartburn Clotrimazole (Clotrimazole 1 % Cream 15 Gm Tube) 1 appl TOPICAL DAILY [facility]; Protocol Last Admin: 01/07/25 07:59 Dose: Not Given Documented By: GINO Non-Admin Reason: Patient Refused Diphenhydramine HCl (Diphenhydramine Hcl 50 Mg/Ml Vial) 50 mg IVPUSH ONCE@1600 [facility] Stop: 01/07/25 16:01 Finasteride (Finasteride 5 Mg Tablet) 5 mg PO DAILY [facility] Last Admin: 01/07/25 07:59 Dose: 5 mg Documented By: GINO Hydrochlorothiazide (Hydrochlorothiazide 25 Mg Tablet) 25 mg PO DAILY [facility] Last Admin: 01/07/25 07:59 Dose: 25 mg Documented By: GINO Hydroxyzine HCl (Hydroxyzine Hcl 50 Mg Tablet) 50 mg PO QID [facility] Last Admin: 01/07/25 12:21 Dose: 50 mg Documented By: GINO Levofloxacin (Levaquin) 500 mg in 100 mls @ 100 mls/hr IV Q24H [facility] Last Infusion: 01/07/25 12:32 Dose: Infused Documented By: GINO Vancomycin HCl 1,000 mg/ (Sodium Chloride) 270 mls @ 270 mls/hr IV Q12H [facility] Last Infusion: 01/07/25 04:01 Dose: Infused Documented By: JULIUS Immune Globulin (Gammagard 10%) 30 gm in 300 mls @ 68 mls/hr IV DAILY@1700 [facility] Stop: 01/07/25 21:25 Last Admin: 01/07/25 09:35 Dose: Not Given Documented By: TEMI Non-Admin Reason: Physician Held Med Comments: per dr carolina pappas dose Cefepime HCl (Maxipime) 2 gm in 50 mls @ 100 mls/hr IV Q8H [facility] Last Admin: 01/07/25 12:20 Dose: 100 mls/hr Documented By: GINO Immune Globulin (Gammagard 10%) 30 gm in 300 mls @ 68 mls/hr IV DAILY@2100 [facility] Stop: 01/08/25 01:25 Last Admin: 01/07/25 09:36 Dose: Not Given Documented By: TEMI Non-Admin Reason: Physician Held Med Comments: per dr carolina pappas dose Immune Globulin (Gammagard 10%) 20 gm in 200 mls @ 68 mls/hr IV DAILY@0100 [facility] Stop: 01/08/25 03:57 Last Infusion: 01/07/25 06:01 Dose: Infused Documented By: JULIUS Immune Globulin (Gammagard 10%) 20 gm in 200 mls @ 68 mls/hr IV DAILY@0500 [facility] Stop: 01/08/25 07:57 Last Infusion: 01/07/25 09:30 Dose: Infused Documented By: GINO Levothyroxine Sodium (Levothyroxine Sodium 175 Mcg Tablet) 175 mcg PO DAILY@0600 [facility] Last Admin: 01/07/25 05:57 Dose: 175 mcg Documented By: JULIUS Lisinopril (Lisinopril 20 Mg Tablet) 20 mg PO DAILY [facility] Last Admin: 01/07/25 07:59 Dose: 20 mg Documented By: GINO Magnesium Hydroxide (Milk Of Magnesia 30 Ml Oral.Susp) 30 ml PO DAILY PRN PRN Reason: Constipation Melatonin (Melatonin 3 Mg Tablet) 6 mg PO BEDTIME PRN PRN Reason: Insomnia Multivitamins/Vitamin C (Multivitamin Tablet) 1 tab PO DAILY [facility] Last Admin: 01/07/25 07:59 Dose: 1 tab Documented By: GINO Omeprazole (Omeprazole 20 Mg Capsule.) 20 mg PO BID [facility] Last Admin: 01/07/25 07:59 Dose: 20 mg Documented By: GINO Ondansetron HCl (Ondansetron Hcl 4 Mg/2 Ml Vial) 4 mg IVPUSH Q8H PRN PRN Reason: Nausea and Vomiting Pharmacy Consult (Consult Rx Vancomycin Dosing) 1 each MISCELLANE DAILY PRN PRN Reason: Consult order Polyethylene Glycol (Polyethylene Glycol 3350 17 Gm Powd.Pack) 17 gm PO DAILY PRN PRN Reason: Constipation Prednisone (Prednisone 20 Mg Tablet) 60 mg PO BID [facility] Last Admin: 01/07/25 07:58 Dose: 60 mg Documented By: GINO Primidone (Primidone 50 Mg Tablet) 50 mg PO BID [facility] On Hold: 01/05/25 21:00 Sodium Chloride (0.9 % Sodium Chloride Flush 3 Ml Syringe) 3 ml IVFLUSH QSHIFT [facility] Last Admin: 01/07/25 08:00 Dose: 3 ml Documented By: GINO Labs 01/07/25 06:30 01/07/25 06:30 Labs: Laboratory Results - last 24 hr 01/05/25 01/06/25 01/07/25 11:49 14:43 06:30 MCV 80.5 MCH 25.6 L MCHC 31.8 RDW 19.8 H Plt Count 6 L* MPV Not Reportable Absolute Nucleated RBC 0.020 H Nucleated RBC % (auto) 1.0 H Anion Gap 15 Estim Creat Clear Calc 113.3 Estimated GFR > 60 Random Glucose 161 H Calcium 8.9 Urine Color Dark Yellow Urine Appearance Clear Urine pH 5.5 Ur Specific [place] 1.015 Urine Protein 100 (2+) H Urine Glucose (UA) Negative Urine Ketones Negative Urine Blood Small (1+) H Urine Nitrite Negative Ur Leukocyte Esterase Negative Urine RBC 0-2 Urine WBC 0-5 Ur Squamous Epith Cells 0-2 Urine Bacteria None Seen Hyaline Casts 0-2 Blood Type O Positive Antibody Screen NEGATIVE Crossmatch See Detail Microbiology Microbiology Results: Microbiology 01/05/25 14:50 Blood Culture - Preliminary Blood - Venous No growth after 24 hours. 01/05/25 14:50 Blood Culture - Preliminary Blood - Venous No growth after 24 hours. Assessment and Plan (1) Major depressive disorder, recurrent severe without psychotic features: Status: Acute (2) Pancytopenia: Status: Acute Plan This is a 64-year-old male with pertinent history of achalasia status post surgery, mood disorder, mixed hyperlipidemia, hypertension, gastroesophageal reflux disease, hypothyroidism, pancytopenia previously seen by heme--He presented with depression and SI, and has more pronounced pancytopenia and elevated LFTs Major Depression with SI with active to hang self, he thinks it was related to Caplyta, today no SI 1:1 sitter for [facility] Psych consult recommends: hold Caplyta (lumateperone) is a second-generation (atypical) antipsychotic approved for the treatment of schizophrenia and bipolar depression in adults. Safety tray Pancytopenia with Plat of 6, no active bleed, possible med related vs bone marrow disorder--hold primidone, and Caplyta Hematology following Hemolysis work up appear negative thus far Transfuses 3 units of Plat so far, Plat 6 from 4 yesterda Started on Prednisone and IVIG 01/06 avoid ASA, heparin Will need Bone marrow Bx when plat improves, referal was made to [facility] for possible transfer no bed [place] no imidiate indication for transfer Neutropenic Fever CXR, CT of abd pelvis negative Started on Vanco and Levaquin and Cefepim 01/06, fevers now resolved, tachcyardia resolved. Stop Levaquin since tolerating Cefepime despite Pen allergy which was as a child Follow blood cultures check HIV ID consult Elevated LFTs hold statin US of liver = fatty liver disease CT of abd and pelvis no acute finding Neutorp Gastroesophageal reflux disease PPI HLD hold statin d/t high lfts Hypertension Lisinopril/HCTZ DVT prophylaxis: low risk given low plat, Full code Quality Stroke Does the patient have a stroke diagnosis?: No VTE Prior VTE?: No VTE Risk Level:: Medical - low VTE Device Contraindication: Treatment Not Indicated VTE Drug Contraindication: Treatment Not Indicated
--- NOTE | 2025-01-07 14:25 | HE.PHANOTE ---
RE: VANCO Trough returned at 4.2. Increasing dose to 1500 mg Q8H with predicted AUC of 497 and trough of 13.3. Next trough due 01/08 @1300. Will continue to monitor.
--- NOTE | 2025-01-07 15:04 | W.PM.IDCN ---
History of Present Illness Data of Consult Service Date: 01/07/25 Requesting physician: Marc Obregonnyu [facility] Primary Care Provider: Shaji Huntley MD HPI Reason for consult: pancytopenia?infection/fever He presents to hospital with weakness and fatigue and suicidal intent to hang himself. He has pancytopenia. He has temperature yesterday 101 and was started on antibiotics and pending blood cultures. Review of Systems Review of Systems: Yes all other systems are reviewed and are negative PMFSH Past Medical History Medical History Elevated PSA Hypothyroidism Essential (primary) hypertension Thrombocytopenia Attention deficit disorder Dissociative disorder Chronic post-traumatic stress disorder (PTSD) Major depressive disorder, recurrent severe without psychotic features Social History Social History Household Members: Other Household Members Other:: intermediate Housing: Other Housing Other:: in a intermediate Do you presently have visiting nurse or other home services: No Alcohol intake: former Comment: sitter at bedside Patient Tobacco Use Status: Never used Tobacco Smoked in Last 30 Days: No Use of substances other than those prescribed or required for medical reasons: No Substance Use Type: Marijuana Currently Displaying Signs/Symptoms of Drug Intoxication Withdrawal: No Have you been hit, kicked, punched, or otherwise hurt by someone within the past year? If so, by whom?: No Do you feel safe in your current relationship?: No Current Relationship Is there a partner from a previous relationship who is making you feel unsafe now?: No Are you made to feel afraid or neglected: No Advance Directives: No Advance Directives Information Provided: Yes Do you have a plan to hurt others: Specific Recently lost weight without trying: No How much weight loss: Not applicable Eating poorly because of decreased appetite: No Nutrition screen score: 0 Nutrition Risks: No Nutritional Risk Poor oral hygiene: No service: No Meds Allergies Allergy/AdvReac Type Severity Reaction Status Date / Time clindamycin Allergy Intermediate Unknown Verified 01/05/25 08:32 haloperidol (From Haldol) Allergy Intermediate Unknown Verified 01/05/25 08:32 NSAIDS (Non-Steroidal Allergy Intermediate Unknown Verified 01/05/25 08:32 Anti-Inflamma Penicillins Allergy Intermediate Anaphylaxis Verified 01/07/25 12:45 Active Medications: Current Medications Acetaminophen (Acetaminophen 325 Mg Tablet) 650 mg PO Q6H PRN PRN Reason: Pain, Mild 1-3,fever,headache Last Admin: 01/06/25 11:17 Dose: 650 mg Acetaminophen (Acetaminophen 325 Mg Tablet) 650 mg PO ONCE@1600 [facility] Stop: 01/07/25 16:01 Calcium Carbonate (Calcium Carbonate 750 Mg Tab.Chew) 750 mg PO Q4H PRN PRN Reason: Heartburn Clotrimazole (Clotrimazole 1 % Cream 15 Gm Tube) 1 appl TOPICAL DAILY [facility]; Protocol Last Admin: 01/07/25 07:59 Dose: Not Given Diphenhydramine HCl (Diphenhydramine Hcl 50 Mg/Ml Vial) 50 mg IVPUSH ONCE@1600 [facility] Stop: 01/07/25 16:01 Finasteride (Finasteride 5 Mg Tablet) 5 mg PO DAILY [facility] Last Admin: 01/07/25 07:59 Dose: 5 mg Hydrochlorothiazide (Hydrochlorothiazide 25 Mg Tablet) 25 mg PO DAILY [facility] Last Admin: 01/07/25 07:59 Dose: 25 mg Hydroxyzine HCl (Hydroxyzine Hcl 50 Mg Tablet) 50 mg PO QID [facility] Last Admin: 01/07/25 12:21 Dose: 50 mg Immune Globulin (Gammagard 10%) 30 gm in 300 mls @ 68 mls/hr IV DAILY@1700 [facility] Stop: 01/07/25 21:25 Last Admin: 01/07/25 09:35 Dose: Not Given Cefepime HCl (Maxipime) 2 gm in 50 mls @ 100 mls/hr IV Q8H [facility] Last Infusion: 01/07/25 13:26 Dose: Infused Immune Globulin (Gammagard 10%) 30 gm in 300 mls @ 68 mls/hr IV DAILY@2100 [facility] Stop: 01/08/25 01:25 Last Admin: 01/07/25 09:36 Dose: Not Given Immune Globulin (Gammagard 10%) 20 gm in 200 mls @ 68 mls/hr IV DAILY@0100 [facility] Stop: 01/08/25 03:57 Last Infusion: 01/07/25 06:01 Dose: Infused Immune Globulin (Gammagard 10%) 20 gm in 200 mls @ 68 mls/hr IV DAILY@0500 [facility] Stop: 01/08/25 07:57 Last Infusion: 01/07/25 09:30 Dose: Infused Vancomycin HCl 1,500 mg/ (Sodium Chloride) 500 mls @ 333.333 mls/hr IV Q8H [facility] Levothyroxine Sodium (Levothyroxine Sodium 175 Mcg Tablet) 175 mcg PO DAILY@0600 [facility] Last Admin: 01/07/25 05:57 Dose: 175 mcg Lisinopril (Lisinopril 20 Mg Tablet) 20 mg PO DAILY [facility] Last Admin: 01/07/25 07:59 Dose: 20 mg Magnesium Hydroxide (Milk Of Magnesia 30 Ml Oral.Susp) 30 ml PO DAILY PRN PRN Reason: Constipation Melatonin (Melatonin 3 Mg Tablet) 6 mg PO BEDTIME PRN PRN Reason: Insomnia Multivitamins/Vitamin C (Multivitamin Tablet) 1 tab PO DAILY [facility] Last Admin: 01/07/25 07:59 Dose: 1 tab Omeprazole (Omeprazole 20 Mg Capsule.Dr) 20 mg PO BID [facility] Last Admin: 01/07/25 07:59 Dose: 20 mg Ondansetron HCl (Ondansetron Hcl 4 Mg/2 Ml Vial) 4 mg IVPUSH Q8H PRN PRN Reason: Nausea and Vomiting Pharmacy Consult (Consult Rx Vancomycin Dosing) 1 each MISCELLANE DAILY PRN PRN Reason: Consult order Polyethylene Glycol (Polyethylene Glycol 3350 17 Gm Powd.Pack) 17 gm PO DAILY PRN PRN Reason: Constipation Prednisone (Prednisone 20 Mg Tablet) 60 mg PO BID [facility] Last Admin: 01/07/25 07:58 Dose: 60 mg Primidone (Primidone 50 Mg Tablet) 50 mg PO BID [facility] On Hold: 01/05/25 21:00 Sodium Chloride (0.9 % Sodium Chloride Flush 3 Ml Syringe) 3 ml IVFLUSH QSHIFT [facility] Last Admin: 01/07/25 08:00 Dose: 3 ml Home Medications ?Medication ?Instructions ?Recorded ?Confirmed ?Last Taken ?Type B-complex with vitamin C 1 tab PO DAILY 09/27/24 01/05/25 01/04/25 History acetaminophen 650 mg 650 mg PO Q4-6H PRN Fever Or Pain 09/27/24 01/05/25 01/04/25 History tablet,extended release atorvastatin 40 mg tablet 40 mg PO DAILY 09/27/24 01/05/25 01/04/25 History clotrimazole 1 % topical cream 1 appl topical DAILY 09/27/24 01/05/25 01/04/25 History guaifenesin 200 mg/5 mL oral liquid 200 - 400 mg PO Q4H PRN Cough 09/27/24 01/05/25 Unknown History guanfacine 2 mg tablet 2 mg PO BEDTIME 09/27/24 01/05/25 01/04/25 History hydroxyzine HCl 50 mg tablet 50 mg PO QID 09/27/24 01/05/25 01/04/25 History ketoconazole 2 % topical cream 1 appl topical DAILY 09/27/24 01/05/25 01/04/25 History lisinopril 20 1 tab PO DAILY 09/27/24 01/05/25 01/04/25 History mg-hydrochlorothiazide 25 mg tablet (Zestoretic) magnesium hydroxide 400 mg/5 mL 30 ml PO DAILY PRN Constipation 09/27/24 01/05/25 Unknown History oral suspension (Milk of Magnesia) meclizine 25 mg tablet 25 mg PO TID PRN Vertigo 09/27/24 01/05/25 Unknown History naloxone 4 mg/actuation nasal 4 mg intranasal Q3M PRN Opiate 09/27/24 01/05/25 Unknown History spray (Narcan) Reversal primidone 50 mg tablet 50 mg PO BID 09/27/24 01/05/25 01/04/25 History vitamin B complex 1 tab PO BEDTIME 09/27/24 01/05/25 01/04/25 History levothyroxine 175 mcg tablet 175 mcg PO DAILY@0600 01/05/25 01/05/25 01/04/25 History lumateperone 42 mg capsule 42 mg PO BEDTIME 01/05/25 01/05/25 Unknown History (Caplyta) Physical Exam Vital Signs: Vital Signs: Last Vital Signs Temp 97.9 F 01/07/25 14:44 Pulse 90 01/07/25 14:44 Resp 18 01/07/25 14:44 BP 115/76 01/07/25 14:44 Pulse Ox 97 01/07/25 07:31 O2 Del Method Room Air 01/07/25 07:31 BMI result Body Mass Index 37.9 Const: General: cooperative HEENT: Head: Yes normal to inspection Face and sinus: Yes normal facial exam Mouth: Normal oral and palatal mucosa present Teeth and gingiva: dentition normal Eyes: General: appearance normal, both eyes and all related structures Pupils: Equal, round and reactive pupils present Resp: Effort & Inspection: normal respiratory effort Cardio: Rate: regular rate Rhythm: regular rhythm GI: Palpation (GI): Soft to palpation and nontender : General: Yes no CVA tenderness Back/Spine/Pelvis: Back: no CVA tenderness Skin: General skin exam: no rashes or lesions noted Neuro: General: moves all extremities Cranial nerves: Yes Equal, round and reactive pupils present Extrem: General: Yes normal to inspection Psych: Appearance: grossly normal Results Labs 01/07/25 06:30 01/07/25 06:30 Labs: Short CBC 01/07/25 Range/Units 06:30 WBC 1.9 L (4.8-10.8) X10*3/uL Hgb 8.8 L (14.0-18.0) g/dl Hct 27.7 L (42.0-52.0) % Plt Count 6 L* (160-400) X10*3/uL BMP 01/07/25 06:30 Sodium 135 Potassium 4.3 Chloride 103 Carbon Dioxide 21 L BUN 27 H Creatinine 1.01 Calcium 8.9 Microbiology Microbiology Results: Microbiology 01/05/25 14:50 Blood - Venous Blood Culture - Preliminary No growth after 24 hours. 01/05/25 14:50 Blood - Venous Blood Culture - Preliminary No growth after 24 hours. Assessment and Plan (1) Pancytopenia: Status: Acute Plan The pancytopenia may be due to sepsis ,medication,tick borne,CVD or virus. Check HIV and smear for tickborne pathogens. Stop antibiotics if blood culture negative as XR and CT unremarkable. Hematology evaluate patient.
--- NOTE | 2025-01-07 15:08 | P.PNHO-ONC_ITS ---
Medical Summary - Medical Summary Date of Service: 01/07/25 Primary Care Provider: Shaji Huntley MD Optical Designer Utilized?: No - Polish Speaking Interval History Interval history: Lemuel Maldonado is a 64 year old male with history of PTSD, depression, ADHD, resident of detention was brought to the emergency department because of increasing depression as well as symptoms of feeling weak. He says that he has been having body aches, chills and night sweats for last several days. He was started on a new antidepressant Caplyta recently and he thinks that caused him to have worsening symptoms of depression. Patient is aware of low platelets. He was seen by bridal stylist sales consultant at [facility] a few weeks ago. He says he has another follow-up coming up in a month or so. Patient was seen by this brief writer in September for thrombocytopenia. During that admission he was admitted for acute pancreatitis. He was recently started on primidone and this was also raised as a cause for cytopenias, mainly agranulocytosis and sometimes aplastic anemia. Patient denies any fevers but says he has been having night sweats. No loss of appetite or weight loss. He denies chest pain, shortness of breath or abdominal pain. He denies change in bowel habits. He has not been on any recent antibiotics. He feels better today. Fevers have resolved. No abdominal pain, bruising, hematochezia melena. Review of Systems - Neurologic Denies dizziness, Denies loss of vision, Denies numbness, Denies tingling, Reports weakness PMFSH Medical History: Medical History (Last Reviewed 01/07/25 @ 15:06 by Mago Figueredo MD) Attention deficit disorder Chronic post-traumatic stress disorder (PTSD) Dissociative disorder Elevated PSA Essential (primary) hypertension Hypothyroidism Major depressive disorder, recurrent severe without psychotic features Thrombocytopenia Social History: Social History (Last Reviewed 01/07/25 @ 15:07 by Mago Figueredo MD) Living Situation History: Household Members: Other Household Members Other:: detention Housing: Other Housing Other:: in a detention Do you presently have visiting nurse or other home services: No Alcohol History Details: 1. How often do you have a drink containing alcohol?: a. Never AUDIT-C Alcohol total score: 0 Currently Displaying Signs/Symptoms of Alcohol Withdrawal: No Tobacco History: Patient Tobacco Use Status: Never used Tobacco Smoked in Last 30 Days: No Substance Use History: Use of substances other than those prescribed or required for medical reasons : No Substance Use Type: Marijuana Currently Displaying Signs/Symptoms of Drug Intoxication Withdrawal: No Domestic Abuse History: Have you been hit, kicked, punched, or otherwise hurt by someone within the past year? If so, by whom?: No Do you feel safe in your current relationship?: No Current Relationship Is there a partner from a previous relationship who is making you feel unsafe now?: No Are you made to feel afraid or neglected: No Advance Directives: Advance Directives: No Advance Directives Information Provided: Yes Homicidal Assessment: Do you have a plan to hurt others: Specific Nutrition Assessment: Recently lost weight without trying: No How much weight loss: Not applicable Eating poorly because of decreased appetite: No Nutrition screen score: 0 Nutrition Risks: No Nutritional Risk Poor oral hygiene: No Occupation Assessmet: service: No Home Medications and Allergies Current Medications: Current Medications Acetaminophen (Acetaminophen 325 Mg Tablet) 650 mg PO Q6H PRN PRN Reason: Pain, Mild 1-3,fever,headache Last Admin: 01/06/25 11:17 Dose: 650 mg Acetaminophen (Acetaminophen 325 Mg Tablet) 650 mg PO ONCE@1600 [facility] Stop: 01/07/25 16:01 Calcium Carbonate (Calcium Carbonate 750 Mg Tab.Chew) 750 mg PO Q4H PRN PRN Reason: Heartburn Clotrimazole (Clotrimazole 1 % Cream 15 Gm Tube) 1 appl TOPICAL DAILY [facility]; Protocol Last Admin: 01/07/25 07:59 Dose: Not Given Diphenhydramine HCl (Diphenhydramine Hcl 50 Mg/Ml Vial) 50 mg IVPUSH ONCE@1600 [facility] Stop: 01/07/25 16:01 Finasteride (Finasteride 5 Mg Tablet) 5 mg PO DAILY [facility] Last Admin: 01/07/25 07:59 Dose: 5 mg Hydrochlorothiazide (Hydrochlorothiazide 25 Mg Tablet) 25 mg PO DAILY [facility] Last Admin: 01/07/25 07:59 Dose: 25 mg Hydroxyzine HCl (Hydroxyzine Hcl 50 Mg Tablet) 50 mg PO QID [facility] Last Admin: 01/07/25 12:21 Dose: 50 mg Immune Globulin (Gammagard 10%) 30 gm in 300 mls @ 68 mls/hr IV DAILY@1700 [facility] Stop: 01/07/25 21:25 Last Admin: 01/07/25 09:35 Dose: Not Given Cefepime HCl (Maxipime) 2 gm in 50 mls @ 100 mls/hr IV Q8H [facility] Last Infusion: 01/07/25 13:26 Dose: Infused Immune Globulin (Gammagard 10%) 30 gm in 300 mls @ 68 mls/hr IV DAILY@2100 [facility] Stop: 01/08/25 01:25 Last Admin: 01/07/25 09:36 Dose: Not Given Immune Globulin (Gammagard 10%) 20 gm in 200 mls @ 68 mls/hr IV DAILY@0100 [facility] Stop: 01/08/25 03:57 Last Infusion: 01/07/25 06:01 Dose: Infused Immune Globulin (Gammagard 10%) 20 gm in 200 mls @ 68 mls/hr IV DAILY@0500 [facility] Stop: 01/08/25 07:57 Last Infusion: 01/07/25 09:30 Dose: Infused Vancomycin HCl 1,500 mg/ (Sodium Chloride) 500 mls @ 333.333 mls/hr IV Q8H [facility] Levothyroxine Sodium (Levothyroxine Sodium 175 Mcg Tablet) 175 mcg PO DAILY@0600 [facility] Last Admin: 01/07/25 05:57 Dose: 175 mcg Lisinopril (Lisinopril 20 Mg Tablet) 20 mg PO DAILY [facility] Last Admin: 01/07/25 07:59 Dose: 20 mg Magnesium Hydroxide (Milk Of Magnesia 30 Ml Oral.Susp) 30 ml PO DAILY PRN PRN Reason: Constipation Melatonin (Melatonin 3 Mg Tablet) 6 mg PO BEDTIME PRN PRN Reason: Insomnia Multivitamins/Vitamin C (Multivitamin Tablet) 1 tab PO DAILY [facility] Last Admin: 01/07/25 07:59 Dose: 1 tab Omeprazole (Omeprazole 20 Mg Capsule.Dr) 20 mg PO BID [facility] Last Admin: 01/07/25 07:59 Dose: 20 mg Ondansetron HCl (Ondansetron Hcl 4 Mg/2 Ml Vial) 4 mg IVPUSH Q8H PRN PRN Reason: Nausea and Vomiting Pharmacy Consult (Consult Rx Vancomycin Dosing) 1 each MISCELLANE DAILY PRN PRN Reason: Consult order Polyethylene Glycol (Polyethylene Glycol 3350 17 Gm Powd.Pack) 17 gm PO DAILY PRN PRN Reason: Constipation Prednisone (Prednisone 20 Mg Tablet) 60 mg PO BID [facility] Last Admin: 01/07/25 07:58 Dose: 60 mg Primidone (Primidone 50 Mg Tablet) 50 mg PO BID [facility] On Hold: 01/05/25 21:00 Sodium Chloride (0.9 % Sodium Chloride Flush 3 Ml Syringe) 3 ml IVFLUSH QSHIFT [facility] Last Admin: 01/07/25 08:00 Dose: 3 ml Home Medications ?Medication ?Instructions ?Recorded ?Confirmed ?Type B-complex with vitamin C 1 tab PO DAILY 09/27/24 01/05/25 History acetaminophen 650 mg 650 mg PO Q4-6H PRN Fever Or Pain 01/05/25 History tablet,extended release atorvastatin 40 mg tablet 40 mg PO DAILY 09/27/24 01/05/25 History clotrimazole 1 % topical cream 1 appl topical DAILY 09/27/24 01/05/25 H istory guaifenesin 200 mg/5 mL oral liquid 200 - 400 mg PO Q4H PRN Cough 09/27/24 01/05/25 History guanfacine 2 mg tablet 2 mg PO BEDTIME 09/27/24 01/05/25 Histor y hydroxyzine HCl 50 mg tablet 50 mg PO QID 09/27/24 01/05/25 History ketoconazole 2 % topical cream 1 appl topical DAILY 09/27/24 01/05/25 H istory lisinopril 20 1 tab PO DAILY 09/27/24 01/05/25 History mg-hydrochlorothiazide 25 mg tablet (Zestoretic) magnesium hydroxide 400 mg/5 mL 30 ml PO DAILY PRN Constipation 09/27/24 01/05/25 History oral suspension (Milk of Magnesia) meclizine 25 mg tablet 25 mg PO TID PRN Vertigo 09/27/24 History naloxone 4 mg/actuation nasal 4 mg intranasal Q3M PRN Opiate 09/27/24 01/05/25 History spray (Narcan) Reversal primidone 50 mg tablet 50 mg PO BID 09/27/24 01/05/25 History vitamin B complex 1 tab PO BEDTIME 09/27/24 01/05/25 Histo ry levothyroxine 175 mcg tablet 175 mcg PO DAILY@0600 01/05/25 01/05/25 History lumateperone 42 mg capsule 42 mg PO BEDTIME 01/05/25 01/05/25 Histo ry (Caplyta) Allergies Allergy/AdvReac Type Severity Reaction Status Date / Time clindamycin Allergy Intermediate Unknown Verified 01/05/25 08:32 haloperidol (From Haldol) Allergy Intermediate Unknown Verified 01/05/25 08:32 NSAIDS (Non-Steroidal Allergy Intermediate Unknown Verified 01/05/25 08:32 Anti-Inflamma Penicillins Allergy Intermediate Anaphylaxis Verified 01/07/25 12:45 Exam Vital signs: Vital Signs Temp 97.9 F 01/07/25 14:44 Pulse 90 01/07/25 14:44 Resp 18 01/07/25 14:44 BP 115/76 01/07/25 14:44 Pulse Ox 97 01/07/25 07:31 O2 Del Method Room Air 01/07/25 07:31 Intake & Output 01/06/25 01/07/25 01/07/25 18:59 06:59 18:59 Intake Total 1671 / 3461 1790 / 3461 1542 / 1542 Output Total 1000 / 1800 800 / 1800 1360 / 1360 Balance 671 / 1661 990 / 1661 182 / 182 Urine Output (Average ml/kg/hr) 0.61 0.48 0.82 Intake: Intake, Oral Amount 480 / 1100 620 / 1100 940 / 940 Intake (Blood Product) Amount 591 / 591 252 / 252 Plt Aph Pas Pathreduced(E8342) 343 / 343 Unit [id number] Plt Aph Pas Pathreduced(E8343) 252 / 252 Unit [id number] Plt Aph Pas Pathreduced(E8343) 248 / 248 Unit [id number] Intake, IV Amount 600 / 1770 1170 / 1770 350 / 350 Immune Globulin 10% Gammagard 200 / 200 200 / 200 20 gm In 200 ml @ As Directed 68 mls/hr IV DAILY@0500 [facility] Rx# :[id number] Immune Globulin 10% Gammagard 600 / 600 30 gm In 300 ml @ As Directed 68 mls/hr IV DAILY@2100 [facility] Rx# :[id number] cefEPime HCl/D5W 2 gm In 50 ml 100 / 100 50 / 50 @ 100 mls/hr IV Q8H [facility] Rx#: [id number] levoFLOXacin/D5W 500 mg In 100 100 / 100 100 / 100 ml @ 100 mls/hr IV Q24H [facility] Rx# :[id number] vancomycin HCL 1,000 mg In 0.9 270 / 270 % Sodium Chloride 250 ml @ 270 mls/hr IV Q12H [facility] Rx#: [id number] vancomycin/NS 2,000 mg In 500 500 / 500 ml @ 250 mls/hr IV ONCE ONE Rx# :[id number] Output: Output, Urine Amount 1000 / 1800 800 / 1800 1360 / 1360 Other: Meal Refused No NPO No Breakfast % Eaten 100% Lunch % Eaten 75% 100% Evening Snack % Eaten 100 Eating (Feeding) Ability Independent Independent Independent Number of Unmeasured Voids 1 1 Urine Urinal Urinal Urinal Urine Color [place] Yellow Yellow Last Bowel Movement 01/06/25 01/06/25 01/06/25 Weight 137.5 kg BMI result Body Mass Index 37.9 - Constitutional Present: no acute distress, morbidly obese - Routine HEENT Exam Head: Present: normal inspection - Routine Respiratory Exam Present: CTAB. Absent: accessory muscle use - Routine Cardiovascular Exam Cardiovascular: Present: S1, S2 - Routine Abdominal Exam Present: soft - Routine Extremities Exam Absent: pedal edema - Routine Skin Exam Present: intact - Routine Neurological Exam Present: alert, oriented X3 Data - Labs CBC & Chem 7: 01/07/25 06:30 01/07/25 06:30 - Imaging Radiologist's impression: ITS Impressions Head CT 01/05/25 10:16 IMPRESSION: No acute intracranial abnormality. Electronically signed by: Marc Guajardo MD 01/05/2025 11:38 AM EDT RP Chest X-Ray 01/06/25 10:44 IMPRESSION: No acute airspace disease. Multilevel spondylosis. Electronically signed by: Hipolito Castillo MD 01/06/2025 12:13 PM EDT RP Abdomen/Pelvis CT 01/06/25 16:12 IMPRESSION: 1. No acute findings in the abdomen or pelvis. 2. Ancillary findings as discussed. Electronically signed by: Hong Reed MD 01/06/2025 05:07 PM EDT Assessment and Plan Patient Active problem list reviewed?: Yes (1) Pancytopenia Status: Acute Assessment and plan: 1. This is a 64-year-old male admitted for worsening thrombocytopenia/pancytopenia. His past medical history significant for major depression, PTSD, dissociated disorder. Patient was seen in September 2024 for thrombocytopenia, at that time his platelets were about 50 K. Previously in 2023 it was in the 140s. His thrombocytopenia at that time was felt to be related to use of primidone which can cause cytopenias, agranulocytosis and aplastic anemia. He was subsequently seen by bridal stylist sales consultant at [facility] in November 2024. They also felt that he needed to come off primidone. He did not get a bone marrow aspiration/biopsy. Hematological workup at [facility] has shown that he has beta thalassemia trait. Blood work today shows elevation in total bilirubin as well as LDH. Haptoglobin is normal. He has severe thrombocytopenia with platelet count of 5. He has reticulocytopenia. This raises possibilities of drug-induced aplastic anemia, pancytopenia secondary to primary bone marrow disorder such as myelodysplastic syndrome as well as leukemia. Agree with platelet and blood transfusion. Ultrasound abdomen Demonstrated steatosis. Normal vitamin B12 and folate levels. Primidone is on hold. CT-guided bone marrow aspiration/biopsy pending. CBCD shows persistent pancytopenia, no improvement in platelets at all. 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 He received 1 dose of IVIG, 100 g based on adjusted body weight. He is on prednisone 60 mg b.i.d.. He is on broad-spectrum antibiotics for neutropenic fever, this has now resolved. Blood cultures so far are negative. Bone marrow biopsy can be done if his platelet counts come above 20 K. - Time Spent With Patient Time Spent with Patient (in minutes): 10 Additional Coding: - Additional E/M codes Complex E/M visit Add On: CPT G2211
[2025-01-07] MEDS: Immune Globulin 10% Gammagard 30 GM/300 ML VIAL IV ×2 (18:03→22:48)
[2025-01-08] VITALS (14 sets, daily range): BP systolic 123–167; BP diastolic 70–102; PULSE 61–104; RESP 16–20; TEMP 36.2–36.8; O2SAT 95–97
[2025-01-08] MEDS: Immune Globulin 10% Gammagard 20 GM/200 ML VIAL IV ×2 (03:07→05:58)
[2025-01-08 04:02] LABS: HIV Num 1 0.07 S/CO (0.00-0.99)
[2025-01-08] MEDS: cefEPime HCl/D5W 2 GM/50 ML PIGGYBACK IV ×3 (04:03→20:15)
[2025-01-08 08:32] LABS: Hematocrit 25.9 % (42.0-52.0); Hemoglobin 8.2 g/dl (14.0-18.0); Mean Corpuscular HGB Conc 31.7 g/dl (31.0-36.0); Mean Corpuscular Hemoglobin 25.4 pg (27.0-33.0); Mean Corpuscular Volume 80.2 fL (80.0-98.0); NRBC Abs Auto 0.000 X10*3/uL (0.0-0.012); NRBC Pct Auto 0.0 /100WBC (0.0-0.2); Red Blood Count 3.23 X10*6/uL (4.60-5.80); White Blood Count 2.6 X10*3/uL (4.8-10.8)
[2025-01-08 08:38] LABS: Creatinine Clr Calc Pharmacy 120.5; Estimated Glomerular Filt Rate > 60
[2025-01-08 08:53] LABS: PLT ABN DIST 1; Platelet Count 5 X10*3/uL (160-400)
[2025-01-08] MEDS: 0.9 % Sodium Chloride Flush 3 ML SYRINGE IVFLUSH ×2 (09:20→21:30)
--- NOTE | 2025-01-08 10:11 | HO.PM.IMPN ---
Subjective Subjective Date of Service: 01/08/25 Interval History: f/u major depression with SI, pancytopenia with severe thrombocytopenia but no bleeding and has been experiencing Neutropenic fever. total of 4 units of Plat thus far, plat still low at 5, on Prednisone and IVIG. Neutropenic fever is better with no further fevef, BP good, WBC is better but ANC still zero Review of Systems No fever, no SI today, no bleeding Physical Exam Vital Signs: Vital Signs: Last Vital Signs Temp 97.2 F 01/08/25 07:13 Pulse 104 H 01/08/25 07:13 Resp 18 01/08/25 07:13 BP 148/102 H 01/08/25 09:19 Pulse Ox 97 01/08/25 07:13 O2 Del Method Room Air 01/08/25 07:13 BMI result Body Mass Index 37.9 Const: Other: General: AO X 3, no acute distress Resp: CTA bilateral CVS: S1,S2,RRR GI: +BS, NT, no distention Skin: No rash Neuro: motor grossly intact Psych: depressed, +SI, no HI Objective Data Active Medications Acetaminophen (Acetaminophen 325 Mg Tablet) 650 mg PO Q6H PRN PRN Reason: Pain, Mild 1-3,fever,headache Last Admin: 01/06/25 11:17 Dose: 650 mg Documented By: ALLISON Calcium Carbonate (Calcium Carbonate 750 Mg Tab.Chew) 750 mg PO Q4H PRN PRN Reason: Heartburn Clotrimazole (Clotrimazole 1 % Cream 15 Gm Tube) 1 appl TOPICAL DAILY [facility]; Protocol Last Admin: 01/08/25 09:20 Dose: Not Given Documented By: JONATHAN Non-Admin Reason: Patient Refused Finasteride (Finasteride 5 Mg Tablet) 5 mg PO DAILY [facility] Last Admin: 01/08/25 09:19 Dose: 5 mg Documented By: JONATHAN Hydrochlorothiazide (Hydrochlorothiazide 25 Mg Tablet) 25 mg PO DAILY [facility] Last Admin: 01/08/25 09:19 Dose: 25 mg Documented By: JONATHAN Hydroxyzine HCl (Hydroxyzine Hcl 50 Mg Tablet) 50 mg PO QID [facility] Last Admin: 01/08/25 09:20 Dose: 50 mg Documented By: JONATHAN Cefepime HCl (Maxipime) 2 gm in 50 mls @ 100 mls/hr IV Q8H [facility] Last Infusion: 01/08/25 05:08 Dose: Infused Documented By: NANCIE Vancomycin HCl 1,500 mg/ (Sodium Chloride) 500 mls @ 333.333 mls/hr IV Q8H [facility] Last Infusion: 01/08/25 09:00 Dose: Infused Documented By: JONATHAN Levothyroxine Sodium (Levothyroxine Sodium 175 Mcg Tablet) 175 mcg PO DAILY@0600 [facility] Last Admin: 01/08/25 06:26 Dose: 175 mcg Documented By: NANCIE Lisinopril (Lisinopril 20 Mg Tablet) 20 mg PO DAILY [facility] Last Admin: 01/08/25 09:20 Dose: 20 mg Documented By: JONATHAN Magnesium Hydroxide (Milk Of Magnesia 30 Ml Oral.Susp) 30 ml PO DAILY PRN PRN Reason: Constipation Melatonin (Melatonin 3 Mg Tablet) 6 mg PO BEDTIME PRN PRN Reason: Insomnia Multivitamins/Vitamin C (Multivitamin Tablet) 1 tab PO DAILY [facility] Last Admin: 01/08/25 09:20 Dose: 1 tab Documented By: JONATHAN Omeprazole (Omeprazole 20 Mg Capsule.Dr) 20 mg PO BID [facility] Last Admin: 01/08/25 09:20 Dose: 20 mg Documented By: JONATHAN Ondansetron HCl (Ondansetron Hcl 4 Mg/2 Ml Vial) 4 mg IVPUSH Q8H PRN PRN Reason: Nausea and Vomiting Pharmacy Consult (Consult Rx Vancomycin Dosing) 1 each MISCELLANE DAILY PRN PRN Reason: Consult order Polyethylene Glycol (Polyethylene Glycol 3350 17 Gm Powd.Pack) 17 gm PO DAILY PRN PRN Reason: Constipation Prednisone (Prednisone 20 Mg Tablet) 60 mg PO BID [facility] Last Admin: 01/08/25 09:20 Dose: 60 mg Documented By: JONATHAN Primidone (Primidone 50 Mg Tablet) 50 mg PO BID [facility] On Hold: 01/05/25 21:00 Sodium Chloride (0.9 % Sodium Chloride Flush 3 Ml Syringe) [facility] Last Admin: 01/08/25 09:20 Dose: 3 ml Documented By: JONATHAN Labs 01/08/25 08:13 01/08/25 08:13 Labs: Laboratory Results - last 24 hr 01/05/25 01/07/25 01/07/25 11:49 13:38 13:43 MCV MCH MCHC RDW Plt Count MPV Absolute Nucleated RBC Nucleated RBC % (auto) Estim Creat Clear Calc Estimated GFR Hold Yellow Top Cancelled Random Vancomycin 4.2 L HIV 1&2 Ab/P24 Ag 4thGn Nonreactive Blood Type O Positive Antibody Screen NEGATIVE Crossmatch See Detail 01/08/25 08:13 MCV 80.2 MCH 25.4 L MCHC 31.7 RDW 19.7 H Plt Count 5 L* MPV Not Reportable Absolute Nucleated RBC 0.000 Nucleated RBC % (auto) 0.0 Estim Creat Clear Calc 120.5 Estimated GFR > 60 Hold Yellow Top Random Vancomycin HIV 1&2 Ab/P24 Ag 4thGn Blood Type Antibody Screen Crossmatch Microbiology Microbiology Results: Microbiology 01/05/25 14:50 Blood Culture - Preliminary Blood - Venous No growth after 48 hours. 01/05/25 14:50 Blood Culture - Preliminary Blood - Venous No growth after 48 hours. 01/06/25 13:16 Blood Culture - Preliminary Blood - Venous No growth after 24 hours. 01/06/25 13:15 Blood Culture - Preliminary Blood - Venous No growth after 24 hours. Assessment and Plan (1) Major depressive disorder, recurrent severe without psychotic features: Status: Acute (2) Pancytopenia: Status: Acute Plan This is a 64-year-old male with pertinent history of achalasia status post surgery, mood disorder, mixed hyperlipidemia, hypertension, gastroesophageal reflux disease, hypothyroidism, pancytopenia previously seen by tyler--He presented with depression and SI, and has more pronounced pancytopenia and elevated LFTs Major Depression with SI with active to hang self, he thinks it was related to Caplyta, today no SI 1:1 sitter for now, CARE to asses for need for Psych consult recommends: hold Caplyta (lumateperone) is a second-generation (atypical) antipsychotic approved for the treatment of schizophrenia and bipolar depression in adults. Safety tray Pancytopenia with Plat of 5, no active bleed, possible med related vs bone marrow disorder--hold primidone, and Caplyta Hematology following Hemolysis work up appear negative thus far Transfuses 4 units of Plat so far, Plat 5 from 6 yesterdy, requested 3 units today Started on Prednisone and IVIG 01/06 avoid ASA, heparin Will need Bone marrow Bx when plat improves, referal was made to [facility] for possible transfer no bed [place] no imidiate indication for transfer Further testing being conducted by hematology Neutropenic Fever CXR, CT of abd pelvis negative Started on Vanco and Levaquin and Cefepim 01/06, fevers now resolved, tachcyardia resolved. Stop Levaquin since tolerating Cefepime despite Pen allergy which was as a child Follow blood cultures HIV is negative ID consult: ID recommend Tick born smear, to stop Abx if cultures negative. Elevated LFTs hold statin US of liver = fatty liver disease CT of abd and pelvis no acute finding Neutorp Gastroesophageal reflux disease PPI HLD hold statin d/t high lfts Hypertension Lisinopril/HCTZ DVT prophylaxis: low risk given low plat, Full code Quality Stroke Does the patient have a stroke diagnosis?: No VTE Prior VTE?: No VTE Risk Level:: Medical - low VTE Device Contraindication: Treatment Not Indicated VTE Drug Contraindication: Treatment Not Indicated
--- NOTE | 2025-01-08 10:37 | PM.HEMONCPN ---
Medical Summary - Medical Summary Date of Service: 01/08/25 Chief complaint: pancytopenia Primary Care Provider: Shaji Huntley MD Engineering Designer Utilized?: No - Vietnamese Speaking Interval History Interval history: Lemuel Maldonado is a 64 year old male with history of PTSD, depression, ADHD, resident of prison was brought to the emergency department because of increasing depression as well as symptoms of feeling weak. He says that he has been having body aches, chills and night sweats for last several days. He was started on a new antidepressant Caplyta recently and he thinks that caused him to have worsening symptoms of depression. Patient is aware of low platelets. He was seen by geotechnician at [facility] a few weeks ago. He says he has another follow-up coming up in a month or so. Patient was seen by this television writer in September for thrombocytopenia. During that admission he was admitted for acute pancreatitis. He was recently started on primidone and this was also raised as a cause for cytopenias, mainly agranulocytosis and sometimes aplastic anemia. Patient denies any fevers but says he has been having night sweats. No loss of appetite or weight loss. He denies chest pain, shortness of breath or abdominal pain. He denies change in bowel habits. He has not been on any recent antibiotics. He feels better today. Fevers have resolved. No abdominal pain, bruising, hematochezia melena. Review of Systems - Constitutional Reports lack of energy - ENT Reports system reviewed and no additional complaints, except as documented - Cardiovascular Reports fast heart rate, Reports lightheadedness - Respiratory Reports dyspnea on exertion - Gastrointestinal Reports constipation - Genitourinary Genitourinary: Reports urinary frequency - Musculoskeletal Reports muscle weakness - Neurologic Reports weakness, Denies loss of vision, Denies numbness, Denies tingling PMFSH Medical History: Medical History (Last Reviewed 01/07/25 @ 15:06 by Mago Figueredo MD) Attention deficit disorder Chronic post-traumatic stress disorder (PTSD) Dissociative disorder Elevated PSA Essential (primary) hypertension Hypothyroidism Major depressive disorder, recurrent severe without psychotic features Thrombocytopenia Social History: Social History (Last Reviewed 01/07/25 @ 15:07 by Mago Figueredo MD) Living Situation History: Household Members: Other Household Members Other:: prison Housing: Other Housing Other:: in a prison Do you presently have visiting nurse or other home services: No Alcohol History Details: 1. How often do you have a drink containing alcohol?: a. Never AUDIT-C Alcohol total score: 0 Currently Displaying Signs/Symptoms of Alcohol Withdrawal: No Tobacco History: Patient Tobacco Use Status: Never used Tobacco Smoked in Last 30 Days: No Substance Use History: Use of substances other than those prescribed or required for medical reasons: No Substance Use Type: Marijuana Currently Displaying Signs/Symptoms of Drug Intoxication Withdrawal: No Domestic Abuse History: Have you been hit, kicked, punched, or otherwise hurt by someone within the past year? If so, by whom?: No Do you feel safe in your current relationship?: No Current Relationship Is there a partner from a previous relationship who is making you feel unsafe now?: No Are you made to feel afraid or neglected: No Advance Directives: Advance Directives: No Advance Directives Information Provided: Yes Homicidal Assessment: Do you have a plan to hurt others: Specific Nutrition Assessment: Recently lost weight without trying: No How much weight loss: Not applicable Eating poorly because of decreased appetite: No Nutrition screen score: 0 Nutrition Risks: No Nutritional Risk Poor oral hygiene: No Occupation Assessmet: service: No Home Medications and Allergies Current Medications: Current Medications Acetaminophen (Acetaminophen 325 Mg Tablet) 650 mg PO Q6H PRN PRN Reason: Pain, Mild 1-3,fever,headache Last Admin: 01/06/25 11:17 Dose: 650 mg Calcium Carbonate (Calcium Carbonate 750 Mg Tab.Chew) 750 mg PO Q4H PRN PRN Reason: Heartburn Clotrimazole (Clotrimazole 1 % Cream 15 Gm Tube) 1 appl TOPICAL DAILY LUCINDA; Protocol Last Admin: 01/08/25 09:20 Dose: Not Given Finasteride (Finasteride 5 Mg Tablet) 5 mg PO DAILY LUCINDA Last Admin: 01/08/25 09:19 Dose: 5 mg Hydrochlorothiazide (Hydrochlorothiazide 25 Mg Tablet) 25 mg PO DAILY LUCINDA Last Admin: 01/08/25 09:19 Dose: 25 mg Hydroxyzine HCl (Hydroxyzine Hcl 50 Mg Tablet) 50 mg PO QID LUCINDA Last Admin: 01/08/25 09:20 Dose: 50 mg Cefepime HCl (Maxipime) 2 gm in 50 mls @ 100 mls/hr IV Q8H LUCINDA Last Infusion: 01/08/25 05:08 Dose: Infused Vancomycin HCl 1,500 mg/ (Sodium Chloride) 500 mls @ 333.333 mls/hr IV Q8H [facility] Last Infusion: 01/08/25 09:00 Dose: Infused Levothyroxine Sodium (Levothyroxine Sodium 175 Mcg Tablet) 175 mcg PO DAILY@0600 [facility] Last Admin: 01/08/25 06:26 Dose: 175 mcg Lisinopril (Lisinopril 20 Mg Tablet) 20 mg PO DAILY [facility] Last Admin: 01/08/25 09:20 Dose: 20 mg Magnesium Hydroxide (Milk Of Magnesia 30 Ml Oral.Susp) 30 ml PO DAILY PRN PRN Reason: Constipation Melatonin (Melatonin 3 Mg Tablet) 6 mg PO BEDTIME PRN PRN Reason: Insomnia Multivitamins/Vitamin C (Multivitamin Tablet) 1 tab PO DAILY [facility] Last Admin: 01/08/25 09:20 Dose: 1 tab Omeprazole (Omeprazole 20 Mg Capsule.Dr) 20 mg PO BID [facility] Last Admin: 01/08/25 09:20 Dose: 20 mg Ondansetron HCl (Ondansetron Hcl 4 Mg/2 Ml Vial) 4 mg IVPUSH Q8H PRN PRN Reason: Nausea and Vomiting Pharmacy Consult (Consult Rx Vancomycin Dosing) 1 each MISCELLANE DAILY PRN PRN Reason: Consult order Polyethylene Glycol (Polyethylene Glycol 3350 17 Gm Powd.Pack) 17 gm PO DAILY PRN PRN Reason: Constipation Prednisone (Prednisone 20 Mg Tablet) 60 mg PO BID [facility] Last Admin: 01/08/25 09:20 Dose: 60 mg Primidone (Primidone 50 Mg Tablet) 50 mg PO BID [facility] On Hold: 01/05/25 21:00 Sodium Chloride (0.9 % Sodium Chloride Flush 3 Ml Syringe) 3 ml IVFLUSH QSHIFT [facility] Last Admin: 01/08/25 09:20 Dose: 3 ml Home Medications ?Medication ?Instructions ?Recorded ?Confirmed ?Type B-complex with vitamin C 1 tab PO DAILY 09/27/24 01/05/25 History acetaminophen 650 mg 650 mg PO Q4-6H PRN Fever Or Pain 09/27/24 01/05/25 History tablet,extended release atorvastatin 40 mg tablet 40 mg PO DAILY 09/27/24 01/05/25 History clotrimazole 1 % topical cream 1 appl topical DAILY 09/27/24 01/05/25 History guaifenesin 200 mg/5 mL oral liquid 200 - 400 mg PO Q4H PRN Cough 09/27/24 01/05/25 History guanfacine 2 mg tablet 2 mg PO BEDTIME 09/27/24 01/05/25 History hydroxyzine HCl 50 mg tablet 50 mg PO QID 09/27/24 01/05/25 History ketoconazole 2 % topical cream 1 appl topical DAILY 09/27/24 01/05/25 History lisinopril 20 1 tab PO DAILY 09/27/24 01/05/25 History mg-hydrochlorothiazide 25 mg tablet (Zestoretic) magnesium hydroxide 400 mg/5 mL 30 ml PO DAILY PRN Constipation 09/27/24 01/05/25 History oral suspension (Milk of Magnesia) meclizine 25 mg tablet 25 mg PO TID PRN Vertigo 09/27/24 01/05/25 History naloxone 4 mg/actuation nasal 4 mg intranasal Q3M PRN Opiate 09/27/24 01/05/25 History spray (Narcan) Reversal primidone 50 mg tablet 50 mg PO BID 09/27/24 01/05/25 History vitamin B complex 1 tab PO BEDTIME 09/27/24 01/05/25 History levothyroxine 175 mcg tablet 175 mcg PO DAILY@0600 01/05/25 01/05/25 History lumateperone 42 mg capsule 42 mg PO BEDTIME 01/05/25 01/05/25 History (Caplyta) Allergies Allergy/AdvReac Type Severity Reaction Status Date / Time clindamycin Allergy Intermediate Unknown Verified 01/05/25 08:32 haloperidol (From Haldol) Allergy Intermediate Unknown Verified 01/05/25 08:32 NSAIDS (Non-Steroidal Allergy Intermediate Unknown Verified 01/05/25 08:32 Anti-Inflamma Penicillins Allergy Intermediate Anaphylaxis Verified 01/07/25 12:45 Exam Vital signs: Vital Signs Temp 97.2 F 01/08/25 07:13 Pulse 104 H 01/08/25 07:13 Resp 18 01/08/25 07:13 BP 148/102 H 01/08/25 09:19 Pulse Ox 97 01/08/25 07:13 O2 Del Method Room Air 01/08/25 07:13 Intake & Output 0801/08/25 01/08/25 18:59 06:59 18:59 Intake Total 1877 / 3777 1900 / 3777 700 / 700 Output Total 1360 / 2460 1100 / 2460 Balance 517 / 1317 800 / 1317 700 / 700 Urine Output (Average ml/kg/hr) 0.82 0.67 0.67 Intake: Intake, Oral Amount 940 / 940 Intake (Blood Product) Amount 587 / 587 Plt Aph Pas Pathreduced(E8342) 335 / 335 Unit [id number] Plt Aph Pas Pathreduced(E8343) 252 / 252 Unit [id number] Intake, IV Amount 350 / 2250 1900 / 2250 700 / 700 Immune Globulin 10% Gammagard 200 / 400 200 / 400 200 / 200 20 gm In 200 ml @ As Directed 68 mls/hr IV DAILY@0500 [facility] Rx# :[id number] Immune Globulin 10% Gammagard 600 / 600 30 gm In 300 ml @ As Directed 68 mls/hr IV DAILY@2100 [facility] Rx# :[id number] cefEPime HCl/D5W 2 gm In 50 ml 50 / 150 100 / 150 @ 100 mls/hr IV Q8H [facility] Rx#: [id number] levoFLOXacin/D5W 500 mg In 100 100 / 100 ml @ 100 mls/hr IV Q24H [facility] Rx# :[id number] vancomycin HCL 1,500 mg In 0.9 1000 / 1000 500 / 500 % Sodium Chloride 500 ml @ 333. 333 mls/hr IV Q8H [facility] Rx#: [id number] Output: Output, Urine Amount 1360 / 2460 1100 / 2460 Output, Stool Amount 0 / 0 Other: Meal Refused No NPO No Breakfast % Eaten 100% Lunch % Eaten 100% Eating (Feeding) Ability Independent Urine Urinal Urine Color Yellow Yellow Last Bowel Movement 01/06/25 01/07/25 Weight 137.5 kg BMI result Body Mass Index 37.9 - Constitutional Present: no acute distress, morbidly obese - Routine HEENT Exam Head: Present: atraumatic, normal inspection ENT: Present: normal exam - Routine Neck Exam Present: full ROM - Routine Respiratory Exam Present: decreased breath sounds, CTAB. Absent: accessory muscle use - Routine Cardiovascular Exam Cardiovascular: Present: RRR, S1, S2 - Routine Abdominal Exam Present: hypoactive bowel sounds, soft - Routine Extremities Exam Present: nontender. Absent: pedal edema - Routine Skin Exam Present: intact - Routine Neurological Exam Present: alert, oriented X3 Data - Labs CBC & Chem 7: 01/08/25 08:13 01/08/25 08:13 - Imaging Radiologist's impression: ITS Impressions Head CT 01/05/25 10:16 IMPRESSION: No acute intracranial abnormality. Electronically signed by: Marc Guajardo MD 01/05/2025 11:38 AM EDT RP Chest X-Ray 01/06/25 10:44 IMPRESSION: No acute airspace disease. Multilevel spondylosis. Electronically signed by: Hipolito Castillo MD 01/06/2025 12:13 PM EDT RP Abdomen/Pelvis CT 01/06/25 16:12 IMPRESSION: 1. No acute findings in the abdomen or pelvis. 2. Ancillary findings as discussed. Electronically signed by: Hong Reed MD 01/06/2025 05:07 PM EDT RP Assessment and Plan Patient Active problem list reviewed?: Yes (1) Pancytopenia Problem details: Recommedn transfusion of one unit of platelets daily if platelets are below 10,000 or for clinically significant bleeding. Agree with [facility]. Status: Acute Assessment and plan: 1. This is a 64-year-old male admitted for worsening thrombocytopenia/pancytopenia. His past medical history significant for major depression, PTSD, dissociated disorder. Patient was seen in September 2024 for thrombocytopenia, at that time his platelets were about 50 K. Previously in 2023 it was in the 140s. His thrombocytopenia at that time was felt to be related to use of primidone which can cause cytopenias, agranulocytosis and aplastic anemia. He was subsequently seen by geotechnician at [facility] in November 2024. They also felt that he needed to come off primidone. He did not get a bone marrow aspiration/biopsy. Hematological workup at [facility] has shown that he has beta thalassemia trait. Blood work today shows elevation in total bilirubin as well as LDH. Haptoglobin is normal. He has severe thrombocytopenia with platelet count of 5. He has reticulocytopenia. This raises possibilities of drug-induced aplastic anemia, pancytopenia secondary to primary bone marrow disorder such as myelodysplastic syndrome as well as leukemia. Agree with platelet and blood transfusion. Ultrasound abdomen Demonstrated steatosis. Normal vitamin B12 and folate levels. Primidone is on hold. CT-guided bone marrow aspiration/biopsy pending. CBCD shows persistent pancytopenia, no improvement in platelets at all. 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 He received 1 dose of IVIG, 100 g based on adjusted body weight. He is on prednisone 60 mg b.i.d.. He is on broad-spectrum antibiotics for neutropenic fever, this has now resolved. Blood cultures so far are negative. Bone marrow biopsy can be done if his platelet counts come above 20 K. - Time Spent With Patient Time Spent with Patient (in minutes): 20
[2025-01-09] VITALS (7 sets, daily range): BP systolic 109–147; BP diastolic 69–88; PULSE 87–108; RESP 17–20; TEMP 36.2–36.6; O2SAT 97–98
--- NOTE | 2025-01-09 | ECG_ITS ---
Test Reason : Tachycardia Blood Pressure : */* mmHG Vent. Rate : 97 BPM Atrial Rate : 97 BPM P-R Int : 150 ms QRS Dur : 88 ms QT Int : 338 ms P-R-T Axes : 61 36 21 degrees QTcB Int : 429 ms Normal sinus rhythm Normal ECG When compared with ECG of 05-Jan-2025 08:41, QRS axis Shifted right Referred By: Marc Ruby Electronically Signed By: AMALIA MORALES MD
[2025-01-09] MEDS: cefEPime HCl/D5W 2 GM/50 ML PIGGYBACK IV (03:39)
[2025-01-09] MEDS: 0.9 % Sodium Chloride Flush 3 ML SYRINGE IVFLUSH ×3 (07:49→20:28)
[2025-01-09 08:08] LABS: Hemoglobin 8.7 g/dl (14.0-18.0); NRBC Abs Auto 0.000 X10*3/uL (0.0-0.012); NRBC Pct Auto 0.0 /100WBC (0.0-0.2)
[2025-01-09 08:11] LABS: Hematocrit 27.0 % (42.0-52.0); Mean Corpuscular HGB Conc 32.2 g/dl (31.0-36.0); Mean Corpuscular Hemoglobin 26.0 pg (27.0-33.0); Mean Corpuscular Volume 80.6 fL (80.0-98.0); Red Blood Count 3.35 X10*6/uL (4.60-5.80); White Blood Count 2.7 X10*3/uL (4.8-10.8)
[2025-01-09 08:13] LABS: PLT ABN DIST 1; Platelet Count 37 X10*3/uL (160-400)
[2025-01-09 08:22] LABS: Creatinine Clr Calc Pharmacy 115.6; Estimated Glomerular Filt Rate > 60
--- NOTE | 2025-01-09 10:01 | HO.PM.IMPN ---
Subjective Subjective Date of Service: 01/09/25 Interval History: f/u major depression with SI, pancytopenia with severe thrombocytopenia but no bleeding and has been experiencing Neutropenic fever. total of 8 units of Plat thus far and 1 unit of RBC, plat still is now 37, no bleeding, on Prednisone and IVIG. Neutropenic fever is resolved. Review of Systems No fever, no SI today, no bleeding Physical Exam Vital Signs: Vital Signs: Last Vital Signs Temp 97.6 F 01/09/25 07:06 Pulse 100 01/09/25 07:06 Resp 20 01/09/25 07:06 BP 123/85 01/09/25 07:06 Pulse Ox 98 01/09/25 07:06 O2 Del Method Room Air 01/09/25 07:06 BMI result Body Mass Index 37.9 Const: Other: General: AO X 3, no acute distress Resp: CTA bilateral CVS: S1,S2,RRR GI: +BS, NT, no distention Skin: No rash Neuro: motor grossly intact Psych: depressed, +SI, no HI Objective Data Active Medications Acetaminophen (Acetaminophen 325 Mg Tablet) 650 mg PO Q6H PRN PRN Reason: Pain, Mild 1-3,fever,headache Last Admin: 01/06/25 11:17 Dose: 650 mg Documented By: COLHAYLEY Calcium Carbonate (Calcium Carbonate 750 Mg Tab.Chew) 750 mg PO Q4H PRN PRN Reason: Heartburn Clotrimazole (Clotrimazole 1 % Cream 15 Gm Tube) 1 appl TOPICAL DAILY LUCINDA; Protocol Last Admin: 01/09/25 07:49 Dose: Not Given Documented By: JONATHAN Non-Admin Reason: Patient Refused Finasteride (Finasteride 5 Mg Tablet) 5 mg PO DAILY [facility] Last Admin: 01/09/25 07:48 Dose: 5 mg Documented By: JONATHAN Hydrochlorothiazide (Hydrochlorothiazide 25 Mg Tablet) 25 mg PO DAILY [facility] Last Admin: 01/09/25 07:48 Dose: 25 mg Documented By: JONATHAN Hydroxyzine HCl (Hydroxyzine Hcl 50 Mg Tablet) 50 mg PO QID [facility] Last Admin: 01/09/25 07:48 Dose: 50 mg Documented By: JONATHAN Cefepime HCl (Maxipime) 2 gm in 50 mls @ 100 mls/hr IV Q8H [facility] Last Infusion: 01/09/25 04:27 Dose: Infused Documented By: NANCIE Vancomycin HCl 1,250 mg/ (Sodium Chloride) 250 mls @ 166.667 mls/hr IV Q8H [facility] Last Infusion: 01/09/25 03:44 Dose: Infused Documented By: NANCIE Levothyroxine Sodium (Levothyroxine Sodium 175 Mcg Tablet) 175 mcg PO DAILY@0600 [facility] Last Admin: 01/09/25 05:38 Dose: 175 mcg Documented By: NANCIE Lisinopril (Lisinopril 20 Mg Tablet) 20 mg PO DAILY [facility] Last Admin: 01/09/25 07:48 Dose: 20 mg Documented By: JONATHAN Magnesium Hydroxide (Milk Of Magnesia 30 Ml Oral.Susp) 30 ml PO DAILY PRN PRN Reason: Constipation Melatonin (Melatonin 3 Mg Tablet) 6 mg PO BEDTIME PRN PRN Reason: Insomnia Multivitamins/Vitamin C (Multivitamin Tablet) 1 tab PO DAILY [facility] Last Admin: 01/09/25 07:48 Dose: 1 tab Documented By: JONATHAN Omeprazole (Omeprazole 20 Mg Capsule.Dr) 20 mg PO BID [facility] Last Admin: 01/09/25 07:49 Dose: 20 mg Documented By: JONATHAN Ondansetron HCl (Ondansetron Hcl 4 Mg/2 Ml Vial) 4 mg IVPUSH Q8H PRN PRN Reason: Nausea and Vomiting Pharmacy Consult (Consult Rx Vancomycin Dosing) 1 each MISCELLANE DAILY PRN PRN Reason: Consult order Polyethylene Glycol (Polyethylene Glycol 3350 17 Gm Powd.Pack) 17 gm PO DAILY PRN PRN Reason: Constipation Prednisone (Prednisone 20 Mg Tablet) 60 mg PO BID [facility] Last Admin: 01/09/25 07:48 Dose: 60 mg Documented By: JONATHAN Primidone (Primidone 50 Mg Tablet) 50 mg PO BID [facility] On Hold: 01/05/25 21:00 Sodium Chloride (0.9 % Sodium Chloride Flush 3 Ml Syringe) 3 ml IVFLUSH QSHIFT [facility] Last Admin: 01/09/25 07:49 Dose: 3 ml Documented By: JONATHAN Labs 01/09/25 07:53 01/09/25 07:53 Labs: Laboratory Results - last 24 hr 01/05/25 01/08/25 01/08/25 14:51 09:56 13:02 MCV MCH MCHC RDW Plt Count MPV Absolute Nucleated RBC Nucleated RBC % (auto) Estim Creat Clear Calc Estimated GFR Vancomycin Trough 21.1 H Serum Copper 185 H Blood Type O Positive Antibody Screen NEGATIVE 01/09/25 07:53 MCV 80.6 MCH 26.0 L MCHC 32.2 RDW 19.8 H Plt Count 37 L D MPV Not Reportable Absolute Nucleated RBC 0.000 Nucleated RBC % (auto) 0.0 Estim Creat Clear Calc 115.6 Estimated GFR > 60 Vancomycin Trough Serum Copper Blood Type Antibody Screen Microbiology Microbiology Results: Microbiology 01/06/25 13:16 Blood Culture - Preliminary Blood - Venous No growth after 48 hours. 01/06/25 13:15 Blood Culture - Preliminary Blood - Venous No growth after 48 hours. Assessment and Plan (1) Major depressive disorder, recurrent severe without psychotic features: Status: Acute (2) Pancytopenia: Status: Acute Plan This is a 64-year-old male with pertinent history of achalasia status post surgery, mood disorder, mixed hyperlipidemia, hypertension, gastroesophageal reflux disease, hypothyroidism, pancytopenia previously seen by [facility]--He presented with depression and SI, and has more pronounced pancytopenia and elevated LFTs Major Depression with SI with active to hang self, he thinks it was related to Caplyta, today no SI 1:1 sitter for now, CARE to asses for need for Psych consult recommends: hold Caplyta (lumateperone) is a second-generation (atypical) antipsychotic approved for the treatment of schizophrenia and bipolar depression in adults. Safety tray Pancytopenia with Plat of 5, no active bleed, possible med related vs bone marrow disorder--hold primidone, and Caplyta..Plat is now 37 Hematology following, work up ongoing Hemolysis work up appear negative thus far Transfuses 8 units of Plat so far, 1 unit of RBC Started on Prednisone and IVIG 01/06 avoid ASA, heparin Will need Bone marrow Bx next week referal was made to [facility] [place] possible transfer no bed [place] no imidiate indication for transfer Neutropenic Fever CXR, CT of abd pelvis negative Started on Vanco and Levaquin and Cefepim 01/06, fevers now resolved, tachcyardia resolved. Stop Levaquin since tolerating Cefepime despite Pen allergy which was as a child Follow blood cultures HIV is negative ID consult: ID recommend Tick born smear, to stop Abx if cultures negative. Elevated LFTs hold statin US of liver = fatty liver disease CT of abd and pelvis no acute finding Neutorp Gastroesophageal reflux disease PPI HLD hold statin d/t high lfts Hypertension Lisinopril/HCTZ DVT prophylaxis: low risk given low plat, Full code Quality Stroke Does the patient have a stroke diagnosis?: No VTE Prior VTE?: No VTE Risk Level:: Medical - low VTE Device Contraindication: Treatment Not Indicated VTE Drug Contraindication: Treatment Not Indicated
--- NOTE | 2025-01-09 15:37 | MHC.CARE ---
Pt seen by CARE team and does not require, nor is patent seeking inpatient level of care. Please see CARE team assessment for additional information.
[2025-01-10] VITALS (7 sets, daily range): BP systolic 104–144; BP diastolic 55–92; PULSE 90–114; RESP 16–18; TEMP 36.3–37; O2SAT 96–99
[2025-01-10] MEDS: 0.9 % Sodium Chloride Flush 3 ML SYRINGE IVFLUSH ×3 (08:39→21:01)
--- NOTE | 2025-01-10 08:57 | P.PNHO-ONC_ITS ---
Medical Summary - Medical Summary Date of Service: 01/09/25 Primary Care Provider: Shaji Huntley MD Hides Inspector Utilized?: No - Korean Speaking Interval History Interval history: Lemuel Maldonado is a 64 year old male with history of PTSD, depression, ADHD, resident of assisted was brought to the emergency department because of increasing depression as well as symptoms of feeling weak. He says that he has been having body aches, chills and night sweats for last several days. He was started on a new antidepressant Caplyta recently and he thinks that caused him to have worsening symptoms of depression. Patient is aware of low platelets. He was seen by oncology patient navigator at [facility] a few weeks ago. He says he has another follow-up coming up in a month or so. Patient was seen by this senior grant writer in September for thrombocytopenia. During that admission he was admitted for acute pancreatitis. He was recently started on primidone and this was also raised as a cause for cytopenias, mainly agranulocytosis and sometimes aplastic anemia. Patient denies any fevers but says he has been having night sweats. No loss of appetite or weight loss. He denies chest pain, shortness of breath or abdominal pain. He denies change in bowel habits. He has not been on any recent antibiotics. He feels better today. Fevers have resolved. No abdominal pain, bruising, hematochezia melena. Review of Systems - Constitutional Reports anorexia - Eyes Reports other - ENT Reports system reviewed and no additional complaints, except as documented, Reports other - Cardiovascular Reports lightheadedness - Respiratory Reports dyspnea - Gastrointestinal Reports constipation - Musculoskeletal Reports stiffness - Neurologic Reports weakness, Denies loss of vision, Denies numbness, Denies tingling - Psychiatric Reports depression [facility] Medical History: Medical History (Last Reviewed 01/07/25 @ 15:06 by Mago Figueredo MD) Attention deficit disorder Chronic post-traumatic stress disorder (PTSD) Dissociative disorder Elevated PSA Essential (primary) hypertension Hypothyroidism Major depressive disorder, recurrent severe without psychotic features Thrombocytopenia Social History: Social History (Last Reviewed 01/07/25 @ 15:07 by Mago Figueredo MD) Living Situation History: Household Members: Other Household Members Other:: assisted Housing: Other Housing Other:: in a assisted Do you presently have visiting nurse or other home services: No Alcohol History Details: 1. How often do you have a drink containing alcohol?: a. Never AUDIT-C Alcohol total score: 0 Currently Displaying Signs/Symptoms of Alcohol Withdrawal: No Tobacco History: Patient Tobacco Use Status: Never used Tobacco Smoked in Last 30 Days: No Substance Use History: Use of substances other than those prescribed or required for medical reasons : No Substance Use Type: Marijuana Currently Displaying Signs/Symptoms of Drug Intoxication Withdrawal: No Domestic Abuse History: Have you been hit, kicked, punched, or otherwise hurt by someone within the past year? If so, by whom?: No Do you feel safe in your current relationship?: No Current Relationship Is there a partner from a previous relationship who is making you feel unsafe now?: No Are you made to feel afraid or neglected: No Advance Directives: Advance Directives: No Advance Directives Information Provided: Yes Homicidal Assessment: Do you have a plan to hurt others: Specific Nutrition Assessment: Recently lost weight without trying: No How much weight loss: Not applicable Eating poorly because of decreased appetite: No Nutrition screen score: 0 Nutrition Risks: No Nutritional Risk Poor oral hygiene: No Occupation Assessmet: service: No Home Medications and Allergies Current Medications: Current Medications Acetaminophen (Acetaminophen 325 Mg Tablet) 650 mg PO Q6H PRN PRN Reason: Pain, Mild 1-3,fever,headache Last Admin: 01/06/25 11:17 Dose: 650 mg Calcium Carbonate (Calcium Carbonate 750 Mg Tab.Chew) 750 mg PO Q4H PRN PRN Reason: Heartburn Last Admin: 01/09/25 17:11 Dose: 750 mg Clotrimazole (Clotrimazole 1 % Cream 15 Gm Tube) 1 appl TOPICAL DAILY [facility]; Protocol Last Admin: 01/10/25 08:39 Dose: Not Given Finasteride (Finasteride 5 Mg Tablet) 5 mg PO DAILY [facility] Last Admin: 01/10/25 08:38 Dose: 5 mg Hydrochlorothiazide (Hydrochlorothiazide 25 Mg Tablet) 25 mg PO DAILY [facility] Last Admin: 01/10/25 08:38 Dose: 25 mg Hydroxyzine HCl (Hydroxyzine Hcl 50 Mg Tablet) 50 mg PO QID [facility] Last Admin: 01/10/25 08:38 Dose: 50 mg Levothyroxine Sodium (Levothyroxine Sodium 175 Mcg Tablet) 175 mcg PO DAILY@0600 [facility] Last Admin: 01/10/25 06:06 Dose: 175 mcg Lisinopril (Lisinopril 20 Mg Tablet) 20 mg PO DAILY [facility] Last Admin: 01/10/25 08:38 Dose: 20 mg Magnesium Hydroxide (Milk Of Magnesia 30 Ml Oral.Susp) 30 ml PO DAILY PRN PRN Reason: Constipation Melatonin (Melatonin 3 Mg Tablet) 6 mg PO BEDTIME PRN PRN Reason: Insomnia Multivitamins/Vitamin C (Multivitamin Tablet) 1 tab PO DAILY [facility] Last Admin: 01/10/25 08:38 Dose: 1 tab Omeprazole (Omeprazole 20 Mg Capsule.Dr) 20 mg PO BID [facility] Last Admin: 01/10/25 08:38 Dose: 20 mg Ondansetron HCl (Ondansetron Hcl 4 Mg/2 Ml Vial) 4 mg IVPUSH Q8H PRN PRN Reason: Nausea and Vomiting Polyethylene Glycol (Polyethylene Glycol 3350 17 Gm Powd.Pack) 17 gm PO DAILY PRN PRN Reason: Constipation Prednisone (Prednisone 20 Mg Tablet) 60 mg PO BID [facility] Last Admin: 01/10/25 08:38 Dose: 60 mg Primidone (Primidone 50 Mg Tablet) 50 mg PO BID [facility] On Hold: 01/05/25 21:00 Sodium Chloride (0.9 % Sodium Chloride Flush 3 Ml Syringe) [facility] Last Admin: 01/10/25 08:39 Dose: 3 ml Home Medications ?Medication ?Instructions ?Recorded ?Confirmed ?Type B-complex with vitamin C 1 tab PO DAILY 09/27/24 01/05/25 History acetaminophen 650 mg 650 mg PO Q4-6H PRN Fever Or Pain 01/05/25 History tablet,extended release atorvastatin 40 mg tablet 40 mg PO DAILY 09/27/24 01/05/25 History clotrimazole 1 % topical cream 1 appl topical DAILY 09/27/24 01/05/25 H istory guaifenesin 200 mg/5 mL oral liquid 200 - 400 mg PO Q4H PRN Cough 09/27/24 01/05/25 History guanfacine 2 mg tablet 2 mg PO BEDTIME 09/27/24 01/05/25 Histor y hydroxyzine HCl 50 mg tablet 50 mg PO QID 09/27/24 01/05/25 History ketoconazole 2 % topical cream 1 appl topical DAILY 09/27/24 01/05/25 H istory lisinopril 20 1 tab PO DAILY 09/27/24 01/05/25 History mg-hydrochlorothiazide 25 mg tablet (Zestoretic) magnesium hydroxide 400 mg/5 mL 30 ml PO DAILY PRN Constipation 09/27/24 01/05/25 History oral suspension (Milk of Magnesia) meclizine 25 mg tablet 25 mg PO TID PRN Vertigo 09/27/24 History naloxone 4 mg/actuation nasal 4 mg intranasal Q3M PRN Opiate 09/27/24 01/05/25 History spray (Narcan) Reversal primidone 50 mg tablet 50 mg PO BID 09/27/24 01/05/25 History vitamin B complex 1 tab PO BEDTIME 09/27/24 01/05/25 Histo ry levothyroxine 175 mcg tablet 175 mcg PO DAILY@0600 01/05/25 01/05/25 History lumateperone 42 mg capsule 42 mg PO BEDTIME 01/05/25 01/05/25 Histo ry (Caplyta) Allergies Allergy/AdvReac Type Severity Reaction Status Date / Time clindamycin Allergy Intermediate Unknown Verified 01/05/25 08:32 haloperidol (From Haldol) Allergy Intermediate Unknown Verified 01/05/25 08:32 NSAIDS (Non-Steroidal Allergy Intermediate Unknown Verified 01/05/25 08:32 Anti-Inflamma Penicillins Allergy Intermediate Anaphylaxis Verified 01/07/25 12:45 Exam Vital signs: Vital Signs Temp 97.9 F 01/10/25 07:12 Pulse 93 01/10/25 07:12 Resp 18 01/10/25 07:12 BP 143/73 H 01/10/25 07:12 Pulse Ox 97 01/10/25 07:12 O2 Del Method Room Air 01/10/25 07:12 Intake & Output 01/09/25 01/10/25 01/10/25 18:59 06:59 18:59 Intake Total 600 / 1020 420 / 1020 Balance 600 / 1020 420 / 1020 Intake: Intake, Oral Amount 600 / 1020 420 / 1020 Other: Meal Refused No NPO No Lunch % Eaten 100% Eating (Feeding) Ability Independent Number of Unmeasured Voids 3 1 Urine Bathroom Bathroom Urine Color Yellow Weight 137.5 kg BMI result Body Mass Index 37.9 - Constitutional Present: no acute distress, morbidly obese - Routine HEENT Exam Head: Present: atraumatic, normal inspection - Routine Neck Exam Present: full ROM - Routine Respiratory Exam Present: decreased breath sounds, CTAB. Absent: accessory muscle use - Routine Cardiovascular Exam Cardiovascular: Present: RRR, S1, S2 - Routine Abdominal Exam Present: hypoactive bowel sounds, soft - Routine Extremities Exam Present: nontender. Absent: pedal edema - Routine Skin Exam Present: intact - Routine Neurological Exam Present: alert, oriented X3 Data - Labs CBC & Chem 7: 01/09/25 07:53 01/09/25 07:53 - Imaging Radiologist's impression: ITS Impressions Head CT 01/05/25 10:16 IMPRESSION: No acute intracranial abnormality. Electronically signed by: Marc Guajardo MD 01/05/2025 11:38 AM EDT RP Chest X-Ray 01/06/25 10:44 IMPRESSION: No acute airspace disease. Multilevel spondylosis. Electronically signed by: Hipolito Castillo MD 01/06/2025 12:13 PM EDT RP Abdomen/Pelvis CT 01/06/25 16:12 IMPRESSION: 1. No acute findings in the abdomen or pelvis. 2. Ancillary findings as discussed. Electronically signed by: Hong Reed MD 01/06/2025 05:07 PM EDT RP Assessment and Plan Patient Active problem list reviewed?: Yes (1) Pancytopenia Problem details: Recommedn transfusion of one unit of platelets daily if platelets are below 10,000 or for clinically significant bleeding. Agree with transfer to [facility]. Status: Acute Assessment and plan: 1. This is a 64-year-old male admitted for worsening thrombocytopenia/pancytopenia. His past medical history significant for major depression, PTSD, dissociated disorder. Patient was seen in September 2024 for thrombocytopenia, at that time his platelets were about 50 K. Previously in 2023 it was in the 140s. His thrombocytopenia at that time was felt to be related to use of primidone which can cause cytopenias, agranulocytosis and aplastic anemia. He was subsequently seen by oncology patient navigator at [facility] in November 2024. They also felt that he needed to come off primidone. He did not get a bone marrow aspiration/biopsy. Hematological workup at [facility] has shown that he has beta thalassemia trait. Blood work today shows elevation in total bilirubin as well as LDH. Haptoglobin is normal. He has severe thrombocytopenia with platelet count of 5. He has reticulocytopenia. This raises possibilities of drug-induced aplastic anemia, pancytopenia secondary to primary bone marrow disorder such as myelodysplastic syndrome as well as leukemia. Agree with platelet and blood transfusion. Ultrasound abdomen Demonstrated steatosis. Normal vitamin B12 and folate levels. Primidone is on hold. CT-guided bone marrow aspiration/biopsy pending. CBCD shows persistent pancytopenia, no improvement in platelets at all. 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 He received 1 dose of IVIG, 100 g based on adjusted body weight. He is on prednisone 60 mg b.i.d.. He is on broad-spectrum antibiotics for neutropenic fever, this has now resolved. Blood cultures so far are negative. Bone marrow biopsy can be done if his platelet counts come above 20 K. (2) Thrombocytopenia Status: Acute Assessment and plan: His platelet count is 37,000. No further platelet transfusion is needed. - Time Spent With Patient Time Spent with Patient (in minutes): 15
[2025-01-10 09:16] LABS: Hematocrit 27.4 % (42.0-52.0); Hemoglobin 8.9 g/dl (14.0-18.0); Mean Corpuscular HGB Conc 32.5 g/dl (31.0-36.0); Mean Corpuscular Hemoglobin 25.6 pg (27.0-33.0); Mean Corpuscular Volume 79.0 fL (80.0-98.0); NRBC Abs Auto 0.030 X10*3/uL (0.0-0.012); PLT CLUMP 1; Red Blood Count 3.47 X10*6/uL (4.60-5.80)
[2025-01-10 09:17] LABS: NRBC Pct Auto 1.4 /100WBC (0.0-0.2)
[2025-01-10 10:12] LABS: White Blood Count 2.1 X10*3/uL (4.8-10.8)
--- NOTE | 2025-01-10 10:18 | HO.PM.IMPN ---
Subjective Subjective Date of Service: 01/10/25 Interval History: f/u major depression with SI, pancytopenia with severe thrombocytopenia but no bleeding and has been experiencing Neutropenic fever now resolved. total of 8 units of Plat thus far and 1 unit of RBC, plat has improved, no bleeding, on Prednisone and received IVIG. Review of Systems No fever, no SI today, no bleeding Physical Exam Vital Signs: Vital Signs: Last Vital Signs Temp 97.9 F 01/10/25 07:12 Pulse 93 01/10/25 07:12 Resp 18 01/10/25 07:12 BP 143/73 H 01/10/25 07:12 Pulse Ox 97 01/10/25 07:12 O2 Del Method Room Air 01/10/25 07:12 BMI result Body Mass Index 37.9 Const: Other: General: AO X 3, no acute distress Resp: CTA bilateral CVS: S1,S2,RRR GI: +BS, NT, no distention Skin: No rash Neuro: motor grossly intact Psych: depressed, +SI, no HI Objective Data Active Medications Acetaminophen (Acetaminophen 325 Mg Tablet) 650 mg PO Q6H PRN PRN Reason: Pain, Mild 1-3,fever,headache Last Admin: 01/06/25 11:17 Dose: 650 mg Documented By: COLBURDes Calcium Carbonate (Calcium Carbonate 750 Mg Tab.Chew) 750 mg PO Q4H PRN PRN Reason: Heartburn Last Admin: 01/09/25 17:11 Dose: 750 mg Documented By: JONAHTAN Clotrimazole (Clotrimazole 1 % Cream 15 Gm Tube) 1 appl TOPICAL DAILY [facility]; Protocol Last Admin: 01/10/25 08:39 Dose: Not Given Documented By: SRAVANI Non-Admin Reason: Patient Refused Finasteride (Finasteride 5 Mg Tablet) 5 mg PO DAILY [facility] Last Admin: 01/10/25 08:38 Dose: 5 mg Documented By: SRAVANI Hydrochlorothiazide (Hydrochlorothiazide 25 Mg Tablet) 25 mg PO DAILY [facility] Last Admin: 01/10/25 08:38 Dose: 25 mg Documented By: SRAVANI Hydroxyzine HCl (Hydroxyzine Hcl 50 Mg Tablet) 50 mg PO QID [facility] Last Admin: 01/10/25 08:38 Dose: 50 mg Documented By: SRAVANI Levothyroxine Sodium (Levothyroxine Sodium 175 Mcg Tablet) 175 mcg PO DAILY@0600 [facility] Last Admin: 01/10/25 06:06 Dose: 175 mcg Documented By: ROSALIA Lisinopril (Lisinopril 20 Mg Tablet) 20 mg PO DAILY [facility] Last Admin: 01/10/25 08:38 Dose: 20 mg Documented By: SRAVANI Magnesium Hydroxide (Milk Of Magnesia 30 Ml Oral.Susp) 30 ml PO DAILY PRN PRN Reason: Constipation Melatonin (Melatonin 3 Mg Tablet) 6 mg PO BEDTIME PRN PRN Reason: Insomnia Multivitamins/Vitamin C (Multivitamin Tablet) 1 tab PO DAILY [facility] Last Admin: 01/10/25 08:38 Dose: 1 tab Documented By: SRAVANI Omeprazole (Omeprazole 20 Mg Capsule.Dr) 20 mg PO BID [facility] Last Admin: 01/10/25 08:38 Dose: 20 mg Documented By: SRAVANI Ondansetron HCl (Ondansetron Hcl 4 Mg/2 Ml Vial) 4 mg IVPUSH Q8H PRN PRN Reason: Nausea and Vomiting Polyethylene Glycol (Polyethylene Glycol 3350 17 Gm Powd.Pack) 17 gm PO DAILY PRN PRN Reason: Constipation Prednisone (Prednisone 20 Mg Tablet) 60 mg PO BID [facility] Last Admin: 01/10/25 08:38 Dose: 60 mg Documented By: SRAVANI Primidone (Primidone 50 Mg Tablet) 50 mg PO BID [facility] On Hold: 01/05/25 21:00 Sodium Chloride (0.9 % Sodium Chloride Flush 3 Ml Syringe) 3 ml IVFLUSH QSHIFT [facility] Last Admin: 01/10/25 08:39 Dose: 3 ml Documented By: SRAVANI Labs 01/10/25 08:45 01/09/25 07:53 Labs: Laboratory Results - last 24 hr 01/10/25 08:45 MCV 79.0 L MCH 25.6 L MCHC 32.5 RDW 19.9 H Plt Count TNP MPV TNP Absolute Nucleated RBC 0.030 H Nucleated RBC % (auto) 1.4 H Microbiology Microbiology Results: Microbiology 01/06/25 13:16 Blood Culture - Preliminary Blood - Venous No growth after 48 hours. 01/06/25 13:15 Blood Culture - Preliminary Blood - Venous No growth after 48 hours. Assessment and Plan (1) Major depressive disorder, recurrent severe without psychotic features: Status: Acute (2) Pancytopenia: Status: Acute Plan This is a 64-year-old male with pertinent history of achalasia status post surgery, mood disorder, mixed hyperlipidemia, hypertension, gastroesophageal reflux disease, hypothyroidism, pancytopenia previously seen by heme--He presented with depression and SI, and has more pronounced pancytopenia and elevated LFTs Major Depression with SI with active to hang self, he thinks it was related to Caplyta, today no SI 1:1 sitter for now, CARE to asses for need for Psych consult recommends: hold Caplyta (lumateperone) is a second-generation (atypical) antipsychotic approved for the treatment of schizophrenia and bipolar depression in adults. Safety tray Pancytopenia with Plat of 5, no active bleed, possible med related vs bone marrow disorder--hold primidone, and Caplyta..Plat is now 37 as 01/09 Hematology following, work up ongoing Transfused 8 units of Plat so far, 1 unit of RBC Started on Prednisone and IVIG 01/06 avoid ASA, heparin Will need Bone marrow Bx this while Plat above 20 referal was made to [facility] for possible transfer no bed [place] no imidiate indication for transfer as bone marrow can be done here Neutropenic Fever CXR, CT of abd pelvis negative Started on Vanco and Levaquin and Cefepim 01/06, fevers now resolved, tachcyardia resolved. Stop Levaquin since tolerating Cefepime despite Pen allergy which was as a child Follow blood cultures HIV is negative ID consult: ID recommend Tick born smear pending, to stop Abx if cultures negative--culture negative x 48s so stopped abx per ID recommendation and monitoring for recurrence of feve Elevated LFTs hold statin US of liver = fatty liver disease CT of abd and pelvis no acute finding Neutorp Gastroesophageal reflux disease PPI HLD hold statin d/t high lfts Hypertension Lisinopril/HCTZ DVT prophylaxis: low risk given low plat, Full code Quality Stroke Does the patient have a stroke diagnosis?: No VTE Prior VTE?: No VTE Risk Level:: Medical - low VTE Device Contraindication: Treatment Not Indicated VTE Drug Contraindication: Treatment Not Indicated
[2025-01-10 11:11] LABS: Hematocrit 26.1 % (42.0-52.0); Hemoglobin 8.4 g/dl (14.0-18.0); Mean Corpuscular HGB Conc 32.2 g/dl (31.0-36.0); Mean Corpuscular Hemoglobin 25.7 pg (27.0-33.0); Mean Corpuscular Volume 79.8 fL (80.0-98.0); NRBC Abs Auto 0.030 X10*3/uL (0.0-0.012); Platelet Count 29 X10*3/uL (160-400); Red Blood Count 3.27 X10*6/uL (4.60-5.80); White Blood Count 2.0 X10*3/uL (4.8-10.8)
[2025-01-10 11:12] LABS: NRBC Pct Auto 1.5 /100WBC (0.0-0.2)
[2025-01-10 22:28] LABS: A. Phagocytphilium DNA,RT-PCR NOT DETECTED (NOT DETECTED); Babesia Microti DNA, RT-PCR NOT DETECTED (NOT DETECTED); Borrelia Miyamotoi,DNA RT-PCR NOT DETECTED (NOT DETECTED); E.Chaffeensis DNA RT-PCR NOT DETECTED (NOT DETECTED); Lyme(Borrelia ssp)DNA RT-PCR NOT DETECTED (NOT DETECTED)
[2025-01-11] VITALS (8 sets, daily range): BP systolic 112–224; BP diastolic 63–93; PULSE 90–132; RESP 15–20; TEMP 36.1–36.7; O2SAT 94–99
--- NOTE | 2025-01-11 | ECG_ITS ---
Test Reason : cp Blood Pressure : */* mmHG Vent. Rate : 93 BPM Atrial Rate : 93 BPM P-R Int : 158 ms QRS Dur : 84 ms QT Int : 352 ms P-R-T Axes : 66 39 27 degrees QTcB Int : 437 ms Normal sinus rhythm Normal ECG When compared with ECG of 09-Jan-2025 17:14, No significant change was found Referred By: Maureen Burgos Electronically Signed By: Kimani Lara
[2025-01-11] MEDS: Butalb/Acetamin/Caff 50/325/40 TABLET 1 TAB PO (00:36)
[2025-01-11 07:52] LABS: Hematocrit 25.7 % (42.0-52.0); Hemoglobin 8.3 g/dl (14.0-18.0); Mean Corpuscular HGB Conc 32.3 g/dl (31.0-36.0); Mean Corpuscular Hemoglobin 25.7 pg (27.0-33.0); Mean Corpuscular Volume 79.6 fL (80.0-98.0); NRBC Abs Auto 0.040 X10*3/uL (0.0-0.012); Red Blood Count 3.23 X10*6/uL (4.60-5.80)
[2025-01-11 07:53] LABS: NRBC Pct Auto 2.6 /100WBC (0.0-0.2); Platelet Count 31 X10*3/uL (160-400); White Blood Count 1.6 X10*3/uL (4.8-10.8)
[2025-01-11] MEDS: 0.9 % Sodium Chloride Flush 3 ML SYRINGE IVFLUSH ×3 (08:31→20:49)
[2025-01-11] MEDS: Clotrimazole 1 % Cream 15 GM TUBE 1 APPL TOPICAL (08:32)
[2025-01-11] MEDS: Metoprolol Tartrate 5 MG in 0.9 % Sodium Chloride 50 ML 220 MG IV (08:52)
[2025-01-11 09:27] LABS: Troponin-I High Sensitivity 4.7 ng/L (<3.5-35.0)
--- NOTE | 2025-01-11 11:20 | P.PNIM_ITS ---
Subjective Subjective Date of Service: 01/11/25 Interval History: Pt seen this am, he denies any active sx, became tachycardiac and started to have Chest pain while washing up this am, ekg no ischemic changes , trops 4.7, orthostats -ve, all sx resolved with rest, awaiting bone marro bx ordered for tomorrow. NPOafter MN cards consult given anginal sx, Review of Systems -ve except as stated above Physical Exam 2 Exam: Exam: General: AO X 3, no acute distress Resp: CTA bilateral, on RA CVS: S1,S2,RRR GI: +BS, NT, no distention Skin: No rash Neuro: motor grossly intact Psych: flat affect, no SI Vital Signs: Vital Signs: Last Vital Signs Temp 97.7 F 01/11/25 10:56 Pulse 95 01/11/25 10:56 Resp 20 01/11/25 10:56 BP 126/84 01/11/25 10:56 Pulse Ox 97 01/11/25 10:56 O2 Del Method Room Air 01/11/25 10:56 BMI result Body Mass Index 37.9 Objective Data Active Medications Acetaminophen (Acetaminophen 325 Mg Tablet) 650 mg PO Q6H PRN PRN Reason: Pain, Mild 1-3,fever,headache Last Admin: 01/10/25 13:40 Dose: 650 mg Documented By: SRAVANI Calcium Carbonate (Calcium Carbonate 750 Mg Tab.Chew) 750 mg PO Q4H PRN PRN Reason: Heartburn Last Admin: 01/09/25 17:11 Dose: 750 mg Documented By: JONATHAN Clotrimazole (Clotrimazole 1 % Cream 15 Gm Tube) 1 appl TOPICAL DAILY ON LICENSE OF [facility]; Protocol Last Admin: 01/11/25 08:32 Dose: 1 appl Documented By: GINO Finasteride (Finasteride 5 Mg Tablet) 5 mg PO DAILY ON LICENSE OF [facility] Last Admin: 01/11/25 08:28 Dose: 5 mg Documented By: GINO Hydroxyzine HCl (Hydroxyzine Hcl 50 Mg Tablet) 50 mg PO QID ON LICENSE OF [facility] Last Admin: 01/11/25 08:29 Dose: 50 mg Documented By: GINO Levothyroxine Sodium (Levothyroxine Sodium 175 Mcg Tablet) 175 mcg PO DAILY@0600 ON LICENSE OF [facility] Last Admin: 01/11/25 06:19 Dose: 175 mcg Documented By: ROSALIA Magnesium Hydroxide (Milk Of Magnesia 30 Ml Oral.Susp) 30 ml PO DAILY PRN PRN Reason: Constipation Melatonin (Melatonin 3 Mg Tablet) 6 mg PO BEDTIME PRN PRN Reason: Insomnia Multivitamins/Vitamin C (Multivitamin Tablet) 1 tab PO DAILY ON LICENSE OF [facility] Last Admin: 01/11/25 08:29 Dose: 1 tab Documented By: GINO Omeprazole (Omeprazole 20 Mg Capsule.Dr) 20 mg PO BID ON LICENSE OF [facility] Last Admin: 01/11/25 08:29 Dose: 20 mg Documented By: GINO Ondansetron HCl (Ondansetron Hcl 4 Mg/2 Ml Vial) 4 mg IVPUSH Q8H PRN PRN Reason: Nausea and Vomiting Polyethylene Glycol (Polyethylene Glycol 3350 17 Gm Powd.Pack) 17 gm PO DAILY PRN PRN Reason: Constipation Prednisone (Prednisone 20 Mg Tablet) 60 mg PO BID ON LICENSE OF [facility] Last Admin: 01/11/25 08:28 Dose: 60 mg Documented By: GINO Primidone (Primidone 50 Mg Tablet) 50 mg PO BID ON LICENSE OF [facility] On Hold: 01/05/25 21:00 Sodium Chloride (0.9 % Sodium Chloride Flush 3 Ml Syringe) 3 ml IVFLUSH QSHIFT ON LICENSE OF [facility] Last Admin: 01/11/25 08:31 Dose: 3 ml Documented By: GINO Labs 01/11/25 07:13 01/09/25 07:53 Labs: Laboratory Results - last 24 hr 01/09/25 01/11/25 07:53 07:13 MCV 79.6 L MCH 25.7 L MCHC 32.3 RDW 19.5 H Plt Count 31 L MPV TNP Absolute Nucleated RBC 0.040 H Nucleated RBC % (auto) 2.6 H A.phagocytophil DNA PCR NOT DETECTED Babesia microti DNA PCR NOT DETECTED Borrelia sp DNA (PCR) NOT DETECTED Borrelia miyamotoi (PCR) NOT DETECTED E.chaffeensis DNA (PCR) NOT DETECTED Tick-borne Disease PCR SEE NOTE Microbiology Microbiology Results: Microbiology 01/05/25 14:50 Blood Culture - Final Blood - Venous No growth after 5 days. 01/05/25 14:50 Blood Culture - Final Blood - Venous No growth after 5 days. Assessment and Plan (1) Thrombocytopenia: Status: Acute (2) HTN (hypertension): Status: Acute (3) BPH (benign prostatic hyperplasia): Status: Acute (4) Chest pain: Status: Acute Plan This is a 64-year-old male with pertinent history of achalasia status post surgery, mood disorder, mixed hyperlipidemia, hypertension, gastroesophageal reflux disease, hypothyroidism, pancytopenia previously seen by heme--He presented with depression and SI, and has more pronounced pancytopenia and elevated LFTs Chest pain: had an episode of CP this am while exerting, along with sinus tachycardia, trops 4.7, ekg no ST-T wave changes, cardiology consulted orthostats -ve holding lisinopril and HCTZ today, may need IVF bp stable received 1 dose of IV metoprolol this am Major Depression with SI with active to hang self, he thinks it was related to Caplyta, today no SI 1:1 sitter for now, CARE to asses for need for Psych consult recommends: hold Caplyta (lumateperone) is a second-generation (atypical) antipsychotic approved for the treatment of schizophrenia and bipolar depression in adults. Safety tray Pancytopenia with Plat of 5, no active bleed, possible med related vs bone marrow disorder--hold primidone, and Caplyta.. plts above 30 now Hematology following, work up ongoing Transfused 8 units of Plat so far, 1 unit of RBC Started on Prednisone and IVIG 01/06 avoid ASA, heparin BM bx ordered for tomorrow referal was made to [facility] for possible transfer no bed [place] no immediate indication for transfer as bone marrow can be done here NPO after MN Neutropenic Fever resolved CXR, CT of abd pelvis negative Started on Vanco and Levaquin and Cefepim 01/06, fevers now resolved, tachycardia intrmittent Stop Levaquin since tolerating Cefepime despite Pen allergy which was as a child Follow blood cultures HIV is negative ID consult: ID recommend Tick born smear -ve, , to stop Abx if cultures negative--culture negative x 48s so stopped abx per ID recommendation and monitoring for recurrence of fever afebrile today, Elevated LFTs hold statin US of liver = fatty liver disease CT of abd and pelvis no acute finding Gastroesophageal reflux disease omeprazole Hypothyroidism: cont levothyroxine HLD hold statin d/t high lfts Hypertension Lisinopril/HCTZ, holding both until cards consult BPH: cont finasteride DVT prophylaxis: low risk given low plat, Full code Quality Stroke Does the patient have a stroke diagnosis?: No VTE Prior VTE?: No VTE Risk Level:: Medical - low VTE Device Contraindication: Treatment Not Indicated VTE Drug Contraindication: Treatment Not Indicated
--- NOTE | 2025-01-11 12:50 | PM.CNCAR ---
History of Present Illness History of Present Illness Date of Service: 01/11/25 Requesting physician: Maureen Burgos Chief complaint: Chest pain Narrative: [age] year gentleman who is currently inpatient due to suicide ideation and pancytopenia. We have been asked to see him for chest discomfort. This morning he complained of burning sensation in the chest and jaw. He is saying that from time to time he has been experiencing similar symptoms before. He is saying that he had esophageal surgery done many years ago when he was incarcerated and has been experiencing acid reflux and chest discomfort since then. This episode lasted for 5 minutes and slowly improved on its own. He was also noted to be hypertensive but this was only elevated blood pressure throughout all the readings. Currently symptom free. Denying any other complaints currently. EKGs normal and biomarkers are negative. [facility] Past Medical History Medical History (Updated 01/11/25 @ 11:43 by Maureen Burgos MD) BPH (benign prostatic hyperplasia) HTN (hypertension) Elevated PSA Hypothyroidism Essential (primary) hypertension Thrombocytopenia Attention deficit disorder Dissociative disorder Chronic post-traumatic stress disorder (PTSD) Major depressive disorder, recurrent severe without psychotic features Social History Social History Household Members: Other Household Members Other:: long term Housing: Other Housing Other:: in a long term Do you presently have visiting nurse or other home services: No Alcohol intake: former Comment: sitter at bedside Patient Tobacco Use Status: Never used Tobacco Smoked in Last 30 Days: No Use of substances other than those prescribed or required for medical reasons: No Substance Use Type: Marijuana Currently Displaying Signs/Symptoms of Drug Intoxication Withdrawal: No Have you been hit, kicked, punched, or otherwise hurt by someone within the past year? If so, by whom?: No Do you feel safe in your current relationship?: No Current Relationship Is there a partner from a previous relationship who is making you feel unsafe now?: No Are you made to feel afraid or neglected: No Advance Directives: No Advance Directives Information Provided: Yes Do you have a plan to hurt others: Specific Recently lost weight without trying: No How much weight loss: Not applicable Eating poorly because of decreased appetite: No Nutrition screen score: 0 Nutrition Risks: No Nutritional Risk Poor oral hygiene: No service: No Meds Allergies Allergy/AdvReac Type Severity Reaction Status Date / Time clindamycin Allergy Intermediate Unknown Verified 01/05/25 08:32 haloperidol (From Haldol) Allergy Intermediate Unknown Verified 01/05/25 08:32 NSAIDS (Non-Steroidal Allergy Intermediate Unknown Verified 01/05/25 08:32 Anti-Inflamma Penicillins Allergy Intermediate Anaphylaxis Verified 01/07/25 12:45 Active Medications: Current Medications Acetaminophen (Acetaminophen 325 Mg Tablet) 650 mg PO Q6H PRN PRN Reason: Pain, Mild 1-3,fever,headache Last Admin: 01/10/25 13:40 Dose: 650 mg Calcium Carbonate (Calcium Carbonate 750 Mg Tab.Chew) 750 mg PO Q4H PRN PRN Reason: Heartburn Last Admin: 01/09/25 17:11 Dose: 750 mg Clotrimazole (Clotrimazole 1 % Cream 15 Gm Tube) 1 appl TOPICAL DAILY [facility]; Protocol Last Admin: 01/11/25 08:32 Dose: 1 appl Finasteride (Finasteride 5 Mg Tablet) 5 mg PO DAILY [facility] Last Admin: 01/11/25 08:28 Dose: 5 mg Hydroxyzine HCl (Hydroxyzine Hcl 50 Mg Tablet) 50 mg PO QID [facility] Last Admin: 01/11/25 12:46 Dose: 50 mg Levothyroxine Sodium (Levothyroxine Sodium 175 Mcg Tablet) 175 mcg PO DAILY@0600 [facility] Last Admin: 01/11/25 06:19 Dose: 175 mcg Magnesium Hydroxide (Milk Of Magnesia 30 Ml Oral.Susp) 30 ml PO DAILY PRN PRN Reason: Constipation Melatonin (Melatonin 3 Mg Tablet) 6 mg PO BEDTIME PRN PRN Reason: Insomnia Multivitamins/Vitamin C (Multivitamin Tablet) 1 tab PO DAILY [facility] Last Admin: 01/11/25 08:29 Dose: 1 tab Omeprazole (Omeprazole 20 Mg Capsule.Dr) 20 mg PO BID [facility] Last Admin: 01/11/25 08:29 Dose: 20 mg Ondansetron HCl (Ondansetron Hcl 4 Mg/2 Ml Vial) 4 mg IVPUSH Q8H PRN PRN Reason: Nausea and Vomiting Polyethylene Glycol (Polyethylene Glycol 3350 17 Gm Powd.Pack) 17 gm PO DAILY PRN PRN Reason: Constipation Prednisone (Prednisone 20 Mg Tablet) 60 mg PO BID [facility] Last Admin: 01/11/25 08:28 Dose: 60 mg Primidone (Primidone 50 Mg Tablet) 50 mg PO BID [facility] On Hold: 01/05/25 21:00 Sodium Chloride (0.9 % Sodium Chloride Flush 3 Ml Syringe) 3 ml IVFLUSH [facility] Last Admin: 01/11/25 08:31 Dose: 3 ml Home Medications ?Medication ?Instructions ?Recorded ?Confirmed ?Last Taken ?Type B-complex with vitamin C 1 tab PO DAILY 09/27/24 01/05/25 01/04/25 History acetaminophen 650 mg 650 mg PO Q4-6H PRN Fever Or Pain 09/27/24 01/05/25 01/04/25 History tablet,extended release atorvastatin 40 mg tablet 40 mg PO DAILY 09/27/24 01/05/25 01/04/25 History clotrimazole 1 % topical cream 1 appl topical DAILY 09/27/24 01/05/25 01/04/25 History guaifenesin 200 mg/5 mL oral liquid 200 - 400 mg PO Q4H PRN Cough 09/27/24 01/05/25 Unknown History guanfacine 2 mg tablet 2 mg PO BEDTIME 09/27/24 01/05/25 01/04/25 History hydroxyzine HCl 50 mg tablet 50 mg PO QID 09/27/24 01/05/25 01/04/25 History ketoconazole 2 % topical cream 1 appl topical DAILY 09/27/24 01/05/25 01/04/25 History lisinopril 20 1 tab PO DAILY 09/27/24 01/05/25 01/04/25 History mg-hydrochlorothiazide 25 mg tablet (Zestoretic) magnesium hydroxide 400 mg/5 mL 30 ml PO DAILY PRN Constipation 09/27/24 01/05/25 Unknown History oral suspension (Milk of Magnesia) meclizine 25 mg tablet 25 mg PO TID PRN Vertigo 09/27/24 01/05/25 Unknown History naloxone 4 mg/actuation nasal 4 mg intranasal Q3M PRN Opiate 09/27/24 01/05/25 Unknown History spray (Narcan) Reversal primidone 50 mg tablet 50 mg PO BID 09/27/24 01/05/25 01/04/25 History vitamin B complex 1 tab PO BEDTIME 09/27/24 01/05/25 01/04/25 History levothyroxine 175 mcg tablet 175 mcg PO DAILY@00 01/05/25 01/05/25 01/04/25 History lumateperone 42 mg capsule 42 mg PO BEDTIME 01/05/25 01/05/25 Unknown History (Caplyta) Physical Exam Vital Signs: Vital Signs: Last Vital Signs Temp 97.7 F 01/11/25 10:56 Pulse 95 01/11/25 10:56 Resp 20 01/11/25 10:56 BP 126/84 01/11/25 10:56 Pulse Ox 97 01/11/25 10:56 O2 Del Method Room Air 01/11/25 10:56 BMI result Body Mass Index 37.9 GENERAL APPEARANCE: in no acute distress, pleasant. NECK: no carotid bruit, no jugular venous distention. SKIN: no suspicious lesions, warm and dry. HEART: no murmurs, regular rate and rhythm. LUNGS: clear to auscultation bilaterally. ABDOMEN: soft, nontender. EXTREMITIES: no edema. PERIPHERAL PULSES: equal. NEUROLOGIC: No gross deficits, AAO X 3 Objective Labs and Meds 01/11/25 07:13 01/09/25 07:53 Lab results: Laboratory Results - last 24 hr 01/09/25 01/11/25 01/11/25 07:53 07:13 08:43 WBC 1.6 L RBC 3.23 L Hgb 8.3 L Hct 25.7 L MCV 79.6 L MCH 25.7 L MCHC 32.3 RDW 19.5 H Plt Count 31 L MPV TNP Absolute Nucleated RBC 0.040 H Nucleated RBC % (auto) 2.6 H Troponin I High Sens 4.7 A.phagocytophil DNA PCR NOT DETECTED Babesia microti DNA PCR NOT DETECTED Borrelia sp DNA (PCR) NOT DETECTED Borrelia miyamotoi (PCR) NOT DETECTED E.chaffeensis DNA (PCR) NOT DETECTED Tick-borne Disease PCR SEE NOTE Assessment and Plan (1) Chest pain: Status: Acute Plan [age] year gentleman with multiple comorbidities including pancytopenia who we have been asked to see for chest pain. His EKG is not showing any dynamic changes. His biomarkers are also negative. He has pancytopenia currently. Blood pressure control is reasonable currently please monitor closely. Do not recommend aspirin or any antiplatelets currently due to pancytopenia. He has chronic chest pains off and on and had esophageal surgery before. I have explained to him that he will need further workup as things start improving. Thank you for allowing me to participate in the care of your patient. Please feel free to contact me if you have any questions. Procedures Date of Service Date of Service: 01/11/25
--- NOTE | 2025-01-11 15:08 | PM.HEMONCPN ---
Medical Summary - Medical Summary Date of Service: 01/11/25 Chief complaint: None today Primary Care Provider: Shaji Huntley MD Shoe Lining Fitter Utilized?: No - Malay Speaking Interval History Interval history: Lemuel Maldonado is a 64 year old male with history of PTSD, depression, ADHD, resident of [facility] was brought to the emergency department because of increasing depression as well as symptoms of feeling weak. He says that he has been having body aches, chills and night sweats for last several days. He was started on a new antidepressant Caplyta recently and he thinks that caused him to have worsening symptoms of depression. Patient is aware of low platelets. He was seen by pneumatic hoist operator at [facility] a few weeks ago. He says he has another follow-up coming up in a month or so. Patient was seen by this senior grant writer in September for thrombocytopenia. During that admission he was admitted for acute pancreatitis. He was recently started on primidone and this was also raised as a cause for cytopenias, mainly agranulocytosis and sometimes aplastic anemia. Patient denies any fevers but says he has been having night sweats. No loss of appetite or weight loss. He denies chest pain, shortness of breath or abdominal pain. He denies change in bowel habits. He has not been on any recent antibiotics. Patient apparently had chest pain this morning but at this time denies any chest pain or symptoms. Review of Systems - Neurologic Denies dizziness, Denies loss of vision, Denies numbness, Denies tingling, Reports weakness PMFSH Medical History: Medical History (Last Updated 01/11/25 @ 11:43 by Maureen Burgos MD) Attention deficit disorder BPH (benign prostatic hyperplasia) Chronic post-traumatic stress disorder (PTSD) Dissociative disorder Elevated PSA Essential (primary) hypertension HTN (hypertension) Hypothyroidism Major depressive disorder, recurrent severe without psychotic features Thrombocytopenia Social History: Social History (Last Reviewed 01/07/25 @ 15:07 by Mago Figueredo MD) Living Situation History: Household Members: Other Household Members Other:: [facility] Housing: Other Housing Other:: in a [facility] Do you presently have visiting nurse or other home services: No Alcohol History Details: 1. How often do you have a drink containing alcohol?: a. Never AUDIT-C Alcohol total score: 0 Currently Displaying Signs/Symptoms of Alcohol Withdrawal: No Tobacco History: Patient Tobacco Use Status: Never used Tobacco Smoked in Last 30 Days: No Substance Use History: Use of substances other than those prescribed or required for medical reasons: No Substance Use Type: Marijuana Currently Displaying Signs/Symptoms of Drug Intoxication Withdrawal: No Domestic Abuse History: Have you been hit, kicked, punched, or otherwise hurt by someone within the past year? If so, by whom?: No Do you feel safe in your current relationship?: No Current Relationship Is there a partner from a previous relationship who is making you feel unsafe now?: No Are you made to feel afraid or neglected: No Advance Directives: Advance Directives: No Advance Directives Information Provided: Yes Homicidal Assessment: Do you have a plan to hurt others: Specific Nutrition Assessment: Recently lost weight without trying: No How much weight loss: Not applicable Eating poorly because of decreased appetite: No Nutrition screen score: 0 Nutrition Risks: No Nutritional Risk Poor oral hygiene: No Occupation Assessmet: service: No Home Medications and Allergies Current Medications: Current Medications Acetaminophen (Acetaminophen 325 Mg Tablet) 650 mg PO Q6H PRN PRN Reason: Pain, Mild 1-3,fever,headache Last Admin: 01/10/25 13:40 Dose: 650 mg Calcium Carbonate (Calcium Carbonate 750 Mg Tab.Chew) 750 mg PO Q4H PRN PRN Reason: Heartburn Last Admin: 01/09/25 17:11 Dose: 750 mg Clotrimazole (Clotrimazole 1 % Cream 15 Gm Tube) 1 appl TOPICAL DAILY [facility]; Protocol Last Admin: 01/11/25 08:32 Dose: 1 appl Finasteride (Finasteride 5 Mg Tablet) 5 mg PO DAILY [facility] Last Admin: 01/11/25 08:28 Dose: 5 mg Hydroxyzine HCl (Hydroxyzine Hcl 50 Mg Tablet) 50 mg PO QID [facility] Last Admin: 01/11/25 12:46 Dose: 50 mg Levothyroxine Sodium (Levothyroxine Sodium 175 Mcg Tablet) 175 mcg PO DAILY@0600 [facility] Last Admin: 01/11/25 06:19 Dose: 175 mcg Magnesium Hydroxide (Milk Of Magnesia 30 Ml Oral.Susp) 30 ml PO DAILY PRN PRN Reason: Constipation Melatonin (Melatonin 3 Mg Tablet) 6 mg PO BEDTIME PRN PRN Reason: Insomnia Multivitamins/Vitamin C (Multivitamin Tablet) 1 tab PO DAILY [facility] Last Admin: 01/11/25 08:29 Dose: 1 tab Omeprazole (Omeprazole 20 Mg Capsule.Dr) 20 mg PO BID [facility] Last Admin: 01/11/25 08:29 Dose: 20 mg Ondansetron HCl (Ondansetron Hcl 4 Mg/2 Ml Vial) 4 mg IVPUSH Q8H PRN PRN Reason: Nausea and Vomiting Polyethylene Glycol (Polyethylene Glycol 3350 17 Gm Powd.Pack) 17 gm PO DAILY PRN PRN Reason: Constipation Prednisone (Prednisone 20 Mg Tablet) 60 mg PO BID [facility] Last Admin: 01/11/25 08:28 Dose: 60 mg Primidone (Primidone 50 Mg Tablet) 50 mg PO BID [facility] On Hold: 01/05/25 21:00 Sodium Chloride (0.9 % Sodium Chloride Flush 3 Ml Syringe) 3 ml IVFLUSH QSHIFT [facility] Last Admin: 01/11/25 08:31 Dose: 3 ml Home Medications ?Medication ?Instructions ?Recorded ?Confirmed ?Type B-complex with vitamin C 1 tab PO DAILY 09/27/24 01/05/25 History acetaminophen 650 mg 650 mg PO Q4-6H PRN Fever Or Pain 09/27/24 01/05/25 History tablet,extended release atorvastatin 40 mg tablet 40 mg PO DAILY 09/27/24 01/05/25 History clotrimazole 1 % topical cream 1 appl topical DAILY 09/27/24 01/05/25 History guaifenesin 200 mg/5 mL oral liquid 200 - 400 mg PO Q4H PRN Cough 09/27/24 01/05/25 History guanfacine 2 mg tablet 2 mg PO BEDTIME 09/27/24 01/05/25 History hydroxyzine HCl 50 mg tablet 50 mg PO QID 09/27/24 01/05/25 History ketoconazole 2 % topical cream 1 appl topical DAILY 09/27/24 01/05/25 History lisinopril 20 1 tab PO DAILY 09/27/24 01/05/25 History mg-hydrochlorothiazide 25 mg tablet (Zestoretic) magnesium hydroxide 400 mg/5 mL 30 ml PO DAILY PRN Constipation 09/27/24 01/05/25 History oral suspension (Milk of Magnesia) meclizine 25 mg tablet 25 mg PO TID PRN Vertigo 09/27/24 01/05/25 History naloxone 4 mg/actuation nasal 4 mg intranasal Q3M PRN Opiate 09/27/24 01/05/25 History spray (Narcan) Reversal primidone 50 mg tablet 50 mg PO BID 09/27/24 01/05/25 History vitamin B complex 1 tab PO BEDTIME 09/27/24 01/05/25 History levothyroxine 175 mcg tablet 175 mcg PO DAILY@0600 01/05/25 01/05/25 History lumateperone 42 mg capsule 42 mg PO BEDTIME 01/05/25 01/05/25 History (Caplyta) Allergies Allergy/AdvReac Type Severity Reaction Status Date / Time clindamycin Allergy Intermediate Unknown Verified 01/05/25 08:32 haloperidol (From Haldol) Allergy Intermediate Unknown Verified 01/05/25 08:32 NSAIDS (Non-Steroidal Allergy Intermediate Unknown Verified 01/05/25 08:32 Anti-Inflamma Penicillins Allergy Intermediate Anaphylaxis Verified 01/07/25 12:45 Exam Vital signs: Vital Signs Temp 97.7 F 01/11/25 10:56 Pulse 95 01/11/25 10:56 Resp 20 01/11/25 10:56 BP 126/84 01/11/25 10:56 Pulse Ox 97 01/11/25 10:56 O2 Del Method Room Air 01/11/25 10:56 Intake & Output 01/10/25 01/11/25 01/11/25 18:59 06:59 18:59 Intake Total 240 / 420 180 / 420 535 / 535 Balance 240 / 420 180 / 420 535 / 535 Intake: Intake, Oral Amount 240 / 420 180 / 420 480 / 480 Intake, IV Amount 55 / 55 Metoprolol Tartrate 5 mg In 0.9 55 / 55 % Sodium Chloride 50 ml @ 220 mls/hr IV ONCE ONE Rx#: [id number] Other: Dinner % Eaten 100% Eating (Feeding) Ability Independent Number of Unmeasured Voids 2 1 3 Urine Bathroom Bathroom Bathroom Urine Color Yellow Last Bowel Movement 01/11/25 Weight 137.5 kg BMI result Body Mass Index 37.9 - Constitutional Present: no acute distress, morbidly obese - Routine HEENT Exam Head: Present: atraumatic, normal inspection - Routine Neck Exam Present: full ROM - Routine Respiratory Exam Present: decreased breath sounds, CTAB. Absent: accessory muscle use - Routine Cardiovascular Exam Cardiovascular: Present: RRR, S1, S2 - Routine Abdominal Exam Present: hypoactive bowel sounds, soft - Routine Extremities Exam Present: nontender. Absent: pedal edema - Routine Skin Exam Present: intact - Routine Neurological Exam Present: alert, oriented X3 Data - Labs CBC & Chem 7: 01/11/25 07:13 01/09/25 07:53 - Imaging Radiologist's impression: ITS Impressions Head CT 01/05/25 10:16 IMPRESSION: No acute intracranial abnormality. Electronically signed by: Marc Guajardo MD 01/05/2025 11:38 AM EDT RP Chest X-Ray 01/06/25 10:44 IMPRESSION: No acute airspace disease. Multilevel spondylosis. Electronically signed by: Hipolito Castillo MD 01/06/2025 12:13 PM EDT RP Abdomen/Pelvis CT 01/06/25 16:12 IMPRESSION: 1. No acute findings in the abdomen or pelvis. 2. Ancillary findings as discussed. Electronically signed by: Hong Reed MD 01/06/2025 05:07 PM EDT RP Assessment and Plan Patient Active problem list reviewed?: Yes (1) Pancytopenia Problem details: Recommedn transfusion of one unit of platelets daily if platelets are below 10,000 or for clinically significant bleeding. Agree with transfer to [facility]. Status: Acute Assessment and plan: 1. This is a 64-year-old male admitted for worsening thrombocytopenia/pancytopenia. His past medical history significant for major depression, PTSD, dissociated disorder. Patient was seen in September 2024 for thrombocytopenia, at that time his platelets were about 50 K. Previously in 2023 it was in the 140s. His thrombocytopenia at that time was felt to be related to use of primidone which can cause cytopenias, agranulocytosis and aplastic anemia. He was subsequently seen by pneumatic hoist operator at [facility] in November 2024. They also felt that he needed to come off primidone. He did not get a bone marrow aspiration/biopsy. Hematological workup at [facility] has shown that he has beta thalassemia trait. Haptoglobin is normal. He has severe thrombocytopenia with platelet count of 5. He has reticulocytopenia. This raises possibilities of drug-induced aplastic anemia, pancytopenia secondary to primary bone marrow disorder such as myelodysplastic syndrome as well as leukemia. He received blood and platelet transfusions. Ultrasound abdomen Demonstrated steatosis. Normal vitamin B12 and folate levels. Primidone is on hold. 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 He received 2 doses of IVIG, 100 g based on adjusted body weight. He is on prednisone 60 mg b.i.d.. There has been improvement in platelet count, now over 30 K. He is on broad-spectrum antibiotics for neutropenic fever, this has now resolved. Blood cultures so far are negative. CT-guided bone marrow aspiration/biopsy was postponed because of low platelets. It is now scheduled for tomorrow. I discussed the procedure and reason for doing it. He is agreeable to proceed with it. - Time Spent With Patient Time Spent with Patient (in minutes): 10
[2025-01-12] VITALS (20 sets, daily range): BP systolic 119–146; BP diastolic 61–98; PULSE 88–117; RESP 16–22; TEMP 36.1–36.9; O2SAT 95–100
[2025-01-12 07:30] LABS: Hematocrit 26.8 % (42.0-52.0); Hemoglobin 8.6 g/dl (14.0-18.0); Mean Corpuscular HGB Conc 32.1 g/dl (31.0-36.0); Mean Corpuscular Hemoglobin 25.7 pg (27.0-33.0); Mean Corpuscular Volume 80.2 fL (80.0-98.0); NRBC Abs Auto 0.070 X10*3/uL (0.0-0.012); NRBC Pct Auto 6.4 /100WBC (0.0-0.2); Platelet Count 36 X10*3/uL (160-400); Red Blood Count 3.34 X10*6/uL (4.60-5.80); White Blood Count 1.1 X10*3/uL (4.8-10.8)
[2025-01-12] MEDS: 0.9 % Sodium Chloride Flush 3 ML SYRINGE IVFLUSH ×3 (07:48→21:33)
[2025-01-12 07:51] LABS: Alanine Aminotransferase 130 U/L (0-40); Albumin Level 3.7 g/dL (3.5-5.0); Alkaline Phosphatase 81 U/L (39-117); Anion Gap 11 (12-20); Aspartate Amino Transferase 59 U/L (5-37); Blood Urea Nitrogen 24 mg/dL (9-16); Calcium 8.5 mg/dL (8.4-10.2); Carbon Dioxide 29 mmol/L (22-29); Chloride 100 mmol/L (96-108); Creatinine Clr Calc Pharmacy 120.5; Estimated Glomerular Filt Rate > 60; Potassium 4.8 mmol/L (3.3-5.1); Sodium 135 mmol/L (135-145); Total Protein 7.9 g/dL (6.5-8.0)
--- NOTE | 2025-01-12 08:15 | P.PNIM_ITS ---
Subjective Subjective Date of Service: 01/12/25 Interval History: Pt appears to be confuseed about the need for prolonged stay Was explained in detail about the need for NPO and BMB Appears somewhat confused and asks to repeat whatever has been explained Thankfully Pancyto is improving - no obv bleed noted Received 2 U extra platelets today Review of Systems Review of Systems: Yes all other systems are reviewed and are negative Physical Exam 2 Exam: Exam: General: AO X 3, no acute distress Resp: CTA bilateral, on RA CVS: S1,S2,RRR GI: +BS, NT, no distention Skin: No rash Neuro: motor grossly intact Psych: flat affect, no SI Vital Signs: Vital Signs: Last Vital Signs Temp 97.5 F 01/12/25 07:07 Pulse 97 01/12/25 07:07 Resp 18 01/12/25 07:07 BP 132/82 01/12/25 07:07 Pulse Ox 96 01/12/25 07:07 O2 Del Method Room Air 01/12/25 07:07 BMI result Body Mass Index 37.9 Objective Data Active Medications Acetaminophen (Acetaminophen 325 Mg Tablet) 650 mg PO Q6H PRN PRN Reason: Pain, Mild 1-3,fever,headache Last Admin: 01/10/25 13:40 Dose: 650 mg Documented By: SRAVANI Calcium Carbonate (Calcium Carbonate 750 Mg Tab.Chew) 750 mg PO Q4H PRN PRN Reason: Heartburn Last Admin: 01/09/25 17:11 Dose: 750 mg Documented By: JONATHAN Clotrimazole (Clotrimazole 1 % Cream 15 Gm Tube) 1 appl TOPICAL DAILY [facility]; Protocol Last Admin: 01/12/25 07:49 Dose: Not Given Documented By: SRIKANTH Non-Admin Reason: Patient Refused Finasteride (Finasteride 5 Mg Tablet) 5 mg PO DAILY [facility] Last Admin: 01/12/25 07:48 Dose: 5 mg Documented By: SRIKANTH Hydroxyzine HCl (Hydroxyzine Hcl 50 Mg Tablet) 50 mg PO QID [facility] Last Admin: 01/12/25 07:47 Dose: 50 mg Documented By: SRIKANTH Levothyroxine Sodium (Levothyroxine Sodium 175 Mcg Tablet) 175 mcg PO DAILY@0600 [facility] Last Admin: 01/12/25 05:19 Dose: Not Given Documented By: RUFINO Non-Admin Reason: NPO Magnesium Hydroxide (Milk Of Magnesia 30 Ml Oral.Susp) 30 ml PO DAILY PRN PRN Reason: Constipation Melatonin (Melatonin 3 Mg Tablet) 6 mg PO BEDTIME PRN PRN Reason: Insomnia Multivitamins/Vitamin C (Multivitamin Tablet) 1 tab PO DAILY [facility] Last Admin: 01/12/25 07:47 Dose: 1 tab Documented By: SRIKANTH Omeprazole (Omeprazole 20 Mg Capsule.Dr) 20 mg PO BID [facility] Last Admin: 01/12/25 07:47 Dose: 20 mg Documented By: SRIKANTH Ondansetron HCl (Ondansetron Hcl 4 Mg/2 Ml Vial) 4 mg IVPUSH Q8H PRN PRN Reason: Nausea and Vomiting Polyethylene Glycol (Polyethylene Glycol 3350 17 Gm Powd.Pack) 17 gm PO DAILY PRN PRN Reason: Constipation Prednisone (Prednisone 20 Mg Tablet) 60 mg PO BID [facility] Last Admin: 01/12/25 07:46 Dose: 60 mg Documented By: SRIKANTH Primidone (Primidone 50 Mg Tablet) 50 mg PO BID [facility] On Hold: 01/05/25 21:00 Sodium Chloride (0.9 % Sodium Chloride Flush 3 Ml Syringe) 3 ml IVFLUSH QSHIFT [facility] Last Admin: 01/12/25 07:48 Dose: 3 ml Documented By: SRIKANTH Labs 01/12/25 06:48 01/12/25 06:48 Labs: Laboratory Results - last 24 hr 01/12/25 06:48 MPV TNP Anion Gap 11 L Estim Creat Clear Calc 120.5 Estimated GFR > 60 Random Glucose 146 H Calcium 8.5 Total Bilirubin 0.7 AST 59 H ALT 130 H Alkaline Phosphatase 81 Total Protein 7.9 Albumin 3.7 Blood Type O Positive Antibody Screen NEGATIVE Microbiology Microbiology Results: Microbiology 01/06/25 13:16 Blood Culture - Final Blood - Venous No growth after 5 days. 01/06/25 13:15 Blood Culture - Final Blood - Venous No growth after 5 days. Assessment and Plan (1) Thrombocytopenia: Status: Acute (2) HTN (hypertension): Status: Acute (3) BPH (benign prostatic hyperplasia): Status: Acute (4) Chest pain: Status: Acute Plan This is a 64-year-old male with pertinent history of achalasia status post surgery, mood disorder, mixed hyperlipidemia, hypertension, gastroesophageal reflux disease, hypothyroidism, pancytopenia previously seen by heme--He presented with depression and SI, and has more pronounced pancytopenia and elevated LFTs Chest pain less likely ACS - likely MSK related Major Depression with SI with active to hang self, he thinks it was related to Caplyta, no SI , off sitter, will hold Lumateperone Will need clearance by Psych prior to DC Pancytopenia - received 10U Platelets and 1U PRBC thus far Likely BM suppression - sepsis vs Lumateperone BMB to be done today Platelets to be >50, hence trasnfusing 2 U platelets (will total 10U till date) Heme Onc following Can resume diet following BMB Neutropenic Fever resolved - unclear source - currently off all abx Elevated LFTs - likely DUFF, imaging non-contributary hold statin Gastroesophageal reflux disease omeprazole Hypothyroidism: cont levothyroxine HLD hold statin d/t high lfts Hypertension Lisinopril/HCTZ, holding both until cards consult BPH: cont finasteride DVT prophylaxis:SCD boots, Lovenox CI 2/2 severe thrombocytopenia This note is constructed using voice recognition software. While every effort has been made to ensure accuracy, auditor appraiser errors may have been included. Quality Stroke Does the patient have a stroke diagnosis?: No VTE Prior VTE?: No VTE Risk Level:: Medical - low VTE Device Contraindication: Treatment Not Indicated VTE Drug Contraindication: Treatment Not Indicated
[2025-01-12] MEDS: Lidocaine HCl 1 % MPF 30 ML VIAL 10 ML SUBCUT (15:33)
[2025-01-13] MEDS: Butalb/Acetamin/Caff 50/325/40 TABLET 1 TAB PO (00:21)
[2025-01-13 03:28] VITALS: BP 143/90; PULSE 112; RESP 18; TEMP 36.6; O2SAT 98
[2025-01-13 07:00] VITALS: BP 117/79; PULSE 111; RESP 20; TEMP 36.7; O2SAT 97
--- NOTE | 2025-01-13 08:56 | HO.PM.IMPN ---
Subjective Subjective Date of Service: 01/13/25 Interval History: Rather asymptomatic Awaiting bone marrow biopsy results Platelet count improving Review of Systems Review of Systems: Yes all other systems are reviewed and are negative Physical Exam Exam: Exam: General: AO X 3, no acute distress Resp: CTA bilateral, on RA CVS: S1,S2,RRR GI: +BS, NT, no distention Skin: No rash Neuro: motor grossly intact Psych: flat affect, no SI Vital Signs: Vital Signs: Last Vital Signs Temp 98.0 F 01/13/25 07:00 Pulse 111 H 01/13/25 07:00 Resp 20 01/13/25 07:00 BP 117/79 01/13/25 07:00 Pulse Ox 97 01/13/25 07:00 O2 Del Method Room Air 01/13/25 07:00 O2 Flow Rate 2 01/12/25 15:20 FiO2 40 01/12/25 15:20 BMI result Body Mass Index 37.9 Objective Data Active Medications Acetaminophen (Acetaminophen 325 Mg Tablet) 650 mg PO Q6H PRN PRN Reason: Pain, Mild 1-3,fever,headache Last Admin: 01/12/25 17:40 Dose: 650 mg Documented By: SRIKANTH Acetaminophen/Butalbital/Caffeine (Butalb/Acetamin/Caff 50/325/40 Tablet) 1 tab PO Q4H PRN PRN Reason: Headache Last Admin: 01/13/25 00:21 Dose: 1 tab Documented By: ROSALIA Calcium Carbonate (Calcium Carbonate 750 Mg Tab.Chew) 750 mg PO Q4H PRN PRN Reason: Heartburn Last Admin: 01/09/25 17:11 Dose: 750 mg Documented By: JONATHAN Clotrimazole (Clotrimazole 1 % Cream 15 Gm Tube) 1 appl TOPICAL DAILY [facility]; Protocol Last Admin: 01/12/25 07:49 Dose: Not Given Documented By: SRIKANTH Non-Admin Reason: Patient Refused Finasteride (Finasteride 5 Mg Tablet) 5 mg PO DAILY [facility] Last Admin: 01/12/25 07:48 Dose: 5 mg Documented By: SRIKANTH Hydroxyzine HCl (Hydroxyzine Hcl 50 Mg Tablet) 50 mg PO QID [facility] Last Admin: 01/12/25 21:32 Dose: 50 mg Documented By: ROSALIA Levothyroxine Sodium (Levothyroxine Sodium 175 Mcg Tablet) 175 mcg PO DAILY@0600 [facility] Last Admin: 01/13/25 05:36 Dose: 175 mcg Documented By: ROSALIA Magnesium Hydroxide (Milk Of Magnesia 30 Ml Oral.Susp) 30 ml PO DAILY PRN PRN Reason: Constipation Melatonin (Melatonin 3 Mg Tablet) 6 mg PO BEDTIME PRN PRN Reason: Insomnia Multivitamins/Vitamin C (Multivitamin Tablet) 1 tab PO DAILY [facility] Last Admin: 01/12/25 07:47 Dose: 1 tab Documented By: SRIKANTH Omeprazole (Omeprazole 20 Mg Capsule.) 20 mg PO BID [facility] Last Admin: 01/12/25 21:33 Dose: 20 mg Documented By: ROSALIA Ondansetron HCl (Ondansetron Hcl 4 Mg/2 Ml Vial) 4 mg IVPUSH Q8H PRN PRN Reason: Nausea and Vomiting Polyethylene Glycol (Polyethylene Glycol 3350 17 Gm Powd.Pack) 17 gm PO DAILY PRN PRN Reason: Constipation Prednisone (Prednisone 20 Mg Tablet) 60 mg PO BID [facility] Last Admin: 01/12/25 21:32 Dose: 60 mg Documented By: ROSALIA Primidone (Primidone 50 Mg Tablet) 50 mg PO BID [facility] On Hold: 01/05/25 21:00 Sodium Chloride (0.9 % Sodium Chloride Flush 3 Ml Syringe) 3 ml IVFLUSH QSHIFT [facility] Last Admin: 01/12/25 21:33 Dose: 3 ml Documented By: ROSALIA Labs 01/13/25 09:10 01/13/25 09:10 Labs: Laboratory Results - last 24 hr 01/12/25 01/12/25 06:48 06:48 Total Bilirubin Cancelled Direct Bilirubin Cancelled 0.3 AST Cancelled ALT Cancelled Alkaline Phosphatase Cancelled Total Protein Cancelled Albumin Cancelled Blood Type O Positive Antibody Screen NEGATIVE Assessment and Plan (1) Thrombocytopenia: Status: Acute (2) HTN (hypertension): Status: Acute (3) BPH (benign prostatic hyperplasia): Status: Acute (4) Chest pain: Status: Acute Plan This is a 64-year-old male with pertinent history of achalasia status post surgery, mood disorder, mixed hyperlipidemia, hypertension, gastroesophageal reflux disease, hypothyroidism, pancytopenia previously seen by [facility]--He presented with depression and SI, and has more pronounced pancytopenia and elevated LFTs Chest pain less likely ACS - likely MSK related Major Depression with SI with active to hang self, he thinks it was related to Caplyta, no SI , off sitter, will hold Lumateperone Will need clearance by care team/ Psych prior to DC Pancytopenia - received 10U Platelets and 1U PRBC thus far Likely BM suppression - sepsis vs Lumateperone BMB done on 01/12/2025-awaiting results Neutropenic Fever resolved - unclear source - currently off all abx Elevated LFTs - likely DUFF, imaging non-contributary hold statin Gastroesophageal reflux disease omeprazole Hypothyroidism: cont levothyroxine HLD hold statin d/t high lfts Hypertension Lisinopril/HCTZ, holding both until cards consult BPH: cont finasteride DVT prophylaxis:SCD boots, Lovenox CI 2/2 severe thrombocytopenia This note is constructed using voice recognition software. While every effort has been made to ensure accuracy, x ray equipment tester errors may have been included. Quality Stroke Does the patient have a stroke diagnosis?: No VTE Prior VTE?: No VTE Risk Level:: Medical - low VTE Device Contraindication: Treatment Not Indicated VTE Drug Contraindication: Treatment Not Indicated
[2025-01-13 09:42] LABS: Hematocrit 26.2 % (42.0-52.0); Hemoglobin 8.3 g/dl (14.0-18.0); Imm Gran Abs Auto 0.01 X10*3/uL (0.00-0.03); Imm Gran Pct Auto 0.8 % (0.0-0.4); Lymphocytes Absolute Auto 0.6 X10*3/uL (1.2-4.9); MANUAL DIFF FLAG SCAN; Mean Corpuscular HGB Conc 31.7 g/dl (31.0-36.0); Mean Corpuscular Hemoglobin 25.6 pg (27.0-33.0); Mean Corpuscular Volume 80.9 fL (80.0-98.0); NRBC Abs Auto 0.140 X10*3/uL (0.0-0.012); Red Blood Count 3.24 X10*6/uL (4.60-5.80); SCAN SMEAR FLAG 1
[2025-01-13 09:43] LABS: NRBC Pct Auto 11.4 /100WBC (0.0-0.2); Platelet Count 50 X10*3/uL (160-400); White Blood Count 1.2 X10*3/uL (4.8-10.8)
[2025-01-13] MEDS: 0.9 % Sodium Chloride Flush 3 ML SYRINGE IVFLUSH ×3 (09:44→21:59)
[2025-01-13] MEDS: Clotrimazole 1 % Cream 15 GM TUBE 1 APPL TOPICAL (09:46)
[2025-01-13 10:03] LABS: Alanine Aminotransferase 132 U/L (0-40); Albumin Level 3.7 g/dL (3.5-5.0); Alkaline Phosphatase 78 U/L (39-117); Anion Gap 11 (12-20); Aspartate Amino Transferase 63 U/L (5-37); Blood Urea Nitrogen 24 mg/dL (9-16); Calcium 8.4 mg/dL (8.4-10.2); Carbon Dioxide 29 mmol/L (22-29); Chloride 100 mmol/L (96-108); Creatinine Clr Calc Pharmacy 109.0; Estimated Glomerular Filt Rate > 60; Potassium 4.2 mmol/L (3.3-5.1); Sodium 136 mmol/L (135-145); Total Protein 7.6 g/dL (6.5-8.0)
[2025-01-13 11:11] VITALS: BP 145/86; PULSE 109; RESP 18; TEMP 36.8; O2SAT 96
[2025-01-13 15:29] VITALS: BP 142/81; PULSE 104; RESP 18; TEMP 37.2; O2SAT 96
[2025-01-13 19:58] VITALS: BP 110/66; PULSE 99; RESP 16; TEMP 36.6; O2SAT 94
[2025-01-13 23:43] VITALS: BP 106/57; PULSE 96; RESP 18; TEMP 36.4; O2SAT 95
[2025-01-14 03:14] VITALS: BP 112/72; PULSE 83; RESP 18; TEMP 36.4; O2SAT 95
[2025-01-14 08:00] VITALS: BP 137/83; PULSE 90; RESP 18; TEMP 36.6; O2SAT 96
[2025-01-14 09:50] LABS: Imm Gran Abs Auto 0.01 X10*3/uL (0.00-0.03); Mean Corpuscular Hemoglobin 26.1 pg (27.0-33.0); SCAN SMEAR FLAG 1
[2025-01-14 09:52] LABS: Hematocrit 24.6 % (42.0-52.0); Hemoglobin 7.9 g/dl (14.0-18.0); Imm Gran Pct Auto 1.1 % (0.0-0.4); Lymphocytes Absolute Auto 0.4 X10*3/uL (1.2-4.9); MANUAL DIFF FLAG SCAN; Mean Corpuscular HGB Conc 32.1 g/dl (31.0-36.0); Mean Corpuscular Volume 81.2 fL (80.0-98.0); NRBC Abs Auto 0.150 X10*3/uL (0.0-0.012); Red Blood Count 3.03 X10*6/uL (4.60-5.80)
[2025-01-14 10:04] LABS: NRBC Pct Auto 16.3 /100WBC (0.0-0.2); PLT ABN DIST 1; Platelet Count 46 X10*3/uL (160-400)
[2025-01-14 10:06] LABS: White Blood Count 0.9 X10*3/uL (4.8-10.8)
[2025-01-14] MEDS: 0.9 % Sodium Chloride Flush 3 ML SYRINGE IVFLUSH ×3 (10:46→20:48)
[2025-01-14] MEDS: Clotrimazole 1 % Cream 15 GM TUBE 1 APPL TOPICAL (10:50)
--- NOTE | 2025-01-14 11:07 | MHC.CM.PN ---
EMR REVIEWED, PT CLEAR BY PSYCH ON 01/09 GH CONTACT [facility] [phone] AWARE, PER RAMON A SIGNED DC SUMMARY SHOULD BE SUFFICIENT FOR DC PAPERWORK, NO PHYSICIANS ORDERS NECESSARY, RAMON AWARE PT WILL LIKELY BE THROUGH W/E W/DC EARLY NEXT WEEK, CM WILL CONT TO FOLLLOW DC NEEDS.
[2025-01-14 12:00] VITALS: BP 107/68; PULSE 101; RESP 20; TEMP 37.1; O2SAT 95
--- NOTE | 2025-01-14 12:19 | HO.PM.IMPN ---
Subjective Subjective Date of Service: 01/14/25 Interval History: Reports no acute overnight events Reports tremors of the hands which appears to be bothering him-we will consult psych and neuro He continues to have fluctuating pancytopenia Review of Systems Review of Systems: Yes all other systems are reviewed and are negative Physical Exam Vital Signs: Vital Signs: Last Vital Signs Temp 97.9 F 01/14/25 08:00 Pulse 90 01/14/25 08:00 Resp 18 01/14/25 08:00 BP 137/83 01/14/25 08:00 Pulse Ox 96 01/14/25 08:00 O2 Del Method Room Air 01/14/25 08:00 O2 Flow Rate 2 01/12/25 15:20 FiO2 40 01/12/25 15:20 BMI result Body Mass Index 37.9 Objective Data Active Medications Acetaminophen (Acetaminophen 325 Mg Tablet) 650 mg PO Q6H PRN PRN Reason: Pain, Mild 1-3,fever,headache Last Admin: 01/12/25 17:40 Dose: 650 mg Documented By: SRIKANTH Acetaminophen/Butalbital/Caffeine (Butalb/Acetamin/Caff 50/325/40 Tablet) 1 tab PO Q4H PRN PRN Reason: Headache Last Admin: 01/13/25 00:21 Dose: 1 tab Documented By: ROSALIA Calcium Carbonate (Calcium Carbonate 750 Mg Tab.Chew) 750 mg PO Q4H PRN PRN Reason: Heartburn Last Admin: 01/09/25 17:11 Dose: 750 mg Documented By: JONATHAN Clotrimazole (Clotrimazole 1 % Cream 15 Gm Tube) 1 appl TOPICAL DAILY [facility]; Protocol Last Admin: 01/14/25 10:50 Dose: 1 appl Documented By: VAISHALI Finasteride (Finasteride 5 Mg Tablet) 5 mg PO DAILY [facility] Last Admin: 01/14/25 10:43 Dose: 5 mg Documented By: VAISHALI Hydroxyzine HCl (Hydroxyzine Hcl 50 Mg Tablet) 50 mg PO QID [facility] Last Admin: 01/14/25 10:44 Dose: 50 mg Documented By: VAISHALI Levothyroxine Sodium (Levothyroxine Sodium 175 Mcg Tablet) 175 mcg PO DAILY@0600 [facility] Last Admin: 01/14/25 06:17 Dose: 175 mcg Documented By: OJ Magnesium Hydroxide (Milk Of Magnesia 30 Ml Oral.Susp) 30 ml PO DAILY PRN PRN Reason: Constipation Melatonin (Melatonin 3 Mg Tablet) 6 mg PO BEDTIME PRN PRN Reason: Insomnia Last Admin: 01/13/25 21:54 Dose: 6 mg Documented By: DAX Multivitamins/Vitamin C (Multivitamin Tablet) 1 tab PO DAILY [facility] Last Admin: 01/14/25 10:45 Dose: 1 tab Documented By: VAISHALI Omeprazole (Omeprazole 20 Mg Capsule.Dr) 20 mg PO BID [facility] Last Admin: 01/14/25 10:45 Dose: 20 mg Documented By: VAISHALI Ondansetron HCl (Ondansetron Hcl 4 Mg/2 Ml Vial) 4 mg IVPUSH Q8H PRN PRN Reason: Nausea and Vomiting Polyethylene Glycol (Polyethylene Glycol 3350 17 Gm Powd.Pack) 17 gm PO DAILY PRN PRN Reason: Constipation Last Admin: 01/13/25 12:32 Dose: 17 gm Documented By: MATTHEW Prednisone (Prednisone 20 Mg Tablet) 60 mg PO BID [facility] Last Admin: 01/14/25 10:44 Dose: 60 mg Documented By: VAISHALI Primidone (Primidone 50 Mg Tablet) 50 mg PO BID [facility] On Hold: 01/05/25 21:00 Sodium Chloride (0.9 % Sodium Chloride Flush 3 Ml Syringe) 3 ml IVFLUSH QSHIFT [facility] Last Admin: 01/14/25 10:46 Dose: 3 ml Documented By: VAISHALI Labs 01/14/25 09:01 01/13/25 09:10 Labs: Laboratory Results - last 24 hr 01/14/25 09:01 MCV 81.2 MCH 26.1 L MCHC 32.1 RDW 19.5 H Plt Count 46 L MPV TNP Immature Gran % (Auto) 1.1 H Neut % (Auto) 51.1 Lymph % (Auto) 41.3 H [place] % (Auto) 5.4 Eos % (Auto) 0.0 Baso % (Auto) 1.1 Lymph # (Auto) 0.4 L [place] # (Auto) 0.1 Eos # (Auto) 0.0 Baso # (Auto) 0.0 Abs Immat Gran (auto) 0.01 Absolute Neuts (auto) 0.5 L Absolute Nucleated RBC 0.150 H Nucleated RBC % (auto) 16.3 H Smear Tech's Comments VERIFIED Assessment and Plan (1) Thrombocytopenia: Status: Acute Plan This is a 64-year-old male with pertinent history of achalasia status post surgery, mood disorder, mixed hyperlipidemia, hypertension, gastroesophageal reflux disease, hypothyroidism, pancytopenia previously seen by heme--He presented with depression and SI, and has more pronounced pancytopenia and elevated LFTs Pancytopenia - received 10U Platelets and 1U PRBC thus far Likely BM suppression - sepsis vs Lumateperone versus myelodysplasia BMB done on 01/12/2025-awaiting results Neutropenic Fever resolved - unclear source - currently off all abx Pancytopenia continues to fluctuate-we will continue to trend daily and likely he will have more answers once the bone marrow biopsy results come back Chest pain less likely ACS - likely MSK related -asymptomatic since admission Major Depression with SI with active to hang self, he thinks it was related to Caplyta, no SI , off sitter, will hold Lumateperone Will need clearance by care team/ Psych prior to DC Elevated LFTs - likely DUFF, imaging non-contributary hold statin Gastroesophageal reflux disease omeprazole Hypothyroidism: cont levothyroxine Hypertension Lisinopril/HCTZ, holding both until cards consult BPH: cont finasteride DVT prophylaxis:SCD boots, Lovenox CI 2/2 severe thrombocytopenia This note is constructed using voice recognition software. While every effort has been made to ensure accuracy, legal researcher errors may have been included. Quality Stroke Does the patient have a stroke diagnosis?: No VTE Prior VTE?: No VTE Risk Level:: Medical - low VTE Device Contraindication: Treatment Not Indicated VTE Drug Contraindication: Treatment Not Indicated
[2025-01-14 15:50] VITALS: BP 139/76; PULSE 97; RESP 18; TEMP 37.2; O2SAT 95
[2025-01-14 19:51] VITALS: BP 137/75; PULSE 105; RESP 16; TEMP 36.7; O2SAT 96
[2025-01-14 23:40] VITALS: BP 130/69; PULSE 112; RESP 16; TEMP 36.8; O2SAT 96
[2025-01-15 03:33] VITALS: BP 139/72; PULSE 68; RESP 16; TEMP 36.4; O2SAT 97
[2025-01-15 07:41] LABS: Hematocrit 23.4 % (42.0-52.0); Hemoglobin 7.4 g/dl (14.0-18.0); Imm Gran Abs Auto 0.01 X10*3/uL (0.00-0.03); Imm Gran Pct Auto 1.1 % (0.0-0.4); Lymphocytes Absolute Auto 0.3 X10*3/uL (1.2-4.9); MANUAL DIFF FLAG SCAN; Mean Corpuscular HGB Conc 31.6 g/dl (31.0-36.0); Mean Corpuscular Hemoglobin 26.0 pg (27.0-33.0); Mean Corpuscular Volume 82.1 fL (80.0-98.0); NRBC Abs Auto 0.120 X10*3/uL (0.0-0.012); Red Blood Count 2.85 X10*6/uL (4.60-5.80); SCAN SMEAR FLAG 1
[2025-01-15 07:43] LABS: NRBC Pct Auto 13.0 /100WBC (0.0-0.2); Platelet Count 44 X10*3/uL (160-400)
[2025-01-15 07:53] LABS: Alanine Aminotransferase 118 U/L (0-40); Albumin Level 3.4 g/dL (3.5-5.0); Alkaline Phosphatase 76 U/L (39-117); Anion Gap 11 (12-20); Aspartate Amino Transferase 50 U/L (5-37); Blood Urea Nitrogen 19 mg/dL (9-16); Calcium 8.2 mg/dL (8.4-10.2); Carbon Dioxide 27 mmol/L (22-29); Chloride 101 mmol/L (96-108); Creatinine Clr Calc Pharmacy 111.1; Estimated Glomerular Filt Rate > 60; Potassium 4.6 mmol/L (3.3-5.1); Sodium 134 mmol/L (135-145); Total Protein 7.1 g/dL (6.5-8.0)
[2025-01-15 07:55] VITALS: BP 131/68; PULSE 92; RESP 19; TEMP 36.8; O2SAT 97
--- NOTE | 2025-01-15 07:55 | HO.PM.IMPN ---
Subjective Subjective Date of Service: 01/15/25 Interval History: Reports no acute overnight events Requesting parkinsons workup - mentioned its OP workup with PCP He continues to have fluctuating pancytopenia Review of Systems Review of Systems: Yes all other systems are reviewed and are negative Physical Exam Exam: Exam: General: AO X 3, no acute distress, b/l UE tremors noted Resp: CTA bilateral, on RA CVS: S1,S2,RRR GI: +BS, NT, no distention Skin: No rash Neuro: motor grossly intact Psych: flat affect, no SI Vital Signs: Vital Signs: Last Vital Signs Temp 97.5 F 01/15/25 03:33 Pulse 68 01/15/25 03:33 Resp 16 01/15/25 03:33 BP 139/72 01/15/25 03:33 Pulse Ox 97 01/15/25 03:33 O2 Del Method Room Air 01/15/25 03:33 O2 Flow Rate 2 01/12/25 15:20 FiO2 40 01/12/25 15:20 BMI result Body Mass Index 37.9 Objective Data Active Medications Acetaminophen (Acetaminophen 325 Mg Tablet) 650 mg PO Q6H PRN PRN Reason: Pain, Mild 1-3,fever,headache Last Admin: 01/12/25 17:40 Dose: 650 mg Documented By: SRIKANTH Acetaminophen/Butalbital/Caffeine (Butalb/Acetamin/Caff 50/325/40 Tablet) 1 tab PO Q4H PRN PRN Reason: Headache Last Admin: 01/13/25 00:21 Dose: 1 tab Documented By: ROSALIA Calcium Carbonate (Calcium Carbonate 750 Mg Tab.Chew) 750 mg PO Q4H PRN PRN Reason: Heartburn Last Admin: 01/09/25 17:11 Dose: 750 mg Documented By: JONATHAN Clotrimazole (Clotrimazole 1 % Cream 15 Gm Tube) 1 appl TOPICAL DAILY [facility]; Protocol Last Admin: 01/14/25 10:50 Dose: 1 appl Documented By: VAISHALI Finasteride (Finasteride 5 Mg Tablet) 5 mg PO DAILY [facility] Last Admin: 01/14/25 10:43 Dose: 5 mg Documented By: VAISHALI Hydroxyzine HCl (Hydroxyzine Hcl 50 Mg Tablet) 50 mg PO QID [facility] Last Admin: 01/14/25 20:47 Dose: 50 mg Documented By: XI Levothyroxine Sodium (Levothyroxine Sodium 175 Mcg Tablet) 175 mcg PO DAILY@0600 [facility] Last Admin: 01/15/25 06:20 Dose: 175 mcg Documented By: XI Magnesium Hydroxide (Milk Of Magnesia 30 Ml Oral.Susp) 30 ml PO DAILY PRN PRN Reason: Constipation Melatonin (Melatonin 3 Mg Tablet) 6 mg PO BEDTIME PRN PRN Reason: Insomnia Last Admin: 01/14/25 20:47 Dose: 6 mg Documented By: XI Multivitamins/Vitamin C (Multivitamin Tablet) 1 tab PO DAILY [facility] Last Admin: 01/14/25 10:45 Dose: 1 tab Documented By: VAISHALI Omeprazole (Omeprazole 20 Mg Capsule.Dr) 20 mg PO BID [facility] Last Admin: 01/14/25 20:47 Dose: 20 mg Documented By: IX Ondansetron HCl (Ondansetron Hcl 4 Mg/2 Ml Vial) 4 mg IVPUSH Q8H PRN PRN Reason: Nausea and Vomiting Polyethylene Glycol (Polyethylene Glycol 3350 17 Gm Powd.Pack) 17 gm PO DAILY PRN PRN Reason: Constipation Last Admin: 01/13/25 12:32 Dose: 17 gm Documented By: MATTHEW Prednisone (Prednisone 20 Mg Tablet) 60 mg PO BID [facility] Last Admin: 01/14/25 20:47 Dose: 60 mg Documented By: XI Primidone (Primidone 50 Mg Tablet) 50 mg PO BID [facility] On Hold: 01/05/25 21:00 Sodium Chloride (0.9 % Sodium Chloride Flush 3 Ml Syringe) 3 ml IVFLUSH QSHIFT [facility] Last Admin: 01/14/25 20:48 Dose: 3 ml Documented By: XI Labs 01/15/25 06:59 01/15/25 06:59 Labs: Laboratory Results - last 24 hr 01/14/25 01/15/25 09:01 06:59 MCV 81.2 82.1 MCH 26.1 L 26.0 L MCHC 32.1 31.6 RDW 19.5 H 19.8 H Plt Count 46 L 44 L MPV TNP Not Reportable Immature Gran % (Auto) 1.1 H Neut % (Auto) 51.1 Lymph % (Auto) 41.3 H [place] % (Auto) 5.4 Eos % (Auto) 0.0 Baso % (Auto) 1.1 Lymph # (Auto) 0.4 L [place] # (Auto) 0.1 Eos # (Auto) 0.0 Baso # (Auto) 0.0 Abs Immat Gran (auto) 0.01 Absolute Neuts (auto) 0.5 L Absolute Nucleated RBC 0.150 H Nucleated RBC % (auto) 16.3 H Smear Tech's Comments VERIFIED Anion Gap 11 L Estim Creat Clear Calc 111.1 Estimated GFR > 60 Random Glucose 178 H Calcium 8.2 L Total Bilirubin 0.7 AST 50 H ALT 118 H Alkaline Phosphatase 76 Total Protein 7.1 Albumin 3.4 L Assessment and Plan (1) Thrombocytopenia: Status: Acute Plan This is a 64-year-old male with pertinent history of achalasia status post surgery, mood disorder, mixed hyperlipidemia, hypertension, gastroesophageal reflux disease, hypothyroidism, pancytopenia previously seen by heme--He presented with depression and SI, and has more pronounced pancytopenia and elevated LFTs Pancytopenia - received 10U Platelets and 1U PRBC thus far Likely BM suppression - sepsis vs Lumateperone versus myelodysplasia BMB done on 01/12/2025-awaiting results Neutropenic Fever resolved - unclear source - currently off all abx Pancytopenia continues to fluctuate-we will continue to trend daily and likely he will have more answers once the bone marrow biopsy results come back Chest pain less likely ACS - likely MSK related -asymptomatic since admission Major Depression with SI with active to hang self, he thinks it was related to Caply[place], no SI , off sitter, will hold Lumateperone Will need clearance by care team/ Psych prior to DC Gastroesophageal reflux disease omeprazole Hypothyroidism: cont levothyroxine Hypertension Lisinopril/HCTZ, holding both until cards consult BPH: cont finasteride DVT prophylaxis:SCD boots, Lovenox CI 2/2 severe thrombocytopenia This note is constructed using voice recognition software. While every effort has been made to ensure accuracy, prior authorization technician errors may have been included. Quality Stroke Does the patient have a stroke diagnosis?: No VTE Prior VTE?: No VTE Risk Level:: Medical - low VTE Device Contraindication: Treatment Not Indicated VTE Drug Contraindication: Treatment Not Indicated
[2025-01-15 08:07] LABS: White Blood Count 0.9 X10*3/uL (4.8-10.8)
[2025-01-15] MEDS: Clotrimazole 1 % Cream 15 GM TUBE 1 APPL TOPICAL (08:31)
[2025-01-15] MEDS: 0.9 % Sodium Chloride Flush 3 ML SYRINGE IVFLUSH ×3 (08:31→20:36)
[2025-01-15 12:00] VITALS: BP 131/78; PULSE 94; RESP 19; TEMP 36.6; O2SAT 95
[2025-01-15 15:28] VITALS: BP 112/74; PULSE 98; RESP 19; TEMP 36.7; O2SAT 96
[2025-01-15 20:00] VITALS: BP 120/69; PULSE 106; RESP 20; TEMP 36.4; O2SAT 97
[2025-01-15 23:20] VITALS: BP 133/74; PULSE 101; RESP 20; TEMP 36.8; O2SAT 96
[2025-01-16 03:50] VITALS: BP 132/71; PULSE 95; RESP 20; TEMP 36.6; O2SAT 96
--- NOTE | 2025-01-16 07:49 | HO.PM.IMPN ---
Subjective Subjective Date of Service: 01/16/25 Interval History: Leukocytosis up trending Continues to have pancytopenia We will continue to monitor with the current management We will likely call pathologist in the a.m. for results on his bone marrow biopsy and touch base with oncologist Review of Systems Review of Systems: Yes all other systems are reviewed and are negative Physical Exam Exam: Exam: General: AO X 3, no acute distress, b/l UE tremors noted Resp: CTA bilateral, on RA CVS: S1,S2,RRR GI: +BS, NT, no distention Skin: No rash Neuro: motor grossly intact Psych: flat affect, no SI Vital Signs: Vital Signs: Last Vital Signs Temp 97.9 F 01/16/25 03:50 Pulse 95 01/16/25 03:50 Resp 20 01/16/25 03:50 BP 132/71 01/16/25 03:50 Pulse Ox 96 01/16/25 03:50 O2 Del Method Room Air 01/16/25 03:50 O2 Flow Rate 2 01/12/25 15:20 FiO2 40 01/12/25 15:20 BMI result Body Mass Index 37.9 Objective Data Active Medications Acetaminophen (Acetaminophen 325 Mg Tablet) 650 mg PO Q6H PRN PRN Reason: Pain, Mild 1-3,fever,headache Last Admin: 01/12/25 17:40 Dose: 650 mg Documented By: SRIKANTH Acetaminophen/Butalbital/Caffeine (Butalb/Acetamin/Caff 50/325/40 Tablet) 1 tab PO Q4H PRN PRN Reason: Headache Last Admin: 01/13/25 00:21 Dose: 1 tab Documented By: ROSALIA Calcium Carbonate (Calcium Carbonate 750 Mg Tab.Chew) 750 mg PO Q4H PRN PRN Reason: Heartburn Last Admin: 01/09/25 17:11 Dose: 750 mg Documented By: JONATHAN Clotrimazole (Clotrimazole 1 % Cream 15 Gm Tube) 1 appl TOPICAL DAILY [facility]; Protocol Last Admin: 01/15/25 08:31 Dose: 1 appl Documented By: CADEN Finasteride (Finasteride 5 Mg Tablet) 5 mg PO DAILY [facility] Last Admin: 01/15/25 08:28 Dose: 5 mg Documented By: CADEN Hydroxyzine HCl (Hydroxyzine Hcl 50 Mg Tablet) 50 mg PO QID [facility] Last Admin: 01/15/25 20:36 Dose: 50 mg Documented By: XI Levothyroxine Sodium (Levothyroxine Sodium 175 Mcg Tablet) 175 mcg PO DAILY@0600 [facility] Last Admin: 01/16/25 05:58 Dose: 175 mcg Documented By: XI Magnesium Hydroxide (Milk Of Magnesia 30 Ml Oral.Susp) 30 ml PO DAILY PRN PRN Reason: Constipation Melatonin (Melatonin 3 Mg Tablet) 6 mg PO BEDTIME PRN PRN Reason: Insomnia Last Admin: 01/14/25 20:47 Dose: 6 mg Documented By: XI Multivitamins/Vitamin C (Multivitamin Tablet) 1 tab PO DAILY [facility] Last Admin: 01/15/25 08:28 Dose: 1 tab Documented By: CADEN Omeprazole (Omeprazole 20 Mg Capsule.Dr) 20 mg PO BID [facility] Last Admin: 01/15/25 20:36 Dose: 20 mg Documented By: XI Ondansetron HCl (Ondansetron Hcl 4 Mg/2 Ml Vial) 4 mg IVPUSH Q8H PRN PRN Reason: Nausea and Vomiting Polyethylene Glycol (Polyethylene Glycol 3350 17 Gm Powd.Pack) 17 gm PO DAILY PRN PRN Reason: Constipation Last Admin: 01/13/25 12:32 Dose: 17 gm Documented By: MATTHEW Prednisone (Prednisone 20 Mg Tablet) 60 mg PO BID [facility] Last Admin: 01/15/25 20:36 Dose: 60 mg Documented By: XI Primidone (Primidone 50 Mg Tablet) 50 mg PO BID [facility] On Hold: 01/05/25 21:00 Sodium Chloride (0.9 % Sodium Chloride Flush 3 Ml Syringe) 3 ml IVFLUSH QSHIFT [facility] Last Admin: 01/15/25 20:36 Dose: 3 ml Documented By: XI Labs 01/16/25 07:10 01/16/25 07:10 Labs: Laboratory Results - last 24 hr 01/15/25 06:59 Immature Gran % (Auto) 1.1 H Neut % (Auto) 55.4 Lymph % (Auto) 35.9 [place] % (Auto) 6.5 Eos % (Auto) 0.0 Baso % (Auto) 1.1 Lymph # (Auto) 0.3 L [place] # (Auto) 0.1 Eos # (Auto) 0.0 Baso # (Auto) 0.0 Abs Immat Gran (auto) 0.01 Absolute Neuts (auto) 0.5 L Absolute Nucleated RBC 0.120 H Nucleated RBC % (auto) 13.0 H Smear Tech's Comments VERIFIED Anion Gap 11 L Estim Creat Clear Calc 111.1 Estimated GFR > 60 Random Glucose 178 H Calcium 8.2 L Total Bilirubin 0.7 AST 50 H ALT 118 H Alkaline Phosphatase 76 Total Protein 7.1 Albumin 3.4 L Assessment and Plan (1) Thrombocytopenia: Status: Acute Plan This is a 64-year-old male with pertinent history of achalasia status post surgery, mood disorder, mixed hyperlipidemia, hypertension, gastroesophageal reflux disease, hypothyroidism, pancytopenia previously seen by [facility]--He presented with depression and SI, and has more pronounced pancytopenia and elevated LFTs Pancytopenia - received 10U Platelets and 1U PRBC thus far Likely BM suppression - sepsis vs Lumateperone versus myelodysplasia BMB done on 01/12/2025-awaiting results Neutropenic Fever resolved - unclear source - currently off all abx Pancytopenia continues to fluctuate-we will continue to trend daily and likely he will have more answers once the bone marrow biopsy results come back Chest pain less likely ACS - likely MSK related -asymptomatic since admission Major Depression with SI with active to hang self, he thinks it was related to [place], no SI , off sitter, will hold Lumateperone Will need clearance by care team/ Psych prior to DC Gastroesophageal reflux disease omeprazole Hypothyroidism: cont levothyroxine Hypertension Lisinopril/HCTZ, holding both until cards consult BPH: cont finasteride DVT prophylaxis:SCD boots, Lovenox CI 2/2 severe thrombocytopenia This note is constructed using voice recognition software. While every effort has been made to ensure accuracy, high school computer science teacher errors may have been included. Quality Stroke Does the patient have a stroke diagnosis?: No VTE Prior VTE?: No VTE Risk Level:: Medical - low VTE Device Contraindication: Treatment Not Indicated VTE Drug Contraindication: Treatment Not Indicated
[2025-01-16 07:52] LABS: Hematocrit 23.2 % (42.0-52.0); Hemoglobin 7.3 g/dl (14.0-18.0); Imm Gran Abs Auto 0.01 X10*3/uL (0.00-0.03); Imm Gran Pct Auto 1.0 % (0.0-0.4); Lymphocytes Absolute Auto 0.3 X10*3/uL (1.2-4.9); MANUAL DIFF FLAG SCAN; Mean Corpuscular HGB Conc 31.5 g/dl (31.0-36.0); Mean Corpuscular Hemoglobin 26.1 pg (27.0-33.0); Mean Corpuscular Volume 82.9 fL (80.0-98.0); NRBC Abs Auto 0.160 X10*3/uL (0.0-0.012); Red Blood Count 2.80 X10*6/uL (4.60-5.80); SCAN SMEAR FLAG 1
[2025-01-16 07:53] LABS: NRBC Pct Auto 15.4 /100WBC (0.0-0.2); Platelet Count 46 X10*3/uL (160-400); White Blood Count 1.0 X10*3/uL (4.8-10.8)
[2025-01-16 08:00] VITALS: BP 115/68; PULSE 97; RESP 18; TEMP 36.6; O2SAT 97
[2025-01-16 08:06] LABS: Alanine Aminotransferase 110 U/L (0-40); Albumin Level 3.4 g/dL (3.5-5.0); Alkaline Phosphatase 70 U/L (39-117); Anion Gap 11 (12-20); Aspartate Amino Transferase 43 U/L (5-37); Blood Urea Nitrogen 20 mg/dL (9-16); Calcium 8.1 mg/dL (8.4-10.2); Carbon Dioxide 27 mmol/L (22-29); Chloride 104 mmol/L (96-108); Creatinine Clr Calc Pharmacy 113.3; Estimated Glomerular Filt Rate > 60; Potassium 4.6 mmol/L (3.3-5.1); Sodium 137 mmol/L (135-145); Total Protein 6.8 g/dL (6.5-8.0)
[2025-01-16] MEDS: Clotrimazole 1 % Cream 15 GM TUBE 1 APPL TOPICAL (10:16)
[2025-01-16] MEDS: 0.9 % Sodium Chloride Flush 3 ML SYRINGE IVFLUSH ×3 (10:17→21:00)
[2025-01-16 11:53] VITALS: BP 139/77; PULSE 102; RESP 18; TEMP 36.4; O2SAT 99
[2025-01-16 15:29] VITALS: BP 135/82; PULSE 111; RESP 17; TEMP 36.8; O2SAT 98
[2025-01-16 19:34] VITALS: BP 120/71; PULSE 100; RESP 17; TEMP 36.8; O2SAT 95
[2025-01-17] VITALS: BP 110/56; PULSE 80; RESP 18; TEMP 36.6; O2SAT 99
[2025-01-17 03:33] VITALS: BP 120/63; PULSE 81; RESP 18; TEMP 36.4; O2SAT 97
[2025-01-17 07:37] VITALS: BP 133/71; PULSE 84; RESP 20; TEMP 36.6; O2SAT 97
[2025-01-17 07:43] LABS: Hematocrit 23.6 % (42.0-52.0); Hemoglobin 7.2 g/dl (14.0-18.0); Imm Gran Abs Auto 0.01 X10*3/uL (0.00-0.03); Imm Gran Pct Auto 0.8 % (0.0-0.4); Lymphocytes Absolute Auto 0.3 X10*3/uL (1.2-4.9); MANUAL DIFF FLAG SCAN; Mean Corpuscular HGB Conc 30.5 g/dl (31.0-36.0); Mean Corpuscular Hemoglobin 25.7 pg (27.0-33.0); Mean Corpuscular Volume 84.3 fL (80.0-98.0); NRBC Abs Auto 0.180 X10*3/uL (0.0-0.012); Red Blood Count 2.80 X10*6/uL (4.60-5.80); SCAN SMEAR FLAG 1
[2025-01-17 07:44] LABS: NRBC Pct Auto 14.5 /100WBC (0.0-0.2); Platelet Count 46 X10*3/uL (160-400); White Blood Count 1.2 X10*3/uL (4.8-10.8)
[2025-01-17 07:50] LABS: Alanine Aminotransferase 96 U/L (0-40); Albumin Level 3.3 g/dL (3.5-5.0); Alkaline Phosphatase 67 U/L (39-117); Anion Gap 12 (12-20); Aspartate Amino Transferase 35 U/L (5-37); Blood Urea Nitrogen 22 mg/dL (9-16); Calcium 8.0 mg/dL (8.4-10.2); Carbon Dioxide 26 mmol/L (22-29); Chloride 104 mmol/L (96-108); Creatinine Clr Calc Pharmacy 109.0; Estimated Glomerular Filt Rate > 60; Potassium 4.5 mmol/L (3.3-5.1); Sodium 137 mmol/L (135-145); Total Protein 6.5 g/dL (6.5-8.0)
[2025-01-17] MEDS: Clotrimazole 1 % Cream 15 GM TUBE 1 APPL TOPICAL (08:20)
[2025-01-17] MEDS: 0.9 % Sodium Chloride Flush 3 ML SYRINGE IVFLUSH (08:21)
[2025-01-17 11:54] VITALS: BP 126/64; PULSE 106; RESP 20; TEMP 36.7; O2SAT 96
--- NOTE | 2025-01-17 13:51 | P.DS_ITS ---
DS: Providers Provider Date of Service: 01/17/25 Date of admission: 01/05/25 12:16 Date of discharge: 01/17/25 Primary care physician: Shaji Huntley MD Consults: 01/05/25 08:39 ED CARE Team Crisis Consult Stat Comment: Reason for consultation: SI, plan to hang himself 01/05/25 12:17 Consult to Hematology / Oncology Routine Consulting Provider: [facility] Oncology/Hematology Reason for consultation: Pancytopenia, Plat of 5 01/05/25 12:31 Consult to Psychiatry Routine Consulting Provider: [facility] Psych Covering Reason for consultation: Major depression with SI, med management 01/06/25 15:39 Consult to Infectious Diseases Routine Consulting Provider: [facility] Infect[facility] Reason for consultation: Neutropenic fevef Has provider been notified: No 01/09/25 10:05 Inpt CARE Team Crisis Consult Routine Comment: Reason for consultation: prsented with SI, does he need inpt 01/11/25 08:36 Consult to Cardiology Routine Consulting Provider: [facility] Reason for consultation: new pnset chest pain, sinus tachy, hypertensive Has provider been notified: No DS: Diagnosis Discharge Diagnosis (1) Thrombocytopenia: Status: Acute DS: Summary Hospital Course Hospital Course: Pancytopenia - received 10U Platelets and 1U PRBC thus far Likely BM suppression - sepsis vs hypoplastic myelodysplastic syndrome . BMB done on 01/12/2025-awaiting results, Neutropenic Fever resolved - unclear source - currently off all abx Pancytopenia continues to fluctuate but treated with Prednisone, will continue with 50 mg BID as per hematology for now. Pt will follow with heme in office likely friday. Chest pain with no ACS, likely MSK related -asymptomatic since admission Major Depression with SI with active to hang self, he thinks it was related to Caply[place], no SI , off sitter, will hold Lumateperone Will need clearance by care team/ Psych prior to DC Gastroesophageal reflux disease omeprazole Hypothyroidism cont levothyroxine Hypertension Lisinopril/HCTZ, continue BPH cont finasteride Time Attestation Discharge Coordination Time (in mins): 45 Quality: Safe Use of Opioids Does Pt have an Active Cancer Diagnosis on the Problem List?: No Quality: Stroke Does the patient have a stroke diagnosis?: No Physical Exam Exam: Exam: Appearing in no acute distress head is normocephalic atraumatic eyes pupils are PERRLA sclera is anicteric mouth throat mucous membranes are intact and moist neck is supple no lymphadenopathy, no JVD noted lung sounds are clear to auscultation heart regular rate rhythm, clear S1, S2 positive bowel sounds, abdomen is soft, nontender neuro patient is alert x3, no focal deficits Vital Signs: Vital Signs: Last Vital Signs Temp 98.1 F 01/17/25 11:54 Pulse 106 H 01/17/25 11:54 Resp 20 01/17/25 11:54 BP 126/64 01/17/25 11:54 Pulse Ox 96 01/17/25 11:54 O2 Del Method Room Air 01/17/25 11:54 O2 Flow Rate 2 01/12/25 15:20 FiO2 40 01/12/25 15:20 BMI result Body Mass Index 37.9 DS: Data Data Completed and Pending Pending studies at discharge: Pending at discharge 01/12/25 15:22 Surgical [PTH] Routine Labs on day of discharge: Laboratory Results - last 24 hr 01/12/25 01/17/25 14:43 07:10 WBC 1.2 L RBC 2.80 L Hgb 7.2 L Hct 23.6 L MCV 84.3 MCH 25.7 L MCHC 30.5 L RDW 20.5 H Plt Count 46 L MPV TNP Immature Gran % (Auto) 0.8 H Neut % (Auto) 65.3 Lymph % (Auto) 26.6 [place] % (Auto) 6.5 Eos % (Auto) 0.0 Baso % (Auto) 0.8 Lymph # (Auto) 0.3 L [place] # (Auto) 0.1 Eos # (Auto) 0.0 Baso # (Auto) 0.0 Abs Immat Gran (auto) 0.01 Absolute Neuts (auto) 0.8 L Absolute Nucleated RBC 0.180 H Nucleated RBC % (auto) 14.5 H Smear Tech's Comments VERIFIED Sodium 137 Potassium 4.5 Chloride 104 Carbon Dioxide 26 Anion Gap 12 BUN 22 H Creatinine 1.05 Estim Creat Clear Calc 109.0 Estimated GFR > 60 Random Glucose 186 H Calcium 8.0 L Total Bilirubin 0.6 AST 35 ALT 96 H Alkaline Phosphatase 67 Total Protein 6.5 Albumin 3.3 L Leuk/Lym Interpretation See Note Discharge Plan Discharge Anticipated Discharge Date/Time: 01/17/25 11:34 Patient Disposition: Home, Self-Care Discharge Diagnosis: Pancytopenia Referrals: Riya Price MD [Physician, Hematology & Oncology] - 1 Week Shaji Huntley MD [Primary Care Provider, Internal Medicine] - 1 Week Discharge Medications: New prednisone 50 mg tablet 50 mg PO BID Qty: 28 0RF Continued Cap[place] 42 mg capsule 42 mg PO BEDTIME levothyroxine 175 mcg tablet 175 mcg PO DAILY@0600 atorvastatin 40 mg tablet 40 mg PO DAILY primidone 50 mg tablet 50 mg PO BID hydroxyzine HCl 50 mg tablet 50 mg PO QID meclizine 25 mg tablet 25 mg PO TID PRN (Reason: Vertigo) ketoconazole 2 % cream 1 appl topical DAILY Rx Instructions: Apply to bottom of feet and nails guanfacine 2 mg tablet 2 mg PO BEDTIME B-complex with vitamin C Tablet 1 tab PO DAILY acetaminophen 650 mg tablet extended release 650 mg PO Q4-6H PRN (Reason: Fever Or Pain) magnesium hydroxide [Milk of Magnesia] 400 mg/5 mL Suspension 30 ml PO DAILY PRN (Reason: Constipation) lisinopril-hydrochlorothiazide [Zestoretic] 20-25 mg Tablet 1 tab PO DAILY vitamin B complex Tablet 1 tab PO BEDTIME clotrimazole 1 % Cream 1 appl TOPICAL DAILY guaifenesin 200 mg/5 mL Liquid 200 - 400 mg PO Q4H PRN (Reason: Cough) naloxone [Narcan] 4 mg/actuation [place],Non-Aerosol 4 mg INTRANASAL Q3M PRN (Reason: Opiate Reversal) Rx Instructions: spray 1 dose into ONE nostril; alternate nostrils w each dose until help arrives esomeprazole magnesium 40 mg capsule,delayed release(DR/EC) 40 mg PO BID Qty: 60 0RF finasteride 5 mg tablet 5 mg PO DAILY 90 Days Qty: 90 1RF Discharge Orders: Discharge Order (Routine); Ordered 01/17/25 Ordered By: Emmanuelle Pa Diet: Advance to usual diet Activity on Discharge: As tolerated Stand Alone Forms: Patient Portal Discharge page Print Language: Khmer Care Plan Goals: Take prednisone 50 mg twice daily and follow up with Hematology for further management of this medication Hematology will follow up with you for appointment Health Concerns: Severe pancytopenia Plan of Treatment: Follow-up with primary care provider as needed Take all medications as prescribed Assessment: See discharge summary Patient Instructions: Blood Transfusion (GEN) Discharge Date/Time: 01/17/25 16:41
--- NOTE | 2025-01-17 13:51 | PM.HEMONCPN ---
Medical Summary - Medical Summary Date of Service: 01/17/25 Chief complaint: Follow-up Primary Care Provider: Shaji Huntley MD Bow String Maker Utilized?: No - Polish Speaking Interval History Interval history: Lemuel Maldonado is a 64 year old male with history of PTSD, depression, ADHD, [facility] brought to [facility] department because of increasing depression as well as symptoms of feeling weak. He says that he has been having body aches, chills and night sweats for last several days. He was started on a new antidepressant Caplyta recently and he thinks that caused him to have worsening symptoms of depression. Patient is aware of low platelets. He was seen by superintendent distribution at [facility] a few weeks ago. He says he has another follow-up coming up in a month or so. Patient was seen by this blog writer in September for thrombocytopenia. During that admission he was admitted for acute pancreatitis. He was recently started on primidone and this was also raised as a cause for cytopenias, mainly agranulocytosis and sometimes aplastic anemia. Patient denies any fevers but says he has been having night sweats. No loss of appetite or weight loss. He denies chest pain, shortness of breath or abdominal pain. He denies change in bowel habits. He has not been on any recent antibiotics. Patient has had bone marrow biopsy and is awaiting results. He is doing well and has no complaints at this time. Review of Systems - Neurologic Denies dizziness, Denies loss of vision, Denies numbness, Denies tingling, Reports weakness PMFSH Medical History: Medical History (Last Updated 01/11/25 @ 11:43 by Maureen Burgos MD) Attention deficit disorder BPH (benign prostatic hyperplasia) Chronic post-traumatic stress disorder (PTSD) Dissociative disorder Elevated PSA Essential (primary) hypertension HTN (hypertension) Hypothyroidism Major depressive disorder, recurrent severe without psychotic features Thrombocytopenia Social History: Social History (Last Reviewed 01/07/25 @ 15:07 by Mago Figueredo MD) Living Situation History: Household Members: Other Household Members Other:: [facility] Housing: Other Housing Other:: in a [facility] Do you presently have visiting nurse or other home services: No Tobacco History: Patient Tobacco Use Status: Never used Tobacco Substance Use History: Substance Use Type: Marijuana Occupation Assessmet: service: No Home Medications and Allergies Current Medications: Current Medications Acetaminophen (Acetaminophen 325 Mg Tablet) 650 mg PO Q6H PRN PRN Reason: Pain, Mild 1-3,fever,headache Last Admin: 01/12/25 17:40 Dose: 650 mg Acetaminophen/Butalbital/Caffeine (Butalb/Acetamin/Caff 50/325/40 Tablet) 1 tab PO Q4H PRN PRN Reason: Headache Last Admin: 01/13/25 00:21 Dose: 1 tab Calcium Carbonate (Calcium Carbonate 750 Mg Tab.Chew) 750 mg PO Q4H PRN PRN Reason: Heartburn Last Admin: 01/09/25 17:11 Dose: 750 mg Clotrimazole (Clotrimazole 1 % Cream 15 Gm Tube) 1 appl TOPICAL DAILY [facility]; Protocol Last Admin: 01/17/25 08:20 Dose: 1 appl Finasteride (Finasteride 5 Mg Tablet) 5 mg PO DAILY [facility] Last Admin: 01/17/25 08:18 Dose: 5 mg Hydroxyzine HCl (Hydroxyzine Hcl 50 Mg Tablet) 50 mg PO QID [facility] Last Admin: 01/17/25 12:48 Dose: 50 mg Levothyroxine Sodium (Levothyroxine Sodium 175 Mcg Tablet) 175 mcg PO DAILY@0600 [facility] Last Admin: 01/17/25 06:07 Dose: 175 mcg Magnesium Hydroxide (Milk Of Magnesia 30 Ml Oral.Susp) 30 ml PO DAILY PRN PRN Reason: Constipation Melatonin (Melatonin 3 Mg Tablet) 6 mg PO BEDTIME PRN PRN Reason: Insomnia Last Admin: 01/14/25 20:47 Dose: 6 mg Multivitamins/Vitamin C (Multivitamin Tablet) 1 tab PO DAILY [facility] Last Admin: 01/17/25 08:18 Dose: 1 tab Omeprazole (Omeprazole 20 Mg Capsule.Dr) 20 mg PO BID [facility] Last Admin: 01/17/25 08:18 Dose: 20 mg Ondansetron HCl (Ondansetron Hcl 4 Mg/2 Ml Vial) 4 mg IVPUSH Q8H PRN PRN Reason: Nausea and Vomiting Polyethylene Glycol (Polyethylene Glycol 3350 17 Gm Powd.Pack) 17 gm PO DAILY PRN PRN Reason: Constipation Last Admin: 01/13/25 12:32 Dose: 17 gm Prednisone (Prednisone 20 Mg Tablet) 60 mg PO BID [facility] Last Admin: 01/17/25 08:18 Dose: 60 mg Primidone (Primidone 50 Mg Tablet) 50 mg PO BID [facility] On Hold: 01/05/25 21:00 Sodium Chloride (0.9 % Sodium Chloride Flush 3 Ml Syringe) [facility] Last Admin: 01/17/25 08:21 Dose: 3 ml Home Medications ?Medication ?Instructions ?Recorded ?Confirmed ?Type B-complex with vitamin C 1 tab PO DAILY 09/27/24 01/05/25 History acetaminophen 650 mg 650 mg PO Q4-6H PRN Fever Or Pain 09/27/24 01/05/25 History tablet,extended release atorvastatin 40 mg tablet 40 mg PO DAILY 09/27/24 01/05/25 History clotrimazole 1 % topical cream 1 appl topical DAILY 09/27/24 01/05/25 History guaifenesin 200 mg/5 mL oral liquid 200 - 400 mg PO Q4H PRN Cough 09/27/24 01/05/25 History guanfacine 2 mg tablet 2 mg PO BEDTIME 09/27/24 01/05/25 History hydroxyzine HCl 50 mg tablet 50 mg PO QID 09/27/24 01/05/25 History ketoconazole 2 % topical cream 1 appl topical DAILY 09/27/24 01/05/25 History lisinopril 20 1 tab PO DAILY 09/27/24 01/05/25 History mg-hydrochlorothiazide 25 mg tablet (Zestoretic) magnesium hydroxide 400 mg/5 mL 30 ml PO DAILY PRN Constipation 09/27/24 01/05/25 History oral suspension (Milk of Magnesia) meclizine 25 mg tablet 25 mg PO TID PRN Vertigo 09/27/24 01/05/25 History naloxone 4 mg/actuation nasal 4 mg intranasal Q3M PRN Opiate 09/27/24 01/05/25 History spray (Narcan) Reversal primidone 50 mg tablet 50 mg PO BID 09/27/24 01/05/25 History vitamin B complex 1 tab PO BEDTIME 09/27/24 01/05/25 History levothyroxine 175 mcg tablet 175 mcg PO DAILY@0600 01/05/25 01/05/25 History lumateperone 42 mg capsule 42 mg PO BEDTIME 01/05/25 01/05/25 History (Caplyta) Allergies Allergy/AdvReac Type Severity Reaction Status Date / Time clindamycin Allergy Intermediate Unknown Verified 01/05/25 08:32 haloperidol (From Haldol) Allergy Intermediate Unknown Verified 01/05/25 08:32 NSAIDS (Non-Steroidal Allergy Intermediate Unknown Verified 01/05/25 08:32 Anti-Inflamma Penicillins Allergy Intermediate Anaphylaxis Verified 01/07/25 12:45 Exam Vital signs: Vital Signs Temp 98.1 F 01/17/25 11:54 Pulse 106 H 01/17/25 11:54 Resp 20 01/17/25 11:54 BP 126/64 01/17/25 11:54 Pulse Ox 96 01/17/25 11:54 O2 Del Method Room Air 01/17/25 11:54 O2 Flow Rate 2 01/12/25 15:20 FiO2 40 01/12/25 15:20 Intake & Output 01/16/25 01/17/25 01/17/25 18:59 06:59 18:59 Intake Total 1200 / 1200 Balance 1200 / 1200 Intake: Intake, Oral Amount 1200 / 1200 Other: Meal Refused No NPO No Dinner % Eaten 100% Eating (Feeding) Ability Independent Number of Unmeasured Voids 1 1 Number of Bowel Movements 0 Urine Bathroom Bathroom Weight 137.5 kg BMI result Body Mass Index 37.9 - Constitutional Present: no acute distress, morbidly obese - Routine HEENT Exam Head: Present: atraumatic, normal inspection - Routine Neck Exam Present: full ROM - Routine Respiratory Exam Present: decreased breath sounds, CTAB. Absent: accessory muscle use - Routine Cardiovascular Exam Cardiovascular: Present: RRR, S1, S2 - Routine Abdominal Exam Present: hypoactive bowel sounds, soft - Routine Extremities Exam Present: nontender. Absent: pedal edema - Routine Skin Exam Present: intact - Routine Neurological Exam Present: alert, oriented X3 Data - Labs CBC & Chem 7: 01/17/25 07:10 01/17/25 07:10 - Imaging Radiologist's impression: ITS Impressions Head CT 01/05/25 10:16 IMPRESSION: No acute intracranial abnormality. Electronically signed by: Marc Guajardo MD 01/05/2025 11:38 AM EDT RP Chest X-Ray 01/06/25 10:44 IMPRESSION: No acute airspace disease. Multilevel spondylosis. Electronically signed by: Hipolito Castillo MD 01/06/2025 12:13 PM EDT RP Abdomen/Pelvis CT 01/06/25 16:12 IMPRESSION: 1. No acute findings in the abdomen or pelvis. 2. Ancillary findings as discussed. Electronically signed by: Hong Reed MD 01/06/2025 05:07 PM EDT RP Assessment and Plan Patient Active problem list reviewed?: Yes (1) Pancytopenia Problem details: Recommedn transfusion of one unit of platelets daily if platelets are below 10,000 or for clinically significant bleeding. Agree with transfer to [facility]. Status: Acute Assessment and plan: 1. This is a 64-year-old male admitted for worsening thrombocytopenia/pancytopenia. His past medical history significant for major depression, PTSD, dissociated disorder. Patient was seen in September 2024 for thrombocytopenia, at that time his platelets were about 50 K. Previously in 2023 it was in the 140s. His thrombocytopenia at that time was felt to be related to use of primidone which can cause cytopenias, agranulocytosis and aplastic anemia. He was subsequently seen by superintendent distribution at [facility] in November 2024. They also felt that he needed to come off primidone. He did not get a bone marrow aspiration/biopsy. Hematological workup at [facility] has shown that he has beta thalassemia trait. Haptoglobin is normal. He has severe thrombocytopenia with platelet count of 5. He has reticulocytopenia. This raises possibilities of drug-induced aplastic anemia, pancytopenia secondary to primary bone marrow disorder such as myelodysplastic syndrome as well as leukemia. He received blood and platelet transfusions. Ultrasound abdomen Demonstrated steatosis. Normal vitamin B12 and folate levels. Primidone is on hold. 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 He received 2 doses of IVIG, 100 g based on adjusted body weight. He is on prednisone 60 mg b.i.d.. There has been improvement in platelet count, now over 30 K. He is on broad-spectrum antibiotics for neutropenic fever, this has now resolved. Blood cultures so far are negative. CT-guided bone marrow aspiration/biopsy was performed 01/13/2025. Final pathology is pending. Differential diagnosis is aplastic anemia, hypoplastic myelodysplastic syndrome. He can be discharged home on prednisone 50 mg b.i.d.. He has a follow up in Hematology later this week. - Time Spent With Patient Time Spent with Patient (in minutes): 10
--- NOTE | 2025-01-17 14:13 | MHC.CM.PN ---
Pt is medically cleared for discharge back to his [facility], this CM spoke with [facility] contact Kelly, she will be transporting him home today.
--- NOTE | 2025-01-19 13:05 | P.EN_ITS ---
Discussed bone marrow findings with patient. 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 He will have an appointment tomorrow. Patient as well as the facility he is residing in is aware of diagnosis and plan.
== END 2025-01-17 16:41 | disposition home or self-care (01) | DRG 690 ==
LOC: HO.ED 11:56 → HO.EDOVER 12:21 → HO.S3 12:59 → HO.IMC 01-06 14:48
PROVIDERS: Hospitalist; Internal Medicine; Pathology Anatomic Pathology & Clinical Pathology; Physician Assistant Medical; Student in an Organized Health Care Education/Training Program; Admitting Provider Internal Medicine; Emergency Provider Emergency Medicine; PCP Internal Medicine; Visit Provider Nurse Practitioner Acute Care
DX: C92.00 Acute myeloblastic leukemia, not having achieved remission (principal); D61.818 Other pancytopenia; R45.851 Suicidal ideations; D70.9 Neutropenia, unspecified; K75.81 Nonalcoholic steatohepatitis (NASH); N40.0 Benign prostatic hyperplasia without lower urinary tract symptoms; E03.9 Hypothyroidism, unspecified; F32.9 Major depressive disorder, single episode, unspecified; D56.3 Thalassemia minor; E66.01 Morbid (severe) obesity due to excess calories; R50.81 Fever presenting with conditions classified elsewhere; F43.12 Post-traumatic stress disorder, chronic; K21.9 Gastro-esophageal reflux disease without esophagitis; I10 Essential (primary) hypertension; E78.2 Mixed hyperlipidemia; Z68.37 Body mass index [BMI] 37.0-37.9, adult; Z79.890 Hormone replacement therapy; Z79.899 Other long term (current) drug therapy
CPT/HCPCS: 36415; 38222; 70450; 71045; 74176; 76705; 77012; 80048; 80053; 80076; 80143; 80179; 80202; 80307; 81001; 81455; 82248; 82525; 82565; 82607; 82728; 82746; 83010; 83540; 83615; 84484; 85007; 85025; 85027; 85045; 85384; 85610; 85730; 86850; 86900; 86901; 86920; 87040; 87389; 87468; 87469; 87478; 87484; 87798; 88184; 88185; 88237; 88264; 88305; 88311; 88313; 88341; 88342; 93005; 99152; 99153; 99285; J0616; J0692; J1200; J1569; J1956; J2003; J2250; J3010; J3373; J3374; P9016; P9073; S9485

== ENCOUNTER → 2025-01-05 08:41 | Outpatient (BNV) | payer OTHER, SELFPAY | PROVIDERS: Admitting Provider Internal Medicine; Emergency Provider Emergency Medicine; PCP Internal Medicine; Visit Provider Internal Medicine | DX: R00.0 Tachycardia, unspecified (principal) | CPT/HCPCS: 93010 ==

== ENCOUNTER → 2025-01-05 11:02 | Outpatient (BNV) | payer OTHER, SELFPAY | PROVIDERS: Emergency Provider Emergency Medicine; PCP Internal Medicine; Visit Provider Radiology Diagnostic Radiology | DX: D69.6 Thrombocytopenia, unspecified (principal); R79.89 Other specified abnormal findings of blood chemistry; K76.0 Fatty (change of) liver, not elsewhere classified | CPT/HCPCS: 76705 ==

== ENCOUNTER 2025-01-05 12:16 | Outpatient (BNV) | payer OTHER, SELFPAY | END 2025-01-06 11:15 | PROVIDERS: Admitting Provider Internal Medicine; Emergency Provider Emergency Medicine; PCP Internal Medicine; Visit Provider Radiology Diagnostic Radiology | DX: D70.9 Neutropenia, unspecified (principal); R50.9 Fever, unspecified; M47.814 Spondylosis without myelopathy or radiculopathy, thoracic region | CPT/HCPCS: 71045; 74176 ==

== ENCOUNTER 2025-01-05 12:16 | Outpatient (BNV) | payer OTHER, SELFPAY | END 2025-01-12 14:28 | PROVIDERS: Admitting Provider Internal Medicine; Emergency Provider Emergency Medicine; PCP Internal Medicine | DX: D69.6 Thrombocytopenia, unspecified (principal) | CPT/HCPCS: 38222; 77012; 99152 ==

== ENCOUNTER 2025-01-05 12:16 | Outpatient (BNV) | payer OTHER, SELFPAY | END 2025-01-09 17:14 | PROVIDERS: Admitting Provider Internal Medicine; Emergency Provider Emergency Medicine; PCP Internal Medicine; Visit Provider Internal Medicine Cardiovascular Disease | DX: R07.9 Chest pain, unspecified (principal) | CPT/HCPCS: 93010 ==

== ENCOUNTER 2025-01-05 12:16 | Outpatient (BNV) | payer OTHER, SELFPAY | END 2025-01-11 08:55 | PROVIDERS: Admitting Provider Internal Medicine; Emergency Provider Emergency Medicine; PCP Internal Medicine; Visit Provider Internal Medicine Cardiovascular Disease | DX: R07.9 Chest pain, unspecified (principal) | CPT/HCPCS: 93010 ==

== ENCOUNTER → 2025-01-05 12:16 | Outpatient (BNV) | payer OTHER, SELFPAY | PROVIDERS: Admitting Provider Internal Medicine; Emergency Provider Emergency Medicine; PCP Internal Medicine; Visit Provider Internal Medicine | DX: D61.818 Other pancytopenia (principal) | CPT/HCPCS: 99222 ==

== ENCOUNTER → 2025-01-05 12:16 | Outpatient (BNV) | payer OTHER, SELFPAY | PROVIDERS: Admitting Provider Internal Medicine; Emergency Provider Emergency Medicine; PCP Internal Medicine; Visit Provider Internal Medicine | DX: D69.6 Thrombocytopenia, unspecified (principal) | CPT/HCPCS: 99223; 99232; 99233; 99239; 99499 ==

== ENCOUNTER → 2025-01-05 12:16 | Outpatient (BNV) | payer OTHER, SELFPAY | PROVIDERS: Admitting Provider Internal Medicine; Emergency Provider Emergency Medicine; PCP Internal Medicine; Visit Provider Internal Medicine | DX: D69.6 Thrombocytopenia, unspecified (principal) | CPT/HCPCS: 99222 ==

== ENCOUNTER → 2025-01-05 12:16 | Outpatient (BNV) | payer OTHER, SELFPAY | PROVIDERS: Admitting Provider Internal Medicine; Emergency Provider Emergency Medicine; PCP Internal Medicine; Visit Provider Internal Medicine Cardiovascular Disease | DX: R07.9 Chest pain, unspecified (principal) | CPT/HCPCS: 99223 ==

== ENCOUNTER → 2025-01-05 12:16 | Outpatient (BNV) | payer OTHER, SELFPAY | PROVIDERS: Admitting Provider Internal Medicine; Emergency Provider Emergency Medicine; PCP Internal Medicine; Visit Provider Nurse Practitioner Family | DX: F33.2 Major depressive disorder, recurrent severe without psychotic features (principal); R45.851 Suicidal ideations; F43.12 Post-traumatic stress disorder, chronic | CPT/HCPCS: 99232 ==

== ENCOUNTER 2025-02-15 08:26 | Outpatient (REF) | payer OTHER, SELFPAY ==
--- OUTSIDE RECORDS SUMMARY | 2025-02-15 08:57 | XMS_ITS | Encounter Summary ---
Author Organization [facility] Address [address] [place] [address] Phone Care Team Providers Care Yarn Weigher Name Role Phone Shaji Huntley MD Primary Care Provider [phone] Encounter Details Date Type Department Care Team (Late st Contact Info) Description 11/19/2022 Documentation Only [facility], [address] [place] [address] Shaji Huntley MD [address] [place] [id number] Social History Tobacco Use Types Packs/Day Years [...] on filedocumented in this encounter Care Teams Yarn Weigher Relationship Specialty Start Date End Date Shaji Huntley MD [address] [place] [id number] PCP - General Internal Medicine 11/13/22 documented as of this encounter
--- OUTSIDE RECORDS SUMMARY | 2025-02-15 08:57 | XMS_ITS | Clinical Summary ---
Author Organization [facility] Address [address] [place] [address] Phone Care Team Providers Care Truck Hopper Name Role Phone Shaji Huntley MD Primary Care Provider [phone] Allergies Active Allergy Reactions Criticality Noted Date [...] daily. At night wear socks to bed 08/12/19 24 Active guaiFENesin 200 mg tablet Take 2 Tablets by mouth 2 times daily as needed for Congestion. 12/22/19 24 Active guanFACINE (TENEX) 2 mg tablet Take 1 Tablet by mouth at bedtime. Active hydrOXYzine HCL (ATARAX) 50 mg tablet Take 1 Tablet by mouth 4 times daily. 4 times daily s needed Active magnesium hydroxide (MILK OF MAGNESIA) 400 mg/5 mL suspension Take by mouth daily as needed. Every day as needed Active naloxone (NARCAN) 4 mg/0.1 mL nasal spray 4 mg by Nasal route. As needed Active permethrin (ELIMITE) 5 % cream 08/28/19 24 Active topiramate (TOPAMAX) 50 mg tablet Take 1 tablet (50 mg total) by mouth 2 (two) times a day. Active aluminum-magnesium hydroxide-simethic one (MAALOX MAX) 400-400-40 mg/5 mL suspension Take by mouth 4 (four) times a day (before meals and nightly). Active ketoconazole (NIZORAL) 2 % cream Apply topically 1 (one) time each day. 60 g 2 05/26/19 25 Active levothyroxine (SYNTHROID, LEVOTHROID) 150 mcg tablet Take 1 tablet (150 mcg total) by mouth 1 (one) time each day. 30 each 08/07/19 25 026 Active lisinopril-hydroCH LOROthiazide (PRINZIDE,ZESTORET IC) 20-25 mg per tablet Take 1 tablet by mouth 1 (one) time each day. 90 tablet 1 09/16/19 25 025 Active ketoconazole (NIZORAL) 2 % cream Apply topically 1 (one) time each day. 60 g 2 09/21/19 25 Active primidone (MYSOLINE) 50 mg tablet 09/15/19 25 Active B complex tablet Take 1 tablet by mouth 1 (one) time each day. 60 tablet 1 11/04/19 25 Active esomeprazole (NexIUM) [address] capsule Take 1 capsule (40 mg total) by mouth 1 (one) time each day before breakfast. Do not open capsule. 90 capsule 1 12/03/19 25 Active B complex-vitamin C tablet 12/01/19 25 Active finasteride (PROSCAR) 5 mg tablet 12/28/19 25 Active psyllium (Metamucil, with sugar,) 3.4 gram packetIndications: Constipation, unspecified constipation type Take 1 packet by mouth 1 (one) time each day. Mix and drink with at least 8 ounces of water or juice. 30 packet 11 12/29/19 25 026 Active polyethylene glycol (MIRALAX) 17 gram packetIndications: Constipation, unspecified constipation type Take 17 g by mouth 1 (one) time each day. 510 g 11 12/29/19 25 026 Active hydrocortisone (ANUSOL-HC) 2.5 % rectal creamIndications:I nternal hemorrhoids Insert into the rectum 2 (two) times a day if needed (rectal bleeding) for up to 14 days. 30 g 1 12/29/19 25 Active meclizine (ANTIVERT) 25 mg tablet Take 1 tablet (25 mg total) by mouth 3 (three) times a day if needed for dizziness. 30 tablet 1 02/02/20 25 Active atorvastatin (LIPITOR) 40 mg tablet Take 1 tablet (40 mg total) by mouth 1 (one) time each day. 30 tablet 1 02/02/20 25 Active atorvastatin (LIPITOR) 40 mg tablet Take 1 tablet (40 mg total) by mouth 1 (one) time each day. 12/22/19 24 025 Discontinu ed(Reorder ) meclizine (ANTIVERT) 25 mg tablet Take 1 Tablet by mouth 3 times daily as needed (Vertigo). 12/22/19 24 025 Discontinu ed(Reorder ) ondansetron ODT (ZOFRAN-ODT) 8 mg disintegrating tablet Dissolve 1 tablet (8 mg total) on top of the tongue every 8 (eight) hours if needed for nausea or vomiting for up to 7 days. 20 tablet 01/27/20 25 025 Active Problems Problem Noted Date Diagnosed Date Class 2 obesity 12/24/2024 S/P cervical spinal fusion 06/23/2024 Cervicalgia 06/23/2024 S/P thyroidectomy 06/23/2024 Thyroid nodule 09/09/2023 Hypokalemia 01/03/2023 High serum creatinine 01/03/2023 Chronic kidney disease, stage 2 (mild) 3 Asthma 12/30/2022 Depression 12/30/2022 GERD (gastroesophageal reflux disease) 3 HTN (hypertension) 12/30/2022 Hyperlipemia 12/30/2022 Achalasia Encounters Date Type Department Care Team Description 01/25/2025 Telephone Internal Medicine - [address] [place] [address] Shaji Huntley MD 01/24/2025 10:30 AM EDT Office Visit Internal Medicine [facility] [address] [facility] [address] [place] [address] Shaji Huntley MD Hospital discharge follow-up (Primary Dx); Pancytopenia (CMS/HCC V24, CMS/[facility] V28); Neutropenic fever ([facility]/HCC V24) 01/18/2025 Telephone Internal Medicine [facility] [address] [facility] [address] [place] [address] Shaji Huntley MD 01/18/2025 Telephone Internal Medicine [facility] [address] [facility] [address] [place] [address] Shaji Huntley MD 12/28/2024 8:30 AM EDT Consult Gastroenterology - [address] [place] [address] [address] [place] [phone] Veronique Rhodes PA Constipation, unspecified constipation type (Primary Dx); Internal hemorrhoids 12/09/2024 Telephone Internal Medicine [address] [address] ColonGeraldo [place] 12/08/2024 10:45 AM EDT Office Visit Orthopedic Surgery [facility] [address] [facility] [address] [place] [phone] Daren Souza, DPM Ingrown right big toenail (Primary Dx); Hammertoes of both feet; Arthritis of both feet; Tinea pedis of both feet; Dermatophytosis, nail 12/07/2024 1:30 PM EDT Office Visit Internal Medicine [facility] [address] [facility] [address] [place] [address] Shaji Huntley MD Rectal bleeding (Primary Dx); Pancytopenia (CMS/HCC V24, CMS/[facility] V28) 12/07/2024 Telephone Internal Medicine [address] [place] [address] Shaji Huntley MD 12/01/2024 8:45 AM EDT Office Visit [facility] Hematology Oncology [address] [place] [phone] Flako Hudson MD Pancytopenia (CMS/HCC V24, CMS/HCC V28) (Primary Dx); Beta thalassemia, heterozygous 11/29/2024 Telephone Internal Medicine [facility] [address] [facility] [address] [place] [address] Shaji Huntley MD 11/18/2024 1:30 PM EDT Office Visit Internal Medicine [facility] [address] [facility] [address] [place] [address] Shaji Huntley MD Hospital discharge follow-up (Primary Dx); Pancytopenia (CMS/HCC V24, CMS/HCC V28); Primary hypertension; Numbness and tingling of foot 11/17/2024 8:30 AM EDT Office Visit [facility] Hematology Oncology [address] [place] [phone] Flako Hudson MD Thrombocytopenia (CMS/HCC V24) from Last 3 Months Surgical History Surgery [...] Safety Answer Date Record ed Physical Abuse Unrecognized value 05/19/2024 Verbal Abuse Unrecognized value 05/19/2024 Sex and Gender Information Value Date Recorded Sex Assigned at Male 05/31/2024 9:41 AM EST Legal Sex Male 8:49 PM EST Gender Identity Male 05/31/2024 9:41 AM EST Sexual Orientation Bisexual 05/31/2024 9: 41 AM EST Obstetrics History Last Filed Vital Signs Vital Sign Reading Time Taken Comments Blood Pressure 122/80 01/24/2025 10:21 AM EDT Pulse 80 01/24/2025 10:21 AM EDT Temperature 36.2 C (97.1 F) 01/24/2025 10:21 AM EDT Respiratory Rate 16 08/05/2024 2:00 PM EDT Oxygen Saturation 90% 01/24/2025 10:21 AM EDT Inhaled Oxygen Concentration - - Weight 133 kg (294 lb) 01/24/2025 10:21 AM EDT Height 190.5 cm (6' 3 ) 01/24/2025 10:21 AM EDT Body Mass Index 36.75 01/24/2025 10:21 AM EDT Plan of Treatment Upcoming Encounters Date Type Department Care Team (Late st Contact Info) Description 04/28/2025 10:15 AM EST Office Visit [facility] Hematology Oncology [address] [place] [phone] Flako Hudson MD [address] [place] [address] Health Maintenance Due Date Last Done Comments COVID-19 Vaccine (#1) 10/10/1967 DTaP,Tdap,and Td Vaccines (1 - Tdap) 1981 Pneumococcal Vaccine: 50+ Years (1 of 2 - PCV) 1981 Zoster Vaccines (1 of 2) 1981 RSV Immunization Adult Patients (1 - Risk 60-74 years 1-dose series) 2022 HIV Screening 06/06/2023 Hepatitis C Screening 06/06/2023 Social Influencers of Health Screening 06/06/2023 Depression Screening 05/12/2024 12/22/2023 Influenza Vaccine (#1) [...] ELECTROPHORESIS Routine 11/17/2024 8:58 AM EDT Thrombocytopenia (CMS/HCC V24) IRON AND TIBC Routine 11/17/2024 8:58 AM EDT Thrombocytopenia (CMS/HCC V24) FERRITIN Routine 11/17/2024 8:58 AM EDT Thrombocytopenia (CMS/HCC V24) HEPATIC FUNCTION PANEL Routine 8:58 AM EDT Thrombocytopenia ([facility]/HCC V24) PLATELET ANTIBODIES, INDIRECT Routine 11/17/2024 8:58 AM EDT Thrombocytopenia ([facility]/HCC V24) PLATELET ANTIBODIES, DIRECT Routine 11/17/2024 8:58 AM EDT Thrombocytopenia ([facility]/HCC V24) CBC AND DIFFERENTIAL Routine 11/17/2024 8:58 AM EDT Thrombocytopenia ([facility] V24) COLONOSCOPY Routine 05/19/2024 12:47 PM EST Encounter for screening for malignant neoplasm of colon HM DEPRESSION SCREENING Routine 12/22/2023 LIPID PANEL Routine 12/22/2023 from Last 3 Months or Most Recently Relevant to Health Maintenance Results * (ABNORMAL) CBC auto differential (12/08/2024 7:59 AM EDT) Only the most recent of2 resultswithin the time period is included. WBC [...] [facility] Comment:reviewed by ariel REYES LAB HEMETOLOGY METHOD 12/08/2024 10:38 AM [facility] [...] % LAB HEMETOLOGY METHOD 12/08/2024 10:38 AM EDT [facility] Neutrophils Absolute 1.69 1.50 - 7.00 K/mcL LAB HEMETOLOGY METHOD 12/08/2024 10:38 AM EDT [facility] Lymphocytes Absolute 1.54 1.00 - 5.00 K/mcL LAB HEMETOLOGY METHOD 12/08/2024 10:38 AM EDT [facility] Monocytes Absolute 0.10(L) 0.20 - 1.00 K/[facility] LAB HEMETOLOGY METHOD 12/08/2024 10:38 AM EDT [facility] Eosinophils Absolute 0.13 0.00 - 0.50 K/mcL LAB HEMETOLOGY METHOD 12/08/2024 10:38 AM EDT [facility] Basophils Absolute 0.02 0.00 - 0.20 K/mcL LAB HEMETOLOGY METHOD 12/08/2024 10:38 AM [facility] Immature Granulocytes Absolute 0.01 0.00 - 0.03 K/mcL LAB HEMETOLOGY METHOD 12/08/2024 10:38 AM [facility] Blood Venous blood specimen / Unknown Venipuncture / Unknown 12/08/2024 7:59 AM EDT 12/08/2024 9:05 AM EDT us Shaji Huntley MD LAB BLOOD ORDERABLES Final Resul t [facility] [address] [place] [address], * (ABNORMAL) Comprehensive metabolic panel (12/08/2024 7:59 AM EDT) Sodium 140 133 - 145 mmol/L LAB CHEMISTRY METHOD 12/08/2024 10:01 AM EDT [facility] Potassium 3.4(L) 3.5 - 5.5 mmol/L LAB CHEMISTRY METHOD 12/08/2024 10:01 AM EDT [facility] Chloride 104 96 - 110 mmol/L [...] g/dL LAB CHEMISTRY METHOD 12/08/2024 10:01 AM EDT [facility] Total Bilirubin 0.5 0.0 - 1.4 mg/dL LAB CHEMISTRY METHOD 12/08/2024 10:01 AM EDT [facility] Blood Venous blood specimen / Unknown Venipuncture / Unknown 12/08/2024 7:59 AM EDT 12/08/2024 9:04 AM EDT us Shaji Huntley MD LAB BLOOD ORDERABLES Final Resul t [facility] [address] [place] [address], [place] [phone] * (ABNORMAL) Manual differential (11/17/2024 8:58 AM EDT) Neutrophils % 29.0 % LAB HEMETOLOGY METHOD 11/17/2024 11:57 AM EDT [facility] Lymphocytes % 66.0 % LAB HEMETOLOGY METHOD 11/17/2024 11:57 AM EDT [facility] Monocytes % 2.0 % LAB HEMETOLOGY METHOD 11/17/2024 11:57 AM EDT [facility] Eosinophils % 2.0 % LAB HEMETOLOGY METHOD 11/17/2024 11:57 AM EDT [facility] Basophils % 1.0 % LAB HEMETOLOGY METHOD 11/17/2024 11:57 AM EDT [facility] Neutrophils Absolute Manual 0.49(L) 1.50 - 7.00 K/mcL LAB HEMETOLOGY METHOD 11/17/2024 11:57 AM EDT [facility] Lymphocytes Absolute 1.12 1.00 - 5.00 K/mcL LAB HEMETOLOGY METHOD 11/17/2024 11:57 AM EDT [facility] Monocytes Absolute Manual 0.03(L) 0.20 - 1.00 K/mcL LAB HEMETOLOGY METHOD 11/17/2024 11:57 AM EDT [facility] Eosinophils Absolute Manual 0.03 0.00 - 0.50 K/mcL LAB HEMETOLOGY METHOD 11/17/2024 11:57 AM EDT [facility] Basophils Absolute Manual 0.02 0.00 - 0.20 K/mcL LAB HEMETOLOGY METHOD 11/17/2024 11:57 AM EDT [facility] Rbc Morphology Present( A) Consistent with indices, Normal for [place] LAB HEMETOLOGY METHOD 11/17/2024 11:57 AM EDT [facility] Comment:RBC: Morphology agre es with CBC Platelet Morphology - WAM See Note(A) Normal LAB HEMETOLOGY METHOD 11/17/2024 11:57 AM EDT [facility] Comment:PLT: Normal Polychromasia Present Present( A) (none) LAB HEMETOLOGY METHOD 11/17/2024 11:57 AM EDT [facility] Ovalocytes Present 11 - 15%(A) (none) LAB HEMETOLOGY METHOD 11/17/2024 11:57 AM EDT [facility] Schistocytes Present < 5%(A) (none) LAB HEMETOLOGY METHOD 11/17/2024 11:57 AM EDT [facility] Blood Venous blood specimen / Unknown Venipuncture / Unknown 11/17/2024 8:58 AM EDT 11/17/2024 11:06 AM EDT us Flako Hudson MD LAB BLOOD ORDERABLES Final R esult [facility] [address] [place] [address], * (ABNORMAL) Hemoglobin electrophoresis (11/17/2024 8:58 AM EDT) Hemoglobin A1 92.6(L) 96.5 - 97.8 % 11/19/2024 2:46 PM EDT [facility] Hemoglobin A2 5.5(H) 2.2 - 3.2 % 11/19/2024 2:46 PM EDT [facility] Hemoglobin F 1.9 <2.0 % 11/19/2024 2:46 PM EDT [facility] Hemoglobin S 0.0 0.0 % 11/19/2024 2:46 PM EDT [facility] Hemoglobin C 0.0 0.0 % 11/19/2024 2:46 PM EDT [facility] Interpretation See Below 11/19/2024 2:46 PM EDT [facility] Comment: Hemoglobin A2 is increased. This finding, in conjunction with the submitted hemogram results, supports the diagnosis of heterozygous beta thalassemia. Test performed at [facility], [address] , [place] [address] Brooke Milian MD, PhD - [employer]ough Cutting Machine Operator Blood Venous blood specimen / Unknown Venipuncture / Unknown 11/17/2024 8:58 AM EDT 11/17/2024 11:07 AM EDT Flako Hudson MD LAB BLOOD ORDERABLES Final R esult [facility] [address] [place] [address] * Iron and TIBC (11/17/2024 8:58 AM EDT) Iron 123 50 - 160 mcg/dL LAB CHEMISTRY METHOD 11/17/2024 11:56 AM EDT [facility] TIBC 282 250 - 450 mcg/dL LAB CHEMISTRY METHOD 11/17/2024 11:56 AM EDT [facility] Iron Saturation 44 20 - 50 % LAB CHEMISTRY METHOD 11/17/2024 11:56 AM EDT [facility] Blood Venous blood specimen / Unknown Venipuncture / Unknown 11/17/2024 8:58 AM EDT 11/17/2024 11:07 AM EDT us Flako Hudson MD LAB BLOOD ORDERABLES Final R esult [facility] ([facility]) [facility] [address] [place] [address], * Platelet antibodies, indirect (11/17/2024 8:58 AM EDT) Pathologist [facility] Overall Result Negative Not Applicable 11/22/2024 2:35 PM EDT [facility] Interpretation SEE BELOW 11/22/2024 2:35 PM EDT [facility] Comment:RESULT: No platelet antibodies were detected. GPIIb/IIIa (Cell-1) Negative Not Applicable 11/22/2024 2:35 PM EDT [facility] Comment: Antigens: HPA-1a/1a,3a/3a,4a/ Observed OD Value: 0.131/Cutoff: 0.298 GPIIb/IIIa (Cell-2) Negative Not Applicable 11/22/2024 2:35 PM EDT [facility] Comment: Antigens: HPA-1b/1b,3b/3b,4a/ Observed OD Value: 0.120/Cutoff: 0.280 GPIa/IIa (Cell-1) Negative Not Applicable 11/22/2024 2:35 PM EDT [facility] Comment: Antigens: HPA-5b/5b Observed OD Value: 0.127/Cutoff: 0.304 GPIa/IIa (Cell-2) Negative Not Applicable 11/22/2024 2:35 PM EDT [facility] Comment: Antigens: HPA-5a/5a Observed OD Value: 0.143/Cutoff: 0.235 GPIb/IX Negative Not Applicable 11/22/2024 2:35 PM EDT [facility] Comment:Observed OD Value: 0 .039/Cutoff: 0.078 GPIV Negative Not Applicable 11/22/2024 2:35 PM EDT [facility] Comment:Observed OD Value: 0 .097/Cutoff: 0.307 HLA Class I Negative Not Applicable 11/22/2024 2:35 PM EDT [facility] Comment: Observed OD Value: 0.092/Cutoff: 0.267 ADDITIONAL INFORMATION The presence of other HPA polymorphic variants located on GPIIb/IIIa (HPA-6,7,8,9,10,11,14,16,17,19,20,21), GPIa/IIa (HPA-13,18), and GPIb/IX (HPA-12) have not been determined for this assay. Therefore, antibodies to these may be reactive in this assay. Method: Leah Based Assay CLIA: [id number] CLIA Brim Pouncer: BRY BEDOLLA,Ph.D. Test Performed by: [place] [address] Brim Pouncer: Byr Bedolla Ph.D.; CLIA# [id number] Reason for Request? N/A 11/22/2024 2:35 PM [...] MD LAB BLOOD ORDERABLES Final R esult [facility] [address] [place] [address] * Platelet antibodies, direct (11/17/2024 8:58 AM EDT) Platelet Ab, Direct, Flow Cyto NEGATIVE NEGATIVE 11/22/2024 7:38 PM EDT [facility] Comment: This test was developed and its analytical performance characteristics have been determined by [facility]. It has not been cleared or approved by the FDA. This assay has been validated pursuant to the CLIA regulations and is used for clinical purposes. Test Performed at: [facility] [address] [place] [address] Bradford Cooper MD, PhD, MEG Blood Venous blood specimen / Unknown Venipuncture / Unknown 11/17/2024 8:58 AM EDT 11/17/2024 11:07 AM EDT Flako Hudson MD LAB BLOOD ORDERABLES Final R esult [facility] [address] [place] [address] * (ABNORMAL) Ferritin (11/17/2024 8:58 AM EDT) [facility] Ferritin 443(H) 26 - 388 ng/mL LAB CHEMISTRY METHOD 11/17/2024 11:56 AM EDT [facility] Blood Venous blood specimen / Unknown Venipuncture / Unknown 11/17/2024 8:58 AM EDT 11/17/2024 11:07 AM EDT Flako Hudson MD LAB BLOOD ORDERABLES Final R esult Performing Organization Address City/[facility]/ZIP Co de Phone Number [facility] [address] [place] [address], [place] [phone] * Hepatic function panel (11/17/2024 8:58 AM EDT) [facility] Total Protein 7.0 6.0 - 8.0 g/dL LAB CHEMISTRY METHOD 11/17/2024 11:56 AM EDT [facility] Albumin 3.8 3.2 - 5.0 g/dL LAB CHEMISTRY METHOD 11/17/2024 11:56 AM EDT [facility] Total Bilirubin 0.5 0.0 - 1.4 mg/dL LAB CHEMISTRY METHOD 11/17/2024 11:56 AM EDT [facility] Bilirubin, Direct 0.2 0.0 - 0.3 mg/dL LAB CHEMISTRY METHOD 11/17/2024 11:56 AM EDT [facility] Bilirubin, Indirect 0.3 0.0 - 1.1 mg/dL LAB CHEMISTRY METHOD 11/17/2024 11:56 AM EDT [facility] ALT (SGPT) 47 10 - 60 unit/L LAB CHEMISTRY METHOD 11/17/2024 11:56 AM EDT [facility] AST (SGOT) 23 10 - 42 unit/L LAB CHEMISTRY METHOD 11/17/2024 11:56 AM EDT [facility] Alkaline Phosphatase 77 42 - 121 unit/L LAB CHEMISTRY METHOD 11/17/2024 11:56 AM EDT [facility] Blood Venous blood specimen / Unknown Venipuncture / Unknown 11/17/2024 8:58 AM EDT 11/17/2024 11:07 AM EDT [facility] Tristan SANABRIA LAB BLOOD ORDERABLES Final R esult [facility] [address] [place] [address], * COLONOSCOPY Anesthesia - MAC; [facility] ENDOSCOPY (05/19/2024 12:47 PM EST) Anatomical Region Laterality Modality Other 05/19/2024 12:3 1 PM EST Impressions 05/19/2024 12:51 PM EST - One 6 mm polyp at 50 cm proximal to the anus, removed with a cold snare. Resected and retrieved. Clip was placed. Clip telephone quotation clerk: Anapsis. - Diverticulosis in the entire examined colon. - Bleeding internal hemorrhoids. - The examination was otherwise normal on direct and retroflexion views. Recommendation: - Discharge patient to home. - High fiber diet. - Continue present medications. - Await pathology results. - Repeat colonoscopy for surveillance based on pathology results. - Return to GI office PRN. Narrative 05/19/2024 12:51 PM EST [facility] GI Patient Name: Sriram Morales Procedure [...] one hemostatic clip was successfully placed. Clip telephone quotation clerk: Anapsis. There was no bleeding at the end of the procedure. Scattered small-mouthed diverticula were found in the entire colon. Bleeding internal hemorrhoids were found during retroflexion. The hemorrhoids were medium-sized. The exam was otherwise without abnormality on direct and retroflexion views. Procedure Code(s): --- Professional --- 71871, Colonoscopy, flexible; with removal of tumor(s), polyp(s), or other lesion(s) by snare technique Diagnosis Code(s): --- Professional --- Z86.010, Personal history of colonic polyps D12.6, Benign neoplasm of colon, unspecified CPT copyright 2020 [employer]. All rights reserved. The codes documented in this report are preliminary and upon leather sponger review may be revised to meet current compliance requirements. Fritz Douglas MD 05/19/2024 12:51:10 PM This report has been signed electronically.Fritz Douglas MD Number of Addenda: 0 Note Initiated On: 05/19/2024 12:31 PM Scope In: Scope Out: Endoscopy Department at [facility] - [address] [place] [phone] Procedure Note Fritz Douglas MD - 05/19/2024 [facility] GI Patient Name: Sriram Morales Procedure [...] one hemostatic clip was successfully placed. Clip telephone quotation clerk: Anapsis. There was no bleeding at the end of the procedure. Scattered small-mouthed diverticula were found inthe entire colon. Bleeding internal hemorrhoids were found during retroflexion. The hemorrhoids were medium-sized. The exam was otherwise without abnormality ondirect and retroflexion views. Procedure Code(s): --- Professional --- 77071, Colonoscopy, flexible; with removal of tumor(s), polyp(s), or other lesion(s) by snare technique Diagnosis Code(s): --- Professional --- Z86.010, Personal history of colonic polyps D12.6, Benign neoplasm of colon, unspecified CPT copyright 2020 [employer]. All rights reserved. The codes documented in this report are preliminary and upon leather sponger reviewmay be revised to meet current compliance requirements. Fritz Douglas MD 05/19/2024 12:51:10 PM This report has been signed electronically.Fritz Douglas MD Number of Addenda: 0 Note Initiated On: 05/19/2024 12:31 PM Scope In: Scope Out: Endoscopy Department at [facility] - [address] [place] [phone] IMPRESSION: - One 6 mm polyp at 50 cm proximal to the anus, removed with a cold snare. Resected and retrieved. Clip was placed. Clip telephone quotation clerk: [employer]. - Diverticulosis in the entire examined colon. - Bleeding internal hemorrhoids. - The examination was otherwise normal on directand retroflexion views. Recommendation: - Discharge patient to home. - High fiber diet. - Continue present medications. - Await pathology results. - Repeat colonoscopy for surveillance based on pathology results. - Return to GI office PRN. Result [facility] Aditya Locke MD GI~PROCEDURE ORDERABLES Final Re sult * Depression Screening (12/22/2023) Pathologist [facility] Depression Screening abstracted Historical Provider HEALTH MAINTENANCE Final Result * Lipid panel (12/22/2023) Pathologist [facility] LDL/HDL Ratio 3 0 - 4 Triglycerides 102 0 - 150 mg/dL Cholesterol 160 0 - 200 mg/dL HDL 51 >=40 mg/dL LDL Cholesterol 89 0 - 100 mg/dL Blood Venous blood specimen / Unknown us Historical Provider LAB BLOOD ORDERABLES [facility] Result from Last 3 Months or Most Recently Relevant to Health Maintenance Insurance [employer] [facility] Care Teams Truck Hopper Relationship Specialty Start Date End Date Shaji Huntley MD [address] [place] [address] PCP - General 07/24/22
--- OUTSIDE RECORDS SUMMARY | 2025-02-15 08:57 | XMS_ITS | Encounter Summary ---
Author Organization [facility] Address [address] [place] [address] Phone Care Team Providers Care Neonatal Critical Care Nurse Name Role Phone Shaji Huntley MD Primary Care Provider [phone] Encounter Details Date Type Department Care Team (Late st Contact Info) Description 11/18/2022 Documentation Only [facility] [place], [address] [place] [address] Shaji Huntley MD [address] [place] [address] Social History Tobacco Use Types Packs/Day Years [...] on filedocumented in this encounter Care Teams Neonatal Critical Care Nurse Relationship Specialty Start Date End Date Shaji Huntley MD [address] [place] [address] PCP - General Internal Medicine 11/13/22 documented as of this encounter
--- OUTSIDE RECORDS SUMMARY | 2025-02-15 08:57 | XMS_ITS | Clinical Summary ---
Author Organization [facility], Address [address] [place] [address] [place] [address] Phone Care Team Providers Care Home Mission Worker Name Role Phone Shaji Huntley MD Primary Care Provider [phone] Allergies Active Allergy Reactions Criticality Noted Date [...] patient's age to complete this topic Insurance [facility] Healthnet Care Teams Home Mission Worker Relationship Specialty Start Date End Date Shaji Huntley MD [address] [place] [address] PCP - General Internal Medicine 11/13/22
--- OUTSIDE RECORDS SUMMARY | 2025-02-15 08:57 | XMS_ITS | Patient Health Record ---
Author Organization [facility] Address [address] [place] [address] Care Team Providers Care Transaction Processor Name Role Phone BOOGIE SWAN Unavailable Reason [...]
--- OUTSIDE RECORDS SUMMARY | 2025-02-15 08:57 | XMS_ITS | Encounter Summary ---
Author Organization [facility] [place] [address] Care Team Providers Care Sign Poster Name Role Phone Shaji Huntley MD Primary Care Provider Reason for Visit * Reason Onset Date Comments New Med Request 01/25/2025 Encounter Details Date Type Department Care Team (Late st Contact Info) Description 01/25/2025 Telephone Internal Medicine - [place] [address] [facility] [address] [place] [address] Shaji Huntley MD 175 [facility] 200 [place], [place] [phone] Social History Tobacco Use Types Packs/Day Years [...] AM EST documented as of this encounter Progress Notes * Lino Dickey [place] - 01/26/2025 1:11 PM EDT [facility] association called and stated that the patient is having extreme nausea and has a recent diagnoses of lukemia and patient would like the pcp to give him medication because hematology and oncology are still not prescribing any medications yet. Patient prefers the dissolving table. * Loretta Yisel - 01/25/2025 1:42 PM EDT Mental health association called and stated that the patient is having extreme nausea and has a recent diagnoses of lukemia and patient would like the pcp to give him medication because hematology and oncology are still not prescribing any medications yet. Patient prefers the dissolving table. Please advise # [phone] documented in this encounter Plan of Treatment Upcoming Encounters Date Type Department Care Team (Late st Contact Info) Description 04/28/2025 10:15 AM EST Office Visit [facility] Hematology Oncology [address] [place] [address] Flako Hudson MD [address] [place] [address] documented as of this encounter Visit Diagnoses Not on filedocumented in this encounter Care Teams Sign Poster Relationship Specialty Start Date End Date Shaji Huntley MD [address] [address] PCP - General 07/24/22 documented as of this encounter
--- OUTSIDE RECORDS SUMMARY | 2025-02-15 08:57 | XMS_ITS | Encounter Summary ---
Author Organization [facility] Address [address] [place] [address] Phone Care Team Providers Care Blocker Metal Base Name Role Phone Shaji Huntley MD Primary Care Provider [phone] Encounter Details Date Type Department Care Team (Late st Contact Info) Description 03/31/2024 Documentation Only [facility] [place], [address] [place] [address] [employer], [address] [place] [address] Social History Tobacco Use Types [...] on filedocumented in this encounter Care Teams Blocker Metal Base Relationship Specialty Start Date End Date Shaji Huntley MD [address] [place] [address] PCP - General Internal Medicine 11/13/22 documented as of this encounter
--- OUTSIDE RECORDS SUMMARY | 2025-02-15 08:57 | XMS_ITS | Encounter Summary ---
Author Organization [facility] Address [address] [place] [address] Phone Care Team Providers Care Housekeeper And Laundry Assistant Name Role Phone Shaji Huntley MD Primary Care Provider [phone] Encounter Details Date Type Department Care Team (Late st Contact Info) Description 03/31/2024 Documentation Only [facility] [place], [address] [place] [address] [employer], [address] [place] [address] Social History Tobacco Use Types [...] on filedocumented in this encounter Care Teams Housekeeper And Laundry Assistant Relationship Specialty Start Date End Date Shaji Huntley MD [address] [place] [address] PCP - General Internal Medicine 11/13/22 documented as of this encounter
--- OUTSIDE RECORDS SUMMARY | 2025-02-15 08:57 | XMS_ITS | Encounter Summary ---
Author Organization [facility] [place] [address] Care Team Providers Care Licensing Coordinator Name Role Phone Shaji Huntley MD Primary Care Provider [phone] Encounter Details Date Type Department Care Team ([facility] Contact Info) Description 01/18/2025 Telephone Internal Medicine - [place] [address] [phone] Shaji Huntley MD [address] [address] Social History Tobacco Use Types Packs/Day Years [...] AM EST documented as of this encounter Plan of Treatment Upcoming Encounters Date Type Department Care Team ([facility] Contact Info) Description 04/28/2025 10:15 AM EST Office Visit [facility] Hematology Oncology [address] [place] [phone] Flako Hudson MD [address] [place] [address] documented as of this encounter Visit Diagnoses Not on filedocumented in this encounter Care Teams Licensing Coordinator Relationship Specialty Start Date End Date Shaji Huntley MD [address] [address] PCP - General 07/24/22 documented as of this encounter
--- OUTSIDE RECORDS SUMMARY | 2025-02-15 08:57 | XMS_ITS | Clinical Summary ---
Author Organization [facility] Address [address] [facility] [address] [place] [address] Phone Care Team Providers Care Office Machine Servicer Apprentice Name Role Phone Shaji Huntley MD Primary Care Provider [phone] Social History Tobacco Use Types Packs/Day Years [...] Description 03/27/2026 10:00 AM EST Office Visit [facility] [address] [facility] [address] [place] [address] Nu Robison MD [address] [facility] [place] [place] [address] [email or web address] Health Maintenance Due Date Last Done Comments [...] 2012 ZOSTER VACCINES (1 of 2) 2012 INFLUENZA VACCINE (#1) 2024 COVID-19 VACCINE (1 - 2024-2 6 season) 2025 RSV VACCINE (1 - 1-dose 75+ series) [...] topic Medical Devices Not on file Insurance [employer] [place] [address] [place] [address] [facility]ANCE [facility] Care Teams Office Machine Servicer Apprentice Relationship Specialty Start Date End Date Shaji Huntley MD [address] [place] [address] PCP - General Internal Medicine 05/14/24 Additional Source Comments The information contained in this document represents components of the legal health record. It is not the complete legal health record.[facility]
[2025-02-15 10:16] LABS: Prostate Specific Antigen 9.68 ng/mL (<0.05-4.0)
== END 2025-02-15 08:27 | disposition home or self-care (01) ==
LOC: HO.LAB 08:26
PROVIDERS: PCP Internal Medicine; Visit Provider Urology
DX: R97.20 Elevated prostate specific antigen [PSA] (principal)
CPT/HCPCS: 36415; 84153

== ENCOUNTER 2025-03-01 09:05 | Outpatient (AMB) | payer OTHER, SELFPAY ==
--- NOTE | 2025-03-01 09:08 | MHC.OFFVIS ---
Intake Visit Reasons: 3m/PSA Intake Note: Patient presents to office for: 3mo follow up urology meds: finasteride, vitB, vitC Blood thinner : none labs done 02/15/25: PSA 9.68 Optometric Tech Required: No Accompanied by: Self / Same As Patient Allergies clindamycin Allergy (Intermediate, Verified 03/01/25 09:09) Unknown haloperidol (From Haldol) Allergy (Intermediate, Verified 03/01/25 09:09) Unknown NSAIDS (Non-Steroidal Anti-Inflamma Allergy (Intermediate, Verified 03/01/25 09:09) Unknown Penicillins Allergy (Intermediate, Verified 03/01/25 09:09) Anaphylaxis HPI Comments Details: Lemuel is a pleasant male. He is a patient of Dr. Huntley. He is seen for the following urologic conditions - lower urinary tract symptoms - elevated PSA Improvement of symptoms with finasteride Plan repeat PSA and three-month Discussed biopsy SOUMYA 2+ prostate soft Lower urinary tract symptoms with elevated PSA Background history resident of psychiatric facility. Incarceration 37 years. Prior significant alcohol use. Is unaware of family history related to prostate issues Denies urinary complaints PSA 10/03 20, 03/05 9.7 Improvement with finasteride PFSH Medical History (Updated 01/25/25 @ 00:02 by Background Daemon) Thrombocytopenia Pancytopenia BPH (benign prostatic hyperplasia) HTN (hypertension) Elevated PSA Hypothyroidism Essential (primary) hypertension Thrombocytopenia Attention deficit disorder Dissociative disorder Chronic post-traumatic stress disorder (PTSD) Major depressive disorder, recurrent severe without psychotic features Social History Household Members: Other Household Members Other:: retirement Housing: Other Housing Other:: in a retirement Do you presently have visiting nurse or other home services: No Alcohol intake: former Comment: sitter at bedside Patient Tobacco Use Status: Never used Tobacco Substance Use Type: Marijuana service: No Assessment & Plan Assessment & Plan (1) Elevated PSA: Code(s): R97.20 - Elevated prostate specific antigen [PSA] Category: Medical Plan Six-month follow-up lab work Orders: Orders Prostate Specific Antigen 6 Months R97.20 - Elevated prostate specific antigen [PSA] Medications: Refilled finasteride 5 mg PO DAILY 90 tabs 1RF 90 days R97.20 - Elevated prostate specific antigen [PSA] Patient Instructions: This note is constructed using voice recognition software. While every effort has been made to ensure accuracy functional mental disability teacher errors may have been included. Imaging studies, laboratory and physical exam results were discussed and reviewed in detail. No major barriers to patient understanding were identified. An opportunity to ask questions regarding the treatment plan was provided. All questions were answered. The patient expressed understanding and agreement with the above treatment plan. The patient is aware they should contact our office by phone for worsening of their current condition or the appearance of new urologic symptoms. Compliance is encouraged with any medications and followup testing that is ordered. It is a privilege to participate in the urologic care of your patient. If you have any questions or concerns regarding treatment for the above conditions, or other urologic issues, please do not hesitate to contact me. The office telephone contact is [phone]. Sincerely, Dr Evangelista Walsh MD, ME[facility] - Urology Compassionate Specialist Care for the Genitourinary System Coding Level of Care Code Est Pt Level 3 (90666) Complex EM visit Add On G2211 Diagnoses Elevated PSA R97.20
--- OUTSIDE RECORDS SUMMARY | 2025-03-01 09:52 | XMS_ITS | Encounter Summary ---
Author Organization [facility] Address [address] [place] [address] Phone Care Team Providers Care Hvac/R Instructor Name Role Phone Shaji Huntley MD Primary Care Provider [phone] Encounter Details Date Type Department Care Team (Late st Contact Info) Description 03/31/2024 Documentation Only [facility] [place], [address] [place] [address] [employer], [address] [place] [address] Social History Tobacco Use Types [...] on filedocumented in this encounter Care Teams Hvac/R Instructor Relationship Specialty Start Date End Date Shaji Huntley MD [address] [place] [address] PCP - General Internal Medicine 11/13/22 documented as of this encounter
--- OUTSIDE RECORDS SUMMARY | 2025-03-01 09:52 | XMS_ITS | Clinical Summary ---
Author Organization [facility], Address [address] [place] [address] [place] [address] Phone Care Team Providers Care Mate Chief Name Role Phone Shaji Huntley MD Primary Care Provider [phone] Allergies Active Allergy Reactions Criticality Noted Date [...] patient's age to complete this topic Insurance [facility] Healthnet Care Teams Mate Chief Relationship Specialty Start Date End Date Shaji Huntley MD [address] [place] [address] PCP - General Internal Medicine 11/13/22
--- OUTSIDE RECORDS SUMMARY | 2025-03-01 09:52 | XMS_ITS | Clinical Summary ---
Author Organization [facility] Address [address] [facility] [address] [place] [address] Phone Care Team Providers Care French Folding Machine Operator Name Role Phone Shaji Huntley MD Primary Care Provider [phone] Social History Tobacco Use Types Packs/Day Years [...] Description 03/27/2026 10:00 AM EST Office Visit [facility] [place] [facility] [address] [facility] [address] [place] [address] Nu Robison MD [address] [facility] [address] [place] [address] Health Maintenance Due Date Last Done Comments [...] topic Medical Devices Not on file Insurance [employer] [place] [place] [address] [facility] ACO [facility]ANCE [facility] Care Teams French Folding Machine Operator Relationship Specialty Start Date End Date Shaji Huntley MD [address] [place] [address] PCP - General Internal Medicine 05/14/24 Additional Source Comments The information contained in this document represents components of the legal health record. It is not the complete legal health record.[facility]
--- OUTSIDE RECORDS SUMMARY | 2025-03-01 09:52 | XMS_ITS | Encounter Summary ---
Author Organization [facility] Address [address] [place] [address] Phone Care Team Providers Care Dinker Name Role Phone Shaji Huntley MD Primary Care Provider [phone] Encounter Details Date Type Department Care Team (Late st Contact Info) Description 11/18/2022 Documentation Only [facility] [place], [address] [place] [address] Shaji Huntley MD [address] [place] [address] Social History Tobacco Use Types Packs/Day Years [...] on filedocumented in this encounter Care Teams Dinker Relationship Specialty Start Date End Date Shaji Huntley MD [address] [place] [address] PCP - General Internal Medicine 11/13/22 documented as of this encounter
--- OUTSIDE RECORDS SUMMARY | 2025-03-01 09:52 | XMS_ITS | Patient Health Record ---
Author Organization [facility] Address [address] [place] [address] Care Team Providers Care Burr Picker Name Role Phone BOOGIE SWAN Unavailable Reason [...]
--- OUTSIDE RECORDS SUMMARY | 2025-03-01 09:52 | XMS_ITS | Encounter Summary ---
Author Organization [facility] Address [address] [place] [address] Phone Care Team Providers Care Performance Improvement Director Name Role Phone Shaji Huntley MD Primary Care Provider [phone] Encounter Details Date Type Department Care Team (Late st Contact Info) Description 03/31/2024 Documentation Only [facility] [place], [address] [place] [address] [employer], [address] [place] [address] Social History Tobacco Use Types [...] on filedocumented in this encounter Care Teams Performance Improvement Director Relationship Specialty Start Date End Date Shaji Huntley MD [address] [place] [address] PCP - General Internal Medicine 11/13/22 documented as of this encounter
--- OUTSIDE RECORDS SUMMARY | 2025-03-01 09:52 | XMS_ITS | Encounter Summary ---
Author Organization [facility] Address [address] [place] [address] Phone Care Team Providers Care Galvanizer Name Role Phone Shaji Huntley MD Primary Care Provider [phone] Encounter Details Date Type Department Care Team (Late st Contact Info) Description 11/19/2022 Documentation Only [facility] [place], [address] [place] [address] Shaji Huntley MD [address] [place] [address] Social History Tobacco Use Types Packs/Day Years [...] on filedocumented in this encounter Care Teams Galvanizer Relationship Specialty Start Date End Date Shaji Huntley MD [address] [place] [address] PCP - General Internal Medicine 11/13/22 documented as of this encounter
== END 2025-03-01 09:28 | disposition home or self-care (01) ==
LOC: HO.HUSH 09:06
PROVIDERS: PCP Internal Medicine; Visit Provider Urology
DX: R97.20 Elevated prostate specific antigen [PSA] (principal)
CPT/HCPCS: 99213

== ENCOUNTER → 2025-03-01 09:05 | Outpatient (BNVA) | payer OTHER, SELFPAY | PROVIDERS: PCP Internal Medicine; Visit Provider Urology | DX: R97.20 Elevated prostate specific antigen [PSA] (principal) | CPT/HCPCS: 99212 ==